=== PATIENT | female | born 1950 | race Caucasian/White ===

== ENCOUNTER → 2018-03-30 14:26 | Outpatient (CLI) | payer BC, SELFPAY ==
[2018-03-30 17:28] LABS: Absolute Lymphocyte Count 3.56 X10^3/ul (0.83-4.51); Absolute Neutrophil Count 8.7 X10^3/uL (2.0-7.7); Basophil# 0.09 X10^3/uL; Basophil% 0.6 % (0-1); Eosinophils% 3.5 % (0-5); Hematocrit 41.6 % (37-47); Hemoglobin 13.4 g/dl (12.0-15.0); Lymphocyte # 3.56 X10^3/ul (4.0); Lymphocyte % 25.2 % (19-41); Mean Corp Hgb Conc 32.2 g/gl (32-36); Mean Corpuscular Hgb 30.7 pg (27.0-32.0); Mean Corpuscular Volume 95.4 fL (81-99); Mean Platelet Vol. 13.6 fl (6.2-12.0); Monocyte% 8.5 % (0-10); Neutrophil # 8.74 X10^3/uL (2.7-7.7); Platelet Count 247 K/mm3 (150-450); RBC Distribution Width CV 14.3 % (11.6-14.6); RBC Distribution Width SD 47.6 fl (35.1-43.9); Red Blood Count 4.36 M/mm3 (4.2-5.4); White Blood Count 14.1 K/mm3 (4.4-11.0)
[2018-03-30 17:33] LABS: POSITIVE COUNT NO; POSITIVE DIFFERENTIAL NO; POSITIVE MORPHOLOGY NO
[2018-03-30 17:52] LABS: AST(SGOT) 18 U/L (15-37); Alanine Aminotransfer ALT/SGPT 27 U/L (13-56); Albumin, Serum 3.8 g/dL (3.2-5.0); Alkaline Phosphatase 60 U/L (45-117); Anion Gap 8 (5-15); BUN 21 mg/dL (7-18); BUN/Creat Ratio 19.3 RATIO (10-20); Calcium,Total 10.9 mg/dL (8.5-10.1); Chloride 106 mmol/L (98-107); Creatinine, Serum 1.09 mg/dL (0.55-1.02); EST Glomerular Filtration Rate 54 mL/min (>60); Est Glom Filt Rate - Afr Amer 65 mL/min (>60); Globulin 3.7 g/dL (2.2-4.2); Glucose 98 mg/dL (74-106); Potassium 4.6 mmol/L (3.5-5.1); Protein, Total 7.5 g/dL (6.4-8.2); Sodium Level 143 mmol/L (136-145); Thyroid Stim Hormone (TSH) 0.89 uIU/mL (0.358-3.74)
== END ==
PROVIDERS: Family Provider Family Medicine Geriatric Medicine; PCP Family Medicine Geriatric Medicine; Visit Provider Family Medicine Geriatric Medicine
DX: E11.9 Type 2 diabetes mellitus without complications (principal); E55.9 Vitamin D deficiency, unspecified; I10 Essential (primary) hypertension
CPT/HCPCS: 36415; 80053; 82306; 84443; 85025

== ENCOUNTER → 2018-09-28 09:54 | Outpatient (CLI) | payer BC, SELFPAY ==
[2018-09-28 12:46] LABS: Absolute Lymphocyte Count 2.54 X10^3/ul (0.83-4.51); Absolute Neutrophil Count 6.4 X10^3/uL (2.0-7.7); Basophil# 0.08 X10^3/uL; Basophil% 0.8 % (0-1); Eosinophil# 0.65 X10^3/uL; Eosinophils% 6.2 % (0-5); Hematocrit 40.2 % (37-47); Hemoglobin 12.8 g/dl (12.0-15.0); Lymphocyte # 2.54 X10^3/ul (4.0); Lymphocyte % 24.3 % (19-41); Mean Corp Hgb Conc 31.8 g/gl (32-36); Mean Corpuscular Hgb 30.7 pg (27.0-32.0); Mean Corpuscular Volume 96.4 fL (81-99); Mean Platelet Vol. 13.1 fl (6.2-12.0); Monocyte# 0.81 X10^3/uL; Monocyte% 7.7 % (0-10); Neutrophil # 6.36 X10^3/uL (2.7-7.7); Neutrophil % 60.7 % (47-70); Platelet Count 217 K/mm3 (150-450); RBC Distribution Width CV 14.4 % (11.6-14.6); RBC Distribution Width SD 48.6 fl (35.1-43.9); Red Blood Count 4.17 M/mm3 (4.2-5.4); White Blood Count 10.5 K/mm3 (4.4-11.0)
[2018-09-28 12:49] LABS: POSITIVE COUNT NO; POSITIVE DIFFERENTIAL NO; POSITIVE MORPHOLOGY NO
[2018-09-28 12:56] LABS: Vitamin D,25 Hydroxy 62.2 ng/mL (29.95-100.01)
[2018-09-28 13:00] LABS: ALB/GLOB Ratio 1.1 RATIO (0.9-2.4); AST(SGOT) 21 U/L (15-37); Alanine Aminotransfer ALT/SGPT 32 U/L (13-56); Albumin, Serum 3.8 g/dL (3.2-5.0); Alkaline Phosphatase 64 U/L (45-117); Anion Gap 8 (5-15); BUN 22 mg/dL (7-18); BUN/Creat Ratio 20.8 RATIO (10-20); Calcium,Total 10.5 mg/dL (8.5-10.1); Chloride 108 mmol/L (98-107); Creatinine, Serum 1.06 mg/dL (0.55-1.02); EST Glomerular Filtration Rate 55 mL/min (>60); Est Glom Filt Rate - Afr Amer 67 mL/min (>60); Globulin 3.4 g/dL (2.2-4.2); Glucose 116 mg/dL (74-106); Protein, Total 7.2 g/dL (6.4-8.2); Sodium Level 145 mmol/L (136-145); Thyroid Stim Hormone (TSH) 0.84 uIU/mL (0.358-3.74)
== END ==
PROVIDERS: Family Provider Family Medicine Geriatric Medicine; PCP Family Medicine Geriatric Medicine; Visit Provider Family Medicine Geriatric Medicine
DX: E11.9 Type 2 diabetes mellitus without complications (principal); E55.9 Vitamin D deficiency, unspecified; I10 Essential (primary) hypertension
CPT/HCPCS: 36415; 80053; 82306; 84443; 85025

== ENCOUNTER → 2018-10-09 17:33 | Outpatient (CLI) | payer BC, SELFPAY | PROVIDERS: Family Provider Family Medicine Geriatric Medicine; PCP Family Medicine Geriatric Medicine; Referring Provider Family Medicine Geriatric Medicine; Visit Provider Family Medicine Geriatric Medicine | DX: R68.83 Chills (without fever) (principal) | CPT/HCPCS: 87633 ==

== ENCOUNTER → 2018-11-23 14:11 | Outpatient (CLI) | payer BC, SELFPAY ==
--- NOTE | 2018-11-23 14:16 | BI_ITS ---
MAMMOGRAPHY - BILATERAL SCREENING 3-D NELI SYNTHESIS REASON FOR EXAM: Female, 67 years old. Bilateral Screening 3-D tomosynthesis PERTINENT HISTORY: No significant family history. TECHNIQUE: 2-D mammograms and 3-D Neli synthesis of the breast (s) were performed. CAD was performed. COMPARISON: October 13, 2016, December 13, 2014 FINDINGS: The breast composition is almost entirely fat. Scattered benign calcifications are stable. There are stable lymph nodes. No dense spiculated masses or suspicious microcalcifications are identified. No architectural distortion is identified. There is no skin thickening or retraction. There has been no significant change since the prior study. BI/SCREENING MAMM (CAD), BILAT IMPRESSION: No mammographic signs of malignancy. Routine yearly mammograms recommended. ASSESSMENT CATEGORY: BIRADS Category 2: Benign. A letter regarding these results will be sent to the patient by the facility within 30 days. FOLLOW UP RECOMMENDATION: Yearly follow up mammogram recommended. (A) Approximately 10% of breast cancers are not detected by mammography. A normal mammogram should not delay biopsy of a clinically suspicious abnormality. Electronically Signed: Tio Mcdaniel MD at 17:00 EDT , Service support ,
--- NOTE | 2018-11-23 14:19 | BD_ITS ---
STUDY: DUAL ENERGY X-RAY ABSORPTIOMETRY / DXA REASON FOR EXAM: Female, 67 years old. The patient is postmenopausal. Loss of height. TECHNIQUE: Bone Mineral Density (BMD) measurements of lumbar spine and bilateral hips were obtained. COMPARISON: None. FINDINGS: Lumbar Spine (L1-L4): g/cm2 (1.322) / T-score (1.3) / Z-score (2.9) Findings are suggestive of normal bone density with a low fracture risk. Left Femur Total: g/cm2 (0.993) / T-score (-0.1) / Z-score (1.1) Left Femoral Neck: g/cm2 (0.968) / T-score (-0.5) / Z-score (1.0) Right Femur Total: g/cm2 (0.992) / T-score (-0.1) / Z-score (1.1) Right Femoral Neck: g/cm2 (0.913) / T-score (-0.9) / Z-score (0.6) BD/Dexa Bone Density Study IMPRESSION: The patient is considered normal as outlined below according to World Mookie Organization (WHO) criteria with a low fracture risk. Reference Information: The T-score is the number of standard deviations above or below the standard which is normal for young adults at their peak bone mineral density. The World Health Organization (WHO) interprets the T-scores as follows: Above -1 Normal bone density Between -1 and -2.5 Osteopenia Equal to / or below -2.5 Osteoporosis As a practical clinical guideline, osteopenia may be graded as follows: Mild -1 through -1.5 Moderate -1.6 through -2.0 Severe -2.1 through -2.4 The Z-score is the number of standard deviations above or below age-matched controls. A Z-score of less than -1.5 would be considered abnormal. References: 1. NIH Osteoporosis and Related Bone Diseases http://www.osteo.org 2. International Society for Clinical Densitometry http://www.iscd.org 3. National Osteoporosis Foundation http://www.nof.org Electronically Signed: Fernando Caro, at 8:19 EDT , Service support ,
== END ==
PROVIDERS: Family Provider Family Medicine Geriatric Medicine; PCP Family Medicine Geriatric Medicine; Referring Provider Family Medicine Geriatric Medicine; Visit Provider Family Medicine Geriatric Medicine
DX: Z12.31 Encounter for screening mammogram for malignant neoplasm of breast (principal); Z78.0 Asymptomatic menopausal state
CPT/HCPCS: 77063; 77067; 77080

== ENCOUNTER → 2019-03-29 | Outpatient (CLI) | payer BC, SELFPAY ==
[2019-03-29 12:51] LABS: Absolute Lymphocyte Count 2.68 X10^3/uL (0.83-4.51); Absolute Neutrophil Count 5.6 X10^3/uL (2.0-7.7); Basophil% 1.1 % (0-1); Eosinophils% 5.3 % (0-5); Hematocrit 40.2 % (37-47); Lymphocyte # 2.68 X10^3/ul (4.0); Lymphocyte % 28.2 % (19-41); Mean Corp Hgb Conc 32.3 g/dL (32-36); Mean Corpuscular Hgb 30.2 pg (27.0-32.0); Mean Corpuscular Volume 93.5 fL (81-99); Mean Platelet Vol. 13.2 fl (6.2-12.0); Monocyte# 0.64 X10^3/uL; Monocyte% 6.7 % (0-10); NRBC Flagged by Analyzer 0 % (0-5); Neutrophil # 5.57 X10^3/uL (2.7-7.7); Neutrophil % 58.4 % (47-70); Platelet Count 209 K/mm3 (150-450); RBC Distribution Width SD 47.5 fl (35.1-43.9); White Blood Count 9.5 K/mm3 (4.4-11.0)
[2019-03-29 13:06] LABS: Vitamin D,25 Hydroxy 57.3 ng/mL (29.95-100.01)
[2019-03-29 13:36] LABS: ALB/GLOB Ratio 1.1 RATIO (0.9-2.4); AST(SGOT) 12 U/L (15-37); Alanine Aminotransfer ALT/SGPT 21 U/L (13-56); Albumin, Serum 3.7 g/dL (3.2-5.0); Alkaline Phosphatase 63 U/L (45-117); Anion Gap 5 (5-15); BUN 30 mg/dL (7-18); BUN/Creat Ratio 30.1 RATIO (10-20); Calcium,Total 10.1 mg/dL (8.5-10.1); Chloride 108 mmol/L (98-107); EST Glomerular Filtration Rate 59 mL/min (>60); Est Glom Filt Rate - Afr Amer 72 mL/min (>60); Globulin 3.3 g/dL (2.2-4.2); Glucose 121 mg/dL (74-106); Potassium 3.9 mmol/L (3.5-5.1); Sodium Level 141 mmol/L (136-145); Thyroid Stim Hormone (TSH) 0.95 uIU/mL (0.358-3.74)
== END | disposition home or self-care (01) ==
LOC: POLAB3 08:42
PROVIDERS: Family Provider Family Medicine Geriatric Medicine; PCP Family Medicine Geriatric Medicine; Visit Provider Family Medicine Geriatric Medicine
DX: E11.9 Type 2 diabetes mellitus without complications (principal); E55.9 Vitamin D deficiency, unspecified; I10 Essential (primary) hypertension
CPT/HCPCS: 36415; 80053; 82306; 84443; 85025

== ENCOUNTER → 2019-08-13 17:03 | Outpatient (CLI) | payer BC, SELFPAY ==
--- NOTE | 2019-08-13 17:06 | RAD_ITS ---
STUDY: X-RAY CHEST REASON FOR EXAM: Female, 68 years old. Chronic bronchitis with chills. No fever. TECHNIQUE: PA and lateral views of the chest. COMPARISON: 07/31/2017. FINDINGS: The lungs are clear and expanded. There is no demonstrated pleural abnormality. Normal size heart. Normal mediastinum and jame. Normal visualized pulmonary arteries. There is atherosclerotic calcification of the aortic arch with tortuosity. There are diffuse degenerative changes of the visualized thoracic spine. There is degenerative osteoarthritis of the bilateral shoulders. There is no demonstrated abnormality of the visualized soft tissue structures of the upper abdomen. RAD/Chest PA and Lateral IMPRESSION: No acute cardiopulmonary disease. Complete resolution of previously seen left lower lobe infiltrate. Electronically Signed: Donna Stinson MD at 22:44 EST , Service support ,
== END ==
PROVIDERS: Family Provider Family Medicine Geriatric Medicine; PCP Family Medicine Geriatric Medicine; Referring Provider Family Medicine Geriatric Medicine; Visit Provider Family Medicine Geriatric Medicine
DX: J41.0 Simple chronic bronchitis (principal); R68.83 Chills (without fever)
CPT/HCPCS: 71046; 87633

== ENCOUNTER → 2019-10-01 09:13 | Outpatient (CLI) | payer OTHER, SELFPAY ==
[2019-10-01 12:15] LABS: Absolute Lymphocyte Count 2.56 X10^3/uL (0.83-4.51); Absolute Neutrophil Count 8.3 X10^3/uL (2.0-7.7); Basophil# 0.11 X10^3/uL; Basophil% 0.9 % (0-1); Eosinophil# 0.35 X10^3/uL; Eosinophils% 2.8 % (0-5); Hematocrit 42.5 % (37-47); Hemoglobin 13.4 g/dL (12.0-15.0); Lymphocyte # 2.56 X10^3/ul (4.0); Lymphocyte % 20.8 % (19-41); Mean Corp Hgb Conc 31.5 g/dL (32-36); Mean Corpuscular Volume 95.1 fL (81-99); Mean Platelet Vol. 12.8 fl (6.2-12.0); Monocyte# 0.96 X10^3/uL; Monocyte% 7.8 % (0-10); NRBC Flagged by Analyzer 0 % (0-5); Neutrophil # 8.26 X10^3/uL (2.7-7.7); Neutrophil % 67.1 % (47-70); Platelet Count 267 K/mm3 (150-450); RBC Distribution Width SD 48.3 fl (35.1-43.9); Red Blood Count 4.47 M/mm3 (4.2-5.4); White Blood Count 12.3 K/mm3 (4.4-11.0)
[2019-10-01 12:52] LABS: Vitamin D,25 Hydroxy 51.2 ng/mL (29.95-100.01)
[2019-10-01 13:16] LABS: ALB/GLOB Ratio 1.2 RATIO (0.9-2.4); AST(SGOT) 17 U/L (15-37); Alanine Aminotransfer ALT/SGPT 30 U/L (13-56); Albumin, Serum 4.1 g/dL (3.2-5.0); Alkaline Phosphatase 64 U/L (45-117); Anion Gap 4 (5-15); BUN 33 mg/dL (7-18); BUN/Creat Ratio 24.4 RATIO (10-20); Calcium,Total 11.7 mg/dL (8.5-10.1); Chloride 108 mmol/L (98-107); Creatinine, Serum 1.35 mg/dL (0.55-1.02); EST Glomerular Filtration Rate 42 mL/min (>60); Est Glom Filt Rate - Afr Amer 50 mL/min (>60); Globulin 3.5 g/dL (2.2-4.2); Glucose 129 mg/dL (74-106); Potassium 4.6 mmol/L (3.5-5.1); Protein, Total 7.6 g/dL (6.4-8.2); Sodium Level 141 mmol/L (136-145)
== END ==
PROVIDERS: PCP Family Medicine Geriatric Medicine; Visit Provider Family Medicine Geriatric Medicine
DX: E11.9 Type 2 diabetes mellitus without complications (principal); E55.9 Vitamin D deficiency, unspecified; I10 Essential (primary) hypertension
CPT/HCPCS: 36415; 80053; 82306; 84443; 85025

== ENCOUNTER → 2019-10-18 06:59 | Outpatient (CLI) | payer OTHER, SELFPAY ==
--- NOTE | 2019-10-18 07:03 | CT_ITS ---
STUDY: LOW DOSE CT LUNG CANCER SCREENING REASON FOR EXAM: Female, 68 years old. TOBACCO ABUSE -- +SMOKER 1PPD X40 YEARS -- HX-DIAB,HTN RADIATION DOSAGE (If Supplied By Facility): CTDIvol = ( 2.01 ) mGy, DLP = ( 62.18 ) mGycm TECHNIQUE: No contrast was administered. Low dose technique was utilized (average mAS-38 and kVp 120). 1.25 mm axial source images with a slice interval of 1.25-mm were reconstructed in lung windows. 2.5 mm axial source images with a slice interval of 2.5-mm were reconstructed in lung windows. 5.0 mm axial source images with a slice interval of 5.0-mm were reconstructed in soft tissue windows. Nodule measured using lung windows on PACS and/or independent workstation with automated measurement of minimum and maximum diameter. Nodule measurement reported as average diameter rounded to the nearest whole number. Growth is defined as an increase ins size of greater than 1.5 mm. COMPARISON: Comparison is made with prior CT scan of the thorax dated October 02, 2015. NODULES: 2 mm noncalcified nodule in the lateral aspect of the right upper lobe as seen on axial image #43. There is a 3.2 mm noncalcified nodule in the posterior medial aspect of the left upper lobe abutting the left major fissure. There is a 3 mm well-defined noncalcified nodule in the lateral aspect of the right upper lobe on axial image #74. There is also evidence of a 3.4 mm noncalcified nodule in the lateral aspect of the right upper lobe as seen on axial image #85. There is a 3 mm noncalcified nodule in the right middle lobe as seen on axial image #114. There is a 6.7 mm noncalcified nodule in the lateral right middle lobe axial axial image #145. Total lung nodules (excluding granulomas): 5 Emphysema: Mild emphysematous changes. Aorta: Atherosclerotic calcification. Coronary arteries: Coronary artery calcification. CT/Low Dose CT Lung Screening IMPRESSION: Lung-RADS category 3 - Continue screening with LDCT in 6 months. IMPORTANT NOTES FOR USE: ACR Lung-RADS Version 1.0 Assessment Categories Release Date: December 31, 2013 Category: Coded 0-4 bases on nodule(s) with highest degree of suspicion. Negative screen is defined as categories 1 and 2; a positive screen is defined as categories 3 and 4. Category 3 and 4A nodules that are unchanged on interval CT should be coded as category 2, and individuals returned to screening in 12 months. Category 4X: Category 3 or 4 nodules with additional imaging findings that increase the suspicion of lung cancer, such as spiculation, GGN that doubles in size in 1 year, enlarged lymph notes, etc. Category Modifiers: S (significant finding unrelated to lung cancer) and C (prior history of treated lung cancer) may be added to the 0-4 Lung-RADS Electronically Signed: Fernando Caro, at 9:09 EST , Service support ,
== END ==
LOC: CT 07:00
PROVIDERS: PCP Family Medicine Geriatric Medicine; Referring Provider Family Medicine Geriatric Medicine; Visit Provider Family Medicine Geriatric Medicine
DX: Z72.0 Tobacco use (principal)
CPT/HCPCS: G0297

== ENCOUNTER → 2019-12-13 10:35 | Outpatient (CLI) | payer OTHER, SELFPAY ==
[2019-12-13 12:33] LABS: Albumin, Serum 3.7 g/dL (3.2-5.0); BUN 32 mg/dL (7-18); BUN/Creat Ratio 25.8 RATIO (10-20); Calcium,Total 10.3 mg/dL (8.5-10.1); Chloride 103 mmol/L (98-107); Creatinine, Serum 1.24 mg/dL (0.55-1.02); EST Glomerular Filtration Rate 46 mL/min (>60); Est Glom Filt Rate - Afr Amer 56 mL/min (>60); Glucose 119 mg/dL (74-106); Phosphorus 2.4 mg/dL (2.5-4.9); Potassium 3.9 mmol/L (3.5-5.1); Protein, Urine (Random) 52.7 mg/dL (<11.9); Protein:Creat Ratio 735 mg/g CRE (0-200); Sodium Level 140 mmol/L (136-145)
== END ==
PROVIDERS: PCP Family Medicine Geriatric Medicine; Visit Provider Internal Medicine Nephrology
DX: E11.22 Type 2 diabetes mellitus with diabetic chronic kidney disease (principal); N18.3 Chronic kidney disease, stage 3 (moderate)
CPT/HCPCS: 36415; 80069; 82570; 84156

== ENCOUNTER → 2020-01-03 15:15 | Outpatient (CLI) | payer OTHER, SELFPAY ==
--- NOTE | 2020-01-03 15:18 | RAD_ITS ---
STUDY: X-RAY - ABDOMEN/PELVIS REASON FOR EXAM: Female, 69 years old. LEFT SIDE FLANK PAIN TECHNIQUE: Single AP view of the abdomen / pelvis. COMPARISON: Comparison is made with prior study dated May 25, 2016. FINDINGS: Elevation of the right hemidiaphragm. The lungs are clear. There is an abundance of fecal material throughout the colon. Multiple calculi are seen in the left kidney. These have increased in size and number as compared to prior study. There is also evidence of a 8.9 mm x 4 mm calcification overlying the transverse process of the L3 vertebrae on the left side. This most likely represents a mid left ureteral calculus. There are calcified phleboliths in the pelvis. Normal visualized osseous structures. RAD/Abdomen Single View IMPRESSION: Multiple left intrarenal calculi which have increased in size and number as compared to prior study. Findings suggestive of an 8.9 mm calculus in the midportion of the left ureter overlying the L3 transverse process. Electronically Signed: Fernando Caro, at 16:02 EDT , Service support ,
== END ==
PROVIDERS: PCP Family Medicine Geriatric Medicine; Referring Provider Urology; Visit Provider Urology
DX: R10.84 Generalized abdominal pain (principal)
CPT/HCPCS: 74018

== ENCOUNTER 2020-01-11 07:05 | Day surgery (SDC) | payer OTHER, SELFPAY ==
[2020-01-11 07:31] VITALS: BP 129/82; PULSE 71; RESP 15; TEMP 35.8; O2SAT 95; BMI 28.1
[2020-01-11] MEDS: Lactated Ringers 1,000 ML 100 ML IV (07:43)
[2020-01-11 08:01] LABS: Bedside Glucose 140 mg/dL (70-110)
--- NOTE | 2020-01-11 08:21 | HP.PCM_ITS ---
Problem List (1) Left renal stone Status: Acute History of Present Illness Date of Admission: 01/11/20 Chief Complaint: Left kidney stone left ureter stone The patient is a 69 year old female with a history of stones presents to the office with left flank pain, KUB was done to demonstrate a stone in the proximal ureter causing obstruction and also multiple large stones within the left kidney. Today working and plan to treat the stone in the ureter and maybe 1 or 2 stones in the kidney she understands it is possible that she will need multiple procedures given the size and the burden of stone disease and today we will plan to laser as much as possible but she will need a second procedure. She understands this will bring her back probably first second as well procedure after the today's lasering in a week or 2. Past Medical History Allergies Penicillins [PCN] Allergy (Verified 01/11/20 07:29) Unknown Home Medications: Ambulatory Orders Medication Instructions Recorded Aspirin E.C. [Ecotrin] 81 mg PO DAILY@0800 11/03/14 Metoprolol Tartrate [Lopressor 25 mg PO BID 11/03/14 (Beta Lambert)] Multivitamins,Therapeutic 1 tablet PO DAILY 11/03/14 [Multivitamin] Niacin [Slo-Niacin] 250 mg PO DAILY 11/03/14 Omeprazole [Prilosec] 20 mg PO DAILY 11/03/14 Rosuvastatin Calcium [Crestor] 40 mg PO DAILY 11/03/14 metFORMIN HCl [Glucophage] 1,000 mg PO BIDCM 11/03/14 Acetaminophen/Caffeine [Excedrin 1 each PO BID PRN 02/10/16 Tension Headache Cplt] Cholecalciferol (Vitamin D3) 5,000 unit PO DAILY 02/10/16 [Vitamin D] Cyanocobalamin (Vitamin B-12) 1,000 mcg PO DAILY 02/10/16 [Vitamin B-12] Lisinopril [Zestril] 20 mg PO QHS 01/09/20 Surgical History: no surgical history Smoking Status: Current some day smoker Tobacco Use: Cigarettes Review of Systems Constitutional: Denies: Chills, Fever, Weight Change HEENT: Denies: Head Aches, Sinus Congestion, Sinus Drainage Cardiovascular: Denies: Chest Pain, Palpitations Respiratory: Denies: Cough, Shortness of breath at rest, Sputum production Gastrointestinal: Denies: Abdominal Pain, Nausea, Vomiting Genitourinary: Denies: Dysuria Musculoskeletal: Denies: Joint Pain, Joint Tenderness Skin: Denies: Rash, Wounds Neurological: Denies: Numbness, Tingling, Focal weakness Psychiatric: Denies: Anxiety, Depression, Homicidal Ideations, Suicidal Ideations Hematologic/ Lymphatic: Denies: Easy Bruising, Easy Bleeding VTE Information - Inpt Only VTE Present on Admission: No VTE Mechan Device Prophylaxis: SCD's Patient Problems: Active and Suspected Problems Left renal stone (Acute) - Physical Exam Vitals/I&O's: Vital Signs Temp Pulse Resp BP Pulse Ox 96.5 F L 71 15 129/82 H 95 01/11/20 07:31 01/11/20 07:31 01/11/20 07:31 01/11/20 07:31 01/11/20 07:31 Oxygen Delivery Method Room Air Weight: 69.8 kg Body Mass Index (BMI) 28.1 Finger Stick Blood Glucose 132 General: Alert, Oriented x3, Cooperative HEENT: Atraumatic, PERRLA, EOMI, Normocephalic Neck: Supple, No JVD, Negative Carotid Bruits Lungs: Clear to auscultation, Normal air movement Cardiovascular: Regular rate, No murmurs Abdomen: Bowel Sounds Present, Soft, Non Tender Extremities: No edema, Capillary Refill Less than 3 Seconds Skin: No rashes, No breakdown Musculoskeletal: No Tenderness to Palpation of Joints or Extremities Neurological: Cranial nerves II-XII grossly intact Psych/Mental Status: Normal Affect, Appropriate Laboratory Results 01/11/20 07:26: POC Glucose 140 H Current Medications Lactated Ringer's () 1,000 mls @ 100 mls/hr IV .Q10H [facility] Last Admin: 01/11/20 07:43 Dose: 100 mls/hr Documented by: Assessment/Plan All Active Problems Left renal stone (Acute) 69-year-old female with a proximal stone is causing obstruction of the left ureter also several stones in the left kidney plan to proceed with cystoscopy, left retrograde pyelogram, balloon dilation of the ureter, laser lithotripsy of stones and a stent placement and she will probably need a second procedure after this given the number of stone burden.
--- NOTE | 2020-01-11 08:24 | DCINST_ITS ---
Discharge Diet: Light diet - advance as tolerated Discharge Activity: Return to Normal Activity Call your doctor if you observe: Fever of 101 or Higher Allergies/Adverse Reactions: Allergies Penicillins [PCN] Allergy (Verified 01/11/20 07:29) Unknown Medications to take at Discharge Aspirin E.C. [Ecotrin] 81 mg PO DAILY@0800 11/03/14 Metoprolol Tartrate [Lopressor (Beta Lambert)] 25 mg PO BID 11/03/14 Multivitamins,Therapeutic [Multivitamin] 1 tablet PO DAILY 11/03/14 Niacin [Slo-Niacin] 250 mg PO DAILY 11/03/14 Omeprazole [Prilosec] 20 mg PO DAILY 11/03/14 Rosuvastatin Calcium [Crestor] 40 mg PO DAILY 11/03/14 metFORMIN HCl [Glucophage] 1,000 mg PO BIDCM 11/03/14 Acetaminophen/Caffeine [Excedrin Tension Headache Cplt] 1 each PO BID PRN 02/10/16 Cholecalciferol (Vitamin D3) [Vitamin D] 5,000 unit PO DAILY 02/10/16 Cyanocobalamin (Vitamin B-12) [Vitamin B-12] 1,000 mcg PO DAILY 02/10/16 Lisinopril [Zestril] 20 mg PO QHS 01/09/20 Primary Care Physician: Garrett Alvarez Chi, MD [Primary Care Provider] - Test Results: Test results from this visit will be discussed in further detail at your follow- up appointment, if applicable. Please Follow Up With: Dashawn Acevedo MD When: Call for an appt next week with an Xray
[2020-01-11] MEDS: Cefazolin 2 GM in 0.9% Normal Saline 100 ML IV (08:33)
--- NOTE | 2020-01-11 09:08 | OP.PCM_ITS ---
Problem List (1) Left renal stone Status: Acute Report of Operation Date of Procedure: 01/11/20 Pre-Operative Diagnosis: Multiple stones in the left kidney and also stone in the left ureter Post-Operative Diagnosis: Same Surgery/Procedure Performed:: Cystoscopy, balloon dilation of the left ureter, retrograde pyelogram, interpretation fluoroscopic images, left ureteroscopy laser lithotripsy of stone and left stent placement Description of Surgical Findings:: 69-year-old female presented to the office with left flank pain KUB was done she has a stone in the proximal ureter causing obstruction she also has multiple stones left kidney plan today is to proceed and laser the stone in the ureter we will try laser some of the stones in the kidney as well but she has too much of a stone burden to be taken care of in one setting by bring her back for shockwave lithotripsy also the stones in the kidney are difficult to reach with ureteroscopy given their location so she will have to treat those with shockwave lithotripsy at a different setting. Patient was taken back to the operating room after smooth induction of general anesthesia she was placed supine on the table, the urethrovaginal area prepped and draped in usual sterile fashion, went to the bladder with a 21 [place] rigid cystourethroscope, the urethra was normal the trigone was normal the bladder is normal no tumors or stones seen within the bladder I then cannulated the left ureteral orifice and then used a 15 [place] balloon dilator and dilated the distal left ureter. And after this I was able to get into the ureter quite easily left the wire in place went up the ureter with the ureteroscope and encountered the stone and then used laser lithotripsy, 270 micron laser fiber and laser the stone little tiny pieces once a stone was successfully lasered a little tiny pieces that I went to the kidney she had 3 other big stones in the kidney laser the upper pole stone the midpole stone but I could not get to the lower pole stone very well lasered this partially. Performed a retrograde pyelogram looked at the fluoroscopic images worked our way down the ureter and then after this we advanced a wire up into the kidney and over the wire place a stent stent was in good position of the kidney and bladder drained the bladder and at this point the plan is to see her next week with a KUB and want to treat the remaining stones in the kidney with shockwave lithotripsy. Patient anesthetic is being reversed plan to see her back next week with a KUB. Type of Anesthesia:: General Drains: stent left side - Admit VTE Documentation VTE Present on Admission: No VTE Mechan Device Prophylaxis: SCD's
[2020-01-11 09:17] VITALS: BP 129/82; BP 139/75; PULSE 84; RESP 16; TEMP 36.4; O2SAT 95
[2020-01-11 09:30] VITALS: BP 129/82; BP 138/64; PULSE 78; RESP 16; O2SAT 94
[2020-01-11] MEDS: Ketorolac 15 MG/ML Vial IV (09:34)
[2020-01-11 09:36] LABS: Bedside Glucose 129 mg/dL (70-110)
[2020-01-11 09:43] VITALS: BP 114/87; BP 129/82; PULSE 76; RESP 16; TEMP 36.4; O2SAT 94
[2020-01-11 10:40] VITALS: BP 129/82; BP 137/89; PULSE 72; RESP 16; TEMP 36.3; O2SAT 95
== END 2020-01-11 10:44 | disposition home or self-care (01) ==
LOC: SDC 07:06 → AC 07:08
PROVIDERS: PCP Family Medicine Geriatric Medicine; Referring Provider Urology; Visit Provider Urology
PROC: 0TJ98ZZ Inspection of Ureter, Via Natural or Artificial Opening Endoscopic (ICD-10-PCS; CPT 52352; principal; 2020-01-11 09:00)
DX: N13.2 Hydronephrosis with renal and ureteral calculous obstruction (principal); I10 Essential (primary) hypertension; E11.9 Type 2 diabetes mellitus without complications; F32.9 Major depressive disorder, single episode, unspecified; K21.9 Gastro-esophageal reflux disease without esophagitis; E78.00 Pure hypercholesterolemia, unspecified; Z78.0 Asymptomatic menopausal state; Z87.442 Personal history of urinary calculi; Z79.84 Long term (current) use of oral hypoglycemic drugs; Z79.82 Long term (current) use of aspirin; Z79.899 Other long term (current) drug therapy; F17.210 Nicotine dependence, cigarettes, uncomplicated
CPT/HCPCS: 52356; 76000; 82962; J7120; C1726; C1769; C2617; J2405

== ENCOUNTER → 2020-01-17 07:43 | Outpatient (CLI) | payer OTHER, SELFPAY ==
[2020-01-11 07:31] VITALS: BMI 28.1
--- NOTE | 2020-01-17 07:49 | RAD_ITS ---
STUDY: X-RAY - ABDOMEN/PELVIS REASON FOR EXAM: Female, 69 years old. LEFT SIDE KIDNEY STONES TECHNIQUE: Single AP view of the abdomen / pelvis. COMPARISON: Comparison is made with prior study dated January 03, 2020. FINDINGS: Normal visualized lung bases. There is a moderate amount of colonic fecal material. A left-sided double-J stent catheter has been placed. The proximal tip is in the left renal pelvis and the distal tip is in the left-sided bladder. The previously seen calculus in the midportion of the left ureter faintly seen. This has decreased in size and density. These calculi in the left kidney have decreased in size as well as density as compared to prior study. Scattered radiopaque pills are seen throughout the colon. Prior cystectomy. There are diffuse degenerative changes of the visualized lumbar spine. RAD/Abdomen Single View IMPRESSION: Left-sided double-J stent catheter. Interval decrease in size and densities of the left mid ureteral calculus as well as the left intrarenal calculus. Electronically Signed: Fernando Caro, at 8:48 EDT , Service support ,
== END ==
PROVIDERS: PCP Family Medicine Geriatric Medicine; Referring Provider Urology; Visit Provider Urology
DX: Z87.442 Personal history of urinary calculi (principal)
CPT/HCPCS: 74018

== ENCOUNTER 2020-01-25 08:00 | Day surgery (SDC) | payer OTHER, SELFPAY ==
[2020-01-25 08:24] VITALS: BP 130/60; PULSE 72; RESP 15; TEMP 36.2; O2SAT 97; BMI 28.0
[2020-01-25] MEDS: Lactated Ringers 1,000 ML 100 ML IV (08:44)
[2020-01-25 08:50] LABS: Bedside Glucose 129 mg/dL (70-110)
[2020-01-25] MEDS: Cefazolin 2 GM in 0.9% Normal Saline 100 ML IV (10:04)
--- NOTE | 2020-01-25 10:06 | PCM.HP.STD ---
History of Present Illness Date of Admission: 01/25/20 Chief Complaint: Left kidney stone status post stent and laser of ureteral stone The patient is a 69 year old female who presented with obstructing stone in the left proximal ureter she underwent ureteroscopy and laser the stone in the ureter multiple stones in the kidney that could not be reached with ureteroscopy, therefore stent was left in place she now presents for shockwave lithotripsy of the stones in the kidney. This is treatment of different stones that are in the kidney that could not be reach with ureteroscopy. Past Medical History Allergies acetaminophen [From Percocet] Allergy (Verified 01/25/20 08:23) Nausea oxycodone [From Percocet] Allergy (Verified 01/25/20 08:23) Nausea Penicillins [PCN] Allergy (Verified 01/25/20 08:23) Unknown Home Medications: Ambulatory Orders Medication Instructions Recorded Aspirin E.C. [Ecotrin] 81 mg PO DAILY@0800 11/03/14 Metoprolol Tartrate [Lopressor 25 mg PO BID 11/03/14 (Beta Lambert)] Multivitamins,Therapeutic 1 tablet PO DAILY 11/03/14 [Multivitamin] Niacin [Slo-Niacin] 250 mg PO DAILY 11/03/14 Omeprazole [Prilosec] 20 mg PO DAILY 11/03/14 Rosuvastatin Calcium [Crestor] 40 mg PO DAILY 11/03/14 metFORMIN HCl [Glucophage] 1,000 mg PO BIDCM 11/03/14 Acetaminophen/Caffeine [Excedrin 1 each PO BID PRN 02/10/16 Tension Headache Cplt] Cholecalciferol (Vitamin D3) 5,000 unit PO DAILY 02/10/16 [Vitamin D] Cyanocobalamin (Vitamin B-12) 1,000 mcg PO DAILY 02/10/16 [Vitamin B-12] Lisinopril [Zestril] 20 mg PO QHS 01/09/20 Vitamin B Complex 1 ea PO DAILY 01/22/20 Hydrocodone/Acetaminophen [[place] 1 ea PO Q4H PRN PRN 5 Days #20 tab 01/25/20 5-325 Tablet] Surgical History: no surgical history Smoking Status: Current some day smoker Review of Systems Constitutional: Denies: Chills, Fever, Weight Change HEENT: Denies: Head Aches, Sinus Congestion, Sinus Drainage Cardiovascular: Denies: Chest Pain, Palpitations Respiratory: Denies: Cough, Shortness of breath at rest, Sputum production Gastrointestinal: Denies: Abdominal Pain, Nausea, Vomiting Genitourinary: Denies: Dysuria Musculoskeletal: Denies: Joint Pain, Joint Tenderness Skin: Denies: Rash, Wounds Neurological: Denies: Numbness, Tingling, Focal weakness Psychiatric: Denies: Anxiety, Depression, Homicidal Ideations, Suicidal Ideations Hematologic/ Lymphatic: Denies: Easy Bruising, Easy Bleeding VTE Information - Inpt Only VTE Present on Admission: No VTE Mechan Device Prophylaxis: SCD's - Physical Exam Vitals/I&O's: Vital Signs Temp Pulse Resp BP Pulse Ox 97.2 F L 72 15 130/60 H 97 01/25/20 08:24 01/25/20 08:24 01/25/20 08:24 01/25/20 08:24 01/25/20 08:24 Oxygen Delivery Method Room Air Weight: 69.7 kg Body Mass Index (BMI) 28.0 Finger Stick Blood Glucose 132 General: Alert, Oriented x3, Cooperative HEENT: Atraumatic, PERRLA, EOMI, Normocephalic Neck: Supple, No JVD, Negative Carotid Bruits Lungs: Clear to auscultation, Normal air movement Cardiovascular: Regular rate, No murmurs Abdomen: Bowel Sounds Present, Soft, Non Tender Extremities: No edema, Capillary Refill Less than 3 Seconds Skin: No rashes, No breakdown Musculoskeletal: No Tenderness to Palpation of Joints or Extremities Neurological: Cranial nerves II-XII grossly intact Psych/Mental Status: Normal Affect, Appropriate Microbiology Past 72 Hours 01/24/20 16:40 Mucosa - Nasopharyngeal Coronavirus COVID-19 PCR - Final Laboratory Results 01/25/20 08:27: POC Glucose 129 H 01/25/20 16:40: COVID-19 ([facility]) Cancelled Current Medications Lactated Ringer's () 1,000 mls @ 100 mls/hr IV .Q10H [facility] Last Admin: 01/25/20 08:44 Dose: 100 mls/hr Documented by: Assessment/Plan All Active Problems Left renal stone (Acute) 69-year-old female status post ureteroscopy and laser of a ureteral stone she had multiple stones left kidney she has stent in place plan to proceed with shockwave lithotripsy of the stones in the kidney plan to see her back about week later with a KUB and removal of the stent in the office.
--- NOTE | 2020-01-25 10:07 | PCM.DC.URO ---
Discharge Diet: No Restrictions, Light diet - advance as tolerated Discharge Activity: Return to Normal Activity, May Not Drive - for 2 days. Additional Activity Instructions:: Please be aware that pain medications may cause nausea. You should typically eat light foods as you take your pain medication. Pain medication may cause constipation, if this is a problem for you, please discuss with your doctor. Instructions: Shock Wave Lithotripsy Allergies/Adverse Reactions: Allergies acetaminophen [From Percocet] Allergy (Verified 01/25/20 08:23) Nausea oxycodone [From Percocet] Allergy (Verified 01/25/20 08:23) Nausea Penicillins [PCN] Allergy (Verified 01/25/20 08:23) Unknown Medications to take at Discharge Aspirin E.C. [Ecotrin] 81 mg PO DAILY@0800 11/03/14 Metoprolol Tartrate [Lopressor (Beta Lambert)] 25 mg PO BID 11/03/14 Multivitamins,Therapeutic [Multivitamin] 1 tablet PO DAILY 11/03/14 Niacin [Slo-Niacin] 250 mg PO DAILY 11/03/14 Omeprazole [Prilosec] 20 mg PO DAILY 11/03/14 Rosuvastatin Calcium [Crestor] 40 mg PO DAILY 11/03/14 metFORMIN HCl [Glucophage] 1,000 mg PO BIDCM 11/03/14 Acetaminophen/Caffeine [Excedrin Tension Headache Cplt] 1 each PO BID PRN 02/10/16 Cholecalciferol (Vitamin D3) [Vitamin D] 5,000 unit PO DAILY 02/10/16 Cyanocobalamin (Vitamin B-12) [Vitamin B-12] 1,000 mcg PO DAILY 02/10/16 Lisinopril [Zestril] 20 mg PO QHS 01/09/20 Vitamin B Complex 1 ea PO DAILY 01/22/20 Hydrocodone/Acetaminophen [[place] 5-325 Tablet] 1 ea PO Q4H PRN PRN 5 Days #20 tab 01/25/20 The following prescriptions were given: Hydrocodone/Acetaminophen [[place] 5-325 Tablet] 1 ea PO Q4H PRN PRN 5 Days #20 tab PRN Reason: Pain Score 1-10/10 Transmission Status: Sent to [facility] Primary Care Physician: Garrett Alvarez Chi, MD [Primary Care Provider] - Test Results: Test results from this visit will be discussed in further detail at your follow-up appointment, if applicable. Please Follow Up With: Dashawn Acevedo MD When: in 2 weeks, please call to make an appointment.
--- NOTE | 2020-01-25 10:55 | PCM.OPRPT ---
Report of Operation Date of Procedure: 01/25/20 Pre-Operative Diagnosis: Left renal calculi status post stent Post-Operative Diagnosis: Same Surgery/Procedure Performed:: Left extracorporeal shockwave lithotripsy Description of Surgical Findings:: 69-year-old female who had a stone in the left proximal ureter underwent ureteroscopy and laser of the stone she also stones in the left kidney some of these fragments were not reachable by ureteroscopy therefore she presents now for shockwave lithotripsy of the stones in the kidney. She has a stent in place from the prior ureteroscopy procedure. 69-year-old feels taken back to the operating room to smooth duction of general anesthesia she was placed supine on the table. We located the stones in the left kidney and then proceeded with shockwave lithotripsy the stent was in place. There are multiple stones in the lower pole in the midpole of the left kidney. A total of 3000 shockwaves were delivered to the stones at a rate of 90/min power ranging from 5 to 7 kV. At the end of the treatment cycle the stones were treated successfully lots a little fragments still visible but appeared to be dust fragments at the end of the treatment. Plan to be to see her back in about 2 weeks for cystoscopy and stent removal. Type of Anesthesia:: General Drains: stent in place - Admit VTE Documentation VTE Present on Admission: No VTE Mechan Device Prophylaxis: SCD's
[2020-01-25 11:00] VITALS: BP 102/73; BP 130/60; PULSE 86; RESP 16; TEMP 36.1; O2SAT 94
[2020-01-25] MEDS: Ketorolac 15 MG/ML Vial IV (11:04)
[2020-01-25 11:15] VITALS: BP 115/82; BP 130/60; PULSE 80; RESP 14; O2SAT 92
[2020-01-25 11:28] VITALS: BP 111/77; BP 130/60; PULSE 74; RESP 14; TEMP 36.2; O2SAT 98
[2020-01-25] MEDS: HYDROcodone Bitartrate/Apap 5/325 Tablet PO (11:58)
[2020-01-25 12:05] VITALS: BP 130/60
== END 2020-01-25 12:26 | disposition home or self-care (01) ==
LOC: SDC 08:02 → AC 08:03
PROVIDERS: PCP Family Medicine Geriatric Medicine; Referring Provider Urology; Visit Provider Urology
PROC: (CPT 50590; principal; 2020-01-25 10:05)
DX: N20.2 Calculus of kidney with calculus of ureter (principal); I10 Essential (primary) hypertension; E11.9 Type 2 diabetes mellitus without complications; K21.9 Gastro-esophageal reflux disease without esophagitis; E78.00 Pure hypercholesterolemia, unspecified; F17.210 Nicotine dependence, cigarettes, uncomplicated; Z79.84 Long term (current) use of oral hypoglycemic drugs; Z87.442 Personal history of urinary calculi; Z79.899 Other long term (current) drug therapy; Z11.59 Encounter for screening for other viral diseases; Z79.82 Long term (current) use of aspirin
CPT/HCPCS: 50590; 82962; 87635; G2023; J7040; J7120; J2405; U0004

== ENCOUNTER → 2020-02-01 08:58 | Outpatient (CLI) | payer OTHER, SELFPAY ==
[2020-01-25 08:24] VITALS: BMI 28.0
== END ==
PROVIDERS: PCP Family Medicine Geriatric Medicine; Referring Provider Urology; Visit Provider Urology
DX: N20.0 Calculus of kidney (principal)

== ENCOUNTER → 2020-02-05 15:32 | Outpatient (CLI) | payer OTHER, SELFPAY ==
[2020-01-25 08:24] VITALS: BMI 28.0
--- NOTE | 2020-02-05 15:36 | RAD_ITS ---
STUDY: X-RAY - ABDOMEN/PELVIS REASON FOR EXAM: Female, 69 years old. LEFT SIDE KIDNEY STONE TECHNIQUE: Single AP view of the abdomen / pelvis. COMPARISON: January 17, 2020 FINDINGS: Normal visualized lung bases. There is an unremarkable bowel gas pattern. There is no demonstrated free abdominal air. There are multiple small calcifications the region of the lower pole of the left kidney measuring up to 0.3, improved compared to the prior exam. There is stent extending from the left renal pelvis to the urinary bladder. There is probable stone adjacent to the proximal aspect of the stent. There are calcified phleboliths in the pelvis. Degenerative change of the lower spine . There are soft tissue calcifications in the right lateral abdomen. RAD/Abdomen Single View IMPRESSION: Left renal stent. Stones in the region of the left kidney, improved compared to the prior exam. Stone at the proximal stent Electronically Signed: Jeremy Feliz MD at 16:10 EDT , Service support ,
== END ==
PROVIDERS: PCP Family Medicine Geriatric Medicine; Referring Provider Urology; Visit Provider Urology
DX: N20.0 Calculus of kidney (principal)
CPT/HCPCS: 74018

== ENCOUNTER 2020-02-10 15:30 | Observation (INO) | payer OTHER, SELFPAY ==
[2020-02-10] VITALS (9 sets, daily range): BP systolic 111–158; BP diastolic 58–83; PULSE 76–91; RESP 16–18; TEMP 36.6–36.9; O2SAT 94–98; BMI 28.4; BMI 27.1
--- NOTE | 2020-02-10 15:45 | EKG12_ITS ---
Test Reason : CP Blood Pressure : / mmHG Vent. Rate : 088 BPM Atrial Rate : 088 BPM P-R Int : 122 ms QRS Dur : 094 ms QT Int : 346 ms P-R-T Axes : 067 -45 042 degrees QTc Int : 418 ms Normal sinus rhythm Low voltage QRS Left anterior fascicular block Nonspecific ST and T wave abnormality Abnormal ECG Confirmed by KATHY JOHNSON, FLORA ([id number]), state editor SCOTT GELLER ([id number]) on 02/12/2020 10:15:18 AM Referred By: Confirmed By:FLORA CHAVEZ MD
--- NOTE | 2020-02-10 16:02 | RAD_ITS ---
STUDY: X-RAY CHEST REASON FOR EXAM: Female, 69 years old. CHEST PAIN AND LEFT ARM PAIN -- HX OF HTN TECHNIQUE: Single frontal view of the chest. COMPARISON: August 13, 2019. FINDINGS: There is no new focal consolidation. Normal size heart. Normal mediastinum and jame. Normal visualized pulmonary arteries. Normal visualized aortic arch and descending thoracic aorta. Normal visualized thoracic spine. Normal visualized ribs, clavicles, and shoulders. There is no demonstrated abnormality of the visualized soft tissue structures of the upper abdomen. RAD/Chest 1 View (Portable) IMPRESSION: No acute cardiopulmonary process. Electronically Signed: Tabatha Frey MD at 16:20 EDT Tel , Service support ,
[2020-02-10 16:04] LABS: Absolute Lymphocyte Count 1.93 X10^3/uL (0.83-4.51); Absolute Neutrophil Count 5.6 X10^3/uL (2.0-7.7); Basophil# 0.06 X10^3/uL; Basophil% 0.7 % (0-1); Eosinophil# 0.27 X10^3/uL; Eosinophils% 3.1 % (0-5); Hematocrit 39.5 % (37-47); Hemoglobin 12.3 g/dL (12.0-15.0); Lymphocyte # 1.93 X10^3/ul (4.0); Lymphocyte % 22.3 % (19-41); Mean Corp Hgb Conc 31.1 g/dL (32-36); Mean Corpuscular Hgb 29.9 pg (27.0-32.0); Mean Corpuscular Volume 95.9 fL (81-99); Mean Platelet Vol. 12.7 fl (6.2-12.0); Monocyte# 0.77 X10^3/uL; Monocyte% 8.9 % (0-10); NRBC Flagged by Analyzer 0 % (0-5); Neutrophil # 5.59 X10^3/uL (2.7-7.7); Neutrophil % 64.7 % (47-70); Platelet Count 227 K/mm3 (150-450); RBC Distribution Width CV 13.3 % (11.6-14.6); RBC Distribution Width SD 46.8 fl (35.1-43.9); Red Blood Count 4.12 M/mm3 (4.2-5.4); White Blood Count 8.7 K/mm3 (4.4-11.0)
[2020-02-10] MEDS: 0.9% Normal Saline 1,000 ML 150 ML IV (16:14)
[2020-02-10 16:17] LABS: Anion Gap 10 (5-15); BUN 21 mg/dL (7-18); BUN/Creat Ratio 19.1 RATIO (10-20); Calcium,Total 10.1 mg/dL (8.5-10.1); Chloride 110 mmol/L (98-107); EST Glomerular Filtration Rate 53 mL/min (>60); Est Glom Filt Rate - Afr Amer 64 mL/min (>60); Estimated Creatinine Clearance 39.25 ml/min; Glucose 128 mg/dL (74-106); Potassium 3.3 mmol/L (3.5-5.1); Sodium Level 147 mmol/L (136-145)
[2020-02-10 16:37] LABS: D-Dimer Quantitative (DVT/PE) 0.65 FEU/ug/m (0.27-0.49)
--- NOTE | 2020-02-10 16:47 | ED.VISSUMM ---
- ER Visit Summary Date of Service: 02/10/20 Chief Complaint: [Chest pain] History of Present Illness: The patient is a 69 F [resents to the emergency department complaint of chest pain started around 1:30 PM. Patient states she had taken some Tylenol for a headache and then soon after developed some pain across her chest that radiated into her left arm and went through to her back. Patient states that she has similar pain about 2 days ago but it resolved after about a half an hour. Patient did feel somewhat sweaty with this. She denies any real shortness of breath. She denied nausea or vomiting. Patient has no heart history. She denies recent travel or surgery. Patient is a diabetic and has history of hypertension. Patient also is a smoker.] Patient currently pain-free. MS gave patient aspirin. Physical Examination: [HEENT-PERRLA, EOMI. Cranial nerves II through XII grossly intact. TMs clear. Mucous membranes moist. No adenopathy. Cardiovascular-regular rate and rhythm without murmur or ectopy Lungs-clear to auscultation, chest wall stable without crepitus or subcu emphysema Abdomen-normoactive bowel sounds, soft, nontender, no rebound or rigidity, no peritoneal signs. Extremities-intact ?4, normal range of motion, normal pulses, atraumatic] Test Results: [EKG obtained arrival shows sinus rhythm with a ventricular rate of 88 bpm with some nonspecific ST changes. CBC with differential was unremarkable. Chemistries unremarkable. Troponin less than 0.015. D-dimer was 0.65 which is normal when corrected for patient's age.] Emergency Department Course and Treatment: [ Established on arrival. Patient placed on court recording monitor. Patient remained pain-free] Treatment Plan: [Admit] Disposition: [Admit] Impression: [Chest pain-rule out acute coronary syndrome] This note was generated with [employer] dictation software. It may contain incorrect words, spelling, and punctuation that were not noted in review of the chart prior to signing ED Disposition - Plan for ED Patient: Referrals: Garrett Alvarez Chi, MD [Primary Care Provider] -
--- NOTE | 2020-02-10 17:11 | PCM.HP.STD ---
History of Present Illness Date of Admission: 02/10/20 The patient is a 69 year old F who presented today to the ED with CP. She states that her initial episode was on Tuesday while she was at work. She states that she had a mild DANIELSON and took Excedrin and shortly after taking it she had substernal CP that radiated to her back but she had no other associated sx. That episode resolved after about 15 min and she went back to her work. 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 Her next bout of CP was earlier today. She was unpacking groceries at her house and had a mild DANIELSON. She took some APAP and continued working and shortly after again began having substernal CP that radiated to her back but she also had pain down her L arm to her wrist and felt clammy. She denies any SOB or N/V associated with her event. This time her sx lasted about 1.5 hrs and subsided on her way here in the squad. She was given 2 ASA in the ambulance but no nitro was given. She is now pain free. She has significant risk factors (CKD, HTN, HPL, DM and tobacco abuse). Her siblings have both had cardiac issues but she is unaware of exactly what they are. She does believe one of her sisters has a stent. She has had a stress test a long time ago but nothing recently. On admission her EKG is pertinent for poor R-wave progression but there are no s/o acute ischemia. Her initial troponin was neg. D-Dimer when corrected for age is neg. Her VS are stable except for some mild HTN. She states that she took all of her meds this am. Past Medical History Medical History: Medical History (Last Reviewed 02/10/20 @ 17:[address] Sharonda Maynard, ) DM type 2 (diabetes mellitus, type 2) E11.9 GERD (gastroesophageal reflux disease) K21.9 Hyperlipidemia E78.5 Nephrolithiasis N20.0 Tobacco abuse Z72.0 CKD (chronic kidney disease) stage 3, GFR 30-59 ml/min N18.3 HTN (hypertension) I10 Allergies oxycodone [From Percocet] Allergy (Verified 02/10/20 15:34) Nausea Penicillins [PCN] Allergy (Verified 02/10/20 15:34) Unknown Home Medications: Ambulatory Orders Medication Instructions Recorded Aspirin E.C. [Ecotrin] 81 mg PO DAILY@0800 11/03/14 Metoprolol Tartrate [Lopressor 25 mg PO BID 11/03/14 (Beta Lambert)] Multivitamins,Therapeutic 1 tablet PO DAILY 11/03/14 [Multivitamin] Niacin [Slo-Niacin] 250 mg PO DAILY 11/03/14 Omeprazole [Prilosec] 20 mg PO DAILY 11/03/14 Rosuvastatin Calcium [Crestor] 40 mg PO DAILY 11/03/14 metFORMIN HCl [Glucophage] 1,000 mg PO BIDCM 11/03/14 Acetaminophen/Caffeine [Excedrin 1 each PO BID PRN 02/10/16 Tension Headache Cplt] Cholecalciferol (Vitamin D3) 5,000 unit PO DAILY 02/10/16 [Vitamin D] Cyanocobalamin (Vitamin B-12) 1,000 mcg PO DAILY 02/10/16 [Vitamin B-12] Lisinopril [Zestril] 20 mg PO QHS 01/09/20 Vitamin B Complex 1 ea PO DAILY 01/22/20 Surgical History: - - lithotripsy Psychiatric History: No pertinent psych hx [employer] History: No pertinent [employer] history Lives: Spouse/ Significant Other Smoking Status: Current some day smoker Tobacco Use: Cigarettes Alcohol: None Drugs: None Review of Systems Constitutional: Denies: Anorexia, Chills, Fever, Night Sweats, Malaise, Weakness, Weight Change, Fatigue Eyes: Denies: Blurred vision, Cataracts, Conjunctivae Inflammation, Double vision, Drainage, Eyelid Inflammation, Pain, Redness, Vision Change HEENT: Denies: Difficulty Hearing, Difficulty Swallowing, Dysphasia, Ear Pain, Eye Pain, Hard of Hearing, Head Aches, Hearing Changes, Nasal bleeding, Nasal Congestion, Post Nasal Drip, Sinus Congestion, Sinus Drainage, Sore Throat, Visual Changes Cardiovascular: Reports: Chest Pain - now resolved, Chest Pressure - resolved, Chest Tightness - resolved. Denies: Claudication, Edema, Heaviness, Light Headedness, Orthopnea, Palpitations, Paroxysmal Noc. Dyspnea, Syncope Respiratory: Denies: Cough, Hemoptysis, Pleuritic Pain, Shortness of Breath, Shortness of breath at rest, Shortness of breath upon exertion, Sputum production, Wheezing Gastrointestinal: Denies: Abdominal Pain, Constipation, Diarrhea, Dyspepsia, Hematemesis, Hematochezia, Nausea, Melena, Vomiting Genitourinary: Reports: - - h/o nephrolithiasis. Denies: Dysuria, Frequency, Hematuria, Hesitancy, Incontinence, Nocturia, Retention, Urgency Gynecological: Denies: Vaginal bleeding Musculoskeletal: Reports: Arm Pain - with CP and now resolved L, Joint Tenderness - B ankles, Shoulder Pain. Denies: Back Pain, Foot Pain, Hand Pain, Joint Pain, Joint stiffness, Joint swelling, Leg Pain, Muscle pain, Neck Pain Skin: Denies: Dryness, Jaundice, Lesions, Pruritis, Rash, Skin Changes, Wounds Neurological: Denies: Balance problems, Blurred vision, Double vision, Change in Speech, Slurred speech, Confusion, Difficulty swallowing, Focal weakness, Headaches - resolved, Incoordination, Numbness, Tingling, Tremor, Seizures Psychiatric: Denies: Anxiety, Depression, Homicidal Ideations, Suicidal Ideations Endocrine: Denies: Change in Body Habitus, Heat/ Cold Intolerance, Polydipsia, Polyuria Hematologic/ Lymphatic: Denies: Adenopathy, Anemia, Easy Bruising, Easy Bleeding, Petechiae, Purpura, Hx of blood clot, Hx of blood transfusion VTE Information - Inpt Only VTE Present on Admission: No VTE Mechan Device Prophylaxis: None VTE Pharm Prophylaxis ordered?: Yes - Physical Exam Vitals/I&O's: Vital Signs Temp Pulse Resp BP Pulse Ox 98.0 F 87 18 154/69 H 95 02/10/20 17:05 02/10/20 17:05 02/10/20 17:05 02/10/20 17:05 02/10/20 17:05 Oxygen Delivery Method Room Air Weight: 70.5 kg Body Mass Index (BMI) 28.4 Finger Stick Blood Glucose 132 General: Alert, Oriented x3, Cooperative, No apparent distress, Well developed, Well nourished, - - WF sitting up in bed, appears older than stated age, sig other at bedside HEENT: Atraumatic, PERRLA, EOMI, Normocephalic, EAC Clear Oral: No Gingival or Mucosal Lesions/ Ulcerations, Dry Mucosa, - - Mallampati 2, poor dentition Neck: Supple, No JVD, Negative Carotid Bruits, Negative Hepatojugular Reflux, No Nodes, No Nuchal Rigidity, Trachea Midline, Thyroid Normal Size and Texture Lungs: Clear to auscultation, No rhonchi, No wheeze, No rales, Diminished - diffusely Cardiovascular: Regular rate, Regular Rhythm, Normal S1, Normal S2, No murmurs, No Ectopic Activity, No rub noted, No Gallop Abdomen: Bowel Sounds Present, Soft, Non Tender, Non-Distended, No Hepato-splenomegaly, No hernias noted Extremities: No clubbing, No cyanosis, No edema, Capillary Refill Less than 3 Seconds, Peripheral Pulses Normal, Tenderness - B Ankles Skin: No breakdown, Rash Present - back--> looks like pitaryasis, - - balding Musculoskeletal: No Tenderness to Palpation of Joints or Extremities, No Muscle Wasting, Arthritic Changes Lymphatic: No Cervical, Supraclavicular, or Inguinal Adenopathy Neurological: Cranial nerves II-XII grossly intact, Deep Tendon Reflexes 2+/4 and Symmetrical, Neuro grossly intact, Motor Exam 5/5 strength throughout, Sensory exam intact to light touch and pain Psych/Mental Status: Normal Affect, Appropriate, - - very pleasant, Alert and oriented to time, place, person, mood and affect Laboratory Results 02/10/20 15:35: WBC 8.7, RBC 4.12 L, Hgb 12.3, Hct 39.5, MCV 95.9, MCH 29.9, MCHC 31.1 L, RDW Std Deviation 46.8 H, RDW Coeff of Hawa 13.3, Plt Count 227, MPV 12.7 H, Immature Gran % (Auto) 0.300, Neut % (Auto) 64.7, Lymph % (Auto) 22.3, Pine % (Auto) 8.9, Eos % (Auto) 3.1, Baso % (Auto) 0.7, Absolute Neuts (auto) 5.6, Absolute Lymphs (auto) 1.93, Nucleated RBC % 0 02/10/20 15:35: D-Dimer Quant (PE/DVT) 0.65 H* 02/10/20 15:35: Sodium 147 H, Potassium 3.3 L, Chloride 110 H, Carbon Dioxide 27.0, Anion Gap 10, BUN 21 H, Creatinine 1.10 H, Estim Creat Clear Calc 39.25, Est GFR (MDRD) Af Amer 64, Est GFR (MDRD) Non-Af 53 L, BUN/Creatinine Ratio 19.1, Glucose 128 H, Calcium 10.1, Troponin I < 0.015 Current Medications Sodium Chloride () 1,000 mls @ 150 mls/hr IV .[id number] [facility] Last Admin: 02/10/20 16:14 Dose: 150 mls/hr Documented by: Assessment/Plan All Active Problems Left renal stone (Acute) Chest Pain -Admit PCU -no acute changes on EKG suggestive of ischemia (poor R-wave progression) -Initial troponin is negative -cycle trops -Stress test in am-->nuclear, if trops remain negative -NPO after MN -if + consult cards -continue baby asa -check am lipids -D-Dimer is not elevated when corrected for age CKD stage 3 -sCr has been in the 1.1-1.3 range since Sep -follows with Dr. Maynard -monitor -will give gentle hydration in the case that the pt needs a cardiac cath as pt looks a bit dry Hypokalemia -Kdur 40 mEq x 1 dose -repeat in am Hypernatremia/Hyperchloremia -gentle hydration with LR and recheck in am DM-2 -takes metformin alone at home -states that her A1c is alwas <7 -last noted one here is 6.4 but that is from 2016 -AC BGT -SSI Log HTN/HPL -continue Crestor -continue lisinopril -continue BB -continue niacin GERD -continue PPI Tobacco Abuse -1PPD x 40 yrs at least -quit in Oct but restarted in last few weeks (2-4 cigs/day) -recommend cessation H/O nephrolithiasis -no current issues DVT prophylaxis -Lovenox 40 daily Code status -Full Inpatient E&M: 62585 Init Hosp L3
--- NOTE | 2020-02-10 17:32 | EKG12_ITS ---
Test Reason : Blood Pressure : / mmHG Vent. Rate : 079 BPM Atrial Rate : 079 BPM P-R Int : 124 ms QRS Dur : 092 ms QT Int : 376 ms P-R-T Axes : 062 -39 026 degrees QTc Int : 431 ms Normal sinus rhythm Left axis deviation Low voltage QRS Nonspecific ST and T wave abnormality Abnormal ECG Confirmed by KATHY JOHNSON, FLORA ([id number]), story editor SCOTT GELLER ([id number]) on 02/12/2020 10:31:00 AM Referred By: KAREN Confirmed By:FLORA CHAVEZ MD
[2020-02-10 18:36] LABS: Bedside Glucose 112 mg/dL (70-110)
[2020-02-10] MEDS: Lactated Ringers 1,000 ML 50 ML IV (18:36)
[2020-02-10] MEDS: Metoprolol Tartrate 25 MG Tablet PO (21:51)
[2020-02-10] MEDS: Atorvastatin Calcium 80 MG Tablet PO (21:51)
[2020-02-10] MEDS: Lisinopril 20 MG Tablet PO (21:51)
[2020-02-10 22:05] LABS: Bedside Glucose 168 mg/dL (70-110)
[2020-02-11] VITALS (16 sets, daily range): BP systolic 139–168; BP diastolic 63–97; PULSE 64–76; RESP 16–18; TEMP 36.2–36.8; O2SAT 94–98
--- NOTE | 2020-02-11 02:10 | ECHOD_ITS ---
Reason For Study: ARRHYTHMIA Procedure This was a 2D Doppler, Color Flow transthoracic echocardiogram. The study was technically difficult. Patient was scanned in supine position during reflux assessment. Due to S/P heart catherization. Exam performed portable in patient room. Left Ventricle Normal LV size. Left ventricular systolic function is normal. The estimated ejection fraction is 60 %. Normal diastology for age. No regional wall motion abnormalities noted. Right Ventricle Normal RV size. Normal systolic function. Atria Normal left atrium. Normal right atrium. Mitral Valve Normal mitral valve. There is moderate mitral annular calcification. Tricuspid Valve Normal tricuspid valve. Aortic Valve Trisinus/trileaflet aortic valve. Mild focal aortic valve calcification. Great Vessels Normal aortic root. The pulmonary artery is normal size. Normal inferior vena cava. Pericardium/Pleural No pericardial effusion. MMode/2D Measurements & Calculations LVIDd: 4.8 cm IVSd: 1.1 cm Ao root diam: 3.0 cm LVIDs: 3.7 cm LVPWd: 1.1 cm RVDd: 2.6 cm FS: 24.0 % LAV(MOD-bp): 50.1 ml LA A4 area: 16.1 cm2 LA dimension(2D): 3.4 cm LAV(MOD-bp) Indexed: 29.6 ml/m2 LAV(MOD-sp2): 58.9 ml LAV(MOD-sp4): 42.7 ml RA A4 area: 10.6 cm2 Time Measurements MV dec time: 0.18 sec Doppler Measurements & Calculations MV E max john: 83.8 cm/sec Lat Peak E' John: 8.7 cm/sec Med Peak E' John: 6.2 cm/sec MV A max john: 68.7 cm/sec E/E' lat: 9.6 E/E' med: 13.5 MV E/A: 1.2 Ao V2 max: 143.2 cm/sec LV V1 max: 112.3 cm/sec PA V2 max: 87.5 cm/sec Ao max P.2 mmHg LV V1 max P.0 mmHg Interpretation Summary Normal LV size. Left ventricular systolic function is normal. The estimated ejection fraction is 60 %. Mild focal aortic valve calcification. There is moderate mitral annular calcification. Ordering Physician: Geetha Benitez Referring Physician: Garrett Alvarez Chi Performed By: Zeenat Roberson, FAHAD, RVT
--- NOTE | 2020-02-11 02:11 | PCM.HOSP.N ---
Hospitalist Note Cardiac enzymes trending upwards. EKG following ED transition remained without acute findings. Will transition to therapeutic lovenox with dose now, continue asa, request mag and coags, maintain npo status, request ECHO, request cardiology involvement.
[2020-02-11] MEDS: Enoxaparin 80 MG/0.8 ML Syringe 70 MG SC (02:29)
[2020-02-11 02:39] LABS: Absolute Lymphocyte Count 2.34 X10^3/uL (0.83-4.51); Absolute Neutrophil Count 4.7 X10^3/uL (2.0-7.7); Basophil# 0.07 X10^3/uL; Basophil% 0.9 % (0-1); Eosinophils% 3.7 % (0-5); Lymphocyte # 2.34 X10^3/ul (4.0); Lymphocyte % 28.8 % (19-41); Mean Corp Hgb Conc 31.4 g/dL (32-36); Mean Corpuscular Volume 95.4 fL (81-99); Mean Platelet Vol. 12.6 fl (6.2-12.0); Monocyte% 8.6 % (0-10); NRBC Flagged by Analyzer 0 % (0-5); Neutrophil # 4.68 X10^3/uL (2.7-7.7); Neutrophil % 57.6 % (47-70); Platelet Count 200 K/mm3 (150-450); RBC Distribution Width CV 13.3 % (11.6-14.6); RBC Distribution Width SD 46.5 fl (35.1-43.9); Red Blood Count 3.67 M/mm3 (4.2-5.4); White Blood Count 8.1 K/mm3 (4.4-11.0)
[2020-02-11 02:48] LABS: International Normalized Ratio 1.2; Partial Thromboplast Time 26.2 Seconds (24.1-36.2); Prothrombin Time (Protime)PT. 14.3 SECONDS (11.7-14.9)
[2020-02-11 02:58] LABS: ALB/GLOB Ratio 1.2 RATIO (0.9-2.4); AST(SGOT) 16 U/L (15-37); Alanine Aminotransfer ALT/SGPT 32 U/L (13-56); Albumin, Serum 3.2 g/dL (3.2-5.0); Alkaline Phosphatase 67 U/L (45-117); Anion Gap 5 (5-15); BUN 23 mg/dL (7-18); BUN/Creat Ratio 24.9 RATIO (10-20); Calcium,Total 9.6 mg/dL (8.5-10.1); Chloride 114 mmol/L (98-107); Cholesterol 129 mg/dL (200); Creatinine, Serum 0.92 mg/dL (0.55-1.02); EST Glomerular Filtration Rate 65 mL/min (>60); Est Glom Filt Rate - Afr Amer 78 mL/min (>60); Estimated Creatinine Clearance 46.93 ml/min; Globulin 2.7 g/dL (2.2-4.2); Glucose 128 mg/dL (74-106); High Density Lipoprotein 52 mg/dL; Magnesium 0.7 mg/dL (1.6-2.6); Potassium 4.1 mmol/L (3.5-5.1); Protein, Total 5.9 g/dL (6.4-8.2); Sodium Level 145 mmol/L (136-145); Triglycerides 176 mg/dL; Very Low Density Lipoprotein 35 mg/dL (5-40)
[2020-02-11] MEDS: Magnesium Sulfate 4gm/100mL 4 GM/100 ML IV.SOLN. IV (03:25)
[2020-02-11 05:42] LABS: Magnesium 1.5 mg/dL (1.6-2.6)
--- NOTE | 2020-02-11 05:55 | EKG12_ITS ---
Test Reason : AM EKG Blood Pressure : / mmHG Vent. Rate : 078 BPM Atrial Rate : 078 BPM P-R Int : 130 ms QRS Dur : 092 ms QT Int : 374 ms P-R-T Axes : 068 -54 010 degrees QTc Int : 426 ms Normal sinus rhythm Left anterior fascicular block Nonspecific T wave abnormality Abnormal ECG When compared with ECG of 10-FEB-2020 17:41, MANUAL COMPARISON REQUIRED, DATA IS UNCONFIRMED Confirmed by KATHY JOHNSON, FLORA ([id number]), desk editor SCOTT GELLER ([id number]) on 02/12/2020 10:18:36 AM Referred By: DR BURCH Confirmed By:FLORA CHAVEZ MD
[2020-02-11 06:40] LABS: Bedside Glucose 120 mg/dL (70-110)
--- NOTE | 2020-02-11 07:30 | PCM.CONS.C ---
Reason for Consult Date of Consultation: 02/11/20 Reason for Consultation: Chest pain and abnormal cardiac enzymes History of Present Illness: The patient is a 69 year old F who presented to the emergency room with chest pain. She said that she experienced this pain starting on Tuesday while she was at work. It was substernal that radiated to her back and also her left shoulder. It initially resolved after about 15 minutes or so. The next day she had a similar episode of chest discomfort while she was engaging in some activity. She did feel mildly clammy when this happened. She denies any shortness of breath or nausea or vomiting. She has had no previous cardiac symptoms. She does have a history of hypertension, hyperlipidemia, diabetes mellitus, and previous tobacco abuse. 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 She did have an EKG performed in the ER which demonstrated normal sinus rhythm with no acute changes. She was initially scheduled to have a stress test but with her abnormal cardiac enzymes was felt the petroleum refinery operator to see here for further re-stratification. [] Past Medical History Allergies/Adverse Reactions: Allergies oxycodone [From Percocet] Allergy (Verified 02/10/20 15:34) Nausea Penicillins [PCN] Allergy (Verified 02/10/20 15:34) Unknown Home Medications: Ambulatory Orders Medication Instructions Recorded Aspirin E.C. [Ecotrin] 81 mg PO DAILY@0800 11/03/14 Metoprolol Tartrate [Lopressor 25 mg PO BID 11/03/14 (Beta Lambert)] Multivitamins,Therapeutic 1 tablet PO DAILY 11/03/14 [Multivitamin] Niacin [Slo-Niacin] 250 mg PO DAILY 11/03/14 Omeprazole [Prilosec] 20 mg PO DAILY 11/03/14 Rosuvastatin Calcium [Crestor] 40 mg PO QHS 11/03/14 metFORMIN HCl [Glucophage] 1,000 mg PO BIDCM 11/03/14 Acetaminophen/Caffeine [Excedrin 1 each PO BID PRN 02/10/16 Tension Headache Cplt] Cholecalciferol (Vitamin D3) 5,000 unit PO DAILY 02/10/16 [Vitamin D] Cyanocobalamin (Vitamin B-12) 1,000 mcg PO DAILY 02/10/16 [Vitamin B-12] Lisinopril [Zestril] 20 mg PO QHS 01/09/20 Vitamin B Complex 1 ea PO QHS 01/22/20 Surgical History: - - lithotripsy Psychiatric History: No pertinent psych hx 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 Denies: Shortness of Breath, Orthopnea, PND, Peripheral Edema, Palpitations, Lightheadedness, Dizziness, Near Syncope, Syncope Respiratory: Denies: Cough, Sputum Production, Hemoptysis Gastrointestinal: Denies: Hematemesis, Hematochezia, Melena Genitourinary: Denies: Dysuria, Hematuria Muscoloskeletal: Denies: Myalgias Skin: Denies: Rash Neurological: Denies: Dizziness Psychiatric: Denies: Anxiety Endocrine: Denies: Heat Intolerance Hematologic/ Lymphatic: Denies: Lymph Node Enlargement Subjectve: Patient seen and evaluated. Appears to be stable. Objective: Vital Signs Temp Pulse Resp BP Pulse Ox 98.0 F 70 16 139/82 H 94 02/11/20 02:32 02/11/20 03:00 02/11/20 02:32 02/11/20 02:32 02/11/20 02:35 Oxygen Delivery Method Room Air Weight: 148 lb 12.992 oz Body Mass Index (BMI) 27.1 Finger Stick Blood Glucose 132 Intake and Output for Last 24 Hours 02/09/20 02/10/20 02/11/20 23:59 23:59 23:59 Intake Total 765 / 765 Balance 765 / 765 General: Awake, Alert, Oriented x 3 HEENT: PERRL, EOMI, Sclera Non Icteric Neck: Supple, Good ROM, No Lymph Node Enlargement Lungs: Clear to auscultation Cardiovascular: Regular Rhythm, Normal S1, Normal S2, No Murmurs, No Rubs, No Gallops Vascular: No Carotid Bruits, Normal Femoral Pulses, Normal Radial Pulses, Normal Dorsalis Pedal Pulse, Normal Posterior Tibial Pulses Abdomen: Bowel Sounds Present, Soft, Non Tender, No HSM, No Organomegaly Extremities: No Cyanosis, No Clubbing, No edema Skin: No Rashes Lymphatic: No Lymph Node Enlargement Neurological: No Focal Motor or Sensory Deficit Psych/Mental Status: Appropriate 02/10/20 15:35: WBC 8.7, RBC 4.12 L, Hgb 12.3, Hct 39.5, MCV 95.9, MCH 29.9, MCHC 31.1 L, Plt Count 227, MPV 12.7 H, Immature Gran % (Auto) 0.300, Neut % (Auto) 64.7, Lymph % (Auto) 22.3, [place] % (Auto) 8.9, Eos % (Auto) 3.1, Baso % (Auto) 0.7, Absolute Neuts (auto) 5.6, Nucleated RBC % 0 02/10/20 15:35: D-Dimer Quant (PE/DVT) 0.65 H* 02/10/20 15:35: Sodium 147 H, Potassium 3.3 L, Chloride 110 H, Carbon Dioxide 27.0, Anion Gap 10, BUN 21 H, Creatinine 1.10 H, Est GFR (MDRD) Af Amer 64, Est GFR (MDRD) Non-Af 53 L, BUN/Creatinine Ratio 19.1, Glucose 128 H, Calcium 10.1, Troponin I < 0.015 02/10/20 18:28: Troponin I 0.240 H 02/10/20 21:05: Troponin I 0.488 H 02/11/20 02:27: WBC 8.1, RBC 3.67 L, Hgb 11.0 L, Hct 35.0 L, MCV 95.4, MCH 30.0, MCHC 31.4 L, Plt Count 200, MPV 12.6 H, Immature Gran % (Auto) 0.400, Neut % (Auto) 57.6, Lymph % (Auto) 28.8, [place] % (Auto) 8.6, Eos % (Auto) 3.7, Baso % (Auto) 0.9, Absolute Neuts (auto) 4.7, Nucleated RBC % 0 02/11/20 02:27: Sodium 145, Potassium 4.1, Chloride 114 H, Carbon Dioxide 26.0, Anion Gap 5, BUN 23 H, Creatinine 0.92, Est GFR (MDRD) Af Amer 78, Est GFR (MDRD) Non-Af 65, BUN/Creatinine Ratio 24.9 H, Glucose 128 H, Calcium 9.6, Magnesium 0.7 L*, Total Bilirubin 0.40, Triglycerides 176, Cholesterol 129, LDL Cholesterol 42, VLDL Cholesterol 35, HDL Cholesterol 52 02/11/20 02:27: PT 14.3, INR 1.2, APTT 26.2 02/11/20 02:27: Magnesium 0.7 L* 02/11/20 02:27: Phosphorus 3.0 02/11/20 05:10: Magnesium 1.5 L, Troponin I 0.202 H Rhythm: EKG: Normal sinus rhythm with no acute changes ECHO: Stress Test: Cardiac Cath: PCI: CT Surgery: Holter monitor: EPS: PPM: CXR: Chest CT Scan: Assessment/Plan 1. Chest pain The patient presents with chest pain which is concerning for angina. With her risk factors and her abnormal cardiac enzymes my recommendation is for us to proceed directly to a cardiac catheterization. The risk benefits and alternatives of been explained to her she understands and agrees to proceed. Depending on the findings further recommendations will be made. 2. Hypertension Her blood pressure appears to be under fair control at this particular time and we will continue to manage her with the above. 3. Hyperlipidemia Will continue with risk factor modification. Thank you for allowing me to participate in the care of your patient. Please don't hesitate to call if any issues arise. Addendum: Cardiac catheterization performed which demonstrated no obstructive coronary disease. Coronary calcification noted. Total contrast used was 45 cc. Patient on 75 cc normal saline. In light of the elevated d-dimer would recommend that we obtain a CT scan of the chest to exclude pulmonary embolism. Depending on those results further recommendations will be made. An echocardiogram be performed to assess her low ventricular function.
[2020-02-11] MEDS: Metoprolol Tartrate 25 MG Tablet PO (08:25)
[2020-02-11] MEDS: Clopidogrel Bisulfate 300 MG Tablet PO (08:26)
[2020-02-11] MEDS: Aspirin E.C. 81 MG Tablet PO (08:26)
[2020-02-11] MEDS: 0.9% Normal Saline 1,000 ML 15 ML IV (08:33)
--- NOTE | 2020-02-11 09:20 | CASEMGMT ---
According to the [employer] website, the following are in-network tertiary facilities: [facility], [place], [facility], [facility], [facility], [facility], and . Nati MANLEY CM
--- NOTE | 2020-02-11 09:37 | CT_ITS ---
STUDY: CTA CHEST REASON FOR EXAM: Female, 69 years old. ELEVATED D-DIMER AND TROPONIN, CHECKING FOR PE RADIATION DOSAGE (If Supplied By Facility): CTDIvol = ( 9.83 ) mGy, DLP = ( 373.65 ) mGycm TECHNIQUE: The examination was performed with the intravenous administration of IV 75mL Isovue-370. Post-processing of the angiographic images was performed, with multiplanar reformation and 3D reconstruction. Individualized dose optimization techniques were used for this CT. COMPARISON: Comparison is made with prior examination October 18, 2019. FINDINGS: Normal enhancement of the main pulmonary artery and right and left pulmonary arteries. Normal enhancement of the bilateral peripheral pulmonary arteries. There is no demonstrated pulmonary embolism. There is atherosclerotic calcification of the aortic arch and descending thoracic aorta with tortuosity. There is no demonstrated aortic dissection. There are calcifications of the coronary arteries. There are visualized mediastinal lymph nodes, which are within normal size limits, and with normal morphology. Normal hilar regions. Normal visualized trachea and bronchi. The lungs are well expanded. Mild degree of emphysematous changes. This is apical predominant. Mild increased markings at the lung bases suggestive of atelectasis and/or scarring. This is unchanged. Stable scattered small noncalcified pulmonary nodules. The largest nodule is in the right middle lobe and measures 6.2 mm. Normal pleura. Normal chest wall structures. Complete collapse of a mid dorsal vertebrae with acute kyphotic deformity at that site. Multilevel disc space narrowing and spondylosis of the thoracic spine. Mild degree of nonspecific bilateral perinephric stranding. CT/CTA Chest W/WO Contrast IMPRESSION: No evidence of pulmonary embolism. Stable scattered pulmonary nodules. Mild degree of emphysematous changes. Stable scarring at the lung bases. Electronically Signed: Fernando Caro, at 10:29 EDT , Service support ,
--- NOTE | 2020-02-11 09:48 | CL.D_ITS ---
Patient Name: SARA CHAMORRO I Study Date: 02/11/2020 Performing: Soham Holguin MD Ht: 61.81 inches 157 cm : 1950 Wt: 149.91 lbs 68 kg Age: 69 Gender: female BSA: 1.69 PROCEDURE(S) PERFORMED [id number]-[id number] CLINICAL PROFILE AND INDICATIONS Indications: Suspected CAD Heart Failure: None Stress/Imaging Stress/Image Study Performed: No CAD Presentations: Unstable angina. CONCLUSIONS Non obstructive coronary arteries Mild to moderate calcium noted in LAD/LM RECOMMENDATIONS Medical therapy DESCRIPTION OF PROCEDURE The patient arrived to the procedure lab. The risks and benefits of the procedure as well as a full d escription of our services here and current unavailability of surgical backup were fully explained to the patient and/or their significant other prior to the catheterization. The Timeout was completed, verifying the correct patient and procedure. The patient's procedural site was prepped and draped in the usual fashion. Local anesthetic was given subcutaneously to right groin region with Lidocaine 2%. Using a modified Seldinger technique, arterial access was obtained via the right femoral artery, a 5 Fr sheath was inserted. Left Coronary Artery selective angiography was performed in multiple views u sing a 5 Fr. JL4 catheter. Right Coronary Artery selective angiography was then performed in multiple views using a 5 Fr. 3DRC (Feliciano) catheter.Contrast was injected through the sheath and the Right Iliac and Femoral artery were assessed for possible closure device.The arterial sheath was pulled and a Mynx closure device was deployed for hemostasis CORONARY ANGIOGRAPHY DOMINANCE: Right Dominant LEFT HEART ASSESSMENT Left Ventricular Ejection Fraction: by Echo pending % LEFT MAIN: Mild calcification, No significant disease noted LEFT ANTERIOR DESCENDING ARTERY: Moderate calcification, Mild luminal irregularities less than 30% CIRCUMFLEX ARTERY: Mild luminal irregularities less than 30% RIGHT CORONARY ARTERY: No significant disease noted COMPLICATIONS No Complications PROCEDURE MEDICATIONS Versed 1 mg IV Oxygen: 2 L/min via nasal cannula SUMMARY OF HEMODYNAMIC DATA Time AIR REST ECG 09:13:20 AO 149/82 (110) SA 09:21:37 Signed By Soham Holguin MD On 02/11/2020 09:47:19 Soham Holguin MD
--- NOTE | 2020-02-11 11:40 | DCINST_ITS ---
You will use the following diet at home:: No restrictions Your food should be the consistency of: Regular Your liquids should be the consistency of: Regular/Thin Discharge Activity: Return to Normal Activity Return to work on:: 02/13/20 Weight Bearing Status: Weight bearing as tolerated Allergies/Adverse Reactions: Allergies oxycodone [From Percocet] Allergy (Verified 02/10/20 15:34) Nausea Penicillins [PCN] Allergy (Verified 02/10/20 15:34) Unknown Medications to take at Discharge Aspirin E.C. [Ecotrin] 81 mg PO DAILY@0800 11/03/14 Metoprolol Tartrate [Lopressor (beta ericka)] 25 mg PO BID 11/03/14 Multivitamins,Therapeutic [Multivitamin] 1 tablet PO DAILY 11/03/14 Niacin [Slo-Niacin] 250 mg PO DAILY 11/03/14 Omeprazole [Prilosec] 20 mg PO DAILY 11/03/14 Rosuvastatin Calcium [Crestor] 40 mg PO QHS 11/03/14 metFORMIN HCl [Glucophage] 1,000 mg PO BIDCM 11/03/14 Acetaminophen/Caffeine [Excedrin Tension Headache Cplt] 1 each PO BID PRN 02/10/16 Cholecalciferol (Vitamin D3) [Vitamin D3] 5,000 unit PO DAILY 02/10/16 Cyanocobalamin (Vitamin B-12) [Vitamin B-12] 1,000 mcg PO DAILY 02/10/16 Lisinopril [Zestril] 20 mg PO QHS 01/09/20 Vitamin B Complex 1 ea PO QHS 01/22/20 Acetaminophen [Tylenol Tablet] 650 mg PO Q6H PRN PRN tablet 02/11/20 Primary Care Physician: Garrett Alvarez Chi, MD [Primary Care Provider] - Please follow up with your Primary Care Physician in: in 2 weeks Test Results: Test results from this visit will be discussed in further detail at your follow- up appointment, if applicable.
--- NOTE | 2020-02-11 12:33 | PHA.DC.MR ---
Pharmacy Service has performed discharge medication reconciliation for this patient. No new medications at time of discharge. Medications reviewed are from previously reported home medications. The patient's discharge medication list was reviewed for discrepancies and discrepancies were resolved. Home Medications Aspirin E.C. [Ecotrin] 81 mg PO DAILY@0800 11/03/14 Metoprolol Tartrate [Lopressor (beta ericka)] 25 mg PO BID 11/03/14 Multivitamins,Therapeutic [Multivitamin] 1 tablet PO DAILY 11/03/14 Niacin [Slo-Niacin] 250 mg PO DAILY 11/03/14 Omeprazole [Prilosec] 20 mg PO DAILY 11/03/14 Rosuvastatin Calcium [Crestor] 40 mg PO QHS 11/03/14 metFORMIN HCl [Glucophage] 1,000 mg PO BIDCM 11/03/14 Acetaminophen/Caffeine [Excedrin Tension Headache Cplt] 1 each PO BID PRN 02/10/16 Cholecalciferol (Vitamin D3) [Vitamin D3] 5,000 unit PO DAILY 02/10/16 Cyanocobalamin (Vitamin B-12) [Vitamin B-12] 1,000 mcg PO DAILY 02/10/16 Lisinopril [Zestril] 20 mg PO QHS 01/09/20 Vitamin B Complex 1 ea PO QHS 01/22/20 Acetaminophen [Tylenol Tablet] 650 mg PO Q6H PRN PRN tab 02/11/20
[2020-02-11 12:56] LABS: Bedside Glucose 122 mg/dL (70-110)
--- NOTE | 2020-02-12 18:44 | PCM.DC.SUM ---
Discharge Date and Diagnosis - Problem List Patient Problems: Active and Suspected Problems (Last Updated 02/11/20 @ 18:55 by Swapna Gonzales) Non-STEMI (non-ST elevated myocardial infarction) (Acute 02/10/20) Date of Admission: 02/10/20 - Primary Discharge Diagnosis Acute Problems: Active Problems (Last Updated 02/11/20 @ 18:55 by Swapna Gonzales) #1 non-STEMI (non-ST elevated myocardial infarction) (Acute 02/10/20) #2 nonobstructive coronary artery disease #3 hypomagnesemia #4 essential hypertension #5 hyperlipidemia - Secondary Discharge Diagnosis Chronic Problems: Chronic Problems (Last Updated 02/11/20 @ 18:55 by Swapna Gonzales) Essential (primary) hypertension (Chronic) Hyperlipidemia (Chronic) Nicotine dependence (Chronic) Hospital Course and Treatment Operations: None Procedures: 2-D Echocardiogram, Cardiac catheterization Summary of Care Provided: The patient is a 69 year old F was seen in the emergency room at [facility] with a chief complaint of chest pain, work-up in the emergency room included an EKG which showed a sinus rhythm with nonspecific ST-T wave changes, EKG was unremarkable, chemistries were unremarkable. Troponin was less than 0.05, d-dimer was 0.65 which was normal when corrected for patient's age. Chest x-ray showed no acute cardiopulmonary process. Patient was placed in observation status on PCU, troponins were repeated and these resulted positive indicating a non-STEMI, she was seen in consultation by cardiology, underwent a catheterization of her heart that showed diffuse coronary disease-no evidence of occlusive coronary disease. Patient also had a CT of the chest ordered by cardiology this did not show any evidence of PE or infiltrates. There was scarring noted at the lung bases. Patient's echocardiogram was unremarkable. She was seen and examined on 02/11/2020: On examination she appeared in good health and spirits, she does not appear to be in any distress. Vital signs as documented. Skin warm and dry and without overt rashes. Neck without JVD, thyroid appears normal, trachea is midline, neck is supple. Lungs clear, normal air movement was noted. Heart exam notable for regular rhythm, normal sounds and absence of murmurs, rubs or gallops. Abdomen unremarkable and without evidence of organomegaly, masses, or abdominal aortic enlargement, bowel sounds are present in all 4 quadrants, no abdominal tenderness was noted. Extremities nonedematous, no cyanosis was noted, no clubbing was noted. Neuro: Cranial nerves II through XII are grossly intact, no focal motor deficits were noted, sensation to light touch and pinprick is intact, motor exam 5/5 throughout. Psych: Patient is alert and oriented x3, she does not appear anxious or depressed, she does not appear agitated. Patient was discharged home in stable condition. Patient Problems: Active and Suspected Problems (Last Updated 02/11/20 @ 18:55 by Swapna Gonzales) Non-STEMI (non-ST elevated myocardial infarction) (Acute 02/10/20) - Physical Exam Vitals/I&O's: Vital Signs Temp Pulse Resp BP Pulse Ox 97.9 F 73 16 158/76 H 98 02/11/20 14:00 02/11/20 14:00 02/11/20 14:00 02/11/20 14:00 02/11/20 14:00 Oxygen Flow Rate (L/min) 2 Oxygen Delivery Method Room Air Weight: 67.5 kg Body Mass Index (BMI) 27.1 Finger Stick Blood Glucose 132 Intake and Output for Last 24 Hours 02/10/20 02/11/20 02/12/20 23:59 23:59 23:59 Intake Total 765 / 765 1023.42 / 1023.42 Balance 765 / 765 1023.42 / 1023.42 Discharge Activity: Return to Normal Activity Return to work on:: 02/13/20 Weight Bearing Status: Weight bearing as tolerated Home Medications: Medications to take at Discharge Aspirin E.C. [Ecotrin] 81 mg PO DAILY@0800 11/03/14 Metoprolol Tartrate [Lopressor (beta lambert)] 25 mg PO BID 11/03/14 Multivitamins,Therapeutic [Multivitamin] 1 tablet PO DAILY 11/03/14 Niacin [Slo-Niacin] 250 mg PO DAILY 11/03/14 Omeprazole [Prilosec] 20 mg PO DAILY 11/03/14 Rosuvastatin Calcium [Crestor] 40 mg PO QHS 11/03/14 metFORMIN HCl [Glucophage] 1,000 mg PO BIDCM 11/03/14 Acetaminophen/Caffeine [Excedrin Tension Headache Cplt] 1 each PO BID PRN 02/10/16 Cholecalciferol (Vitamin D3) [Vitamin D3] 5,000 unit PO DAILY 02/10/16 Cyanocobalamin (Vitamin B-12) [Vitamin B-12] 1,000 mcg PO DAILY 02/10/16 Lisinopril [Zestril] 20 mg PO QHS 01/09/20 Vitamin B Complex 1 ea PO QHS 01/22/20 Acetaminophen [Tylenol Tablet] 650 mg PO Q6H PRN PRN tab 02/11/20 Primary Care Physician: Garrett Alvarez Chi, MD [Primary Care Provider] - Please follow up with your Primary Care Physician in: in 2 weeks Disposition: Home Minutes spent on discharge:: 30 Patient Condition:: Stable Medical Necessity - Tobacco Use Smoking Status: Current some day smoker Tobacco Use: Cigarettes Meaningful Use Info Meaningful Use Diagnoses (Choose all that apply): AMI - AMI/Post PCI/Angioplasty Aspirin given w/in 24hrs of arrival?: Yes ASA at discharge?: Yes Antiplatelet Therapy at Discharge:: No Reason Antiplatelet Therapy not ordered:: Not indicated Statins at discharge?: Yes José/ARB at discharge?: Yes Beta Lambert at discharge?: Yes Done w/ Acute ND measure.: Yes Documented LVEF (%): 60 OBSV E&M: [id number] Observation care discharge
== END 2020-02-11 11:42 | disposition home or self-care (01) ==
LOC: ED 16:24 → PCU 17:32
PROVIDERS: Family Medicine; Admitting Provider Internal Medicine; Emergency Provider Emergency Medicine; PCP Family Medicine Geriatric Medicine; Visit Provider Internal Medicine
DX: I21.4 Non-ST elevation (NSTEMI) myocardial infarction (principal); E11.22 Type 2 diabetes mellitus with diabetic chronic kidney disease; I12.9 Hypertensive chronic kidney disease with stage 1 through stage 4 chronic kidney disease, or unspecified chronic kidney disease; E83.42 Hypomagnesemia; N18.3 Chronic kidney disease, stage 3 (moderate); E78.5 Hyperlipidemia, unspecified; K21.9 Gastro-esophageal reflux disease without esophagitis; F17.210 Nicotine dependence, cigarettes, uncomplicated; Z79.899 Other long term (current) drug therapy; Z79.84 Long term (current) use of oral hypoglycemic drugs; Z79.82 Long term (current) use of aspirin
CPT/HCPCS: 36415; 71045; 71275; 80048; 80053; 80061; 82962; 83735; 84100; 84484; 85025; 85379; 85610; 85730; 93005; 93306; 93454; 96360; 96361; 96372; 99152; 99218; 99285; 99406; C1760; J7030; J7120; Q9967; A4216; C1769; G0378

== ENCOUNTER → 2020-02-28 16:47 | Outpatient (CLI) | payer OTHER, SELFPAY ==
[2020-02-10 17:31] VITALS: BMI 27.1
--- NOTE | 2020-02-28 16:55 | RAD_ITS ---
STUDY: X-RAY CHEST REASON FOR EXAM: Female, 69 years old. 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 There is no demonstrated pleural abnormality. Normal size heart. Normal mediastinum and jame. Normal visualized pulmonary arteries. Normal visualized aortic arch and descending thoracic aorta. Normal visualized thoracic spine. Normal visualized ribs, clavicles, and shoulders. There is no demonstrated abnormality of the visualized soft tissue structures of the upper abdomen. There is cholecystectomy. RAD/Chest PA and Lateral IMPRESSION: No acute findings. Mild emphysema. Electronically Signed: Luther Wharton, at 20:23 EDT Tel , Service support ,
== END ==
PROVIDERS: PCP Family Medicine Geriatric Medicine; Referring Provider Family Medicine Geriatric Medicine; Visit Provider Family Medicine Geriatric Medicine
DX: R06.02 Shortness of breath (principal)
CPT/HCPCS: 71046

== ENCOUNTER → 2020-03-02 10:16 | Outpatient (CLI) | payer OTHER, SELFPAY ==
[2020-02-10 17:31] VITALS: BMI 27.1
== END ==
PROVIDERS: PCP Family Medicine Geriatric Medicine; Visit Provider Family Medicine Geriatric Medicine
DX: R06.89 Other abnormalities of breathing (principal)
CPT/HCPCS: 87633; 87635; G2023; U0003

== ENCOUNTER → 2020-03-13 09:34 | Outpatient (CLI) | payer OTHER, SELFPAY ==
[2020-02-10 17:31] VITALS: BMI 27.1
[2020-03-13 10:19] LABS: PTHIN 22.7 pg/mL (18.4-80.1)
[2020-03-13 10:34] LABS: Albumin, Serum 3.2 g/dL (3.2-5.0); BUN 21 mg/dL (7-18); Calcium,Total 9.6 mg/dL (8.5-10.1); Chloride 111 mmol/L (98-107); Creatinine, Serum 0.95 mg/dL (0.55-1.02); EST Glomerular Filtration Rate 62 mL/min (>60); Est Glom Filt Rate - Afr Amer 75 mL/min (>60); Glucose 132 mg/dL (74-106); Phosphorus 1.9 mg/dL (2.5-4.9); Potassium 3.8 mmol/L (3.5-5.1); Sodium Level 142 mmol/L (136-145)
== END ==
PROVIDERS: PCP Family Medicine Geriatric Medicine; Referring Provider Internal Medicine Nephrology; Visit Provider Internal Medicine Nephrology
DX: N18.3 Chronic kidney disease, stage 3 (moderate) (principal)
CPT/HCPCS: 36415; 80069; 83970

== ENCOUNTER → 2020-04-02 12:50 | Outpatient (CLI) | payer OTHER, SELFPAY ==
[2020-02-10 17:31] VITALS: BMI 27.1
[2020-04-02 13:37] LABS: Vitamin D,25 Hydroxy 79.5 ng/mL
[2020-04-02 13:42] LABS: Absolute Lymphocyte Count 1.98 X10^3/uL (0.83-4.51); Basophil# 0.08 X10^3/uL; Basophil% 0.9 % (0-1); Eosinophil# 0.73 X10^3/uL; Eosinophils% 8.4 % (0-5); Hematocrit 40.5 % (37-47); Hemoglobin 12.4 g/dL (12.0-15.0); Lymphocyte # 1.98 X10^3/ul (4.0); Lymphocyte % 22.9 % (19-41); Mean Corp Hgb Conc 30.6 g/dL (32-36); Mean Corpuscular Hgb 29.5 pg (27.0-32.0); Mean Corpuscular Volume 96.2 fL (81-99); Mean Platelet Vol. 12.9 fl (6.2-12.0); Monocyte% 9.2 % (0-10); NRBC Flagged by Analyzer 0 % (0-5); Neutrophil # 5.03 X10^3/uL (2.7-7.7); Neutrophil % 58.3 % (47-70); Platelet Count 191 K/mm3 (150-450); RBC Distribution Width CV 14.1 % (11.6-14.6); RBC Distribution Width SD 49.1 fl (35.1-43.9); Red Blood Count 4.21 M/mm3 (4.2-5.4); White Blood Count 8.7 K/mm3 (4.4-11.0)
[2020-04-02 13:51] LABS: ALB/GLOB Ratio 1.1 RATIO (0.9-2.4); AST(SGOT) 24 U/L (15-37); Alanine Aminotransfer ALT/SGPT 38 U/L (13-56); Albumin, Serum 3.7 g/dL (3.2-5.0); Alkaline Phosphatase 69 U/L (45-117); Anion Gap 1 (5-15); BUN 22 mg/dL (7-18); BUN/Creat Ratio 25.1 RATIO (10-20); Calcium,Total 10.1 mg/dL (8.5-10.1); Chloride 110 mmol/L (98-107); Creatinine, Serum 0.88 mg/dL (0.55-1.02); EST Glomerular Filtration Rate 68 mL/min (>60); Est Glom Filt Rate - Afr Amer 83 mL/min (>60); Globulin 3.3 g/dL (2.2-4.2); Glucose 101 mg/dL (74-106); Potassium 4.5 mmol/L (3.5-5.1); Sodium Level 143 mmol/L (136-145); Thyroid Stim Hormone (TSH) 0.93 uIU/mL (0.358-3.74)
== END ==
PROVIDERS: PCP Family Medicine Geriatric Medicine; Visit Provider Family Medicine Geriatric Medicine
DX: E11.9 Type 2 diabetes mellitus without complications (principal); E55.9 Vitamin D deficiency, unspecified; I10 Essential (primary) hypertension
CPT/HCPCS: 36415; 80053; 82306; 84443; 85025

== ENCOUNTER → 2020-04-23 13:46 | Outpatient (CLI) | payer OTHER, SELFPAY ==
[2020-02-10 17:31] VITALS: BMI 27.1
--- NOTE | 2020-04-23 13:50 | CT_ITS ---
STUDY: LOW DOSE CT LUNG CANCER SCREENING REASON FOR EXAM: Female, 69 years old. 1 PPD X 35 YEARS RADIATION DOSAGE (If Supplied By Facility): CTDIvol = ( 3.02 ) mGy, DLP = ( 89.88 ) mGycm TECHNIQUE: No contrast was administered. Low dose technique was utilized (average mAS-38 and kVp 120). 1.25 mm axial source images with a slice interval of 1.25-mm were reconstructed in lung windows. 2.5 mm axial source images with a slice interval of 2.5-mm were reconstructed in lung windows. 5.0 mm axial source images with a slice interval of 5.0-mm were reconstructed in soft tissue windows. Nodule measured using lung windows on PACS and/or independent workstation with automated measurement of minimum and maximum diameter. Nodule measurement reported as average diameter rounded to the nearest whole number. Growth is defined as an increase ins size of greater than 1.5 mm. COMPARISON: 10/18/2019 FINDINGS: Lungs are normally expanded. Chronic interstitial changes noted in both lung palumbo. There is a stable 2 mm noncalcified nodule in the right upper lobe on axial image 35. There is a stable 4 mm nodule in the right upper lobe on axial image 67. There is a stable 5 mm noncalcified nodule in the right upper lobe on axial image 83. There is a stable 8 mm nodule in the right middle lobe on axial image 145. There is a stable 5 mm noncalcified nodule in the left lower lobe on axial image 178. Six-month follow-up is recommended to show stability of these nodules. There are calcified coronary vessels. There are degenerative bony changes CT/Low Dose CT Lung Screening IMPRESSION: Lung-RADS category 3 - Continue screening with LDCT in 6 months. IMPORTANT NOTES FOR USE: ACR Lung-RADS Version 1.0 Assessment Categories Release Date: December 31, 2013 Category: Coded 0-4 bases on nodule(s) with highest degree of suspicion. Negative screen is defined as categories 1 and 2; a positive screen is defined as categories 3 and 4. Category 3 and 4A nodules that are unchanged on interval CT should be coded as category 2, and individuals returned to screening in 12 months. Category 4X: Category 3 or 4 nodules with additional imaging findings that increase the suspicion of lung cancer, such as spiculation, GGN that doubles in size in 1 year, enlarged lymph notes, etc. Category Modifiers: S (significant finding unrelated to lung cancer) and C (prior history of treated lung cancer) may be added to the 0-4 Lung-RADS Electronically Signed: Nixon Bond MD at 14:35 EDT , Service support ,
== END ==
PROVIDERS: PCP Family Medicine Geriatric Medicine; Referring Provider Family Medicine Geriatric Medicine; Visit Provider Family Medicine Geriatric Medicine
DX: T65.222S Toxic effect of tobacco cigarettes, intentional self-harm, sequela (principal)
CPT/HCPCS: G0297

== ENCOUNTER → 2020-05-22 11:54 | Outpatient (CLI) | payer OTHER, SELFPAY ==
[2020-02-10 17:31] VITALS: BMI 27.1
--- NOTE | 2020-05-22 12:04 | RAD_ITS ---
STUDY: X-RAY - ABDOMEN/PELVIS REASON FOR EXAM: Female, 69 years old. DIARRHEA TECHNIQUE: 3 views COMPARISON: None. FINDINGS: Normal visualized lung bases. There is an unremarkable bowel gas pattern. There is no demonstrated free abdominal air. Surgical clips in the right upper quadrant. Normal soft tissue structures. Mild scoliosis. RAD/Abd Inc Decub and/or Erect IMPRESSION: No acute abdominal pathology is appreciated. Electronically Signed: Leoncio Danielson DO at 23:16 EDT Tel [phone], Service support ,
--- NOTE | 2020-05-22 12:06 | CT_ITS ---
STUDY: CT BRAIN WITHOUT CONTRAST REASON FOR EXAM: Female, 69 years old. HEADACHE. RADIATION DOSAGE (If Supplied By Facility): CTDIvol = ( 44.99 ) mGy, DLP = ( 779.24 ) mGycm TECHNIQUE: Transaxial CT imaging of the brain was performed without administration of intravenous contrast material. Individualized dose optimization techniques were used for this CT. COMPARISON: No relevant priors. FINDINGS: Normal soft tissue structures. Normal calvarium. Normal size ventricles and extra-axial spaces for the patient''s age. Normal white matter tracts of the cerebral hemispheres. Normal basal ganglia and thalami. Normal brainstem. Normal cerebellum. There is no intracranial hemorrhage. There are no findings of an acute ischemic infarction. Atherosclerotic calcification of the cavernous portions of the internal carotid arteries bilaterally. Normal visualized paranasal sinuses. CT/Brain/Head without Contrast IMPRESSION: Chronic involutional changes of the brain. Electronically Signed: Fernando Caro, at 12:22 EDT , Service support ,
== END ==
PROVIDERS: PCP Family Medicine Geriatric Medicine; Visit Provider Family Medicine Geriatric Medicine
DX: R51 Headache (principal); R19.7 Diarrhea, unspecified; N39.0 Urinary tract infection, site not specified
CPT/HCPCS: 70450; 74019; 87086; 87088

== ENCOUNTER 2020-09-09 05:22 | Inpatient (IN) | payer OTHER, MEDICARE, SELFPAY ==
[2020-02-10 17:31] VITALS: BMI 27.1
[2020-09-09] VITALS (13 sets, daily range): BP systolic 90–191; BP diastolic 57–89; PULSE 72–99; RESP 16–18; TEMP 36.2–37; O2SAT 94–98; BMI 24.7; BMI 24.5; BMI 24.6
--- NOTE | 2020-09-09 05:30 | CT_ITS ---
STUDY: CT ABDOMEN AND PELVIS WITHOUT CONTRAST REASON FOR EXAM: Female, 69 years old. Right flank pain radiating to groin. History of kidney stones. RADIATION DOSAGE (If Supplied By Facility): CTDIvol = ( 7.03 ) mGy, DLP = ( 330.06 ) mGycm TECHNIQUE: Transaxial images were obtained from the dome of the diaphragm to the symphysis pubis without oral contrast, and without intravenous contrast. Sagittal and coronal images were reconstructed. Individualized dose optimization techniques were used for this CT. COMPARISON: February 10, 2016. Low-dose CT screening October 18, 2019. FINDINGS: 7 mm x 6 mm slightly asymmetric noncalcified right middle lobe lung nodule axial image 1 series 2 not included on the images from the study of February 10, 2016. No significant change in appearance from study of October 18, 2019. The visualized portions of the heart are within normal limits. Normal liver. There are surgical clips in the gallbladder fossa consistent with a prior cholecystectomy. Normal spleen. Normal pancreas. Normal bilateral adrenal glands. Mild right hydronephrosis secondary to a 11 x 8 x 6 mm ureteral calculus at approximately the level of the superior endplate of L4. Left perinephric stranding. Additional nonobstructive right renal calculi largest measuring 5 mm. No left hydronephrosis. 2 mm x 2 mm mid ureteral stone at approximately the level of the superior endplate of L4. Multiple nonobstructing left renal calculi the largest measuring 5 mm x 4 mm. 1.3 cm superior pole left renal cyst. 1.1 cm hyperdense cyst inferior pole left kidney. Normal visualized stomach. Normal small intestine. Normal colon. There is non-visualization of the appendix. There is atherosclerotic calcification of the abdominal aorta, without a demonstrated aneurysm. Normal inferior vena cava. Normal retroperitoneum. No intra-abdominal free air. Normal urinary bladder. Uterus nonvisualized suggestive of hysterectomy. No adnexal mass is seen. Normal abdominal wall. Mild degenerative changes of the lower lumbar spine. CT/Abdomen/Pelvis without Cont IMPRESSION: Mild right hydronephrosis secondary to a 11 mm x 8 mm mid ureteral stone. 2 mm x 2 mm mid left ureteral stone not producing appreciable hydronephrosis. Bilateral nonobstructing renal calculi. No significant change in the 7 mm x 6 mm noncalcified right middle lobe lung nodule since April 2020 . Recommend low-dose CT chest follow-up 6 months from the study of April 23, [address] in the CT report. Electronically Signed: Maco Castellanos MD at 6:46 EST , Service support ,
--- NOTE | 2020-09-09 05:31 | ED.DCSUM_ITS ---
History of Present Illness Chief Complaint: Complaint Informant: Patient Narrative: Patient presents with right lower quadrant and right flank pain that started about 10 hours ago. She has a history of kidney stones and this feels similar but not exactly the same. She has some nausea no vomiting she has no left-sided abdominal pain. She has no upper abdominal pain. She has some dysuria. Past Medical History - Allergies and Home Meds Allergies/Adverse Reactions: Allergies oxycodone [From Percocet] Allergy (Verified 02/10/20 15:34) Nausea Penicillins [PCN] Allergy (Verified 02/10/20 15:34) Unknown Primary Care Physician: Garrett Alvarez Chi, MD [Primary Care Provider] - Past Medical History: - - Hypertension, hypercholesterolemia, diabetes, smoker, history of TIA Surgical History: - - lithotripsy Smoking Status: Current every day smoker Review of Systems All systems negative except as indicated General: Denies: Fever ENT: Denies: Sore throat Cardiovascular: Denies: Chest pain Respiratory: Denies: Dyspnea, Cough Gastrointestinal: Reports: Abdominal pain, Nausea. Denies: Vomiting Genitourinary: Reports: Dysuria Musculoskeletal: Reports: Back pain. Denies: Myalgias, Arthralgias Skin: Denies: Rash Neurological: Denies: Headache Psych: Denies: Depression Hematologic: Denies: Easy bruising Allergy: Denies: Uticaria Physical Exam Vital Signs/Narrative: Vital Signs Temp Pulse Resp BP Pulse Ox 09/09/20 05:24 97.5 F L 99 18 191/81 H 98 09/09/20 05:22 97.5 F L 99 18 191/81 H 98 General: Well nourished, Well developed Head: Normocephalic ENT: Moist mucous membranes Neck: Supple Cardiovascular: Regular rate, Regular rhythm Respiratory: No distress, CTA bilaterally Abdomen: Soft, - - Right-sided abdominal tenderness without any guarding or rebound, the pain does go into the right CVA region and she does have some right flank pain. The pain is mostly in the right lower quadrant there is no right upper quadrant pain. Patient has a negative Alvarenga's. No left-sided abdominal pain Back: CVA tenderness Extremities: Nontender, No edema Skin: Normal color Neurological: Alert, Oriented x3 Diagnostic/Tx/Re-eval - Medical Decision Making Patient is found to have a urinary tract infection with slight leukocytosis, she also has a 7 to 8 mm impacted stone at the proximal ureter. I will call urology. Patient will need admission. ED Disposition - Plan for ED Patient: Disposition: Acute Care [facility] Diagnosis: Kidney stone Referrals: Garrett Alvarez Chi, MD [Primary Care Provider] -
[2020-09-09] MEDS: 0.9% Normal Saline 1,000 ML 1000 ML IV (05:42)
[2020-09-09] MEDS: Morphine 4 MG/ML Syringe IV (05:42)
[2020-09-09] MEDS: Ondansetron 4 MG/2 ML Vial IV (05:42)
[2020-09-09 05:46] LABS: Bacteria 0 SEEN /hpf (None Seen); Mucous, Urine 0 SEEN /hpf (<or=2+)
[2020-09-09 05:47] LABS: Absolute Lymphocyte Count 1.95 X10^3/uL (0.83-4.51); Absolute Neutrophil Count 10.7 X10^3/uL (2.0-7.7); Basophil# 0.15 X10^3/uL; Eosinophil# 0.52 X10^3/uL; Eosinophils% 3.5 % (0-5); Hematocrit 44.6 % (37-47); Hemoglobin 13.8 g/dL (12.0-15.0); Lymphocyte # 1.95 X10^3/ul (4.0); Lymphocyte % 13.2 % (19-41); Mean Corp Hgb Conc 30.9 g/dL (32-36); Mean Corpuscular Hgb 28.6 pg (27.0-32.0); Mean Corpuscular Volume 92.3 fL (81-99); Mean Platelet Vol. 12.7 fl (6.2-12.0); Monocyte# 1.44 X10^3/uL; Monocyte% 9.7 % (0-10); NRBC Flagged by Analyzer 0 % (0-5); Neutrophil # 10.67 X10^3/uL (2.7-7.7); Neutrophil % 72.3 % (47-70); Platelet Count 226 K/mm3 (150-450); RBC Distribution Width CV 14.3 % (11.6-14.6); RBC Distribution Width SD 48.9 fl (35.1-43.9); Red Blood Count 4.83 M/mm3 (4.2-5.4); White Blood Count 14.8 K/mm3 (4.4-11.0)
[2020-09-09 05:49] LABS: Color, Urine Yellow (Yellow); Glucose, Dipstick Normal (Normal); Ketone-Dipstick 15 mg/dl (Negative); Nitrite-Dipstick Negative (Negative); Protein-Dipstick 100 mg/dl (Negative); Specific Gravity, Urine 1.025 (1.002-1.030); Urine Bilirubin Dipstick Negative (Negative); Urine Clarity Cloudy (Clear); Urine Urobilinogen Normal (Normal)
[2020-09-09 05:50] LABS: Leukocyte Esterase-Dipstick 500 /ul (Negative); Occult Blood-Urine 250 /ul (Negative)
[2020-09-09 05:56] LABS: Red Blood Cells-Urine 25-50 SEEN /hpf (0-5); Squamous Epithelial Cells - UA 0-5 SEEN /hpf (5-10); White Blood Cells 25-50 SEEN /hpf (0-5)
[2020-09-09 06:02] LABS: ALB/GLOB Ratio 1.2 RATIO (0.9-2.4); AST(SGOT) 22 U/L (15-37); Alanine Aminotransfer ALT/SGPT 35 U/L (13-56); Albumin, Serum 3.9 g/dL (3.2-5.0); Alkaline Phosphatase 89 U/L (45-117); Anion Gap 6 (5-15); BUN 21 mg/dL (7-18); BUN/Creat Ratio 15.8 RATIO (10-20); Calcium,Total 10.5 mg/dL (8.5-10.1); Chloride 107 mmol/L (98-107); Creatinine, Serum 1.33 mg/dL (0.55-1.02); EST Glomerular Filtration Rate 42 mL/min (>60); Est Glom Filt Rate - Afr Amer 51 mL/min (>60); Estimated Creatinine Clearance 32.46 ml/min; Globulin 3.3 g/dL (2.2-4.2); Glucose 137 mg/dL (74-106); Lipase 84 U/L (73-393); Potassium 3.9 mmol/L (3.5-5.1); Protein, Total 7.2 g/dL (6.4-8.2); Sodium Level 143 mmol/L (136-145)
[2020-09-09] MEDS: Ceftriaxone 1 GM/50 ML BAG IV (06:44)
--- NOTE | 2020-09-09 06:44 | NURSING ---
med surg ramírez kidney stone
--- NOTE | 2020-09-09 07:34 | PCM.HP.STD ---
History of Present Illness Date of Admission: 09/09/20 Chief Complaint: right kidney stone obstruction The patient is a 69 year old Female with obstructing right kidney stone with severe flank pain also UTI. Past Medical History Past Medical History (Chronic Problems): Chronic Problems (Last Updated 02/11/20 @ 18:55 by Swapna Gonzales) Essential (primary) hypertension (Chronic) Hyperlipidemia (Chronic) Nicotine dependence (Chronic) Medical History: Medical History (Last Reviewed 09/09/20 @ 07:[address] Dashawn Acevedo MD) Non-STEMI (non-ST elevated myocardial infarction) (Acute) Onset Date: 02/10/20 I21.4 Essential (primary) hypertension (Chronic) I10 Hyperlipidemia (Chronic) E78.5 Nicotine dependence (Chronic) F17.200 CKD (chronic kidney disease) stage 3, GFR 30-59 ml/min N18.3 DM type 2 (diabetes mellitus, type 2) E11.9 GERD (gastroesophageal reflux disease) K21.9 Left renal stone N20.0 Nephrolithiasis N20.0 Tobacco abuse Z72.0 Allergies oxycodone [From Percocet] Allergy (Verified 02/10/20 15:34) Nausea Penicillins [PCN] Allergy (Verified 02/10/20 15:34) Unknown Home Medications: Ambulatory Orders Medication Instructions Recorded Aspirin E.C. [Ecotrin] 81 mg PO DAILY@0800 11/03/14 Metoprolol Tartrate [Lopressor 25 mg PO BID 11/03/14 (beta ericka)] Multivitamins,Therapeutic 1 tablet PO DAILY 11/03/14 [Multivitamin] Omeprazole [Prilosec] 20 mg PO DAILY 11/03/14 Rosuvastatin Calcium [Crestor] 40 mg PO QHS 11/03/14 metFORMIN HCl [Glucophage] 1,000 mg PO BIDCM 11/03/14 Acetaminophen/Caffeine [Excedrin 1 each PO BID PRN 02/10/16 Tension Headache Cplt] Cholecalciferol (Vitamin D3) 5,000 unit PO DAILY 02/10/16 [Vitamin D3] Cyanocobalamin (Vitamin B-12) 1,000 mcg PO DAILY 02/10/16 [Vitamin B-12] Lisinopril [Zestril] 20 mg PO QHS 01/09/20 Vitamin B Complex 1 ea PO QHS 01/22/20 Acetaminophen [Tylenol Tablet] 650 mg PO Q6H PRN PRN tab 02/11/20 Surgical History: Surgical History (Last Updated 02/11/20 @ 18:52 by Swapna Gonzales) History of left heart catheterization Onset Date: 02/11/20 Z98.890 Surgical History: - - lithotripsy Psychiatric History: No pertinent psych hx 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 Smoking Status: Current every day smoker Review of Systems Constitutional: Denies: Chills, Fever, Weight Change HEENT: Denies: Head Aches, Sinus Congestion, Sinus Drainage Cardiovascular: Denies: Chest Pain, Palpitations Respiratory: Denies: Cough, Shortness of breath at rest, Sputum production Gastrointestinal: Denies: Abdominal Pain, Nausea, Vomiting Genitourinary: Denies: Dysuria Musculoskeletal: Denies: Joint Pain, Joint Tenderness Skin: Denies: Rash, Wounds Neurological: Denies: Numbness, Tingling, Focal weakness Psychiatric: Denies: Anxiety, Depression, Homicidal Ideations, Suicidal Ideations Hematologic/ Lymphatic: Denies: Easy Bruising, Easy Bleeding VTE Information - Inpt Only VTE Present on Admission: No Patient Problems: Active and Suspected Problems (Last Updated 02/11/20 @ 18:55 by Swapna Gonzales) Kidney stone (Acute) - Physical Exam Vitals/I&O's: Vital Signs Temp Pulse Resp BP Pulse Ox 98.0 F 81 16 161/63 H 97 09/09/20 06:55 09/09/20 06:55 09/09/20 06:55 09/09/20 06:55 09/09/20 06:55 Oxygen Delivery Method Room Air Weight: 60.9 kg Body Mass Index (BMI) 24.5 Finger Stick Blood Glucose 132 General: Alert, Oriented x3, Cooperative HEENT: Atraumatic, PERRLA, EOMI, Normocephalic Neck: Supple, No JVD, Negative Carotid Bruits Lungs: Clear to auscultation, Normal air movement Cardiovascular: Regular rate, No murmurs Abdomen: Bowel Sounds Present, Soft, Non Tender Extremities: No edema, Capillary Refill Less than 3 Seconds Skin: No rashes, No breakdown Musculoskeletal: No Tenderness to Palpation of Joints or Extremities Neurological: Cranial nerves II-XII grossly intact Psych/Mental Status: Normal Affect, Appropriate Laboratory Results 09/09/20 05:35: Urine Color Yellow, Urine Clarity Cloudy, Urine pH 5.0, Ur Specific [place] 1.025, Urine Protein 100 H, Urine Glucose (UA) Normal, Urine Ketones 15 H, Urine Occult Blood 250 H, Urine Nitrite Negative, Urine Bilirubin Negative, Urine Urobilinogen Normal, Ur Leukocyte Esterase 500 H, Urine RBC 25-50 SEEN, Urine WBC 25-50 SEEN, Ur Squamous Epith Cells 0-5 SEEN, Urine Bacteria 0 SEEN, Urine Mucus 0 SEEN 09/09/20 05:40: WBC 14.8 H, RBC 4.83, Hgb 13.8, Hct 44.6, MCV 92.3, MCH 28.6, MCHC 30.9 L, RDW Std Deviation 48.9 H, RDW Coeff of [place] 14.3, Plt Count 226, MPV 12.7 H, Immature Gran % (Auto) 0.300, Neut % (Auto) 72.3 H, Lymph % (Auto) 13.2 L, [place] % (Auto) 9.7, Eos % (Auto) 3.5, Baso % (Auto) 1.0, Absolute Neuts (auto) 10.7 H, Absolute Lymphs (auto) 1.95, Nucleated RBC % 0 09/09/20 05:40: Sodium 143, Potassium 3.9, Chloride 107, Carbon Dioxide 30.0, Anion Gap 6, BUN 21 H, Creatinine 1.33 H, Estim Creat Clear Calc 32.46, Est GFR (MDRD) Af Amer 51 L, Est GFR (MDRD) Non-Af 42 L, BUN/Creatinine Ratio 15.8, Glucose 137 H, Calcium 10.5 H, Total Bilirubin 0.50, AST 22, ALT 35, Alkaline Phosphatase 89, Total Protein 7.2, Albumin 3.9, Globulin 3.3, Albumin/Globulin Ratio 1.2, Lipase 84 Current Medications Dextrose (Dextrose 50%-Water 25 Gm/50 Ml Disp.Syrin) 0 gm IV X1 PRN; Protocol PRN Reason: Hypoglycemia Enoxaparin Sodium (Enoxaparin 30 Mg/0.3 Ml Syringe) 30 mg SC DAILY SVEN Glucagon (Glucagon 1 Mg/Ml Syringe) 1 mg IM .X1 PRN PRN Reason: Hypoglycemia Sodium Chloride () 1,000 mls @ 75 mls/hr IV .[id number] SVEN Ciprofloxacin (Cipro) 400 mg in 200 mls @ 200 mls/hr IV Q12 SVEN Lisinopril (Lisinopril 20 Mg Tablet) 20 mg PO QHS SVEN Metoprolol Tartrate (Metoprolol Tartrate 25 Mg Tablet) 25 mg PO BID SVEN Morphine Sulfate (Morphine 2 Mg/Ml Syringe) 2 mg IV Q3H PRN PRN PRN Reason: pain Ondansetron HCl (Ondansetron 4 Mg/2 Ml Vial) 4 mg IV Q6H PRN PRN PRN Reason: NAUSEA Pantoprazole Sodium (Pantoprazole Sodium 20 Mg Tablet) 20 mg PO DAILY SVEN Assessment/Plan All Active Problems (Last Updated 02/11/20 @ 18:55 by Swapna Gonzales) Kidney stone (Acute) Non-STEMI (non-ST elevated myocardial infarction) (Acute 02/10/20) plan for cysto and right stent today for stone. on Cipro for UTI NPO for stent today
[2020-09-09] MEDS: Morphine 2 MG/ML Syringe IV (07:43)
[2020-09-09] MEDS: 0.9% Normal Saline 1,000 ML 75 ML IV (07:53)
[2020-09-09] MEDS: Ciprofloxacin 400 MG/200 ML BAG 200 MG IV (10:44)
[2020-09-09] MEDS: HYDROmorphone 0.5 MG/0.5 ML SYRINGE IV (10:44)
[2020-09-09] MEDS: Metoprolol Tartrate 25 MG Tablet PO (10:50)
--- NOTE | 2020-09-09 10:50 | CASEMGMT ---
RN CM Face to Face with patient for initial transition planning/care coordination assessment. RN CM introduced self and role at [facility]. Patient lying in bed, alert and oriented. Patient willing to participate in assessment and is able to answer all questions appropriately. Care providers, pharmacy, and demographics verified. Patient wishes to discharge home, denies need for home health at this time. Patient states she has no further needs or concerns at this time. CM to follow for discharge planning needs that may arise. PCP: Antonio Specialists: Curtis, urologist; Caesar after school counselor [facility]erred Pharmacy: [facility] Insurance: [employer] Prescription Benefit: yes Living Will/HPOA: none LNOK: Living Arrangements: Patient lives with in a 2 story home. Patient states she is independent and able to ambulate stairs. Transportation: self/DIL DME/HHC: patient states she has cane, walker, raised toilet, and shower chair. Patient denies previous HHC. Disposition Plan: Patient to discharge home with family support and follow-up plans in place. Gloria MCCAIN, RN, CM
[2020-09-09 11:36] LABS: Bedside Glucose 145 mg/dL (70-110)
--- NOTE | 2020-09-09 12:58 | DCINST_ITS ---
Discharge Diet: Light diet - advance as tolerated Discharge Activity: Return to Normal Activity Allergies/Adverse Reactions: Allergies oxycodone [From Percocet] Allergy (Verified 02/10/20 15:34) Nausea Penicillins [PCN] Allergy (Verified 02/10/20 15:34) Unknown Medications to take at Discharge Aspirin E.C. [Ecotrin] 81 mg PO DAILY@0800 11/03/14 Metoprolol Tartrate [Lopressor (beta ericka)] 25 mg PO BID 11/03/14 Multivitamins,Therapeutic [Multivitamin] 1 tablet PO DAILY 11/03/14 Omeprazole [Prilosec] 20 mg PO DAILY 11/03/14 Rosuvastatin Calcium [Crestor] 40 mg PO QHS 11/03/14 metFORMIN HCl [Glucophage] 1,000 mg PO BIDCM 11/03/14 Acetaminophen/Caffeine [Excedrin Tension Headache Cplt] 1 each PO BID PRN 02/10/16 Cholecalciferol (Vitamin D3) [Vitamin D3] 5,000 unit PO DAILY 02/10/16 Cyanocobalamin (Vitamin B-12) [Vitamin B-12] 1,000 mcg PO DAILY 02/10/16 Lisinopril [Zestril] 20 mg PO QHS 01/09/20 Vitamin B Complex 1 ea PO QHS 01/22/20 Acetaminophen [Tylenol Tablet] 650 mg PO Q6H PRN PRN tab 02/11/20 Ciprofloxacin [Cipro] 500 mg PO BID #14 tab 09/09/20 Hydrocodone/Acetaminophen [[place] 5-325 Tablet] 1 each PO Q4H PRN PRN 7 Days #14 tablet 09/09/20 The following prescriptions were given: Ciprofloxacin [Cipro] 500 mg PO BID #14 tab Transmission Status: Pending to [facility] Hydrocodone/Acetaminophen [[place] 5-325 Tablet] 1 each PO Q4H PRN PRN 7 Days #14 tablet PRN Reason: Pain 1-10 Or Fever Transmission Status: Sent to [facility] Primary Care Physician: Garrett Alvarez Chi, MD [Primary Care Provider] - Test Results: Test results from this visit will be discussed in further detail at your follow- up appointment, if applicable. Please Follow Up With: Dashawn Acevedo MD When: please call to make an appointment.
--- NOTE | 2020-09-09 13:13 | PCM.OPRPT ---
Report of Operation Date of Procedure: 09/09/20 Pre-Operative Diagnosis: Obstructing right ureteral calculi Post-Operative Diagnosis: Same Surgery/Procedure Performed:: Cystoscopy right stent placement Description of Surgical Findings:: Patient was taken back to the operating room after induction of general anesthesia, the patient was placed in dorsolithotomy position. The urethra and genitals were prepped and draped in usual sterile fashion. Using a 21 [place] rigid cystourethroscope the entire length of the urethra was normal then went into the bladder. Identified the trigone the left and right ureteral orifice. I then cannulated the Right orifice and advanced a wire up into the kidney. I then backloaded a 5 [place] open ended catheter over the wire and injected contrast to delineate the anatomy. After the retrograde was performed I then used fluoroscopic images and guidance to advanced a wire up into the kidney and over the 0.038 glidewire I advanced a 6 [place] by 26 cm double pigtail stent. The stent had a string on it but cut it very short to prevent extraction. I then pulled the 0.038 Glidewire off and the stent coiled in the kidney bladder good position. The bladder was then drained. We confirmed the position of the stent by fluoroscopy. Patient anesthetic was reversed and was taken back to the PACU in good condition. Type of Anesthesia:: General
--- NOTE | 2020-09-09 14:46 | NURSING ---
Pt up and voided 100 cc of pink tinge urine.
[2020-09-09 16:56] LABS: Bedside Glucose 145 mg/dL (70-110)
== END 2020-09-09 18:05 | disposition home or self-care (01) | DRG 661 ==
LOC: ED 06:21 → MS3 06:39
PROVIDERS: Admitting Provider Urology; Emergency Provider Emergency Medicine; PCP Family Medicine Geriatric Medicine; Visit Provider Urology
PROC: 0T768DZ Dilation of Right Ureter with Intraluminal Device, Via Natural or Artificial Opening Endoscopic (ICD-10-PCS; principal; 2020-09-09 12:50)
DX: N13.2 Hydronephrosis with renal and ureteral calculous obstruction (principal); N39.0 Urinary tract infection, site not specified; I12.9 Hypertensive chronic kidney disease with stage 1 through stage 4 chronic kidney disease, or unspecified chronic kidney disease; N18.30 Chronic kidney disease, stage 3 unspecified; E11.22 Type 2 diabetes mellitus with diabetic chronic kidney disease; E78.00 Pure hypercholesterolemia, unspecified; E78.5 Hyperlipidemia, unspecified; I25.2 Old myocardial infarction; Z78.0 Asymptomatic menopausal state; Z86.73 Personal history of transient ischemic attack (TIA), and cerebral infarction without residual deficits; Z87.442 Personal history of urinary calculi; Z79.82 Long term (current) use of aspirin; Z79.84 Long term (current) use of oral hypoglycemic drugs; Z79.899 Other long term (current) drug therapy; F17.200 Nicotine dependence, unspecified, uncomplicated
CPT/HCPCS: 74176; 76000; 80053; 81001; 82962; 83690; 85025; 87426; 99284; J7030; C1769; C2617; J0744; J2405

== ENCOUNTER → 2020-09-25 | Outpatient (CLI) | payer OTHER, SELFPAY ==
[2020-09-09 12:32] VITALS: BMI 24.5
== END | disposition home or self-care (01) ==
LOC: LABSPEC 10:17
PROVIDERS: PCP Family Medicine Geriatric Medicine; Referring Provider Urology; Visit Provider Urology
DX: Z03.818 Encounter for observation for suspected exposure to other biological agents ruled out (principal)
CPT/HCPCS: 87635; C9803; U0005; U0003

== ENCOUNTER → 2020-10-02 10:22 | Outpatient (CLI) | payer OTHER, SELFPAY ==
[2020-09-09 12:32] VITALS: BMI 24.5
--- NOTE | 2020-10-02 10:25 | RAD_ITS ---
STUDY: X-RAY CHEST REASON FOR EXAM: Female, 69 years old. Cough -- hx lung modules 6 months TECHNIQUE: PA and lateral views of the chest. COMPARISON: Comparison is made with prior examination dated 02/28/2020. FINDINGS: The lungs are clear and expanded. There is no demonstrated pleural abnormality. Normal size heart. Normal mediastinum and jame. Normal visualized pulmonary arteries. There is atherosclerotic calcification of the aortic arch with tortuosity. There are diffuse degenerative changes of the visualized thoracic spine. Normal visualized ribs, clavicles, and shoulders. Surgical clips are seen in the right upper quadrant most likely secondary to prior cholecystectomy. RAD/Chest PA and Lateral IMPRESSION: No acute abnormality is seen. Electronically Signed: Fernando Caro MD at 15:40 EST , Service support ,
[2020-10-02 12:30] LABS: Absolute Lymphocyte Count 1.96 X10^3/uL (0.83-4.51); Absolute Neutrophil Count 5.9 X10^3/uL (2.0-7.7); Basophil# 0.07 X10^3/uL; Basophil% 0.8 % (0-1); Eosinophil# 0.34 X10^3/uL; Eosinophils% 3.7 % (0-5); Hematocrit 37.6 % (37-47); Hemoglobin 11.7 g/dL (12.0-15.0); Lymphocyte # 1.96 X10^3/ul (4.0); Lymphocyte % 21.6 % (19-41); Mean Corp Hgb Conc 31.1 g/dL (32-36); Mean Corpuscular Hgb 28.4 pg (27.0-32.0); Mean Corpuscular Volume 91.3 fL (81-99); Mean Platelet Vol. 12.9 fl (6.2-12.0); Monocyte# 0.64 X10^3/uL; NRBC Flagged by Analyzer 0 % (0-5); Neutrophil # 5.91 X10^3/uL (2.7-7.7); Platelet Count 309 K/mm3 (150-450); RBC Distribution Width CV 14.1 % (11.6-14.6); RBC Distribution Width SD 47.6 fl (35.1-43.9); Red Blood Count 4.12 M/mm3 (4.2-5.4); White Blood Count 9.1 K/mm3 (4.4-11.0)
[2020-10-02 13:25] LABS: ALB/GLOB Ratio 0.7 RATIO (0.9-2.4); AST(SGOT) 42 U/L (15-37); Alanine Aminotransfer ALT/SGPT 64 U/L (13-56); Albumin, Serum 2.9 g/dL (3.2-5.0); Alkaline Phosphatase 137 U/L (45-117); Anion Gap 7 (5-15); BUN 24 mg/dL (7-18); BUN/Creat Ratio 19.2 RATIO (10-20); Chloride 110 mmol/L (98-107); Creatinine, Serum 1.25 mg/dL (0.55-1.02); EST Glomerular Filtration Rate 45 mL/min (>60); Est Glom Filt Rate - Afr Amer 55 mL/min (>60); Glucose 146 mg/dL (74-106); Potassium 3.6 mmol/L (3.5-5.1); Protein, Total 6.9 g/dL (6.4-8.2); Sodium Level 144 mmol/L (136-145); Thyroid Stim Hormone (TSH) 1.19 uIU/mL (0.358-3.74)
== END ==
PROVIDERS: PCP Family Medicine Geriatric Medicine; Visit Provider Family Medicine Geriatric Medicine
DX: R05 Cough (principal); E11.9 Type 2 diabetes mellitus without complications; E55.9 Vitamin D deficiency, unspecified; I10 Essential (primary) hypertension; N39.0 Urinary tract infection, site not specified
CPT/HCPCS: 36415; 71046; 80053; 82306; 84443; 85025; 87086; 87088

== ENCOUNTER → 2020-10-08 08:22 | Outpatient (CLI) | payer OTHER, SELFPAY ==
[2020-09-09 12:32] VITALS: BMI 24.5
--- NOTE | 2020-10-08 08:34 | US_ITS ---
STUDY: ABDOMINAL ULTRASOUND - RIGHT UPPER QUADRANT REASON FOR VISIT: Female, 69 years old ABNORMAL LFTS TECHNIQUE: Ultrasound evaluation of the right upper quadrant was performed with real-time and static villa-scale imaging. TECHNICAL QUALITY: Adequate. COMPARISON: None. FINDINGS: Liver: The liver is enlarged and measures 19.3 cm. There is increased echogenicity consistent with fatty infiltration. The bile ducts are within normal limits. There is hepatic color flow. The direction of portal flow is hepatopetal. There is no demonstrated mass lesion. Gallbladder: Normal distended gallbladder. The gallbladder wall measures 3 mm. There is a negative sonographic Alvarenga''s sign. There is no pericholecystic fluid. There are no gallstones. Common Bile Duct (C.B.D.): The common bile duct measures 6 mm. Pancreas: Normal size of the head, body and tail of the pancreas. There is normal echogenicity of the pancreas. There is no demonstrated pancreatic mass or cyst. Right Kidney: Normal size of the right kidney. The right kidney measures 11.7 cm x 4.7 cm x 5.8 cm. Normal renal cortex. The right cortex measures 1.3 cm. There is no demonstrated renal mass or cyst. There is mild hydronephrosis of the right kidney. There is a 1.1 cm x 0.9 cm calculus in the inferior pole of the right kidney. US/Abdomen Limited IMPRESSION: Hepatomegaly. Fatty infiltration of the liver. Mild degree of the right hydronephrosis. Electronically Signed: Fernando Caro MD at 10:54 EST , Service support ,
[2020-10-09 05:06] LABS: HEPATITIS B SURFACE AG Negative (Negative); Hepatitis A AB, Total Negative (Negative); Hepatitis A IgM Antibody Negative (Negative); Hepatitis B Core AB IgM Negative (Negative); Hepatitis B Core Ab Total Negative (Negative); Hepatitis C Ab <0.1 s/co ratio (0.0-0.9)
[2020-10-09 13:43] LABS: Hep B Surface Antibodies Non Reactive (.)
== END ==
PROVIDERS: PCP Family Medicine Geriatric Medicine; Referring Provider Family Medicine Geriatric Medicine; Visit Provider Family Medicine Geriatric Medicine
DX: R94.5 Abnormal results of liver function studies (principal)
CPT/HCPCS: 36415; 76705; 86704; 86705; 86706; 86708; 86709; 86803; 87340

== ENCOUNTER → 2020-10-09 11:52 | Outpatient (CLI) | payer OTHER, SELFPAY ==
[2020-09-09 12:32] VITALS: BMI 24.5
[2020-10-09 12:10] LABS: Absolute Lymphocyte Count 2.09 X10^3/uL (0.83-4.51); Absolute Neutrophil Count 10.2 X10^3/uL (2.0-7.7); Basophil# 0.12 X10^3/uL; Basophil% 0.9 % (0-1); Eosinophils% 2.9 % (0-5); Hematocrit 38.8 % (37-47); Hemoglobin 11.7 g/dL (12.0-15.0); Lymphocyte # 2.09 X10^3/ul (4.0); Lymphocyte % 15.1 % (19-41); Mean Corp Hgb Conc 30.2 g/dL (32-36); Mean Corpuscular Hgb 28.4 pg (27.0-32.0); Mean Corpuscular Volume 94.2 fL (81-99); Mean Platelet Vol. 11.5 fl (6.2-12.0); Monocyte# 0.85 X10^3/uL; Monocyte% 6.2 % (0-10); NRBC Flagged by Analyzer 0 % (0-5); Neutrophil # 10.18 X10^3/uL (2.7-7.7); Neutrophil % 73.7 % (47-70); Platelet Count 350 K/mm3 (150-450); RBC Distribution Width SD 50.8 fl (35.1-43.9); Red Blood Count 4.12 M/mm3 (4.2-5.4); White Blood Count 13.8 K/mm3 (4.4-11.0)
[2020-10-09 12:31] LABS: ALB/GLOB Ratio 0.9 RATIO (0.9-2.4); AST(SGOT) 35 U/L (15-37); Alanine Aminotransfer ALT/SGPT 52 U/L (13-56); Alkaline Phosphatase 104 U/L (45-117); Anion Gap 2 (5-15); BUN 21 mg/dL (7-18); BUN/Creat Ratio 21.1 RATIO (10-20); Calcium,Total 10.2 mg/dL (8.5-10.1); Chloride 114 mmol/L (98-107); EST Glomerular Filtration Rate 59 mL/min (>60); Est Glom Filt Rate - Afr Amer 71 mL/min (>60); Globulin 3.4 g/dL (2.2-4.2); Glucose 95 mg/dL (74-106); Potassium 4.3 mmol/L (3.5-5.1); Protein, Total 6.4 g/dL (6.4-8.2); Sodium Level 146 mmol/L (136-145)
== END ==
PROVIDERS: PCP Family Medicine Geriatric Medicine; Visit Provider Family Medicine Geriatric Medicine
DX: D64.9 Anemia, unspecified (principal)
CPT/HCPCS: 36415; 80053; 85025

== ENCOUNTER → 2020-10-15 07:49 | Outpatient (CLI) | payer OTHER, SELFPAY ==
[2020-09-09 12:32] VITALS: BMI 24.5
--- NOTE | 2020-10-15 07:51 | US_ITS ---
STUDY: ABDOMINAL ULTRASOUND - ELASTOGRAPHY REASON FOR VISIT: Female, 69 years old. Fatty infiltration of the liver. TECHNIQUE: Liver stiffness measurements were obtained on a UpDown RS 85 ultrasound machine using a CA 1-7 probe following the SRU guidelines. 3 measurements were obtained using a 2-D-SWE method. The IQR/M was 25% suggesting a quality data set. TECHNICAL QUALITY: Adequate. COMPARISON: Comparison is made with prior ultrasound of the abdomen dated 10/08/2020. FINDINGS: Liver: Mild hepatomegaly and fatty infiltration of the liver. Median liver stiffness measured 6.5 kPa. US/Elastography Parenchyma/Organ IMPRESSION: Liver stiffness measures 6.5 kPa compatible with F2 -- F3 Metavir score. Compatible with Metavir score. Electronically Signed: Fernando Caro MD at 9:50 EST , Service support ,
== END ==
PROVIDERS: PCP Family Medicine Geriatric Medicine; Referring Provider Family Medicine Geriatric Medicine; Visit Provider Family Medicine Geriatric Medicine
DX: K76.0 Fatty (change of) liver, not elsewhere classified (principal)
CPT/HCPCS: 76981

== ENCOUNTER → 2020-10-16 09:20 | Outpatient (CLI) | payer OTHER, SELFPAY ==
[2020-09-09 12:32] VITALS: BMI 24.5
--- NOTE | 2020-10-16 09:30 | RAD_ITS ---
STUDY: X-RAY - ABDOMEN/PELVIS REASON FOR EXAM: Female, 69 years old. PAIN, BILAT STENTS PLACED X1 WEEK AGO TECHNIQUE: 1 view COMPARISON: Prior abdomen and pelvic CT exam of 09/09/2019 FINDINGS: Right ureteral pigtail appears to be in good position with no visualized renal or ureteral calcification. Left ureteral pigtail catheter appears in good position. 3 mm calcifications lower pole of the left kidney. There is a 6 mm round smooth calcification overlaps the distal and of the left pigtail catheter however this is most likely a venous phlebolith formerly visualized on the CT exam. She had no prior stone of this size and in this shape. Otherwise negative for ureteral stones. The visualized liver, spleen and kidneys are grossly normal in size and morphology. Normal soft tissue structures. Normal visualized osseous structures. RAD/Abdomen Single View IMPRESSION: Pigtail catheters in good position. No visualized right renal or ureteral stones. 3 mm nonobstructing calcifications in the lower pole of left kidney. 6 mm round smooth calcification overlapping the distal end of left pigtail catheter most likely phlebolith. No additional left ureteral stones. Electronically Signed: Joanna Aguirre MD at 19:28 EST , Service support ,
== END ==
PROVIDERS: PCP Family Medicine Geriatric Medicine; Referring Provider Urology; Visit Provider Urology
DX: N39.0 Urinary tract infection, site not specified (principal); N20.1 Calculus of ureter
CPT/HCPCS: 74018; 87086; 87088

== ENCOUNTER → 2020-10-23 11:35 | Outpatient (CLI) | payer OTHER, SELFPAY ==
[2020-09-09 12:32] VITALS: BMI 24.5
--- NOTE | 2020-10-23 11:37 | BI_ITS ---
MAMMOGRAPHY - BILATERAL SCREENING REASON FOR EXAM: Female, 69 years old. Routine annual screening examination. PERTINENT HISTORY: Non-contributory. TECHNIQUE: Digital bilateral breast neli (3D mammographic acquisition) in the CC and MLO projections. 2-D mediolateral oblique (MLO) and craniocaudad (CC) views of both breasts were obtained. CAD: Full Field Digital Mammography with Computer Added Detection was performed. COMPARISON: Comparison is made with prior study dated 11/23/2018 and 10/13/2016. FINDINGS: Breast Composition: The breasts are almost entirely fatty. There are no dominant masses or suspicious calcifications. Stable benign-appearing bilateral axillary lymph nodes. No other significant abnormalities are identified. There has been no significant change since the prior study. BI/SCRN MAMM (CAD)W/NELI BILAT IMPRESSION: Stable bilateral screening mammogram. Yearly follow-up mammogram recommended. (A) ASSESSMENT CATEGORY: BIRADS Category 2: Benign. A letter regarding these results will be sent to the patient by the facility within 30 days. Approximately 10% of breast cancers are not detected by mammography. A normal mammogram should not delay biopsy of a clinically suspicious abnormality. [id number] Electronically Signed: Fernando Caro MD at 13:04 EST , Service support ,
== END ==
PROVIDERS: PCP Family Medicine Geriatric Medicine; Referring Provider Family Medicine Geriatric Medicine; Visit Provider Family Medicine Geriatric Medicine
DX: Z12.31 Encounter for screening mammogram for malignant neoplasm of breast (principal)
CPT/HCPCS: 77063; 77067

== ENCOUNTER → 2020-11-17 16:48 | Outpatient (CLI) | payer OTHER, SELFPAY ==
[2020-09-09 12:32] VITALS: BMI 24.5
[2020-11-17 20:30] LABS: Probe Check PASS; Staph aureus DNA By PCR POSITIVE (Negative)
[2020-11-17 20:31] LABS: M R Staph aureus DNA By PCR POSITIVE (Negative)
== END ==
PROVIDERS: PCP Family Medicine Geriatric Medicine; Visit Provider Family Medicine Geriatric Medicine
DX: T14.8XXA Other injury of unspecified body region, initial encounter (principal); B95.62 Methicillin resistant Staphylococcus aureus infection as the cause of diseases classified elsewhere
CPT/HCPCS: 87070; 87077; 87186; 87205; 87640

== ENCOUNTER 2020-11-27 09:10 | Inpatient (IN) | payer OTHER, MEDICARE, SELFPAY ==
[2020-09-09 12:32] VITALS: BMI 24.5
[2020-11-27] VITALS (47 sets, daily range): BP systolic 62–174; BP diastolic 34–97; PULSE 82–132; RESP 16–31; TEMP 30–36.4; O2SAT 91–99; BMI 24.0; BMI 25.1
--- NOTE | 2020-11-27 09:23 | EKG12_ITS ---
Test Reason : UNRESPONSIVE Blood Pressure : / mmHG Vent. Rate : 089 BPM Atrial Rate : 089 BPM P-R Int : 138 ms QRS Dur : 112 ms QT Int : 436 ms P-R-T Axes : 068 -50 067 degrees QTc Int : 530 ms Sinus rhythm with Premature supraventricular complexes Low voltage QRS Left anterior fascicular block Nonspecific ST abnormality Prolonged QT Abnormal ECG Confirmed by ARDEN JOHNSON, LYNDSAY ([id number]), news copy editor STERLING BRO ([id number]) on 12/01/2020 1:27:37 PM Referred By: SHAUNA Confirmed By:JADEN HER MD
[2020-11-27] MEDS: 0.9% Normal Saline 1,000 ML 999 ML IV ×2 (09:25→10:26)
--- NOTE | 2020-11-27 09:25 | ED.VIS.GEN ---
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 She was found to be hypotensive and hypoglycemic. They administered D10 in the field. Her blood sugar improved and she woke up however she remained hypotensive. Patient tells me that she was recently treated for MRSA infection in her axilla and forehead. Tells me that last night prior to bed she went upstairs and fell. Her helped her up. She denies any injuries from that. I spoke with the on the phone. He tells me since taking the antibiotic she has had nausea vomiting diarrhea. He states that she did fall last night but stated that she landed on her buttocks but he found her laying flat on the ground. He is able to get her up and into the bed. She denied any injuries at that time to him. He notes that he has been very weak and not taking her medicines regularly. She has not been eating very well. I spoke with her primary care physician after my initial H&P. He tells me that she was on doxycycline and Bactrim. He referred her to Dr. Durant for surgery and she declined an I&D. Tells me that for diabetes she takes Metformin 1000 mg twice daily. - Past Medical History (1) Kidney stone Status: Chronic (2) Non-STEMI (non-ST elevated myocardial infarction) Status: Chronic (3) Essential (primary) hypertension Status: Chronic (4) Hyperlipidemia Status: Chronic Past Medical History - Allergies and Home Meds Allergies/Adverse Reactions: Allergies oxycodone [From Percocet] Allergy (Verified 02/10/20 15:34) Nausea Penicillins [PCN] Allergy (Verified 02/10/20 15:34) Unknown Past Medical History: - - Diabetes Surgical History: - - lithotripsy Smoking Status: Current every day smoker Review of Systems General: Denies: Chills, Fever, Sweats Eyes: Denies: Visual changes - bilaterally, Diplopia ENT: Denies: Rhinorrhea, Sore throat Cardiovascular: Denies: Chest pain, Palpitations Respiratory: Denies: Dyspnea, Cough, Dyspnea on exertion Gastrointestinal: Reports: Abdominal pain, Nausea, Vomiting, Diarrhea. Denies: Melena, Hematochezia Genitourinary: Denies: Dysuria, Hematuria, Frequency Musculoskeletal: Denies: Back pain, Extremity Pain Skin: Reports: Wounds. Denies: Rash Neurological: Denies: Headache, Weakness, Numbness Physical Exam Vital Signs/Narrative: Vital Signs Temp Pulse Resp BP Pulse Ox 11/27/20 09:15 93 25 H 71/35 L 97 11/27/20 09:14 86 F L 94 23 H 71/35 L 98 11/27/20 09:10 86 F L 94 27 H 65/37 L 96 Inital Vital Signs reviewed: Yes General: Well nourished, Well developed, No Acute Distress Head: Normocephalic, Atraumatic Eyes: Perrl, EOMI ENT: No rhinorrhea, Dry mucous membranes Neck: Supple, Nontender Cardiovascular: Regular rate, No murmurs, Tachycardia Respiratory: No distress, CTA bilaterally, Chest nontender Abdomen: Soft, Nondistended, Normal bowel sounds, Tender - mild diffuse Back: Nontender, Normal Inspection Extremities: Nontender, No edema Skin: Normal color, No rash Neurological: Oriented x3, Cranial nerves II-XII grossly intact, Normal Strength, Normal Sensation, Lethargic Diagnostic/Tx/Re-eval Clinical Impression(s) from Imaging Studies Chest X-Ray 11/27/20 09:51 IMPRESSION: No acute abnormality is seen. Electronically Signed: Fernando Caro MD at 10:10 EDT , Service support , Abdomen/Pelvis CT 11/27/20 10:20 IMPRESSION: Fluid-filled stomach and duodenum as well as small bowel loops. Early small bowel obstruction should be ruled out. A repeat examination following oral or rectal contrast is recommended. Left perinephric stranding. Nonobstructive left intrarenal calculi. Questionable extraluminal air within the pelvis. Electronically Signed: Fernando Caro MD at 11:31 EDT , Service support , Brain CT 11/27/20 10:20 IMPRESSION: Chronic involutional changes of the brain. Electronically Signed: Fernando Caro MD at 11:26 EDT , Service support , Laboratory Last Values WBC 17.3 K/mm3 (4.4-11.0) H 11/27/20 09:25 RBC 3.58 M/mm3 (4.2-5.4) L 11/27/20 09:25 Hgb 10.2 g/dL (12.0-15.0) L 11/27/20 09:25 Hct 33.9 % (37-47) L 11/27/20 09:25 MCV 94.7 fL (81-99) 11/27/20 09:25 MCH 28.5 pg (27.0-32.0) 11/27/20 09:25 MCHC 30.1 g/dL (32-36) L 11/27/20 09:25 RDW Std Deviation 58.6 fl (35.1-43.9) H 11/27/20 09:25 RDW Coeff of [place]a 17.1 % (11.6-14.6) H 11/27/20 09:25 Plt Count 364 K/mm3 (150-450) 11/27/20 09:25 MPV 12.6 fl (6.2-12.0) H 11/27/20 09:25 Immature Gran % (Auto) 1.400 % (0.0-0.9) H 11/27/20 09:25 Neut % (Auto) 75.8 % (47-70) H 11/27/20 09:25 Lymph % (Auto) 18.5 % (19-41) L 11/27/20 09:25 [place] % (Auto) 3.2 % (0-10) 11/27/20 09:25 Eos % (Auto) 0.5 % (0-5) 11/27/20 09:25 Baso % (Auto) 0.6 % (0-1) 11/27/20 09:25 Absolute Neuts (auto) 13.1 X10^3/uL (2.0-7.7) H 11/27/20 09:25 Absolute Lymphs (auto) 3.20 X10^3/uL (0.83-4.51) 11/27/20 09:25 Nucleated RBC % 0 % (0-5) 11/27/20 09:25 PT 17.8 SECONDS (11.7-14.9) H 11/27/20 09:25 INR 1.6 11/27/20 09:25 APTT 27.8 Seconds (24.1-36.2) 11/27/20 09:25 Specimen Type ART 11/27/20 09:54 Sample Site L Radial 11/27/20 09:54 pH 6.93 (7.35-7.45) L* 11/27/20 09:54 Bicarbonate Actual 4.2 mmol/L (22-26) L 11/27/20 09:54 Total CO2 < 5 mmol/L 11/27/20 09:54 Base Excess -28 mmol/L (-2 to +2) L 11/27/20 09:54 O2 Saturation 94 % (95-99) L 11/27/20 09:54 ABG pCO2 20.4 mmHg (35-45) L 11/27/20 09:54 ABG pO2 110 mmHG (75-100) H 11/27/20 09:54 Justus Test Positive 11/27/20 09:54 O2 Delivery Device Room Air 11/27/20 09:54 Crit Call To/Read Back Yes 11/27/20 09:54 Blood Gas Notified Whom guerline 11/27/20 09:54 Sodium 143 mmol/L (136-145) 11/27/20 09:25 Potassium 4.9 mmol/L (3.5-5.1) 11/27/20 09:25 Chloride 99 mmol/L (98-107) 11/27/20 09:25 Carbon Dioxide 8.0 mmol/L (21.0-32.0) L* 11/27/20 09:25 Anion Gap 36 (5-15) H 11/27/20 09:25 BUN 102 mg/dL (7-18) H* 11/27/20 09:25 Creatinine 5.63 mg/dL (0.55-1.02) H 11/27/20 09:25 Estim Creat Clear Calc 7.67 ml/min 11/27/20 09:25 Est GFR (MDRD) Af Amer 10 mL/min (>60) L 11/27/20 09:25 Est GFR (MDRD) Non-Af 8 mL/min (>60) L 11/27/20 09:25 BUN/Creatinine Ratio 18.1 RATIO (10-20) 11/27/20 09:25 Glucose 178 mg/dL (74-106) H 11/27/20 09:25 Lactic Acid 18.6 mmol/L (0.4-1.9) H* 11/27/20 09:25 Calcium 9.9 mg/dL (8.5-10.1) 11/27/20 09:25 Phosphorus 10.4 mg/dL (2.5-4.9) H* 11/27/20 09:25 Magnesium 1.0 mg/dL (1.6-2.6) L 11/27/20 09:25 Total Bilirubin 0.20 mg/dL (0.20-1.00) 11/27/20 09:25 AST 34 U/L (15-37) 11/27/20 09:25 ALT 44 U/L (13-56) 11/27/20 09:25 Alkaline Phosphatase 89 U/L (45-117) 11/27/20 09:25 Troponin I < 0.015 ng/mL (<0.045) 11/27/20 09:25 Total Protein 5.3 g/dL (6.4-8.2) L 11/27/20 09:25 Albumin 2.7 g/dL (3.2-5.0) L 11/27/20 09:25 Globulin 2.6 g/dL (2.2-4.2) 11/27/20 09:25 Albumin/Globulin Ratio 1.0 RATIO (0.9-2.4) 11/27/20 09:25 Urine Color Yellow (Yellow) 11/27/20 10:00 Urine Clarity Cloudy (Clear) 11/27/20 10:00 Urine pH 5.0 (5.0 - 8.0) 11/27/20 10:00 Ur Specific [place] 1.020 (1.002-1.030) 11/27/20 10:00 Urine Protein 100 mg/dl (Negative) H 11/27/20 10:00 Urine Glucose (UA) Normal mg/dl (Normal) 11/27/20 10:00 Urine Ketones Negative mg/dl (Negative) 11/27/20 10:00 Urine Occult Blood 25 /ul (Negative) H 11/27/20 10:00 Urine Nitrite Negative (Negative) 11/27/20 10:00 Urine Bilirubin 1 mg/dL (Negative) H 11/27/20 10:00 Urine Urobilinogen Normal mg/dl (Normal) 11/27/20 10:00 Ur Leukocyte Esterase 500 /ul (Negative) H 11/27/20 10:00 Urine RBC 10-25 SEEN /hpf (0-5) 11/27/20 10:00 Urine WBC >100 SEEN /hpf (0-5) 11/27/20 10:00 Ur Squamous Epith Cells 0 SEEN /hpf (5-10) 11/27/20 10:00 Urine Bacteria 2+ /hpf (None Seen) 11/27/20 10:00 Urine Mucus 0 SEEN /hpf (<or=2+) 11/27/20 10:00 POC Glucose 112 mg/dL (70-110) H 11/27/20 10:22 - EKG Initial EKG Interpretation: Sinus Rhythm - EKG demonstrates a sinus rhythm at a rate of 89 with left anterior fascicular block. Noted PAC. - Medical Decision Making My initial interpretation of the chest x-ray is no acute process. Patient has a leukocytosis of 17. She has evidence of UTI. Her pH is 6.9 with a bicarb of 4. This appears to be of metabolic acidosis. BUN of 102 with a creatinine of 5.7. Lactic acid at 18. Phosphorus calcium significantly elevated. Potassium is within the normal range. Temperature sensitive Loco was placed and the patient is about 90 degrees. Bear hugger was placed with warmed fluids (2000 cc NS). Patient was taken to CT. when the patient came back she was diaphoretic altered mental status and she had vomit on her gown. There is vomit in her mouth. She was complaining that she could not breathe. Her sats had decreased to about 91% and the patient was tachypneic. Decision was made to intubate her after I looked at her CT and saw that her stomach was significantly distended with fluid. Out of concern for aspiration meropenem was ordered. Patient underwent endotracheal intubation on the first attempt without any difficulty using etomidate and succinylcholine. My interpretation of the repeat chest x-ray is adequate placement of endotracheal tube. Precedex was ordered for sedation. CT the brain negative. CT of the abdomen pelvis demonstrates fluid-filled stomach and duodenum as well as loops of small bowel possible early small bowel obstruction versus ileus. Left perinephric stranding raises the concern for pyelonephritis. Questionable extra luminary air within the pelvis. Placement of the endotracheal tube was confirmed. I spoke with Dr. Abdul from ICU, with Dr. Anders from surgery, [facility] nephrology, and her hospitalist for admission. - Critical Care Time Critical care time (excluding procedures): 30-74 minutes - 36 minutes, Discussing w/Patient &/or Family/Physical Therapist Assistant, Discussing w/Consultants, Arranging Admission or Transfer, Performing Direct Patient Care at Bedside ED Disposition - Plan for ED Patient: Disposition: Acute Care Hospital [facility] Diagnosis: Acute respiratory failure, Metabolic acidosis, Pyelonephritis, Acute renal failure, Aspiration into airway, Uremia, Hyperphosphatemia, Hypovolemic shock, Septic shock
[2020-11-27 09:44] LABS: Absolute Neutrophil Count 13.1 X10^3/uL (2.0-7.7); Basophil# 0.11 X10^3/uL; Basophil% 0.6 % (0-1); Eosinophil# 0.08 X10^3/uL; Eosinophils% 0.5 % (0-5); Hematocrit 33.9 % (37-47); Hemoglobin 10.2 g/dL (12.0-15.0); Lymphocyte % 18.5 % (19-41); Mean Corp Hgb Conc 30.1 g/dL (32-36); Mean Corpuscular Hgb 28.5 pg (27.0-32.0); Mean Corpuscular Volume 94.7 fL (81-99); Mean Platelet Vol. 12.6 fl (6.2-12.0); Monocyte# 0.55 X10^3/uL; Monocyte% 3.2 % (0-10); NRBC Flagged by Analyzer 0 % (0-5); Neutrophil # 13.13 X10^3/uL (2.7-7.7); Neutrophil % 75.8 % (47-70); Platelet Count 364 K/mm3 (150-450); RBC Distribution Width CV 17.1 % (11.6-14.6); RBC Distribution Width SD 58.6 fl (35.1-43.9); Red Blood Count 3.58 M/mm3 (4.2-5.4); White Blood Count 17.3 K/mm3 (4.4-11.0)
[2020-11-27] MEDS: Ondansetron 4 MG/2 ML Vial IV (09:47)
--- NOTE | 2020-11-27 09:51 | RAD_ITS ---
STUDY: X-RAY CHEST REASON FOR EXAM: Female, 69 years old. Hypotension TECHNIQUE: Single AP portable view of the chest. COMPARISON: Comparison is made with prior study dated 10/02/2020. FINDINGS: EKG electrodes are seen. The lungs are clear and expanded. There is no demonstrated pleural abnormality. Normal size heart. Normal mediastinum and jame. Normal visualized pulmonary arteries. Normal visualized aortic arch and descending thoracic aorta. Normal visualized thoracic spine. Normal visualized ribs, clavicles, and shoulders. Prior cholecystectomy. RAD/Chest 1 View (Portable) IMPRESSION: No acute abnormality is seen. Electronically Signed: Fernando Caro MD at 10:10 EDT , Service support ,
[2020-11-27 09:52] LABS: International Normalized Ratio 1.6; Prothrombin Time (Protime)PT. 17.8 SECONDS (11.7-14.9)
[2020-11-27 09:53] LABS: Partial Thromboplast Time 27.8 Seconds (24.1-36.2)
[2020-11-27 10:06] LABS: AST(SGOT) 34 U/L (15-37); Alanine Aminotransfer ALT/SGPT 44 U/L (13-56); Albumin, Serum 2.7 g/dL (3.2-5.0); Alkaline Phosphatase 89 U/L (45-117); Anion Gap 36 (5-15); BUN 102 mg/dL (7-18); BUN/Creat Ratio 18.1 RATIO (10-20); Calcium,Total 9.9 mg/dL (8.5-10.1); Chloride 99 mmol/L (98-107); Creatinine, Serum 5.63 mg/dL (0.55-1.02); EST Glomerular Filtration Rate 8 mL/min (>60); Est Glom Filt Rate - Afr Amer 10 mL/min (>60); Estimated Creatinine Clearance 7.67 ml/min; Globulin 2.6 g/dL (2.2-4.2); Glucose 178 mg/dL (74-106); Potassium 4.9 mmol/L (3.5-5.1); Protein, Total 5.3 g/dL (6.4-8.2); Sodium Level 143 mmol/L (136-145)
[2020-11-27 10:10] LABS: Allen Test Positive; Base Excess -28 mmol/L (-2 to +2); Bicarbonate 4.2 mmol/L (22-26); Blood Gas Specimen Type ART; O2 Delivery Device Room Air; PO2 110 mmHG (75-100); SITE L Radial; SO2 94 % (95-99); Total Carbon Dioxide < 5 mmol/L; pCO2 20.4 mmHg (35-45); pH 6.93 (7.35-7.45)
[2020-11-27 10:13] LABS: Mucous, Urine 0 SEEN /hpf (<or=2+); Squamous Epithelial Cells - UA 0 SEEN /hpf (5-10)
[2020-11-27 10:16] LABS: Color, Urine Yellow (Yellow); Glucose, Dipstick Normal (Normal); Ketone-Dipstick Negative (Negative); Leukocyte Esterase-Dipstick 500 /ul (Negative); Nitrite-Dipstick Negative (Negative); Occult Blood-Urine 25 /ul (Negative); Protein-Dipstick 100 mg/dl (Negative); Urine Clarity Cloudy (Clear); Urine Urobilinogen Normal (Normal)
[2020-11-27 10:18] LABS: Lactic Acid 18.6 mmol/L (0.4-1.9)
[2020-11-27 10:18] LABS: Urine Bilirubin Dipstick 1 mg/dL (Negative)
--- NOTE | 2020-11-27 10:20 | CT_ITS ---
STUDY: CT ABDOMEN AND PELVIS WITHOUT CONTRAST REASON FOR EXAM: Female, 69 years old. Abdominal pain and diarrhea. Unresponsiveness. RADIATION DOSAGE (If Supplied By Facility): CTDIvol = ( 20.68 ) mGy, DLP = ( 998.22 ) mGycm TECHNIQUE: Transaxial images were obtained from the dome of the diaphragm to the symphysis pubis without oral contrast, and without intravenous contrast. Sagittal and coronal images were reconstructed. Individualized dose optimization techniques were used for this CT. COMPARISON: None. FINDINGS: Stable 8 mm x 7 mm noncalcified nodule in the anterior lateral aspect of the right lower lobe. Coronary artery calcification. Normal liver. There are surgical clips in the gallbladder fossa consistent with a prior cholecystectomy. Normal spleen. Normal pancreas. Normal bilateral adrenal glands. Normal right kidney. Left perinephric stranding. Nonobstructive calculi are seen within the left kidney. The largest is in the lower pole and measures 1 cm. The stomach is distended with fluid. There is diffuse thickening of the mucosal folds of the stomach. Fluid-filled small bowel loops. Early distal small bowel obstruction should be ruled out. Increased density is seen within the region of the cecum. This may be secondary to recently ingested medication. The appendix is visualized and appears normal. There is diffuse atherosclerotic calcification of the abdominal aorta and its major visceral branches, without a demonstrated aneurysm. Normal inferior vena cava. Normal retroperitoneum. A CARTAGENA catheter is seen within the urinary bladder. The urinary bladder is empty. Possible extraluminal air is seen within the pelvis. A repeat examination following oral contrast or rectal contrast is recommended. Normal abdominal wall. There are diffuse degenerative changes of the visualized lumbar spine. CT/Abdomen/Pelvis without Cont IMPRESSION: Fluid-filled stomach and duodenum as well as small bowel loops. Early small bowel obstruction should be ruled out. A repeat examination following oral or rectal contrast is recommended. Left perinephric stranding. Nonobstructive left intrarenal calculi. Questionable extraluminal air within the pelvis. Electronically Signed: Fernando Caro MD at 11:31 EDT , Service support ,
--- NOTE | 2020-11-27 10:20 | CT_ITS ---
STUDY: CT BRAIN WITHOUT CONTRAST REASON FOR EXAM: Female, 69 years old. Altered mental status RADIATION DOSAGE (If Supplied By Facility): CTDIvol = ( 44.99 ) mGy, DLP = ( 846.73 ) mGycm TECHNIQUE: Transaxial CT imaging of the brain was performed without administration of intravenous contrast material. Individualized dose optimization techniques were used for this CT. COMPARISON: Comparison is made with prior examination dated 05/22/2020. FINDINGS: Normal soft tissue structures. Normal calvarium. There is mild cerebral atrophy with widening of the extra-axial spaces and ventricular dilatation. Normal white matter tracts of the cerebral hemispheres. Normal basal ganglia and thalami. Normal brainstem. Normal cerebellum. There is no intracranial hemorrhage. There are no findings of an acute ischemic infarction. Atherosclerotic calcification of the cavernous portions of the internal carotid arteries bilaterally. Normal visualized paranasal sinuses. CT/Brain/Head without Contrast IMPRESSION: Chronic involutional changes of the brain. Electronically Signed: Fernando Caro MD at 11:26 EDT , Service support ,
[2020-11-27 10:25] LABS: Bedside Glucose 112 mg/dL (70-110)
[2020-11-27 10:34] LABS: Bacteria 2+ /hpf (None Seen); Red Blood Cells-Urine 10-25 SEEN /hpf (0-5); White Blood Cells >100 SEEN /hpf (0-5)
[2020-11-27 11:10] LABS: Phosphorus 10.4 mg/dL (2.5-4.9)
--- NOTE | 2020-11-27 11:32 | RAD_ITS ---
STUDY: X-RAY CHEST REASON FOR EXAM: Female, 69 years old. Intubation, TECHNIQUE: Single AP portable view of the chest. COMPARISON: Comparison is made with prior examination done earlier in the day. FINDINGS: An endotracheal tube is in situ with the tip at 2.4 cm proximal to the gabriella. A nasogastric tube is seen with the tip in the body of the stomach. EKG electrodes are seen. The lungs are clear and expanded. There is no demonstrated pleural abnormality. Normal size heart. Normal mediastinum and jame. Normal visualized pulmonary arteries. There is atherosclerotic calcification of the aortic arch with tortuosity. There are diffuse degenerative changes of the visualized thoracic spine. Normal visualized ribs, clavicles, and shoulders. Prior cholecystectomy. RAD/Chest 1 View (Portable) IMPRESSION: The tip of the endotracheal tube is at 2.4 sinus proximal to the gabriella. Electronically Signed: Fernando Caro MD at 12:08 EDT , Service support ,
[2020-11-27] MEDS: fentaNYL 100 MCG/2 ML Ampul 25 MCG IV (11:40)
[2020-11-27] MEDS: 0.9% Normal Saline 1,000 ML 200 ML IV ×2 (11:47→15:15)
[2020-11-27] MEDS: Midazolam 5 MG/ML Syringe IV ×2 (12:01→12:56)
[2020-11-27 12:25] LABS: Bedside Glucose 80 mg/dL (70-110)
[2020-11-27] MEDS: Dextrose 50%-Water 25 GM/50 ML DISP.SYRIN IV (12:33)
[2020-11-27] MEDS: Dextrose 5%/0.9% NaCl 1,000 ML 200 ML IV (12:45)
[2020-11-27 13:00] LABS: Allen Test Positive; Base Excess -29 mmol/L (-2 to +2); Bicarbonate 4.8 mmol/L (22-26); Blood Gas Specimen Type ART; FI02 50; Mode AC; O2 Delivery Device Adult Vent; PEEP 5; PO2 191 mmHG (75-100); RR 16; SITE L Radial; SO2 98 % (95-99); Total Carbon Dioxide 6 mmol/L; Vt 450; pCO2 26.4 mmHg (35-45); pH 6.87 (7.35-7.45)
--- NOTE | 2020-11-27 13:07 | CPS ---
Not enough blood to rerun critical ABG sample at 1255. Nimesh YARN SKEINS EXAMINER
[2020-11-27 13:15] LABS: Bedside Glucose 180 mg/dL (70-110)
--- NOTE | 2020-11-27 13:15 | PCM.CON.CC ---
Reason for Consult Date of Consultation: 11/27/20 Reason for Consultation: Encephalopathy, acute respiratory failure History of Present Illness: The patient is a 69-year-old female, with a history as outlined below, who presented to the emergency department on November 27 with encephalopathy, hypotension and hypoglycemia. History pertinent to the patient's hospitalization was obtained primarily via chart review, as the patient is currently intubated and sedated. The patient was apparently recently on antibiotics for an MRSA infection involving her axilla and forehead. She has been experiencing a great deal of nausea, vomiting and diarrhea recently. In addition, the patient is on Metformin at her baseline. On presentation to the emergency department, the patient was noted to be hypothermic, hypotensive and tachypneic. Laboratory evaluation revealed an elevated white blood cell count to 17,000. Coagulation profile revealed an INR of 1.6. Chemistry profile was notable for a bicarbonate of 8.0, anion gap of 36, BUN of 102, creatinine of 5.63, lactate of 18.6, phosphorus of 10.4 and magnesium of 1.0. Initial arterial blood gas obtained on room air revealed a pH of 6.9 with a corresponding PCO2 of 21 and PO2 of 110. Urine analysis was positive for leukocyte esterase and 2+ urine bacteria. The patient was sent for a CT abdomen/pelvis, which revealed an incidental pulmonary nodule along with fluid-filled small bowel loops with possible early distal small bowel obstruction. CT head was unremarkable. Upon return from CT scanning, the patient was noted to be diaphoretic and was noted to have emesis on her hospital gown. The patient had gone on to develop respiratory distress and was subsequently intubated in the emergency department. The patient received supplemental IV fluid hydration and was placed on broad-spectrum antimicrobials. Follow-up arterial blood gas after intubation revealed slightly worsened pH. Therefore, I did call and personally speak with nephrology who indicated that they would proceed with dialysis. Past Medical History Past Medical History (Chronic Problems): Chronic Problems (Last Reviewed 09/09/20 @ 07:[address] Dashawn Acevedo MD) Kidney stone (Chronic) Non-STEMI (non-ST elevated myocardial infarction) (Chronic 02/10/20) Essential (primary) hypertension (Chronic) Hyperlipidemia (Chronic) Nicotine dependence (Chronic) Medical History: Medical History (Last Reviewed 09/09/20 @ 07:[address] Dashawn Acevedo MD) Non-STEMI (non-ST elevated myocardial infarction) (Chronic) Onset Date: 02/10/20 I21.4 Essential (primary) hypertension (Chronic) I10 Hyperlipidemia (Chronic) E78.5 Nicotine dependence (Chronic) F17.200 CKD (chronic kidney disease) stage 3, GFR 30-59 ml/min N18.3 DM type 2 (diabetes mellitus, type 2) E11.9 GERD (gastroesophageal reflux disease) K21.9 Left renal stone N20.0 Nephrolithiasis N20.0 Tobacco abuse Z72.0 Allergies oxycodone [From Percocet] Allergy (Verified 02/10/20 15:34) Nausea Penicillins [PCN] Allergy (Verified 02/10/20 15:34) Unknown Home Medications: Ambulatory Orders Medication Instructions Recorded Aspirin E.C. [Ecotrin] 81 mg PO DAILY@0800 11/03/14 Metoprolol Tartrate [Lopressor 25 mg PO BID 11/03/14 (beta ericka)] Multivitamins,Therapeutic 1 tablet PO DAILY 11/03/14 [Multivitamin] Omeprazole [Prilosec] 20 mg PO DAILY 11/03/14 Rosuvastatin Calcium [Crestor] 40 mg PO QHS 11/03/14 metFORMIN HCl [Glucophage] 1,000 mg PO BIDCM 11/03/14 Cyanocobalamin (Vitamin B-12) 1,000 mcg PO DAILY 02/10/16 [Vitamin B-12] Lisinopril [Zestril] 20 mg PO QHS 01/09/20 Vitamin B Complex 1 ea PO QHS 01/22/20 Acetaminophen/Caffeine [Excedrin 1 tablet PO DAILY PRN PRN 11/27/20 Tension Headache Cplt] Doxycycline Hyclate 100 mg PO BID 11/27/20 Surgical History: Surgical History (Last Updated 02/11/20 @ 18:52 by Swapna Gonzales) History of left heart catheterization Onset Date: 02/11/20 Z98.890 Surgical History: - - lithotripsy Psychiatric History: No pertinent psych hx 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 Dashawn Acevedo MD) Acute respiratory failure (Acute) Metabolic acidosis (Acute) Pyelonephritis (Acute) Acute renal failure (Acute) Aspiration into airway (Acute) Uremia (Acute) Hyperphosphatemia (Acute) Hypovolemic shock (Acute) Septic shock (Acute) Objective: The patient's most recent lab work, culture data and imaging studies have all been personally reviewed. - Physical Exam Vitals/I&O's: Vital Signs Temp Pulse Resp BP Pulse Ox 91.2 F L 98 26 H 106/53 L 97 11/27/20 13:00 11/27/20 13:00 11/27/20 13:00 11/27/20 13:00 11/27/20 13:00 Oxygen Flow Rate (L/min) 75 Oxygen Delivery Method Mechanical Ventilator Weight: 131 lb 6.328 oz Body Mass Index (BMI) 24.0 Finger Stick Blood Glucose 80 Intake and Output for Last 24 Hours 11/25/20 11/26/20 11/27/20 23:59 23:59 23:59 Intake Total Balance General: - - Intubated, sedated and mechanically ventilated. HEENT: Atraumatic, Normocephalic Oral: Dry Mucosa, - - Endotracheal tube in place Neck: Supple, No Nodes, Trachea Midline Lungs: Diminished, Tachypneic, - - Scant rhonchi Cardiovascular: Normal S1, Normal S2, Tachycardic Abdomen: Bowel Sounds Present, Soft, Non Tender Extremities: No clubbing, No cyanosis, No edema Skin: No breakdown Musculoskeletal: No Muscle Wasting Lymphatic: No Cervical, Supraclavicular, or Inguinal Adenopathy Neurological: - - No focal neurological deficits. Currently sedated on the ventilator. Labs (Last 48 Hours) 11/27/20 11/27/20 11/27/20 09:25 09:25 09:25 WBC 17.3 H RBC 3.58 L Hgb 10.2 L Hct 33.9 L MCV 94.7 MCH 28.5 MCHC 30.1 L RDW Std Deviation 58.6 H RDW Coeff of Hawa 17.1 H Plt Count 364 MPV 12.6 H Immature Gran % (Auto) 1.400 H Neut % (Auto) 75.8 H Lymph % (Auto) 18.5 L Murray % (Auto) 3.2 Eos % (Auto) 0.5 Baso % (Auto) 0.6 Absolute Neuts (auto) 13.1 H Absolute Lymphs (auto) 3.20 Nucleated RBC % 0 PT 17.8 H INR 1.6 APTT 27.8 Specimen Type Sample Site pH Bicarbonate Actual Total CO2 Base Excess O2 Saturation O2 % ABG pCO2 ABG pO2 Justus Test Respiration Rate O2 Delivery Device Vent Mode Tidal Volume POC PEEP Crit Call To/Read Back Blood Gas Notified Whom Sodium 143 Potassium 4.9 Chloride 99 Carbon Dioxide 8.0 L* Anion Gap 36 H BUN 102 H* Creatinine 5.63 H Estim Creat Clear Calc 7.67 Est GFR (MDRD) Af Amer 10 L Est GFR (MDRD) Non-Af 8 L BUN/Creatinine Ratio 18.1 Glucose 178 H Lactic Acid Calcium 9.9 Phosphorus Magnesium Total Bilirubin 0.20 AST 34 ALT 44 Alkaline Phosphatase 89 Troponin I < 0.015 Total Protein 5.3 L Albumin 2.7 L Globulin 2.6 Albumin/Globulin Ratio 1.0 Urine Color Urine Clarity Urine pH Ur Specific [place] Urine Protein Urine Glucose (UA) Urine Ketones Urine Occult Blood Urine Nitrite Urine Bilirubin Urine Urobilinogen Ur Leukocyte Esterase Urine RBC Urine WBC Ur Squamous Epith Cells Urine Bacteria Urine Mucus POC Glucose 11/27/20 11/27/20 11/27/20 09:25 09:25 09:54 WBC RBC Hgb Hct MCV MCH MCHC RDW Std Deviation RDW Coeff of [place] Plt Count MPV Immature Gran % (Auto) Neut % (Auto) Lymph % (Auto) Murray % (Auto) Eos % (Auto) Baso % (Auto) Absolute Neuts (auto) Absolute Lymphs (auto) Nucleated RBC % PT INR APTT Specimen Type ART Sample Site L Radial pH 6.93 L* Bicarbonate Actual 4.2 L Total CO2 < 5 Base Excess -28 L O2 Saturation 94 L O2 % ABG pCO2 20.4 L ABG pO2 110 H Justus Test Positive Respiration Rate O2 Delivery Device Room Air Vent Mode Tidal Volume POC PEEP Crit Call To/Read Back Yes Blood Gas Notified Whom hoehne Sodium Potassium Chloride Carbon Dioxide Anion Gap BUN Creatinine Estim Creat Clear Calc Est GFR (MDRD) Af Amer Est GFR (MDRD) Non-Af BUN/Creatinine Ratio Glucose Lactic Acid 18.6 H* Calcium Phosphorus 10.4 H* Magnesium 1.0 L Total Bilirubin AST ALT Alkaline Phosphatase Troponin I Total Protein Albumin Globulin Albumin/Globulin Ratio Urine Color Urine Clarity Urine pH Ur Specific [place] Urine Protein Urine Glucose (UA) Urine Ketones Urine Occult Blood Urine Nitrite Urine Bilirubin Urine Urobilinogen Ur Leukocyte Esterase Urine RBC Urine WBC Ur Squamous Epith Cells Urine Bacteria Urine Mucus POC Glucose 11/27/20 11/27/20 11/27/20 10:00 10:22 12:19 WBC RBC Hgb Hct MCV MCH MCHC RDW Std Deviation RDW Coeff of [place] Plt Count MPV Immature Gran % (Auto) Neut % (Auto) Lymph % (Auto) [place] % (Auto) Eos % (Auto) Baso % (Auto) Absolute Neuts (auto) Absolute Lymphs (auto) Nucleated RBC % PT INR APTT Specimen Type Sample Site pH Bicarbonate Actual Total CO2 Base Excess O2 Saturation O2 % ABG pCO2 ABG pO2 Justus Test Respiration Rate O2 Delivery Device Vent Mode Tidal Volume POC PEEP Crit Call To/Read Back Blood Gas Notified Whom Sodium Potassium Chloride Carbon Dioxide Anion Gap BUN Creatinine Estim Creat Clear Calc Est GFR (MDRD) Af Amer Est GFR (MDRD) Non-Af BUN/Creatinine Ratio Glucose Lactic Acid Calcium Phosphorus Magnesium Total Bilirubin AST ALT Alkaline Phosphatase Troponin I Total Protein Albumin Globulin Albumin/Globulin Ratio Urine Color Yellow Urine Clarity Cloudy Urine pH 5.0 Ur Specific [place] 1.020 Urine Protein 100 H Urine Glucose (UA) Normal Urine Ketones Negative Urine Occult Blood 25 H Urine Nitrite Negative Urine Bilirubin 1 H Urine Urobilinogen Normal Ur Leukocyte Esterase 500 H Urine RBC 10-25 SEEN Urine WBC >100 SEEN Ur Squamous Epith Cells 0 SEEN Urine Bacteria 2+ Urine Mucus 0 SEEN POC Glucose 112 H 80 11/27/20 11/27/20 12:55 13:10 WBC RBC Hgb Hct MCV MCH MCHC RDW Std Deviation RDW Coeff of [place] Plt Count MPV Immature Gran % (Auto) Neut % (Auto) Lymph % (Auto) [place] % (Auto) Eos % (Auto) Baso % (Auto) Absolute Neuts (auto) Absolute Lymphs (auto) Nucleated RBC % PT INR APTT Specimen Type ART Sample Site L Radial pH 6.87 L* Bicarbonate Actual 4.8 L Total CO2 6 Base Excess -29 L O2 Saturation 98 O2 % 50 ABG pCO2 26.4 L ABG pO2 191 H Justus Test Positive Respiration Rate 16 O2 Delivery Device Adult Vent Vent Mode AC Tidal Volume 450 POC PEEP 5 Crit Call To/Read Back Yes Blood Gas Notified Whom hoehne Sodium Potassium Chloride Carbon Dioxide Anion Gap BUN Creatinine Estim Creat Clear Calc Est GFR (MDRD) Af Amer Est GFR (MDRD) Non-Af BUN/Creatinine Ratio Glucose Lactic Acid Calcium Phosphorus Magnesium Total Bilirubin AST ALT Alkaline Phosphatase Troponin I Total Protein Albumin Globulin Albumin/Globulin Ratio Urine Color Urine Clarity Urine pH Ur Specific [place] Urine Protein Urine Glucose (UA) Urine Ketones Urine Occult Blood Urine Nitrite Urine Bilirubin Urine Urobilinogen Ur Leukocyte Esterase Urine RBC Urine WBC Ur Squamous Epith Cells Urine Bacteria Urine Mucus POC Glucose 180 H Clinical Impression(s) from Imaging Studies Chest X-Ray 11/27/20 09:51 IMPRESSION: No acute abnormality is seen. Electronically Signed: Fernando Caro MD at 10:10 EDT , Service support , Abdomen/Pelvis CT 11/27/20 10:20 IMPRESSION: Fluid-filled stomach and duodenum as well as small bowel loops. Early small bowel obstruction should be ruled out. A repeat examination following oral or rectal contrast is recommended. Left perinephric stranding. Nonobstructive left intrarenal calculi. Questionable extraluminal air within the pelvis. Electronically Signed: Fernando Caro MD at 11:31 EDT , Service support , Brain CT 11/27/20 10:20 IMPRESSION: Chronic involutional changes of the brain. Electronically Signed: Fernando Caro MD at 11:26 EDT , Service support , Chest X-Ray 11/27/20 11:32 IMPRESSION: The tip of the endotracheal tube is at 2.4 sinus proximal to the gabriella. Electronically Signed: Fernando Caro MD at 12:08 EDT , Service support , Current Medications Sodium Chloride () 1,000 mls @ 200 mls/hr IV .Q5H [facility] Last Admin: 11/27/20 11:47 Dose: 200 mls/hr Documented by: Dexmedetomidine HCl 400 mcg/ (Sodium Chloride) 100 mls @ 7.45 mls/hr CONT INF .[id number] [facility]; Protocol Last Titration: 11/27/20 12:49 Dose: 0.8 mcg/kg/hr, 11.9 mls/hr Documented by: Meropenem 1 gm/ Sodium (Chloride) 120 mls @ 33 mls/hr IV X1 ONE Stop: 11/27/20 15:37 Last Admin: 11/27/20 12:33 Dose: 33 mls/hr Documented by: Assessment/Plan Active and Suspected Problems (Last Reviewed 09/09/20 @ 07:[address] Dashawn Acevedo MD) Acute respiratory failure (Acute) Metabolic acidosis (Acute) Pyelonephritis (Acute) Acute renal failure (Acute) Aspiration into airway (Acute) Uremia (Acute) Hyperphosphatemia (Acute) Hypovolemic shock (Acute) Septic shock (Acute) RECOMMENDATIONS: 1. Additional IV fluid hydration. 2. Obtain emergent nephrology consultation. Placed temporary hemodialysis catheter. 3. Discontinue Precedex and start propofol and fentanyl for sedation. 4. Continue supplemental IV fluid hydration. 5. Start vasopressors, if indicated, to maintain a mean arterial pressure at or above 65 mmHg. 6. Start appropriate GI and DVT prophylaxis. 7. Continue antimicrobials as ordered. IMPRESSIONS: 1. Septic shock Clinical concern for either urinary tract source of infection or aspiration pneumonia. In addition, the patient is clearly intravascular volume depleted. Plan to continue aggressive fluid resuscitation along with broad-spectrum antimicrobials and vasopressor support, if indicated, to maintain a mean arterial pressure at or above 65 mmHg. Cultures are currently pending. Central venous catheter will be placed. 2. Acute hypoxemic respiratory failure Concern for aspiration event as precipitating etiology. The patient was intubated in the emergency department. She will be continued on assist control mode of mechanical ventilation, with plans to wean FiO2 to maintain saturations at or above 90%. Will obtain arterial blood gas as well. Continue antimicrobials as noted above. 3. Encephalopathy Likely metabolic in etiology. Plan to continue current supportive measures as noted above. Continue propofol and fentanyl for sedation. Goal to maintain a RASS of -1 to 1. 4. Profound anion gap metabolic acidosis/acute kidney injury/lactic acidemia Likely due to a combination of profound intravascular volume depletion in the setting of GI losses coupled with concurrent use of Metformin. Given that the patient is severely acidotic with profound metabolic derangements, nephrology was consulted for emergent dialysis. Temporary HD line will be placed with plans for hemodialysis later today, per nephrology recommendations. 5. History of diabetes mellitus/hypertension/hyperlipidemia/GERD Complicates care, management, recovery and prognosis. Continue to hold antihypertensives. TIME: 42 minutes of critical care time, independent of procedures, was spent addressing the patient's septic shock, encephalopathy, anion gap metabolic acidosis, acute kidney injury, review of all data and collaboration with the care team. ([id number], [id number]) [id number] Critical care first hour
[2020-11-27 13:37] LABS: Reflex Lactate? Y
--- NOTE | 2020-11-27 14:20 | RAD_ITS ---
STUDY: X-RAY - ABDOMEN/PELVIS REASON FOR EXAM: Female, 69 years old. New OG TECHNIQUE: AP supine and decubitus views of the abdomen and pelvis. COMPARISON: Comparison is made with prior examination dated 11/27/2020. FINDINGS: The tip of the endotracheal tube is at the level of the gabriella. It should be pulled back 2 cm. An oral gastric tube is seen with the tip in the body of the stomach. There is an unremarkable bowel gas pattern. Status post cholecystectomy. RAD/Abdomen Single View (Portable) IMPRESSION: The tip of the orogastric tube is in the body of the stomach. The tip of the endotracheal tube is at the level of the gabriella. It should be pulled back approximately 2 cm. Electronically Signed: Fernando Caro MD at 14:53 EDT , Service support ,
[2020-11-27] MEDS: Midazolam 5 MG/ML Syringe 4 MG IV (14:22)
--- NOTE | 2020-11-27 14:48 | CON.PCM_ITS ---
Problem List (1) Metabolic acidosis Status: Acute (2) Acute renal failure Status: Acute Consultation - Renal 11/27/20 PCP/ Referring MD: Requesting physician: [] Primary care physician: Dr. Garrett Alvarez MD Reason for Consultation:: SANTI - History of Present Illness History of Present Illness: The patient is a 69 year old F Who was brought into the hospital with lethargy, hypoglycemia. Nephrology consultation acute renal failure, acidosis. She was recently treated for MRSA infection of her axillary area. Presented with above complaints. Currently intubated hence most of the history is from the charts. She was found to have acute renal failure, severe metabolic acidosis, lactic acidosis, severe azotemia. ROS unable to be obtained - Allergies Allergies: Allergies oxycodone [From Percocet] Allergy (Verified 02/10/20 15:34) Nausea Penicillins [PCN] Allergy (Verified 02/10/20 15:34) Unknown - Current Medications Current Medications: Current Medications Sodium Chloride () 1,000 mls @ 200 mls/hr IV .Q5H [facility] Last Admin: 11/27/20 11:47 Dose: 200 mls/hr Documented by: Dexmedetomidine HCl 400 mcg/ (Sodium Chloride) 100 mls @ 7.45 mls/hr CONT INF .[id number] [facility]; Protocol Last Titration: 11/27/20 12:49 Dose: 0.8 mcg/kg/hr, 11.9 mls/hr Documented by: Meropenem 1 gm/ Sodium (Chloride) 120 mls @ 33 mls/hr IV X1 ONE Stop: 11/27/20 15:37 Last Admin: 11/27/20 12:33 Dose: 33 mls/hr Documented by: Norepinephrine Bitartrate 8 mg (/ Sodium Chloride) 250 mls @ 9.375 mls/hr CONT INF .[id number] [facility]; Protocol Propofol (Diprivan) 1,000 mg in 100 mls @ 3.576 mls/hr CONT INF .Q12H [facility]; Protocol Fentanyl Citrate 1,000 mcg/ (Sodium Chloride) 100 mls @ 2.5 mls/hr CONT INF .Q40H [facility]; Protocol - Past Medical History Past Medical History (Chronic Problems): Chronic Problems (Last Reviewed 09/09/20 @ 07:[address] Dashawn Acevedo MD) Kidney stone (Chronic) Non-STEMI (non-ST elevated myocardial infarction) (Chronic 02/10/20) Essential (primary) hypertension (Chronic) Hyperlipidemia (Chronic) Nicotine dependence (Chronic) - Past Surgical History Surgical History: - - lithotripsy - Social History Smoking Status: Current every day smoker Patient Problems: Active and Suspected Problems (Last Reviewed 09/09/20 @ 07:[address] Dashawn Acevedo MD) Acute respiratory failure (Acute) Metabolic acidosis (Acute) Pyelonephritis (Acute) Acute renal failure (Acute) Aspiration into airway (Acute) Uremia (Acute) Hyperphosphatemia (Acute) Objective: orally intubated, sedated No pallor No JVD S1 and S2 Lungs are clear to auscultation Abdomen is distended but soft No peripheral edema No cyanosis Loco catheter in place with no urine output - Physical Exam Vitals/I&O's: Vital Signs Temp Pulse Resp BP Pulse Ox 93.1 F L 107 H 29 H 100/69 95 11/27/20 14:00 11/27/20 14:00 11/27/20 14:00 11/27/20 14:00 11/27/20 14:00 Oxygen Flow Rate (L/min) 35 Oxygen Delivery Method Mechanical Ventilator Weight: 59.6 kg Body Mass Index (BMI) 24.0 Finger Stick Blood Glucose 80 Intake and Output for Last 24 Hours 11/25/20 11/26/20 11/27/20 23:59 23:59 23:59 Intake Total Balance Microbiology Past 72 Hours 11/27/20 13:04 Mucosa - Nose SARS-CoV-2 Antigen (Rapid) - Final Laboratory Results 11/27/20 09:25: WBC 17.3 H, RBC 3.58 L, Hgb 10.2 L, Hct 33.9 L, MCV 94.7, MCH 28.5, MCHC 30.1 L, RDW Std Deviation 58.6 H, RDW Coeff of Hawa 17.1 H, Plt Count 364, MPV 12.6 H, Immature Gran % (Auto) 1.400 H, Neut % (Auto) 75.8 H, Lymph % (Auto) 18.5 L, [place] % (Auto) 3.2, Eos % (Auto) 0.5, Baso % (Auto) 0.6, Absolute Neuts (auto) 13.1 H, Absolute Lymphs (auto) 3.20, Nucleated RBC % 0 11/27/20 09:25: PT 17.8 H, INR 1.6, APTT 27.8 11/27/20 09:25: Sodium 143, Potassium 4.9, Chloride 99, Carbon Dioxide 8.0 L*, Anion Gap 36 H, BUN 102 H*, Creatinine 5.63 H, Estim Creat Clear Calc 7.67, Est GFR (MDRD) Af Amer 10 L, Est GFR (MDRD) Non-Af 8 L, BUN/Creatinine Ratio 18.1, Glucose 178 H, Calcium 9.9, Total Bilirubin 0.20, AST 34, ALT 44, Alkaline Phosphatase 89, Troponin I < 0.015, Total Protein 5.3 L, Albumin 2.7 L, Globulin 2.6, Albumin/Globulin Ratio 1.0 11/27/20 09:25: Lactic Acid 18.6 H* 11/27/20 09:25: Phosphorus 10.4 H*, Magnesium 1.0 L 11/27/20 09:54: Specimen Type ART, Sample Site L Radial, pH 6.93 L*, Bicarbonate Actual 4.2 L, Total CO2 < 5, Base Excess -28 L, O2 Saturation 94 L, ABG pCO2 20.4 L, ABG pO2 110 H, Justus Test Positive, O2 Delivery Device Room Air, Crit Call To/Read Back Yes, Blood Gas Notified Whom guerline 11/27/20 10:00: Urine Color Yellow, Urine Clarity Cloudy, Urine pH 5.0, Ur Specific [place] 1.020, Urine Protein 100 H, Urine Glucose (UA) Normal, Urine Ketones Negative, Urine Occult Blood 25 H, Urine Nitrite Negative, Urine Bilirubin 1 H, Urine Urobilinogen Normal, Ur Leukocyte Esterase 500 H, Urine RBC 10-25 SEEN, Urine WBC >100 SEEN, Ur Squamous Epith Cells 0 SEEN, Urine Bacteria 2+, Urine Mucus 0 SEEN 11/27/20 10:22: POC Glucose 112 H 11/27/20 12:19: POC Glucose 80 11/27/20 12:55: Specimen Type ART, Sample Site L Radial, pH 6.87 L*, Bicarbonate Actual 4.8 L, Total CO2 6, Base Excess -29 L, O2 Saturation 98, O2 % 50, ABG pCO2 26.4 L, ABG pO2 191 H, Justus Test Positive, Respiration Rate 16, O2 Delivery Device Adult Vent, Vent Mode AC, Tidal Volume 450, POC PEEP 5, Crit Call To/Read Back Yes, Blood Gas Notified Whom guerline 11/27/20 13:10: POC Glucose 180 H Current Medications Sodium Chloride () 1,000 mls @ 200 mls/hr IV .Q5H [facility] Last Admin: 11/27/20 11:47 Dose: 200 mls/hr Documented by: Dexmedetomidine HCl 400 mcg/ (Sodium Chloride) 100 mls @ 7.45 mls/hr CONT INF .[id number] [facility]; Protocol Last Titration: 11/27/20 12:49 Dose: 0.8 mcg/kg/hr, 11.9 mls/hr Documented by: Meropenem 1 gm/ Sodium (Chloride) 120 mls @ 33 mls/hr IV X1 ONE Stop: 11/27/20 15:37 Last Admin: 11/27/20 12:33 Dose: 33 mls/hr Documented by: Norepinephrine Bitartrate 8 mg (/ Sodium Chloride) 250 mls @ 9.375 mls/hr CONT INF .[id number] [facility]; Protocol Propofol (Diprivan) 1,000 mg in 100 mls @ 3.576 mls/hr CONT INF .Q12H [facility]; Protocol Fentanyl Citrate 1,000 mcg/ (Sodium Chloride) 100 mls @ 2.5 mls/hr CONT INF .Q40H [facility]; Protocol Assessment/Plan All Active Problems (Last Reviewed 09/09/20 @ 07:[address] Dashawn Acevedo MD) Acute respiratory failure (Acute) Metabolic acidosis (Acute) Pyelonephritis (Acute) Acute renal failure (Acute) Aspiration into airway (Acute) Uremia (Acute) Hyperphosphatemia (Acute) Acute renal failure. Baseline creatinine as of October was normal at 1.0. Now has severe renal failure. And uric with a Loco catheter in place. Urine analysis shows some leukocytes. CT abdomen with left-sided kidney stones, perinephric stranding, 30 looking urine. She might have pyelonephritis. She is being covered broadly with antibiotics. In view of severe acidosis, we will go ahead and plan for dialysis today. Discussed with fertilizer applicator Dr. Abdul. In dialysis catheter will be placed today and she will be dialyzed after. Anion gap acidosis secondary to lactic acidosis. Lactic acidosis possibly related to sepsis versus metformin toxicity Hyperphosphatemia secondary to acute renal failure Should all improve with dialysis today
[2020-11-27] MEDS: Propofol 10MG/Ml 1,000 MG/100 ML Bottle 3.6 MG CONT INF (15:00)
[2020-11-27 15:11] LABS: Bedside Glucose 183 mg/dL (70-110)
--- NOTE | 2020-11-27 15:19 | NURSING ---
1520 Cuong Branham CNP present pt room, consent for temp dialysis cath and central line placement obtained. prep for line placement HR 94, BP 90/39, R 26, SpO2 96 1525 HR 94, BP 77/54, R 26, SpO2 96 begin line placement 1530 HR 102, BP 95/43, R 29, SpO2 95 1535 HR 99, BP 89/42, R 29, SpO2 96 J Marhakur placed RIJ 1540 HR 97, BP 85/39, R 27, SpO2 95 cxr for line placement taken, read for Cuong Branham CNP 1545 HR 97, BP 82/41, R 26, SpO2 95 prep for RIJ line placement 1550 HR 101, BP 92/41, R 26, SpO2 96 1555 HR 101, BP 93/41 , R 27, SpO2 97 begin placement LIJ TL 1600 HR 101, BP 92/40, R 22, SpO2 97 line placed. CXR ordered. 1605 HR 108, BP 93/47, R 26, SpO2 97 1610 cxr completed. OK to use per Cuong RAMIREZ
--- NOTE | 2020-11-27 15:40 | RAD_ITS ---
STUDY: X-RAY CHEST REASON FOR EXAM: Female, 69 years old. line placement TECHNIQUE: Single AP portable view of the chest. COMPARISON: 2:32 PM. FINDINGS: ET tube and nasogastric tube are unchanged. Right internal jugular venous catheter terminates in the superior vena cava. The lungs are clear and expanded. There is no demonstrated pleural abnormality. No demonstrated pneumothorax. Normal size heart. Normal mediastinum and jame. Normal visualized pulmonary arteries. Normal visualized aortic arch and descending thoracic aorta. Normal visualized thoracic spine. Normal visualized ribs, clavicles, and shoulders. There is no demonstrated abnormality of the visualized soft tissue structures of the upper abdomen. RAD/CXR for Line Placement IMPRESSION: Right IJ line terminates in the SVC. No demonstrated pneumothorax. Electronically Signed: Chastity Del Valle MD at 17:01 EDT Tel , Service support ,
--- NOTE | 2020-11-27 16:06 | OP.PCM_ITS ---
Report of Operation Date of Procedure: 11/27/20 Surgery/Procedure Performed:: Temporary dialysis catheter Description of Surgical Findings:: Hemodialysis catheter line placement procedure note Indication: Dialysis Procedure: A time-out was completed to verify correct patient, indication, medi cation allergies, procedure, coagulation studies, informed consent signed, and equipment needed. The patient was placed in the supine position for a central line placement to the rt IJ vein. The patients rt neck was prepped using chlorhexidine and a full body sterile drape was applied. 1% lidocaine was used to anesthetize the surrounding skin. A 12fr 16 cm temporary hemodialysis catheter introduced into the internal jugular vein using the modified Seldinger technique with the assistance of ultrasound. The site was dilated up twice in a stepwise fashion. The catheter was threaded smoothly over the guidewire, the guidewire was removed easily, nonpulsatile blood returned. All ports were aspirated of air and flushed with sterile saline, then locked with U 1000 heparin 1.3 cc to each port. The catheter was sutured in place and covered with an occlusive dressing impregnated with chlorhexidine. Post-procedure: The patient tolerated the procedure well. Vital signs remained stable. EBL 5cc. No complications. Chest X Ray ordered to confirm tip placement and the absence of pneumothorax. Procedures: [id number] Insert Non-tunnel CV Cath
--- NOTE | 2020-11-27 16:09 | PCM.OPRPT ---
Report of Operation Date of Procedure: 11/27/20 Surgery/Procedure Performed:: Triple-lumen catheter insertion Description of Surgical Findings:: Central line placement procedure note Indication: IV access/hemodynamic instability/vasoactive medications Procedure: A time-out was completed to verify correct patient, indication, medication allergies, procedure, coagulation studies, informed consent signed, and equipment needed. The patient was placed in the supine position for a central line placement to the left IJ left vein. The patients left neck was prepped using chlorhexidine and a full body sterile drape was applied. 1% lidocaine was used to anesthetize the surrounding skin. A 7fr 20 cm blue guard triple lumen catheter introduced into the internal jugular vein using the modified Seldinger technique with the assistance of ultrasound. The catheter was threaded smoothly over the guidewire, the guidewire was removed easily, nonpulsatile blood returned. All ports were aspirated of air and flushed with sterile saline. The catheter was sutured in place and covered with an occlusive dressing impregnated with chlorhexidine. Post-procedure: The patient tolerated the procedure well. Vital signs remained stable. EBL 3cc. No complications. Chest X Ray ordered to confirm tip placement and the absence of pneumothorax. Multi Select Codes - Hospitalists' Procedures Procedures: [id number] Insert Non-tunnel CV Cath
--- NOTE | 2020-11-27 16:10 | RAD_ITS ---
STUDY: X-RAY CHEST REASON FOR EXAM: Female, 69 years old. rij tl line placement TECHNIQUE: Single AP portable view of the chest. COMPARISON: 11/27/2020. FINDINGS: Left IJ central line with the tip in the distal right atrium junction with the SVC. The endotracheal tube has the tip 1.2 cm. Nasogastric tube has the tip below the diaphragm but not included in the [id number]. The lungs are normally expanded with mild bilateral perihilar atelectasis, otherwise clear. There is no demonstrated pleural abnormality. Normal size heart. Normal mediastinum and jame. Normal visualized pulmonary arteries. There is atherosclerotic calcification of the aortic arch with tortuosity. Normal visualized thoracic spine. Normal visualized ribs, clavicles, and shoulders. There is no demonstrated abnormality of the visualized soft tissue structures of the upper abdomen. RAD/CXR for Line Placement IMPRESSION: Mild bilateral perihilar atelectasis otherwise no acute cardiopulmonary disease. Lines and tubes as described. Recommend pulling back the endotracheal tube approximately 2 cm. Electronically Signed: Donna Stinson MD at 1:07 EDT , Service support ,
[2020-11-27] MEDS: Heparin 10,000 UNITS/10 ML Vial IV ×2 (16:16→20:45)
[2020-11-27 16:39] LABS: Lactic Acid 13.7 mmol/L (0.4-1.9)
--- NOTE | 2020-11-27 16:52 | NURSING ---
education re chronic illness deferred till acute illness resolving
[2020-11-27 16:53] LABS: CPK Total, Creatine Kinase 36 U/L (26-192); Triglycerides 94 mg/dL
[2020-11-27 18:03] LABS: M R Staph aureus DNA By PCR Negative (Negative); Probe Check PASS; Specimen Processing Control PASS
--- NOTE | 2020-11-27 18:11 | HP.PCM_ITS ---
History of Present Illness Date of Admission: 11/27/20 Chief Complaint: acute metabolic encephalopathy The patient is a 69 year old F with a past medical history as outlined was admitted through the ED on 11/27/2020 with acute metabolic encephalopathy. Patient was intubated and sedated at the time of review and so I could not get much history from her. According to ED physician, patient had recently been on antibiotics for an MRSA infection involving her forehead and axilla. Apparently, her says she had gone to bed the night before but he found her unresponsive this morning. The EMS was called. Apparently she had also been having nausea and vomiting and diarrhea recently. The EMS found her to be hypoglycemic and so she was given D10 prior to being brought to the ED. She remained hypotensive but her blood sugar had improved. Her nausea vomiting and diarrhea her abdomen apparently been due to the antibiotic she was taking. The antibiotic set up 20 been doxycycline and Bactrim per ED physician's discussion with her PCP and she had also been referred to surgery for I&D but she declined this. However in the ED she was noted to have a temperature of 90.5 Fahrenheit with blood pressure of 167/75, pulse rate of 86 and respiratory rate of 16. Chemistry done showed sodium of 143 with bicarb of 18 BUN of 102. Creatinine was was 5.63 with a baseline of less than 1. Lactic acid was 18.6 and anion gap was 36. Magnesium was 1 and phosphorus was 10.4 with a calcium of 9.9. CBC lanie wed WBC of 17.3 with hemoglobin of 10.2 and platelets of 364. CT of the abdomen and pelvis showed fluid-filled stomach and duodenum as well as small bowel loops and early small bowel obstruction should be ruled out. She also had left perinephric stranding and nonobstructive left intrarenal calculi with questionable extraluminal air within the pelvis. CT of the brain showed no acute intracranial pathology. After patient came back from CT, she started throwing up and subsequently became very short of breath and was requiring up to 7 5 L of oxygen. She was therefore emergently intubated on account of concerns for aspiration. She is therefore been admitted to be managed for acute hypoxic respiratory failure due to aspiration pneumonia, acute anion gap metabolic acidosis likely due to lactic acidosis and SANTI and severe sepsis due to UTI plus hypothermia and hypoglycemia. [] Past Medical History Past Medical History (Chronic Problems): Chronic Problems (Last Reviewed 09/09/20 @ 07:[address] Dashawn Acevedo MD) Kidney stone (Chronic) Non-STEMI (non-ST elevated myocardial infarction) (Chronic 02/10/20) Essential (primary) hypertension (Chronic) Hyperlipidemia (Chronic) Nicotine dependence (Chronic) Medical History: Medical History (Last Reviewed 09/09/20 @ 07:[address] Dasahwn Acevedo MD) Non-STEMI (non-ST elevated myocardial infarction) (Chronic) Onset Date: 02/10/20 I21.4 Essential (primary) hypertension (Chronic) I10 Hyperlipidemia (Chronic) E78.5 Nicotine dependence (Chronic) F17.200 CKD (chronic kidney disease) stage 3, GFR 30-59 ml/min N18.3 DM type 2 (diabetes mellitus, type 2) E11.9 GERD (gastroesophageal reflux disease) K21.9 Left renal stone N20.0 Nephrolithiasis N20.0 Tobacco abuse Z72.0 Allergies oxycodone [From Percocet] Allergy (Verified 02/10/20 15:34) Nausea Penicillins [PCN] Allergy (Verified 02/10/20 15:34) Unknown Home Medications: Ambulatory Orders Medication Instructions Recorded Aspirin E.C. [Ecotrin] 81 mg PO DAILY@0800 11/03/14 Metoprolol Tartrate [Lopressor 25 mg PO BID 11/03/14 (beta ericka)] Multivitamins,Therapeutic 1 tablet PO DAILY 11/03/14 [Multivitamin] Omeprazole [Prilosec] 20 mg PO DAILY 11/03/14 Rosuvastatin Calcium [Crestor] 40 mg PO QHS 11/03/14 metFORMIN HCl [Glucophage] 1,000 mg PO BIDCM 11/03/14 Cyanocobalamin (Vitamin B-12) 1,000 mcg PO DAILY 02/10/16 [Vitamin B-12] Lisinopril [Zestril] 20 mg PO QHS 01/09/20 Vitamin B Complex 1 ea PO QHS 01/22/20 Acetaminophen/Caffeine [Excedrin 1 tablet PO DAILY PRN PRN 11/27/20 Tension Headache Cplt] Doxycycline Hyclate 100 mg PO BID 11/27/20 Surgical History: Surgical History (Last Updated 02/11/20 @ 18:52 by Swapna Gonzales) History of left heart catheterization Onset Date: 02/11/20 Z98.890 Surgical History: - - lithotripsy Psychiatric History: No pertinent psych hx [employer] History: No pertinent [employer] history Smoking Status: Current every day smoker Tobacco Use: Cigarettes Review of Systems Unable to obtain accurate/complete ROS d/t: she is intubated and sedated VTE Information - Inpt Only VTE Present on Admission: No VTE Pharm Prophylaxis ordered?: Yes Patient Problems: Active and Suspected Problems (Last Reviewed 09/09/20 @ 07:[address] Dashawn Acevedo MD) Acute respiratory failure (Acute) Metabolic acidosis (Acute) Pyelonephritis (Acute) Acute renal failure (Acute) Aspiration into airway (Acute) Uremia (Acute) Hyperphosphatemia (Acute) Hypovolemic shock (Acute) Septic shock (Acute) - Physical Exam Vitals/I&O's: Vital Signs Temp Pulse Resp BP Pulse Ox 97.0 F L 125 H 24 H 106/50 L 96 11/27/20 17:45 11/27/20 17:45 11/27/20 17:45 11/27/20 17:45 11/27/20 17:45 Oxygen Flow Rate (L/min) 35 Oxygen Delivery Method Mechanical Ventilator Weight: 136 lb 10.986 oz Body Mass Index (BMI) 25.1 Finger Stick Blood Glucose 80 Intake and Output for Last 24 Hours 11/25/20 11/26/20 11/27/20 23:59 23:59 23:59 Intake Total 3191.50 / 3191.50 Output Total 10 / 10 Balance 3181.50 / 3181.50 General: - - intubated, sedated, RASS score is +3 HEENT: Atraumatic, PERRLA, EOMI, Normocephalic Oral: Dry Mucosa Neck: Supple, No JVD, Negative Carotid Bruits Lungs: - - diminished breath sounds bibasally, coarse crackles in all lung palumbo. Intubated and sedated Cardiovascular: Regular rate, Regular Rhythm, Normal S1, Normal S2, No murmurs Abdomen: Bowel Sounds Present, Soft, Non Tender, Non-Distended, No Hepato- splenomegaly Extremities: No clubbing, No cyanosis, No edema, Capillary Refill Less than 3 Seconds Skin: No rashes, No breakdown Musculoskeletal: No Tenderness to Palpation of Joints or Extremities, - - has BRENDAN hugger in place Lymphatic: No Cervical, Supraclavicular, or Inguinal Adenopathy Neurological: - - intubated sedated Microbiology Past 72 Hours 11/27/20 12:25 Interface Orders Gram Stain - Final 11/27/20 13:04 Mucosa - Nose SARS-CoV-2 Antigen (Rapid) - Final Laboratory Results 11/27/20 09:25: WBC 17.3 H, RBC 3.58 L, Hgb 10.2 L, Hct 33.9 L, MCV 94.7, MCH 28.5, MCHC 30.1 L, RDW Std Deviation 58.6 H, RDW Coeff of Hawa 17.1 H, Plt Count 364, MPV 12.6 H, Immature Gran % (Auto) 1.400 H, Neut % (Auto) 75.8 H, Lymph % (Auto) 18.5 L, Divide % (Auto) 3.2, Eos % (Auto) 0.5, Baso % (Auto) 0.6, Absolute Neuts (auto) 13.1 H, Absolute Lymphs (auto) 3.20, Nucleated RBC % 0 11/27/20 09:25: PT 17.8 H, INR 1.6, APTT 27.8 11/27/20 09:25: Sodium 143, Potassium 4.9, Chloride 99, Carbon Dioxide 8.0 L*, Anion Gap 36 H, BUN 102 H*, Creatinine 5.63 H, Estim Creat Clear Calc 7.67, Est GFR (MDRD) Af Amer 10 L, Est GFR (MDRD) Non-Af 8 L, BUN/Creatinine Ratio 18.1, Glucose 178 H, Calcium 9.9, Total Bilirubin 0.20, AST 34, ALT 44, Alkaline Phosphatase 89, Troponin I < 0.015, Total Protein 5.3 L, Albumin 2.7 L, Globulin 2.6, Albumin/Globulin Ratio 1.0 11/27/20 09:25: Lactic Acid 18.6 H* 11/27/20 09:25: Phosphorus 10.4 H*, Magnesium 1.0 L 11/27/20 09:25: Total Creatine Kinase 36, Triglycerides 94 11/27/20 09:54: Specimen Type ART, Sample Site L Radial, pH 6.93 L*, Bicarbonate Actual 4.2 L, Total CO2 < 5, Base Excess -28 L, O2 Saturation 94 L, ABG pCO2 20.4 L, ABG pO2 110 H, Justus Test Positive, O2 Delivery Device Room Air, Crit Call To/Read Back Yes, Blood Gas Notified Whom [facility] 11/27/20 10:00: Urine Color Yellow, Urine Clarity Cloudy, Urine pH 5.0, Ur Specific [place] 1.020, Urine Protein 100 H, Urine Glucose (UA) Normal, Urine Ketones Negative, Urine Occult Blood 25 H, Urine Nitrite Negative, Urine Bilirubin 1 H, Urine Urobilinogen Normal, Ur Leukocyte Esterase 500 H, Urine RBC 10-25 SEEN, Urine WBC >100 SEEN, Ur Squamous Epith Cells 0 SEEN, Urine Bacteria 2+, Urine Mucus 0 SEEN 11/27/20 10:22: POC Glucose 112 H 11/27/20 12:19: POC Glucose 80 11/27/20 12:55: Specimen Type ART, Sample Site L Radial, pH 6.87 L*, Bicarbonate Actual 4.8 L, Total CO2 6, Base Excess -29 L, O2 Saturation 98, O2 % 50, ABG pCO2 26.4 L, ABG pO2 191 H, Justus Test Positive, Respiration Rate 16, O2 Delivery Device Adult Vent, Vent Mode AC, Tidal Volume 450, POC PEEP 5, Crit Call To/Read Back Yes, Blood Gas Notified Whom [facility] 11/27/20 13:10: POC Glucose 180 H 11/27/20 15:07: POC Glucose 183 H 11/27/20 15:55: Lactic Acid 13.7 H* 11/27/20 16:30: MRSA (PCR) Negative Diagnostic Data Abdomen/Pelvis CT 11/27/20 10:20 IMPRESSION: Fluid-filled stomach and duodenum as well as small bowel loops. Early small bowel obstruction should be ruled out. A repeat examination following oral or rectal contrast is recommended. Left perinephric stranding. Nonobstructive left intrarenal calculi. Questionable extraluminal air within the pelvis. Electronically Signed: Fernando Caro MD at 11:31 EDT , Service support , Brain CT 11/27/20 10:20 IMPRESSION: Chronic involutional changes of the brain. Electronically Signed: Fernando Caro MD at 11:26 EDT , Service support , KUB X-Ray 11/27/20 14:20 IMPRESSION: The tip of the orogastric tube is in the body of the stomach. The tip of the endotracheal tube is at the level of the gabriella. It should be pulled back approximately 2 cm. Electronically Signed: Fernando Caro MD at 14:53 EDT , Service support , Current Medications Heparin Sodium (Porcine) (Heparin Injection (Vial) 5,000 Unit/Ml Vial) 5,000 unit SC Q8 SVEN Heparin Sodium (Porcine) (Heparin 10,000 Units/10 Ml Vial) 0 units IV X1 PRN PRN Reason: DIALYSIS Sodium Chloride () 1,000 mls @ 100 mls/hr IV .Q10H SVEN Last Admin: 11/27/20 15:15 Dose: 200 mls/hr Documented by: Norepinephrine Bitartrate 8 mg (/ Sodium Chloride) 250 mls @ 9.375 mls/hr CONT INF .O42M92H [facility]; Protocol Last Titration: 11/27/20 16:30 Dose: 20 mcg/min, 37.5 mls/hr Documented by: Propofol (Diprivan) 1,000 mg in 100 mls @ 3.576 mls/hr CONT INF .Q12H [facility]; Protocol Last Titration: 11/27/20 17:00 Dose: 25 mcg/kg/min, 8.9 mls/hr Documented by: Fentanyl Citrate 1,000 mcg/ (Sodium Chloride) 100 mls @ 2.5 mls/hr CONT INF .Q40H [facility]; Protocol Last Titration: 11/27/20 16:45 Dose: 100 mcg/hr, 10 mls/hr Documented by: Meropenem 500 mg/ Sodium (Chloride) 60 mls @ 100 mls/hr IV Q24H [facility] Vasopressin 20 units/ Sodium (Chloride) 25 mls @ 3 mls/hr IV .Q8H20M [facility] Last Admin: 11/27/20 18:00 Dose: 0.04 units/min, 3 mls/hr Documented by: Pantoprazole Sodium 40 mg/ (Sodium Chloride) 110 mls @ 330 mls/hr IV Q24 [facility] Ondansetron HCl (Ondansetron 4 Mg/2 Ml Vial) 4 mg IV Q8H PRN PRN PRN Reason: NAUSEA/VOMITING Sodium Chloride (0.9% Saline Lock 10 Ml Syringe) 10 - 40 ml IV UD PRN PRN Reason: SALINE FLUSH Assessment/Plan All Active Problems (Last Reviewed 09/09/20 @ 07:[address] Dashawn Acevedo MD) Acute respiratory failure (Acute) Metabolic acidosis (Acute) Pyelonephritis (Acute) Acute renal failure (Acute) Aspiration into airway (Acute) Uremia (Acute) Hyperphosphatemia (Acute) Hypovolemic shock (Acute) Septic shock (Acute) 69-year-old admitted for acute metabolic encephalopathy. #Acute hypoxic respiratory failure due to aspiration pneumonia * Admit to ICU * Critical care consulted. * Currently intubated and sedated with precedex * Blood cultures obtained. IV meropenem started on account of allergies to penicillins. We will add on vancomycin to give broad-spectrum coverage * Vent settings as per critical care. * #Anion gap metabolic acidosis * Anion gap is 36 with bicarb of 18. ABG done showed pH of 6.9 with PCO2 of 21 and PO2 of 110. This appears to be a pure anion gap acidosis. * This is likely due to lactic acidosis and SANTI. Creatinine is elevated at 5.36 with a baseline of less than 1 and lactic acid was above 18. * Nephrology consulted emergently. Patient to have dialysis emergently. * Creatinine and monitor bicarb. #Septic shock due to aspiration pneumonia and pyelonephritis * Patient subsequently went into shock requiring initiation of norepinephrine. * Titrate vasopressors to maintain a MAP of more than 65 * On IV meropenem. Will add on IV vancomycin. Blood cultures pending. * #Aspiration pneumonia: As above #SANTI: Creatinine is 5.36, a baseline of less than 1. Nephrology consulted emergently for dialysis. Will do further work-up with renal ultrasound tomorrow. #Acute pyelonephritis: as above #TYpe 2 diabetes mellitus: Hold oral medication. Insulin sliding scale. Accu- Cheks every 4 hourly. #Hypoglycemia: Likely due to patient not eating and taking the medication. Hold all diabetes medications. Insulin sliding scale as above. #Lactic Acidosis: * Lactic acid was over 18. * She has been taking Metformin and has also been having diarrhea and vomiting and this is likely contributing to symptoms. * Currently on vasopressors and has been hydrated with IV fluids. * #Hypertension: Hold BP meds due to hypotension #DVT prophylaxis: Heparin Inpatient E&M: 16123 Init Hosp L3
[2020-11-27] MEDS: TITRATION PARAMETER CHANGE 1 EACH IV (19:30)
--- NOTE | 2020-11-27 21:05 | DIALYSIS ---
Hemodialysis completed x 3hours today. Unstable BP requiring additional pressor meds added and NS bolus given via HD machine. Pt +1800ml of fluid via HD to be able to maintain on tx for clearance. CVC ran w/o difficulty. CVC closed with heparin to each lumen fill volume and report was given at bedside to Nola MANLEY
[2020-11-27] MEDS: 0.9% Normal Saline 1,000 ML 100 ML IV (22:07)
[2020-11-27] MEDS: Heparin Injection (Vial) 5,000 UNIT/ML VIAL 5000 UNIT SC (22:08)
[2020-11-28] VITALS (90 sets, daily range): BP systolic 64–141; BP diastolic 43–102; PULSE 80–135; RESP 16–28; TEMP 36.9–37.8; O2SAT 83–981
[2020-11-28 00:14] LABS: Lactic Acid 2.6 mmol/L (0.4-1.9)
[2020-11-28] MEDS: Magnesium Sulfate 4gm/100mL 4 GM/100 ML IV.SOLN. IV (02:45)
[2020-11-28 03:57] LABS: Reflex Lactate? Y
[2020-11-28] MEDS: Heparin Injection (Vial) 5,000 UNIT/ML VIAL 5000 UNIT SC ×3 (05:16→22:00)
[2020-11-28] MEDS: Propofol 10MG/Ml 1,000 MG/100 ML Bottle 3.6 MG CONT INF (05:16)
--- NOTE | 2020-11-28 05:36 | PN_ITS ---
Subjective: The patient was seen and examined at the bedside this morning. Events from the last 24 hours have been reviewed. The patient is currently afebrile. At 1 point yesterday, the patient was being maintained on 3 vasopressors to maintain hemodynamic stability. Overnight, the patient has been weaned off of phenylephrine, but remains on Levophed at 15 mcg/min along with vasopressin. She is currently sedated on Precedex, low-dose propofol and fentanyl. The patient did tolerate hemodialysis yesterday. The patient received an additional 1800 mL of fluid during dialysis. She is currently documented to be overall net +7 L for the hospital admission. Objective: The patient's most recent lab work, culture data and imaging studies have all been personally reviewed. Surface echocardiogram from February 2020 revealed normal LV size with an ejection fraction of 60%. Rapid coronavirus antigen testing was negative. Blood, urine and sputum cultures are pending. General: - - Intubated, sedated and mechanically ventilated. No ventilator dyssynchrony noted. HEENT: Atraumatic, PERRLA, Normocephalic Oral: No Gingival or Mucosal Lesions/ Ulcerations, - - Endotracheal and OG tubes in place Neck: Supple, No Nodes, Trachea Midline, - - Stable triple-lumen catheter and temporary hemodialysis line. Lungs: No rhonchi, No wheeze, No rales, Diminished Cardiovascular: Regular rate, Regular Rhythm Abdomen: Bowel Sounds Present, Soft, Non Tender Extremities: No clubbing, No cyanosis, No edema Skin: No breakdown Musculoskeletal: No Tenderness to Palpation of Joints or Extremities Lymphatic: No Cervical, Supraclavicular, or Inguinal Adenopathy Neurological: - - No focal neurological deficits. Currently sedated on the ventilator. Vital Signs Temp Pulse Resp BP Pulse Ox 99.2 F H 97 23 H 112/61 97 11/28/20 04:00 11/28/20 05:10 11/28/20 05:10 11/28/20 05:00 11/28/20 05:10 Oxygen Flow Rate (L/min) 35 Oxygen Delivery Method Mechanical Ventilator Weight: 141 lb 12.116 oz Body Mass Index (BMI) 25.1 Finger Stick Blood Glucose 80 Intake and Output for Last 24 Hours 11/26/20 11/27/20 11/28/20 23:59 23:59 23:59 Intake Total 6767.20 / 6876.50 1080.73 / 1080.73 Output Total Balance 6747.20 / 6856.50 1080.73 / 1080.73 Labs (Last 48 Hours) 11/27/20 11/27/20 11/27/20 09:25 09:25 09:25 WBC 17.3 H Corrected WBC RBC 3.58 L Hgb 10.2 L Hct 33.9 L MCV 94.7 MCH 28.5 MCHC 30.1 L RDW Std Deviation 58.6 H RDW Coeff of Haw[place] 17.1 H Plt Count 364 MPV 12.6 H Immature Gran % (Auto) 1.400 H Neut % (Auto) 75.8 H Lymph % (Auto) 18.5 L Stephens % (Auto) 3.2 Eos % (Auto) 0.5 Baso % (Auto) 0.6 Absolute Neuts (auto) 13.1 H Absolute Lymphs (auto) 3.20 Total Counted Neutrophils % (Manual) Band Neutrophils % Lymphocytes % (Manual) Monocytes % (Manual) Eosinophils % (Manual) Basophils % (Manual) Metamyelocytes % Myelocytes % Promyelocytes % Blast Cells % Plasma Cell % (Manual) Other Cells % Nucleated RBC % 0 Nucleated RBCs/100 WBC Differential Comment Diff Path Review Hypersegmented Neuts Atypical Lymphocytes Reactive Lymphocytes Smudge Cells Toxic Granulation Toxic Vacuolation Dohle Bodies Jey Rods Platelet Estimate Plt Morphology Comment RBC Morphology Polychromasia Hypochromasia Poikilocytosis Basophilic Stippling Anisocytosis Microcytosis Macrocytosis Spherocytes Sickle Cells Target Cells Tear Drop Cells Ovalocytes Stomatocytes [place] Bodies Sapphire Cells Bite Cells Crenated Cell Acanthocytes (Spur) Rouleaux Schistocytes PT 17.8 H INR 1.6 APTT 27.8 Specimen Type Sample Site pH Bicarbonate Actual Total CO2 Base Excess O2 Saturation O2 % ABG pCO2 ABG pO2 Justus Test Respiration Rate O2 Delivery Device Vent Mode Tidal Volume POC PEEP Crit Call To/Read Back Blood Gas Notified Whom Sodium 143 Potassium 4.9 Chloride 99 Carbon Dioxide 8.0 L* Anion Gap 36 H BUN 102 H* Creatinine 5.63 H Estim Creat Clear Calc 7.67 Est GFR (MDRD) Af Amer 10 L Est GFR (MDRD) Non-Af 8 L BUN/Creatinine Ratio 18.1 Glucose 178 H Lactic Acid Calcium 9.9 Phosphorus Magnesium Total Bilirubin 0.20 AST 34 ALT 44 Alkaline Phosphatase 89 Total Creatine Kinase Troponin I < 0.015 Total Protein 5.3 L Albumin 2.7 L Globulin 2.6 Albumin/Globulin Ratio 1.0 Triglycerides Urine Color Urine Clarity Urine pH Ur Specific Wilson Urine Protein Urine Glucose (UA) Urine Ketones Urine Occult Blood Urine Nitrite Urine Bilirubin Urine Urobilinogen Ur Leukocyte Esterase Urine RBC Urine WBC Ur Squamous Epith Cells Urine Bacteria Urine Mucus Hep Bs Antigen Hep Bs Antibody Hep B Core Total Ab MRSA (PCR) POC Glucose 11/27/20 11/27/20 11/27/20 09:25 09:25 09:25 WBC Corrected WBC RBC Hgb Hct MCV MCH MCHC RDW Std Deviation RDW Coeff of [place] Plt Count MPV Immature Gran % (Auto) Neut % (Auto) Lymph % (Auto) Stephens % (Auto) Eos % (Auto) Baso % (Auto) Absolute Neuts (auto) Absolute Lymphs (auto) Total Counted Neutrophils % (Manual) Band Neutrophils % Lymphocytes % (Manual) Monocytes % (Manual) Eosinophils % (Manual) Basophils % (Manual) Metamyelocytes % Myelocytes % Promyelocytes % Blast Cells % Plasma Cell % (Manual) Other Cells % Nucleated RBC % Nucleated RBCs/100 WBC Differential Comment Diff Path Review Hypersegmented Neuts Atypical Lymphocytes Reactive Lymphocytes Smudge Cells Toxic Granulation Toxic Vacuolation Dohle Bodies Jey Rods Platelet Estimate Plt Morphology Comment RBC Morphology Polychromasia Hypochromasia Poikilocytosis Basophilic Stippling Anisocytosis Microcytosis Macrocytosis Spherocytes Sickle Cells Target Cells Tear Drop Cells Ovalocytes Stomatocytes [place] Bodies [place] Cells Bite Cells Crenated Cell Acanthocytes (Spur) Rouleaux Schistocytes PT INR APTT Specimen Type Sample Site pH Bicarbonate Actual Total CO2 Base Excess O2 Saturation O2 % ABG pCO2 ABG pO2 Justus Test Respiration Rate O2 Delivery Device Vent Mode Tidal Volume POC PEEP Crit Call To/Read Back Blood Gas Notified Whom Sodium Potassium Chloride Carbon Dioxide Anion Gap BUN Creatinine Estim Creat Clear Calc Est GFR (MDRD) Af Amer Est GFR (MDRD) Non-Af BUN/Creatinine Ratio Glucose Lactic Acid 18.6 H* Calcium Phosphorus 10.4 H* Magnesium 1.0 L Total Bilirubin AST ALT Alkaline Phosphatase Total Creatine Kinase 36 Troponin I Total Protein Albumin Globulin Albumin/Globulin Ratio Triglycerides 94 Urine Color Urine Clarity Urine pH Ur Specific Wilson Urine Protein Urine Glucose (UA) Urine Ketones Urine Occult Blood Urine Nitrite Urine Bilirubin Urine Urobilinogen Ur Leukocyte Esterase Urine RBC Urine WBC Ur Squamous Epith Cells Urine Bacteria Urine Mucus Hep Bs Antigen Hep Bs Antibody Hep B Core Total Ab MRSA (PCR) POC Glucose 11/27/20 11/27/20 11/27/20 09:54 10:00 10:22 WBC Corrected WBC RBC Hgb Hct MCV MCH MCHC RDW Std Deviation RDW Coeff of [place] Plt Count MPV Immature Gran % (Auto) Neut % (Auto) Lymph % (Auto) Stephens % (Auto) Eos % (Auto) Baso % (Auto) Absolute Neuts (auto) Absolute Lymphs (auto) Total Counted Neutrophils % (Manual) Band Neutrophils % Lymphocytes % (Manual) Monocytes % (Manual) Eosinophils % (Manual) Basophils % (Manual) Metamyelocytes % Myelocytes % Promyelocytes % Blast Cells % Plasma Cell % (Manual) Other Cells % Nucleated RBC % Nucleated RBCs/100 WBC Differential Comment Diff Path Review Hypersegmented Neuts Atypical Lymphocytes Reactive Lymphocytes Smudge Cells Toxic Granulation Toxic Vacuolation Dohle Bodies Jey Rods Platelet Estimate Plt Morphology Comment RBC Morphology Polychromasia Hypochromasia Poikilocytosis Basophilic Stippling Anisocytosis Microcytosis Macrocytosis Spherocytes Sickle Cells Target Cells Tear Drop Cells Ovalocytes Stomatocytes [place] Bodies [place] Cells Bite Cells Crenated Cell Acanthocytes (Spur) Rouleaux Schistocytes PT INR APTT Specimen Type ART Sample Site L Radial pH 6.93 L* Bicarbonate Actual 4.2 L Total CO2 < 5 Base Excess -28 L O2 Saturation 94 L O2 % ABG pCO2 20.4 L ABG pO2 110 H Justus Test Positive Respiration Rate O2 Delivery Device Room Air Vent Mode Tidal Volume POC PEEP Crit Call To/Read Back Yes Blood Gas Notified Whom hoeh[place] Sodium Potassium Chloride Carbon Dioxide Anion Gap BUN Creatinine Estim Creat Clear Calc Est GFR (MDRD) Af Amer Est GFR (MDRD) Non-Af BUN/Creatinine Ratio Glucose Lactic Acid Calcium Phosphorus Magnesium Total Bilirubin AST ALT Alkaline Phosphatase Total Creatine Kinase Troponin I Total Protein Albumin Globulin Albumin/Globulin Ratio Triglycerides Urine Color Yellow Urine Clarity Cloudy Urine pH 5.0 Ur Specific Wilson 1.020 Urine Protein 100 H Urine Glucose (UA) Normal Urine Ketones Negative Urine Occult Blood 25 H Urine Nitrite Negative Urine Bilirubin 1 H Urine Urobilinogen Normal Ur Leukocyte Esterase 500 H Urine RBC 10-25 SEEN Urine WBC >100 SEEN Ur Squamous Epith Cells 0 SEEN Urine Bacteria 2+ Urine Mucus 0 SEEN Hep Bs Antigen Hep Bs Antibody Hep B Core Total Ab MRSA (PCR) POC Glucose 112 H 11/27/20 11/27/20 11/27/20 12:19 12:55 13:10 WBC Corrected WBC RBC Hgb Hct MCV MCH MCHC RDW Std Deviation RDW Coeff of [place] Plt Count MPV Immature Gran % (Auto) Neut % (Auto) Lymph % (Auto) Stephens % (Auto) Eos % (Auto) Baso % (Auto) Absolute Neuts (auto) Absolute Lymphs (auto) Total Counted Neutrophils % (Manual) Band Neutrophils % Lymphocytes % (Manual) Monocytes % (Manual) Eosinophils % (Manual) Basophils % (Manual) Metamyelocytes % Myelocytes % Promyelocytes % Blast Cells % Plasma Cell % (Manual) Other Cells % Nucleated RBC % Nucleated RBCs/100 WBC Differential Comment Diff Path Review Hypersegmented Neuts Atypical Lymphocytes Reactive Lymphocytes Smudge Cells Toxic Granulation Toxic Vacuolation Dohle Bodies Jey Rods Platelet Estimate Plt Morphology Comment RBC Morphology Polychromasia Hypochromasia Poikilocytosis Basophilic Stippling Anisocytosis Microcytosis Macrocytosis Spherocytes Sickle Cells Target Cells Tear Drop Cells Ovalocytes Stomatocytes [place] Bodies [place] Cells Bite Cells Crenated Cell Acanthocytes (Spur) Rouleaux Schistocytes PT INR APTT Specimen Type ART Sample Site L Radial pH 6.87 L* Bicarbonate Actual 4.8 L Total CO2 6 Base Excess -29 L O2 Saturation 98 O2 % 50 ABG pCO2 26.4 L ABG pO2 191 H Justus Test Positive Respiration Rate 16 O2 Delivery Device Adult Vent Vent Mode AC Tidal Volume 450 POC PEEP 5 Crit Call To/Read Back Yes Blood Gas Notified Whom hoe[place] Sodium Potassium Chloride Carbon Dioxide Anion Gap BUN Creatinine Estim Creat Clear Calc Est GFR (MDRD) Af Amer Est GFR (MDRD) Non-Af BUN/Creatinine Ratio Glucose Lactic Acid Calcium Phosphorus Magnesium Total Bilirubin AST ALT Alkaline Phosphatase Total Creatine Kinase Troponin I Total Protein Albumin Globulin Albumin/Globulin Ratio Triglycerides Urine Color Urine Clarity Urine pH Ur Specific Wilson Urine Protein Urine Glucose (UA) Urine Ketones Urine Occult Blood Urine Nitrite Urine Bilirubin Urine Urobilinogen Ur Leukocyte Esterase Urine RBC Urine WBC Ur Squamous Epith Cells Urine Bacteria Urine Mucus Hep Bs Antigen Hep Bs Antibody Hep B Core Total Ab MRSA (PCR) POC Glucose 80 180 H 11/27/20 11/27/20 11/27/20 15:07 15:55 16:30 WBC Corrected WBC RBC Hgb Hct MCV MCH MCHC RDW Std Deviation RDW Coeff of [place] Plt Count MPV Immature Gran % (Auto) Neut % (Auto) Lymph % (Auto) Stephens % (Auto) Eos % (Auto) Baso % (Auto) Absolute Neuts (auto) Absolute Lymphs (auto) Total Counted Neutrophils % (Manual) Band Neutrophils % Lymphocytes % (Manual) Monocytes % (Manual) Eosinophils % (Manual) Basophils % (Manual) Metamyelocytes % Myelocytes % Promyelocytes % Blast Cells % Plasma Cell % (Manual) Other Cells % Nucleated RBC % Nucleated RBCs/100 WBC Differential Comment Diff Path Review Hypersegmented Neuts Atypical Lymphocytes Reactive Lymphocytes Smudge Cells Toxic Granulation Toxic Vacuolation Dohle Bodies Jey Rods Platelet Estimate Plt Morphology Comment RBC Morphology Polychromasia Hypochromasia Poikilocytosis Basophilic Stippling Anisocytosis Microcytosis Macrocytosis Spherocytes Sickle Cells Target Cells Tear Drop Cells Ovalocytes Stomatocytes [place] Bodies [place] Cells Bite Cells Crenated Cell Acanthocytes (Spur) Rouleaux Schistocytes PT INR APTT Specimen Type Sample Site pH Bicarbonate Actual Total CO2 Base Excess O2 Saturation O2 % ABG pCO2 ABG pO2 Justus Test Respiration Rate O2 Delivery Device Vent Mode Tidal Volume POC PEEP Crit Call To/Read Back Blood Gas Notified Whom Sodium Potassium Chloride Carbon Dioxide Anion Gap BUN Creatinine Estim Creat Clear Calc Est GFR (MDRD) Af Amer Est GFR (MDRD) Non-Af BUN/Creatinine Ratio Glucose Lactic Acid 13.7 H* Calcium Phosphorus Magnesium Total Bilirubin AST ALT Alkaline Phosphatase Total Creatine Kinase Troponin I Total Protein Albumin Globulin Albumin/Globulin Ratio Triglycerides Urine Color Urine Clarity Urine pH Ur Specific Wilson Urine Protein Urine Glucose (UA) Urine Ketones Urine Occult Blood Urine Nitrite Urine Bilirubin Urine Urobilinogen Ur Leukocyte Esterase Urine RBC Urine WBC Ur Squamous Epith Cells Urine Bacteria Urine Mucus Hep Bs Antigen Hep Bs Antibody Hep B Core Total Ab MRSA (PCR) Negative POC Glucose 183 H 11/27/20 11/27/20 11/27/20 19:30 19:30 19:30 WBC Corrected WBC RBC Hgb Hct MCV MCH MCHC RDW Std Deviation RDW Coeff of [place] Plt Count MPV Immature Gran % (Auto) Neut % (Auto) Lymph % (Auto) Stephens % (Auto) Eos % (Auto) Baso % (Auto) Absolute Neuts (auto) Absolute Lymphs (auto) Total Counted Neutrophils % (Manual) Band Neutrophils % Lymphocytes % (Manual) Monocytes % (Manual) Eosinophils % (Manual) Basophils % (Manual) Metamyelocytes % Myelocytes % Promyelocytes % Blast Cells % Plasma Cell % (Manual) Other Cells % Nucleated RBC % Nucleated RBCs/100 WBC Differential Comment Diff Path Review Hypersegmented Neuts Atypical Lymphocytes Reactive Lymphocytes Smudge Cells Toxic Granulation Toxic Vacuolation Dohle Bodies Jey Rods Platelet Estimate Plt Morphology Comment RBC Morphology Polychromasia Hypochromasia Poikilocytosis Basophilic Stippling Anisocytosis Microcytosis Macrocytosis Spherocytes Sickle Cells Target Cells Tear Drop Cells Ovalocytes Stomatocytes [place] Bodies [place] Cells Bite Cells Crenated Cell Acanthocytes (Spur) Rouleaux Schistocytes PT INR APTT Specimen Type Sample Site pH Bicarbonate Actual Total CO2 Base Excess O2 Saturation O2 % ABG pCO2 ABG pO2 Justus Test Respiration Rate O2 Delivery Device Vent Mode Tidal Volume POC PEEP Crit Call To/Read Back Blood Gas Notified Whom Sodium Potassium Chloride Carbon Dioxide Anion Gap BUN Creatinine Estim Creat Clear Calc Est GFR (MDRD) Af Amer Est GFR (MDRD) Non-Af BUN/Creatinine Ratio Glucose Lactic Acid Calcium Phosphorus Magnesium Total Bilirubin AST ALT Alkaline Phosphatase Total Creatine Kinase Troponin I Total Protein Albumin Globulin Albumin/Globulin Ratio Triglycerides Urine Color Urine Clarity Urine pH Ur Specific Wilson Urine Protein Urine Glucose (UA) Urine Ketones Urine Occult Blood Urine Nitrite Urine Bilirubin Urine Urobilinogen Ur Leukocyte Esterase Urine RBC Urine WBC Ur Squamous Epith Cells Urine Bacteria Urine Mucus Hep Bs Antigen Pending Hep Bs Antibody Pending Hep B Core Total Ab Pending MRSA (PCR) POC Glucose 11/27/20 11/28/20 11/28/20 23:40 05:00 05:00 WBC Cancelled Corrected WBC Cancelled RBC Cancelled Hgb Cancelled Hct Cancelled MCV Cancelled MCH Cancelled MCHC Cancelled RDW Std Deviation Cancelled RDW Coeff of [place] Cancelled Plt Count Cancelled MPV Cancelled Immature Gran % (Auto) Cancelled Neut % (Auto) Cancelled Lymph % (Auto) Cancelled Stephens % (Auto) Cancelled Eos % (Auto) Cancelled Baso % (Auto) Cancelled Absolute Neuts (auto) Cancelled Absolute Lymphs (auto) Cancelled Total Counted Cancelled Neutrophils % (Manual) Cancelled Band Neutrophils % Cancelled Lymphocytes % (Manual) Cancelled Monocytes % (Manual) Cancelled Eosinophils % (Manual) Cancelled Basophils % (Manual) Cancelled Metamyelocytes % Cancelled Myelocytes % Cancelled Promyelocytes % Cancelled Blast Cells % Cancelled Plasma Cell % (Manual) Cancelled Other Cells % Cancelled Nucleated RBC % Cancelled Nucleated RBCs/100 WBC Cancelled Differential Comment Cancelled Diff Path Review Cancelled Hypersegmented Neuts Cancelled Atypical Lymphocytes Cancelled Reactive Lymphocytes Cancelled Smudge Cells Cancelled Toxic Granulation Cancelled Toxic Vacuolation Cancelled Dohle Bodies Cancelled Jey Rods Cancelled Platelet Estimate Cancelled Plt Morphology Comment Cancelled RBC Morphology Cancelled Polychromasia Cancelled Hypochromasia Cancelled Poikilocytosis Cancelled Basophilic Stippling Cancelled Anisocytosis Cancelled Microcytosis Cancelled Macrocytosis Cancelled Spherocytes Cancelled Sickle Cells Cancelled Target Cells Cancelled Tear Drop Cells Cancelled Ovalocytes Cancelled Stomatocytes Cancelled [place] Bodies Cancelled [place] Cells Cancelled Bite Cells Cancelled Crenated Cell Cancelled Acanthocytes (Spur) Cancelled Rouleaux Cancelled Schistocytes Cancelled PT INR APTT Specimen Type Sample Site pH Bicarbonate Actual Total CO2 Base Excess O2 Saturation O2 % ABG pCO2 ABG pO2 Justus Test Respiration Rate O2 Delivery Device Vent Mode Tidal Volume POC PEEP Crit Call To/Read Back Blood Gas Notified Whom Sodium Cancelled Potassium Cancelled Chloride Cancelled Carbon Dioxide Cancelled Anion Gap Cancelled BUN Cancelled Creatinine Cancelled Estim Creat Clear Calc Cancelled Est GFR (MDRD) Af Amer Cancelled Est GFR (MDRD) Non-Af Cancelled BUN/Creatinine Ratio Cancelled Glucose Cancelled Lactic Acid 2.6 H* Calcium Cancelled Phosphorus Magnesium Cancelled Total Bilirubin AST ALT Alkaline Phosphatase Total Creatine Kinase Troponin I Total Protein Albumin Globulin Albumin/Globulin Ratio Triglycerides Urine Color Urine Clarity Urine pH Ur Specific Wilson Urine Protein Urine Glucose (UA) Urine Ketones Urine Occult Blood Urine Nitrite Urine Bilirubin Urine Urobilinogen Ur Leukocyte Esterase Urine RBC Urine WBC Ur Squamous Epith Cells Urine Bacteria Urine Mucus Hep Bs Antigen Hep Bs Antibody Hep B Core Total Ab MRSA (PCR) POC Glucose 11/28/20 05:00 WBC Corrected WBC RBC Hgb Hct MCV MCH MCHC RDW Std Deviation RDW Coeff of [place] Plt Count MPV Immature Gran % (Auto) Neut % (Auto) Lymph % (Auto) Stephens % (Auto) Eos % (Auto) Baso % (Auto) Absolute Neuts (auto) Absolute Lymphs (auto) Total Counted Neutrophils % (Manual) Band Neutrophils % Lymphocytes % (Manual) Monocytes % (Manual) Eosinophils % (Manual) Basophils % (Manual) Metamyelocytes % Myelocytes % Promyelocytes % Blast Cells % Plasma Cell % (Manual) Other Cells % Nucleated RBC % Nucleated RBCs/100 WBC Differential Comment Diff Path Review Hypersegmented Neuts Atypical Lymphocytes Reactive Lymphocytes Smudge Cells Toxic Granulation Toxic Vacuolation Dohle Bodies Jey Rods Platelet Estimate Plt Morphology Comment RBC Morphology Polychromasia Hypochromasia Poikilocytosis Basophilic Stippling Anisocytosis Microcytosis Macrocytosis Spherocytes Sickle Cells Target Cells Tear Drop Cells Ovalocytes Stomatocytes [place] Bodies [place] Cells Bite Cells Crenated Cell Acanthocytes (Spur) Rouleaux Schistocytes PT INR APTT Specimen Type Sample Site pH Bicarbonate Actual Total CO2 Base Excess O2 Saturation O2 % ABG pCO2 ABG pO2 Justus Test Respiration Rate O2 Delivery Device Vent Mode Tidal Volume POC PEEP Crit Call To/Read Back Blood Gas Notified Whom Sodium Potassium Chloride Carbon Dioxide Anion Gap BUN Creatinine Estim Creat Clear Calc Est GFR (MDRD) Af Amer Est GFR (MDRD) Non-Af BUN/Creatinine Ratio Glucose Lactic Acid Cancelled Calcium Phosphorus Magnesium Total Bilirubin AST ALT Alkaline Phosphatase Total Creatine Kinase Troponin I Total Protein Albumin Globulin Albumin/Globulin Ratio Triglycerides Urine Color Urine Clarity Urine pH Ur Specific [place] Urine Protein Urine Glucose (UA) Urine Ketones Urine Occult Blood Urine Nitrite Urine Bilirubin Urine Urobilinogen Ur Leukocyte Esterase Urine RBC Urine WBC Ur Squamous Epith Cells Urine Bacteria Urine Mucus Hep Bs Antigen Hep Bs Antibody Hep B Core Total Ab MRSA (PCR) POC Glucose Microbiology 11/27/20 12:25 Interface Orders Gram Stain - Final 11/27/20 13:04 Mucosa - Nose SARS-CoV-2 Antigen (Rapid) - Final Clinical Impression(s) from Imaging Studies Chest X-Ray 11/27/20 09:51 IMPRESSION: No acute abnormality is seen. Electronically Signed: Fernando Caro MD at 10:10 EDT , Service support , Abdomen/Pelvis CT 11/27/20 10:20 IMPRESSION: Fluid-filled stomach and duodenum as well as small bowel loops. Early small bowel obstruction should be ruled out. A repeat examination following oral or rectal contrast is recommended. Left perinephric stranding. Nonobstructive left intrarenal calculi. Questionable extraluminal air within the pelvis. Electronically Signed: Fernando Caro MD at 11:31 EDT , Service support , Brain CT 11/27/20 10:20 IMPRESSION: Chronic involutional changes of the brain. Electronically Signed: Fernando Caro MD at 11:26 EDT , Service support , Chest X-Ray 11/27/20 11:32 IMPRESSION: The tip of the endotracheal tube is at 2.4 sinus proximal to the gabriella. Electronically Signed: Fernando Caro MD at 12:08 EDT , Service support , KUB X-Ray 11/27/20 14:20 IMPRESSION: The tip of the orogastric tube is in the body of the stomach. The tip of the endotracheal tube is at the level of the gabriella. It should be pulled back approximately 2 cm. Electronically Signed: Fernando Caro MD at 14:53 EDT , Service support , Chest X-Ray 11/27/20 15:40 IMPRESSION: Right IJ line terminates in the SVC. No demonstrated pneumothorax. Electronically Signed: Chastity Del Valle MD at 17:01 EDT Tel , Service support , Chest X-Ray 11/27/20 16:10 IMPRESSION: Mild bilateral perihilar atelectasis otherwise no acute cardiopulmonary disease. Lines and tubes as described. Recommend pulling back the endotracheal tube approximately 2 cm. Electronically Signed: Donna Stinson MD at 1:07 EDT , Service support , Medical Necessity - Tobacco Use Smoking Status: Current every day smoker Tobacco Use: Cigarettes Assessment/Plan All Active Problems (Last Reviewed 09/09/20 @ 07:[address] Dashawn Acevedo MD) Acute respiratory failure (Acute) Metabolic acidosis (Acute) Pyelonephritis (Acute) Acute renal failure (Acute) Aspiration into airway (Acute) Uremia (Acute) Hyperphosphatemia (Acute) Hypovolemic shock (Acute) Septic shock (Acute) RECOMMENDATIONS: 1. Continue antimicrobials per ID recommendations. 2. Continue dextrose containing supplemental fluids. 3. Obtain repeat arterial blood gas. 4. Continue to wean FiO2 to maintain oxygen saturations at or above 90%. 5. Continue Levophed to maintain a mean arterial pressure at or above 65 mmHg. 6. Continue appropriate ICU prophylaxis. IMPRESSIONS: 1. Septic shock Clinical concern for either urinary tract source of infection or aspiration pneumonia. Plan to continue aggressive fluid resuscitation along with broad- spectrum antimicrobials and vasopressor support, if indicated, to maintain a mean arterial pressure at or above 65 mmHg. Overall, the patient is clinically improving. 2. Acute hypoxemic respiratory failure Concern for aspiration event as precipitating etiology. The patient was intubated in the emergency department. She will be continued on assist control mode of mechanical ventilation, with plans to wean FiO2 to maintain saturations at or above 90%. Continue antimicrobials as noted above. 3. Encephalopathy Likely metabolic in etiology. Plan to continue current supportive measures as noted above. Continue Precedex and fentanyl for sedation. Goal to maintain a RASS of -1 to 1. 4. Profound anion gap metabolic acidosis/acute kidney injury/lactic acidemia Improved. Likely due to a combination of profound intravascular volume depletion in the setting of GI losses coupled with concurrent use of Metformin. Given that the patient is severely acidotic with profound metabolic derangements, nephrology was consulted for emergent dialysis. The patient's overall metabolic derangements are improving. Plan to continue dialysis support per nephrology recommendations. 5. History of diabetes mellitus/hypertension/hyperlipidemia/GERD Complicates care, management, recovery and prognosis. Continue to hold antihypertensives. CODE status: Discussed CODE status at length including difference between FULL code, DNR-CCA and DNR-CC status. Following discussions about the differences in these status, patient's requested FULL CODE STATUS. TIME: 37 minutes of critical care time, independent of procedures, was spent addressing the patient's septic shock, encephalopathy, anion gap metabolic acidosis, acute kidney injury, review of all data and collaboration with the care team. ([id number]) [phone] [id number] Critical care first hour
[2020-11-28 05:49] LABS: Absolute Lymphocyte Count 2.34 X10^3/uL (0.83-4.51); Absolute Neutrophil Count 12.7 X10^3/uL (2.0-7.7); Basophil# 0.05 X10^3/uL; Basophil% 0.3 % (0-1); Eosinophil# 0.02 X10^3/uL; Eosinophils% 0.1 % (0-5); Hematocrit 28.9 % (37-47); Hemoglobin 9.4 g/dL (12.0-15.0); Lymphocyte # 2.34 X10^3/ul (4.0); Lymphocyte % 14.5 % (19-41); Mean Corp Hgb Conc 32.5 g/dL (32-36); Mean Corpuscular Hgb 28.7 pg (27.0-32.0); Mean Corpuscular Volume 88.4 fL (81-99); Mean Platelet Vol. 11.5 fl (6.2-12.0); Monocyte# 0.96 X10^3/uL; Monocyte% 5.9 % (0-10); NRBC Flagged by Analyzer 0 % (0-5); Neutrophil # 12.67 X10^3/uL (2.7-7.7); Neutrophil % 78.6 % (47-70); Platelet Count 209 K/mm3 (150-450); RBC Distribution Width CV 16.5 % (11.6-14.6); RBC Distribution Width SD 53.2 fl (35.1-43.9); Red Blood Count 3.27 M/mm3 (4.2-5.4); White Blood Count 16.1 K/mm3 (4.4-11.0)
[2020-11-28] MEDS: TITRATION PARAMETER CHANGE 1 EACH IV ×2 (06:03→23:55)
[2020-11-28 06:14] LABS: Lactic Acid 0.9 mmol/L (0.4-1.9)
[2020-11-28 06:18] LABS: Anion Gap 17 (5-15); BUN 39 mg/dL (7-18); BUN/Creat Ratio 14.5 RATIO (10-20); Calcium,Total 6.5 mg/dL (8.5-10.1); Chloride 100 mmol/L (98-107); Creatinine, Serum 2.69 mg/dL (0.55-1.02); EST Glomerular Filtration Rate 19 mL/min (>60); Est Glom Filt Rate - Afr Amer 23 mL/min (>60); Estimated Creatinine Clearance 15.31 ml/min; Glucose 59 mg/dL (74-106); Magnesium 1.7 mg/dL (1.6-2.6); Potassium 3.8 mmol/L (3.5-5.1); Sodium Level 138 mmol/L (136-145)
--- NOTE | 2020-11-28 06:19 | PCM.RX.CS ---
Consult Pharmacy has been consulted to manage selected antiobiotic: Vancomycin Type of Consult: New start Labs: Sodium 138 mmol/L (136-145) 11/28/20 05:40 Potassium 3.8 mmol/L (3.5-5.1) 11/28/20 05:40 Chloride 100 mmol/L (98-107) 11/28/20 05:40 Carbon Dioxide 21.0 mmol/L (21.0-32.0) 11/28/20 05:40 Anion Gap 17 (5-15) H 11/28/20 05:40 BUN 39 mg/dL (7-18) H 11/28/20 05:40 Creatinine 2.69 mg/dL (0.55-1.02) H 11/28/20 05:40 Est GFR (MDRD) Af Amer 23 mL/min (>60) L 11/28/20 05:40 Est GFR (MDRD) Non-Af 19 mL/min (>60) L 11/28/20 05:40 BUN/Creatinine Ratio 14.5 RATIO (10-20) 11/28/20 05:40 Glucose 59 mg/dL (74-106) L 11/28/20 05:40 Microbiology: Microbiology 11/27/20 12:25 Interface Orders Gram Stain - Final 11/27/20 13:04 Mucosa - Nose SARS-CoV-2 Antigen (Rapid) - Final Goal Trough: 15-20 mcg/mL Pharmacy Plan for Drug Dosing: Pharmacy Service will continue to monitor and adjust dosing as required. Medications Discontinued Medications Vancomycin HCl 1,500 mg/ (Sodium Chloride) 530 mls @ 250 mls/hr IV X1 ONE Stop: 11/27/20 21:07 Last Admin: 11/28/20 01:00 Dose: Infused Documented by: PER CRCl RANDOM LEVEL 11/29 WITH AM LABS Follow-Up Labs: Trough Vancomycin Labs to be done on [date and time ordered]: RANDOM 11/29 @0600
[2020-11-28 07:36] LABS: Base Excess -8 mmol/L (-2 to +2); Bicarbonate 17.3 mmol/L (22-26); Blood Gas Specimen Type ART; FI02 30; Mode AC; O2 Delivery Device ET Tube; PEEP 5; PO2 70 mmHG (75-100); RR 16; SITE L Radial; SO2 94 % (95-99); Total Carbon Dioxide 18 mmol/L; Vt 450; pCO2 28.6 mmHg (35-45); pH 7.39 (7.35-7.45)
[2020-11-28 08:35] LABS: Bedside Glucose 101 mg/dL (70-110)
[2020-11-28 09:04] LABS: Hepatitis B Surface Antibody Non-Reactive
[2020-11-28 09:09] LABS: Hepatitis B Surface Antigen Non-Reactive (Nonreactive)
--- NOTE | 2020-11-28 09:35 | CASEMGMT ---
SINDHU GARCIA ASSESSMENT Pt intubated. SINDHU GARCIA placed call to pt's for initial transition planning/care coordination assessment. SINDHU GARCIA introduced self and role at [facility]. voices understanding and consents to assessment at this time. Care providers, pharmacy, and demographics verified/updated at this time. PCP: Dr Alvarez Specialists: Dr Howard--GI, Dr Acevedo-urology, Dr Maynard--nephrology Preferred Pharmacy: [facility] Retail Insurance: Cigna, MCR A. MCR was listed as primary and Cigna as secondary, but states pt has Cigna through her insurance and that Cigna is primary. Call placed to registration and they were made aware. Living Will/HPOA: Pt does not currently have LW/HCPOA LNOK: , Isaac Living Arrangements: Lives in 1 1/2 story home w/her , son, and son's girlfriend. Pt was working until about 2 months ago. Pt was independent w/ADL's up until she started becoming ill a couple of days ago. manages most home tasks. Transportation: Pt drives. and son do not drive. Son's girlfriend can help w/transportation if needed. DME: Pt does not use any DME, but does have the following available if needed: shower chair, walker. Pt does have a glucometer, but she has not used it in years. HHC/SNF: No history of either. PLAN: TBD. Pt is intubated. CM/SW to follow. Juan Daniel MCCAIN RN, CM
--- NOTE | 2020-11-28 12:10 | CON.PCM_ITS ---
Problem List (1) Septic shock Status: Acute Reason for Consult: shock Consulted by: Dr. Enrique History of Present Illness: The patient is a 69 year old F presented to ED yesterday AM with hypothermia, hypotension, unresponsiveness, resp failure. Had been on bactrim for MRSA axillary and forehead infection. Developed n/v/d. Admitted to icu on vanc/victor m and 3 pressors. Getting HD now. BP improved. ROS unobtainable due to intubated/sedation - Medical History Past Medical History (Chronic Problems): Chronic Problems (Last Reviewed 09/09/20 @ 07:[address] Dashawn Acevedo MD) Kidney stone (Chronic) Non-STEMI (non-ST elevated myocardial infarction) (Chronic 02/10/20) Essential (primary) hypertension (Chronic) Hyperlipidemia (Chronic) Nicotine dependence (Chronic) Allergies/Adverse Reactions: Allergies oxycodone [From Percocet] Allergy (Verified 02/10/20 15:34) Nausea Penicillins [PCN] Allergy (Verified 02/10/20 15:34) Unknown Home Medications: Ambulatory Orders Medication Instructions Recorded Aspirin E.C. [Ecotrin] 81 mg PO DAILY@0800 11/03/14 Metoprolol Tartrate [Lopressor 25 mg PO BID 11/03/14 (beta ericka)] Multivitamins,Therapeutic 1 tablet PO DAILY 11/03/14 [Multivitamin] Omeprazole [Prilosec] 20 mg PO DAILY 11/03/14 Rosuvastatin Calcium [Crestor] 40 mg PO QHS 11/03/14 metFORMIN HCl [Glucophage] 1,000 mg PO BIDCM 11/03/14 Cyanocobalamin (Vitamin B-12) 1,000 mcg PO DAILY 02/10/16 [Vitamin B-12] Lisinopril [Zestril] 20 mg PO QHS 01/09/20 Vitamin B Complex 1 ea PO QHS 01/22/20 Acetaminophen/Caffeine [Excedrin 1 tablet PO DAILY PRN PRN 11/27/20 Tension Headache Cplt] Doxycycline Hyclate 100 mg PO BID 11/27/20 - Social History SMOKING STATUS:: Current every day smoker Vital Signs Temp Pulse Resp BP Pulse Ox 99.1 F 84 16 93/53 L 97 11/28/20 11:57 11/28/20 11:57 11/28/20 11:57 11/28/20 11:57 11/28/20 11:29 Oxygen Flow Rate (L/min) 35 Oxygen Delivery Method Mechanical Ventilator Weight: 64.3 kg Body Mass Index (BMI) 25.1 Finger Stick Blood Glucose 80 Microbiology Past 72 Hours 11/27/20 12:25 Gram Stain - Final Interface Orders Respiratory Culture - Preliminary Culture exhibits no growth. 11/27/20 13:04 SARS-CoV-2 Antigen (Rapid) - Final Mucosa - Nose Laboratory Tests Past 24 Hrs 11/27/20 11/27/20 11/27/20 09:25 12:55 15:55 WBC Corrected WBC RBC Hgb Hct MCV MCH MCHC RDW Std Deviation RDW Coeff of Hawa Plt Count MPV Immature Gran % (Auto) Neut % (Auto) Lymph % (Auto) [place] % (Auto) Eos % (Auto) Baso % (Auto) Absolute Neuts (auto) Absolute Lymphs (auto) Total Counted Neutrophils % (Manual) Band Neutrophils % Lymphocytes % (Manual) Monocytes % (Manual) Eosinophils % (Manual) Basophils % (Manual) Metamyelocytes % Myelocytes % Promyelocytes % Blast Cells % Plasma Cell % (Manual) Other Cells % Nucleated RBC % Nucleated RBCs/100 WBC Differential Comment Diff Path Review Hypersegmented Neuts Atypical Lymphocytes Reactive Lymphocytes Smudge Cells Toxic Granulation Toxic Vacuolation Dohle Bodies Jey Rods Platelet Estimate Plt Morphology Comment RBC Morphology Polychromasia Hypochromasia Poikilocytosis Basophilic Stippling Anisocytosis Microcytosis Macrocytosis Spherocytes Sickle Cells Target Cells Tear Drop Cells Ovalocytes Stomatocytes Marquez-[place] Bodies Sapphire Cells Bite Cells Crenated Cell Acanthocytes (Spur) Rouleaux Schistocytes Specimen Type ART Sample Site L Radial pH 6.87 L* Bicarbonate Actual 4.8 L Total CO2 6 Base Excess -29 L O2 Saturation 98 O2 % 50 ABG pCO2 26.4 L ABG pO2 191 H Justus Test Positive Respiration Rate 16 O2 Delivery Device Adult Vent Vent Mode AC Tidal Volume 450 POC PEEP 5 Crit Call To/Read Back Yes Blood Gas Notified Whom hoehne Sodium Potassium Chloride Carbon Dioxide Anion Gap BUN Creatinine Estim Creat Clear Calc Est GFR (MDRD) Af Amer Est GFR (MDRD) Non-Af BUN/Creatinine Ratio Glucose Lactic Acid 13.7 H* Calcium Magnesium Total Creatine Kinase 36 Triglycerides 94 Hep Bs Antigen Hep Bs Antibody Hep B Core Total Ab MRSA (PCR) 11/27/20 11/27/20 11/27/20 16:30 19:30 19:30 WBC Corrected WBC RBC Hgb Hct MCV MCH MCHC RDW Std Deviation RDW Coeff of Hawa Plt Count MPV Immature Gran % (Auto) Neut % (Auto) Lymph % (Auto) [place] % (Auto) Eos % (Auto) Baso % (Auto) Absolute Neuts (auto) Absolute Lymphs (auto) Total Counted Neutrophils % (Manual) Band Neutrophils % Lymphocytes % (Manual) Monocytes % (Manual) Eosinophils % (Manual) Basophils % (Manual) Metamyelocytes % Myelocytes % Promyelocytes % Blast Cells % Plasma Cell % (Manual) Other Cells % Nucleated RBC % Nucleated RBCs/100 WBC Differential Comment Diff Path Review Hypersegmented Neuts Atypical Lymphocytes Reactive Lymphocytes Smudge Cells Toxic Granulation Toxic Vacuolation Dohle Bodies Jey Rods Platelet Estimate Plt Morphology Comment RBC Morphology Polychromasia Hypochromasia Poikilocytosis Basophilic Stippling Anisocytosis Microcytosis Macrocytosis Spherocytes Sickle Cells Target Cells Tear Drop Cells Ovalocytes Stomatocytes Marquez-[place] Bodies [place] Cells Bite Cells Crenated Cell Acanthocytes (Spur) Rouleaux Schistocytes Specimen Type Sample Site pH Bicarbonate Actual Total CO2 Base Excess O2 Saturation O2 % ABG pCO2 ABG pO2 Justus Test Respiration Rate O2 Delivery Device Vent Mode Tidal Volume POC PEEP Crit Call To/Read Back Blood Gas Notified Whom Sodium Potassium Chloride Carbon Dioxide Anion Gap BUN Creatinine Estim Creat Clear Calc Est GFR (MDRD) Af Amer Est GFR (MDRD) Non-Af BUN/Creatinine Ratio Glucose Lactic Acid Calcium Magnesium Total Creatine Kinase Triglycerides Hep Bs Antigen Non-Reactive Hep Bs Antibody Non-Reactive Hep B Core Total Ab MRSA (PCR) Negative 11/27/20 11/27/20 11/28/20 19:30 23:40 05:00 WBC Cancelled Corrected WBC Cancelled RBC Cancelled Hgb Cancelled Hct Cancelled MCV Cancelled MCH Cancelled MCHC Cancelled RDW Std Deviation Cancelled RDW Coeff of Hawa Cancelled Plt Count Cancelled MPV Cancelled Immature Gran % (Auto) Cancelled Neut % (Auto) Cancelled Lymph % (Auto) Cancelled [place] % (Auto) Cancelled Eos % (Auto) Cancelled Baso % (Auto) Cancelled Absolute Neuts (auto) Cancelled Absolute Lymphs (auto) Cancelled Total Counted Cancelled Neutrophils % (Manual) Cancelled Band Neutrophils % Cancelled Lymphocytes % (Manual) Cancelled Monocytes % (Manual) Cancelled Eosinophils % (Manual) Cancelled Basophils % (Manual) Cancelled Metamyelocytes % Cancelled Myelocytes % Cancelled Promyelocytes % Cancelled Blast Cells % Cancelled Plasma Cell % (Manual) Cancelled Other Cells % Cancelled Nucleated RBC % Cancelled Nucleated RBCs/100 WBC Cancelled Differential Comment Cancelled Diff Path Review Cancelled Hypersegmented Neuts Cancelled Atypical Lymphocytes Cancelled Reactive Lymphocytes Cancelled Smudge Cells Cancelled Toxic Granulation Cancelled Toxic Vacuolation Cancelled Dohle Bodies Cancelled Jey Rods Cancelled Platelet Estimate Cancelled Plt Morphology Comment Cancelled RBC Morphology Cancelled Polychromasia Cancelled Hypochromasia Cancelled Poikilocytosis Cancelled Basophilic Stippling Cancelled Anisocytosis Cancelled Microcytosis Cancelled Macrocytosis Cancelled Spherocytes Cancelled Sickle Cells Cancelled Target Cells Cancelled Tear Drop Cells Cancelled Ovalocytes Cancelled Stomatocytes Cancelled Marquez-[place] Bodies Cancelled [place] Cells Cancelled Bite Cells Cancelled Crenated Cell Cancelled Acanthocytes (Spur) Cancelled Rouleaux Cancelled Schistocytes Cancelled Specimen Type Sample Site pH Bicarbonate Actual Total CO2 Base Excess O2 Saturation O2 % ABG pCO2 ABG pO2 Justus Test Respiration Rate O2 Delivery Device Vent Mode Tidal Volume POC PEEP Crit Call To/Read Back Blood Gas Notified Whom Sodium Potassium Chloride Carbon Dioxide Anion Gap BUN Creatinine Estim Creat Clear Calc Est GFR (MDRD) Af Amer Est GFR (MDRD) Non-Af BUN/Creatinine Ratio Glucose Lactic Acid 2.6 H* Calcium Magnesium Total Creatine Kinase Triglycerides Hep Bs Antigen Hep Bs Antibody Hep B Core Total Ab Pending MRSA (PCR) 11/28/20 11/28/20 11/28/20 05:00 05:00 05:40 WBC 16.1 H Corrected WBC RBC 3.27 L Hgb 9.4 L Hct 28.9 L MCV 88.4 D MCH 28.7 MCHC 32.5 D RDW Std Deviation 53.2 H RDW Coeff of Hawa 16.5 H Plt Count 209 MPV 11.5 Immature Gran % (Auto) 0.600 Neut % (Auto) 78.6 H Lymph % (Auto) 14.5 L [place] % (Auto) 5.9 Eos % (Auto) 0.1 Baso % (Auto) 0.3 Absolute Neuts (auto) 12.7 H Absolute Lymphs (auto) 2.34 Total Counted Neutrophils % (Manual) Band Neutrophils % Lymphocytes % (Manual) Monocytes % (Manual) Eosinophils % (Manual) Basophils % (Manual) Metamyelocytes % Myelocytes % Promyelocytes % Blast Cells % Plasma Cell % (Manual) Other Cells % Nucleated RBC % 0 Nucleated RBCs/100 WBC Differential Comment Diff Path Review Hypersegmented Neuts Atypical Lymphocytes Reactive Lymphocytes Smudge Cells Toxic Granulation Toxic Vacuolation Dohle Bodies Jey Rods Platelet Estimate Plt Morphology Comment RBC Morphology Polychromasia Hypochromasia Poikilocytosis Basophilic Stippling Anisocytosis Microcytosis Macrocytosis Spherocytes Sickle Cells Target Cells Tear Drop Cells Ovalocytes Stomatocytes Marquez-[place] Bodies [place] Cells Bite Cells Crenated Cell Acanthocytes (Spur) Rouleaux Schistocytes Specimen Type Sample Site pH Bicarbonate Actual Total CO2 Base Excess O2 Saturation O2 % ABG pCO2 ABG pO2 Justus Test Respiration Rate O2 Delivery Device Vent Mode Tidal Volume POC PEEP Crit Call To/Read Back Blood Gas Notified Whom Sodium Cancelled Potassium Cancelled Chloride Cancelled Carbon Dioxide Cancelled Anion Gap Cancelled BUN Cancelled Creatinine Cancelled Estim Creat Clear Calc Cancelled Est GFR (MDRD) Af Amer Cancelled Est GFR (MDRD) Non-Af Cancelled BUN/Creatinine Ratio Cancelled Glucose Cancelled Lactic Acid Cancelled Calcium Cancelled Magnesium Cancelled Total Creatine Kinase Triglycerides Hep Bs Antigen Hep Bs Antibody Hep B Core Total Ab MRSA (PCR) 11/28/20 11/28/20 11/28/20 05:40 05:40 07:33 WBC Corrected WBC RBC Hgb Hct MCV MCH MCHC RDW Std Deviation RDW Coeff of Hawa Plt Count MPV Immature Gran % (Auto) Neut % (Auto) Lymph % (Auto) [place] % (Auto) Eos % (Auto) Baso % (Auto) Absolute Neuts (auto) Absolute Lymphs (auto) Total Counted Neutrophils % (Manual) Band Neutrophils % Lymphocytes % (Manual) Monocytes % (Manual) Eosinophils % (Manual) Basophils % (Manual) Metamyelocytes % Myelocytes % Promyelocytes % Blast Cells % Plasma Cell % (Manual) Other Cells % Nucleated RBC % Nucleated RBCs/100 WBC Differential Comment Diff Path Review Hypersegmented Neuts Atypical Lymphocytes Reactive Lymphocytes Smudge Cells Toxic Granulation Toxic Vacuolation Dohle Bodies Jey Rods Platelet Estimate Plt Morphology Comment RBC Morphology Polychromasia Hypochromasia Poikilocytosis Basophilic Stippling Anisocytosis Microcytosis Macrocytosis Spherocytes Sickle Cells Target Cells Tear Drop Cells Ovalocytes Stomatocytes Marquez-[place] Bodies [place]app[place] Cells Bite Cells Crenated Cell Acanthocytes (Spur) Rouleaux Schistocytes Specimen Type ART Sample Site L Radial pH 7.39 Bicarbonate Actual 17.3 L Total CO2 18 Base Excess -8 L O2 Saturation 94 L O2 % 30 ABG pCO2 28.6 L ABG pO2 70 L Justus Test Respiration Rate 16 O2 Delivery Device ET Tube Vent Mode AC Tidal Volume 450 POC PEEP 5 Crit Call To/Read Back Blood Gas Notified Whom Sodium 138 Potassium 3.8 Chloride 100 Carbon Dioxide 21.0 Anion Gap 17 H BUN 39 H Creatinine 2.69 H Estim Creat Clear Calc 15.31 Est GFR (MDRD) Af Amer 23 L Est GFR (MDRD) Non-Af 19 L BUN/Creatinine Ratio 14.5 Glucose 59 L Lactic Acid 0.9 Calcium 6.5 L* Magnesium 1.7 Total Creatine Kinase Triglycerides Hep Bs Antigen Hep Bs Antibody Hep B Core Total Ab MRSA (PCR) - Other Studies Radiology: [] reviewed Other Studies: [] Route of nutrition/ use of supplements: [] Nutritional Intake: [] IV Site: [] Loco Catheter: [] - Physical Exam General: Non-Cooperative, - - ill appearing HEENT: Atraumatic, PERRLA, EOMI Neck: Supple, No Nodes Lungs: Diminished Cardiovascular: Regular rate, Regular Rhythm Abdomen: Soft, Non Tender, Non-Distended Extremities: No edema Skin: No rashes IV Site: Central Line, without redness Musculoskeletal: No Tenderness to Palpation of Joints or Extremities - Assessment/Plan Antibiotics: [] Assessment/Plan: [] Active and Suspected Problems (Last Reviewed 09/09/20 @ 07:[address] Dashawn Acevedo MD) Acute respiratory failure (Acute) Metabolic acidosis (Acute) Pyelonephritis (Acute) Acute renal failure (Acute) Aspiration into airway (Acute) Uremia (Acute) Hyperphosphatemia (Acute) Hypovolemic shock (Acute) Septic shock (Acute) septic shock with resp failure, SANT[facility] - CT with L perinephric stranding. Sputum gram stain with some GPC, possible aspiration. On vanc/victor m empirically. HD today. BP improved, temp improved, remains on pressors. I do not see any residual abscess on face or axillae. Will follow, thank you, d/w nursing
--- NOTE | 2020-11-28 12:12 | PN_ITS ---
Patient Problems: Active and Suspected Problems (Last Reviewed 09/09/20 @ 07:[address] Dashawn Acevedo MD) Acute respiratory failure (Acute) Metabolic acidosis (Acute) Pyelonephritis (Acute) Acute renal failure (Acute) Aspiration into airway (Acute) Uremia (Acute) Hyperphosphatemia (Acute) Hypovolemic shock (Acute) Septic shock (Acute) Subjective: Patient seen and examined. She remains intubated and sedated. She is now only on norepinephrine, phenylephrine Afrin and Levophed have been turned off. She had emergent dialysis last night. Bicarb is now up to 21 from 8 on admission and anion gap is now 17. Creatinine is down to 2.69. Lactic acid has trended down to 0.9. Calcium is 6.5. Wbc is 16.1. Vitals/I&O's: Vital Signs Temp Pulse Resp BP Pulse Ox 99.1 F 84 16 93/53 L 97 11/28/20 11:57 11/28/20 11:57 11/28/20 11:57 11/28/20 11:57 11/28/20 11:29 Oxygen Flow Rate (L/min) 35 Oxygen Delivery Method Mechanical Ventilator Weight: 141 lb 12.116 oz Body Mass Index (BMI) 25.1 Finger Stick Blood Glucose 80 Intake and Output for Last 24 Hours 11/26/20 11/27/20 11/28/20 23:59 23:59 23:59 Intake Total 6767.20 / 6876.50 2983.93 / 2983.93 Output Total 800 / 800 Balance 6747.20 / 6856.50 2183.93 / 2183.93 General: - - intubated, sedated, RASS score is -1 HEENT: Atraumatic, PERRLA, EOMI, Normocephalic Oral: Dry Mucosa Neck: Supple, No JVD, Negative Carotid Bruits Lungs: - - diminished breath sounds bibasally, minimal wheezes or crackles. Intubated and sedated Cardiovascular: Regular rate, Regular Rhythm, Normal S1, Normal S2, No murmurs Abdomen: Bowel Sounds Present, Soft, Non Tender, Non-Distended, No Hepato- splenomegaly Extremities: No clubbing, No cyanosis, No edema, Capillary Refill Less than 3 Seconds Skin: No rashes, No breakdown Musculoskeletal: No Tenderness to Palpation of Joints or Extremities, - Lymphatic: No Cervical, Supraclavicular, or Inguinal Adenopathy Neurological: - - intubated sedated Microbiology Past 72 Hours 11/27/20 12:25 Interface Orders Gram Stain - Final 11/27/20 12:25 Interface Orders Respiratory Culture - Preliminary Culture exhibits no growth. 11/27/20 13:04 Mucosa - Nose SARS-CoV-2 Antigen (Rapid) - Final Laboratory Results 11/27/20 09:25: Total Creatine Kinase 36, Triglycerides 94 11/27/20 12:19: POC Glucose 80 11/27/20 12:55: Specimen Type ART, Sample Site L Radial, pH 6.87 L*, Bicarbonate Actual 4.8 L, Total CO2 6, Base Excess -29 L, O2 Saturation 98, O2 % 50, ABG pCO2 26.4 L, ABG pO2 191 H, Justus Test Positive, Respiration Rate 16, O2 Delivery Device Adult Vent, Vent Mode AC, Tidal Volume 450, POC PEEP 5, Crit Call To/Read Back Yes, Blood Gas Notified Whom guerlien 11/27/20 13:10: POC Glucose 180 H 11/27/20 15:07: POC Glucose 183 H 11/27/20 15:55: Lactic Acid 13.7 H* 11/27/20 16:30: MRSA (PCR) Negative 11/27/20 19:30: Hep Bs Antigen Non-Reactive 11/27/20 19:30: Hep Bs Antibody Non-Reactive 11/27/20 19:30: Hep B Core Total Ab Pending 11/27/20 23:40: Lactic Acid 2.6 H* 11/28/20 05:00: WBC Cancelled, Corrected WBC Cancelled, RBC Cancelled, Hgb Cancelled, Hct Cancelled, MCV Cancelled, MCH Cancelled, MCHC Cancelled, RDW Std Deviation Cancelled, RDW Coeff of Hawa Cancelled, Plt Count Cancelled, MPV Cancelled, Immature Gran % (Auto) Cancelled, Neut % (Auto) Cancelled, Lymph % (Auto) Cancelled, [place] % (Auto) Cancelled, Eos % (Auto) Cancelled, Baso % (Auto) Cancelled, Absolute Neuts (auto) Cancelled, Absolute Lymphs (auto) Cancelled, Total Counted Cancelled, Neutrophils % (Manual) Cancelled, Band Neutrophils % Cancelled, Lymphocytes % (Manual) Cancelled, Monocytes % (Manual) Cancelled, Eosinophils % (Manual) Cancelled, Basophils % (Manual) Cancelled, Metamyelocytes % Cancelled, Myelocytes % Cancelled, Promyelocytes % Cancelled, Blast Cells % Cancelled, Plasma Cell % (Manual) Cancelled, Other Cells % Cancelled, Nucleated RBC % Cancelled, Nucleated RBCs/100 WBC Cancelled, Differential Comment Cancelled, Diff Path Review Cancelled, Hypersegmented Neuts Cancelled, Atypical Lymphocytes Cancelled, Reactive Lymphocytes Cancelled, Smudge Cells Cancelled, Toxic Granulation Cancelled, Toxic Vacuolation Cancelled, Dohle Bodies Cancelled, Jey Rods Cancelled, Platelet Estimate Cancelled, Plt Morphology Comment Cancelled, RBC Morphology Cancelled, Polychromasia Cancelled, Hypochromasia Cancelled, Poikilocytosis Cancelled, Basophilic Stippling Cancelled, Anisocytosis Cancelled, Microcytosis Cancelled, Macrocytosis Cancelled, Spherocytes Cancelled, Sickle Cells Cancelled, Target Cells Cancelled, Tear Drop Cells Cancelled, Ovalocytes Cancelled, Stomatocytes Cancelled, Marquez-Liborio [place] Torres Bodies Cancelled, [place] Cells Cancelled, Bite Cells Cancelled, Crenated Cell Cancelled, Acanthocytes (Spur) Cancelled, Rouleaux Cancelled, Schistocytes Cancelled 11/28/20 05:00: Sodium Cancelled, Potassium Cancelled, Chloride Cancelled, Carbon Dioxide Cancelled, Anion Gap Cancelled, BUN Cancelled, Creatinine Cance lled, Estim Creat Clear Calc Cancelled, Est GFR (MDRD) Af Amer Cancelled, Est GFR (MDRD) Non-Af Cancelled, BUN/Creatinine Ratio Cancelled, Glucose Cancelled, Calcium Cancelled, Magnesium Cancelled 11/28/20 05:00: Lactic Acid Cancelled 11/28/20 05:40: WBC 16.1 H, RBC 3.27 L, Hgb 9.4 L, Hct 28.9 L, MCV 88.4 D, MCH 28.7, MCHC 32.5 D, RDW Std Deviation 53.2 H, RDW Coeff of Hawa 16.5 H, Plt Count 209, MPV 11.5, Immature Gran % (Auto) 0.600, Neut % (Auto) 78.6 H, Lymph % (Auto) 14.5 L, [place] % (Auto) 5.9, Eos % (Auto) 0.1, Baso % (Auto) 0.3, Absolute Neuts (auto) 12.7 H, Absolute Lymphs (auto) 2.34, Nucleated RBC % 0 11/28/20 05:40: Lactic Acid 0.9 11/28/20 05:40: Sodium 138, Potassium 3.8, Chloride 100, Carbon Dioxide 21.0, Anion Gap 17 H, BUN 39 H, Creatinine 2.69 H, Estim Creat Clear Calc 15.31, Est GFR (MDRD) Af Amer 23 L, Est GFR (MDRD) Non-Af 19 L, BUN/Creatinine Ratio 14.5, Glucose 59 L, Calcium 6.5 L*, Magnesium 1.7 11/28/20 07:33: Specimen Type ART, Sample Site L Radial, pH 7.39, Bicarbonate Actual 17.3 L, Total CO2 18, Base Excess -8 L, O2 Saturation 94 L, O2 % 30, ABG pCO2 28.6 L, ABG pO2 70 L, Respiration Rate 16, O2 Delivery Device ET Tube, Vent Mode AC, Tidal Volume 450, POC PEEP 5 11/28/20 08:32: POC Glucose 101 Current Medications Heparin Sodium (Porcine) (Heparin Injection (Vial) 5,000 Unit/Ml Vial) 5,000 unit SC Q8 SVEN Last Admin: 11/28/20 05:16 Dose: 5,000 unit Documented by: Heparin Sodium (Porcine) (Heparin 10,000 Units/10 Ml Vial) 0 units IV X1 PRN PRN Reason: DIALYSIS Last Admin: 11/27/20 20:45 Dose: 2,600 units Documented by: Norepinephrine Bitartrate 8 mg (/ Sodium Chloride) 250 mls @ 9.375 mls/hr CONT INF .[id number] [facility]; Protocol Last Titration: 11/28/20 11:00 Dose: 15 mcg/min, 28.1 mls/hr Documented by: Fentanyl Citrate 1,000 mcg/ (Sodium Chloride) 100 mls @ 20 mls/hr CONT INF .Q5H [facility]; Protocol Last Titration: 11/28/20 11:00 Dose: 200 mcg/hr, 20 mls/hr Documented by: Meropenem 500 mg/ Sodium (Chloride) 60 mls @ 100 mls/hr IV Q24H [facility] Vasopressin 20 units/ Sodium (Chloride) 25 mls @ 3 mls/hr IV .Q8H20M SVEN Last Infusion: 11/28/20 11:00 Dose: 0 units/min, 0 mls/hr Documented by: Pantoprazole Sodium 40 mg/ (Sodium Chloride) 110 mls @ 330 mls/hr IV Q24 SVEN Last Infusion: 11/27/20 22:25 Dose: Infused Documented by: Vancomycin IV Pharmacy to Dose (1 each/ Sodium Chloride) 500 mls @ 250 mls/hr IV X1 PRN; Protocol PRN Reason: Rx to Dose Phenylephrine HCl 10 mg/ (Sodium Chloride) 250 mls @ 15 mls/hr CONT INF .[id number] [facility]; Protocol Last Titration: 11/28/20 11:00 Dose: 0 mcg/min, 0 mls/hr Documented by: Dexmedetomidine HCl 400 mcg/ (Sodium Chloride) 100 mls @ 8.038 mls/hr CONT INF .[id number] [facility]; Protocol Last Admin: 11/28/20 11:21 Dose: 1.2 mcg/kg/hr, 19.3 mls/hr Documented by: Dextrose () 1,000 mls @ 125 mls/hr IV .Q8H [facility] Last Infusion: 11/28/20 11:00 Dose: 125 mls/hr Documented by: Ondansetron HCl (Ondansetron 4 Mg/2 Ml Vial) 4 mg IV Q8H PRN PRN PRN Reason: NAUSEA/VOMITING Sodium Chloride (0.9% Saline Lock 10 Ml Syringe) 10 - 40 ml IV UD PRN PRN Reason: SALINE FLUSH STROKE Vital Signs/Narrative: Vital Signs Temp Pulse Resp BP BP Pulse Ox 11/28/20 11:57 99.1 F 84 16 93/53 L 11/28/20 11:29 84 16 97 11/28/20 11:00 84 93/53 L 11/28/20 10:45 99.2 F H 85 16 89/52 L 97 11/28/20 10:30 99.2 F H 85 16 90/53 L 97 11/28/20 10:15 99.2 F H 85 16 89/53 L 97 11/28/20 10:00 99.3 F H 85 16 93/53 L 93/53 L 97 11/28/20 09:45 99.4 F H 85 16 101/54 L 97 11/28/20 09:31 90 16 97 11/28/20 09:30 99.5 F H 85 16 112/60 97 11/28/20 09:15 99.5 F H 83 16 138/68 H 97 11/28/20 09:00 99.5 F H 83 16 129/66 H 129/66 H 97 11/28/20 08:45 99.6 F H 84 16 131/72 H 97 11/28/20 08:30 99.7 F H 86 16 119/64 96 11/28/20 08:15 99.7 F H 85 16 121/63 H 97 Medical Necessity - Tobacco Use Smoking Status: Current every day smoker Tobacco Use: Cigarettes Assessment/Plan All Active Problems (Last Reviewed 09/09/20 @ 07:[address] Dashawn Acevedo MD) Acute respiratory failure (Acute) Metabolic acidosis (Acute) Pyelonephritis (Acute) Acute renal failure (Acute) Aspiration into airway (Acute) Uremia (Acute) Hyperphosphatemia (Acute) Hypovolemic shock (Acute) Septic shock (Acute) #Acute hypoxic respiratory failure due to aspiration pneumonia * remains intubated and sedated * on IV vancomycin and meropenem * blood cultures pending * vent settings as per critical care * #Anion gap metabolic acidosis * due to lactic acidosis likely from metformin, and SANTI * had emergent dialysis yesterday; bicarb is now 21, and Cr is down to 2.69 * nephrology on board * #Septic shock due to aspiration pneumonia and pyelonephritis * now on only levophed. Phenylephrine and vasopressin weaned off * on IV meropenem and IV vancomycin * blood cultures and urine cultures pending * ID on board * #Aspiration pneumonia: As above #Possible small bowel obstruction * CT of the abdomen showed fluid-filled stomach and duodenum as well as small bowel loops and early small bowel obstruction cannot be ruled out with left perinephric stranding and nonobstructive left intrarenal calculi and questionable extraluminal air within the pelvis. * general surgery consulted. await rec's * #SANTI:Cr down to 2.69. nephrology on board. #Acute pyelonephritis: as above #TYpe 2 diabetes mellitus: metformin on hold. Insulin sliding scale. Accu- Cheks every 4 hourly. #Hypoglycemia: Likely due to patient not eating and taking the medication. Hold all diabetes medications. Insulin sliding scale as above. #Lactic Acidosis: lactic acid down to 0.9, after dialysis. * #Hypertension: Hold BP meds due to hypotension #DVT prophylaxis: Heparin Inpatient E&M: [id number] [facility] L3
--- NOTE | 2020-11-28 12:17 | PCM.PN.REN ---
Patient Problems: Active and Suspected Problems (Last Reviewed 09/09/20 @ 07:[address] Dashawn Acevedo MD) Acute respiratory failure (Acute) Metabolic acidosis (Acute) Pyelonephritis (Acute) Acute renal failure (Acute) Aspiration into airway (Acute) Uremia (Acute) Hyperphosphatemia (Acute) Hypovolemic shock (Acute) Septic shock (Acute) Subjective: intubated sedated - Physical Exam Vitals/I&O's: Vital Signs Temp Pulse Resp BP Pulse Ox 99.1 F 84 16 93/53 L 97 11/28/20 11:57 11/28/20 11:57 11/28/20 11:57 11/28/20 11:57 11/28/20 11:29 Oxygen Flow Rate (L/min) 35 Oxygen Delivery Method Mechanical Ventilator Weight: 64.3 kg Body Mass Index (BMI) 25.1 Finger Stick Blood Glucose 80 Intake and Output for Last 24 Hours 11/26/20 11/27/20 11/28/20 23:59 23:59 23:59 Intake Total 6767.20 / 6876.50 2983.93 / 2983.93 Output Total 800 / 800 Balance 6747.20 / 6856.50 2183.93 / 2183.93 General: No apparent distress HEENT: Atraumatic, PERRLA, EOMI, Normocephalic Neck: Supple, No JVD, Negative Carotid Bruits Lungs: Clear to auscultation, Normal air movement Cardiovascular: Regular rate, No murmurs Abdomen: Bowel Sounds Present, Soft, Non Tender Extremities: No edema, Capillary Refill Less than 3 Seconds Skin: No rashes, No breakdown Musculoskeletal: No Tenderness to Palpation of Joints or Extremities Microbiology Past 72 Hours 11/27/20 12:25 Interface Orders Gram Stain - Final 11/27/20 12:25 Interface Orders Respiratory Culture - Preliminary Culture exhibits no growth. 11/27/20 13:04 Mucosa - Nose SARS-CoV-2 Antigen (Rapid) - Final Laboratory Results 11/27/20 09:25: Total Creatine Kinase 36, Triglycerides 94 11/27/20 12:19: POC Glucose 80 11/27/20 12:55: Specimen Type ART, Sample Site L Radial, pH 6.87 L*, Bicarbonate Actual 4.8 L, Total CO2 6, Base Excess -29 L, O2 Saturation 98, O2 % 50, ABG pCO2 26.4 L, ABG pO2 191 H, Justus Test Positive, Respiration Rate 16, O2 Delivery Device Adult Vent, Vent Mode AC, Tidal Volume 450, POC PEEP 5, Crit Call To/Read Back Yes, Blood Gas Notified Whom guerline 11/27/20 13:10: POC Glucose 180 H 11/27/20 15:07: POC Glucose 183 H 11/27/20 15:55: Lactic Acid 13.7 H* 11/27/20 16:30: MRSA (PCR) Negative 11/27/20 19:30: Hep Bs Antigen Non-Reactive 11/27/20 19:30: Hep Bs Antibody Non-Reactive 11/27/20 19:30: Hep B Core Total Ab Pending 11/27/20 23:40: Lactic Acid 2.6 H* 11/28/20 05:00: WBC Cancelled, Corrected WBC Cancelled, RBC Cancelled, Hgb Cancelled, Hct Cancelled, MCV Cancelled, MCH Cancelled, MCHC Cancelled, RDW Std Deviation Cancelled, RDW Coeff of Hawa Cancelled, Plt Count Cancelled, MPV Cancelled, Immature Gran % (Auto) Cancelled, Neut % (Auto) Cancelled, Lymph % (Auto) Cancelled, [place] % (Auto) Cancelled, Eos % (Auto) Cancelled, Baso % (Auto) Cancelled, Absolute Neuts (auto) Cancelled, Absolute Lymphs (auto) Cancelled, Total Counted Cancelled, Neutrophils % (Manual) Cancelled, Band Neutrophils % Cancelled, Lymphocytes % (Manual) Cancelled, Monocytes % (Manual) Cancelled, Eosinophils % (Manual) Cancelled, Basophils % (Manual) Cancelled, Metamyelocytes % Cancelled, Myelocytes % Cancelled, Promyelocytes % Cancelled, Blast Cells % Cancelled, Plasma Cell % (Manual) Cancelled, Other Cells % Cancelled, Nucleated RBC % Cancelled, Nucleated RBCs/100 WBC Cancelled, Differential Comment Cancelled, Diff Path Review Cancelled, Hypersegmented Neuts Cancelled, Atypical Lymphocytes Cancelled, Reactive Lymphocytes Cancelled, Smudge Cells Cancelled, Toxic Granulation Cancelled, Toxic Vacuolation Cancelled, Dohle Bodies Cancelled, Jey Rods Cancelled, Platelet Estimate Cancelled, Plt Morphology Comment Cancelled, RBC Morphology Cancelled, Polychromasia Cancelled, Hypochromasia Cancelled, Poikilocytosis Cancelled, Basophilic Stippling Cancelled, Anisocytosis Cancelled, Microcytosis Cancelled, Macrocytosis Cancelled, Spherocytes Cancelled, Sickle Cells Cancelled, Target Cells Cancelled, Tear Drop Cells Cancelled, Ovalocytes Cancelled, Stomatocytes Cancelled, Marquez[place] Bodies Cancelled, [place] Cells Cancelled, Bite Cells Cancelled, Crenated Cell Cancelled, Acanthocytes (Spur) Cancelled, Rouleaux Cancelled, Schistocytes Cancelled 11/28/20 05:00: Sodium Cancelled, Potassium Cancelled, Chloride Cancelled, Carbon Dioxide Cancelled, Anion Gap Cancelled, BUN Cancelled, Creatinine Cancelled, Estim Creat Clear Calc Cancelled, Est GFR (MDRD) Af Amer Cancelled, Est GFR (MDRD) Non-Af Cancelled, BUN/Creatinine Ratio Cancelled, Glucose Cancelled, Calcium Cancelled, Magnesium Cancelled 11/28/20 05:00: Lactic Acid Cancelled 11/28/20 05:40: WBC 16.1 H, RBC 3.27 L, Hgb 9.4 L, Hct 28.9 L, MCV 88.4 D, MCH 28.7, MCHC 32.5 D, RDW Std Deviation 53.2 H, RDW Coeff of Hawa 16.5 H, Plt Count 209, MPV 11.5, Immature Gran % (Auto) 0.600, Neut % (Auto) 78.6 H, Lymph % (Auto) 14.5 L, [place]offey % (Auto) 5.9, Eos % (Auto) 0.1, Baso % (Auto) 0.3, Absolute Neuts (auto) 12.7 H, Absolute Lymphs (auto) 2.34, Nucleated RBC % 0 11/28/20 05:40: Lactic Acid 0.9 11/28/20 05:40: Sodium 138, Potassium 3.8, Chloride 100, Carbon Dioxide 21.0, Anion Gap 17 H, BUN 39 H, Creatinine 2.69 H, Estim Creat Clear Calc 15.31, Est GFR (MDRD) Af Amer 23 L, Est GFR (MDRD) Non-Af 19 L, BUN/Creatinine Ratio 14.5, Glucose 59 L, Calcium 6.5 L*, Magnesium 1.7 11/28/20 07:33: Specimen Type ART, Sample Site L Radial, pH 7.39, Bicarbonate Actual 17.3 L, Total CO2 18, Base Excess -8 L, O2 Saturation 94 L, O2 % 30, ABG pCO2 28.6 L, ABG pO2 70 L, Respiration Rate 16, O2 Delivery Device ET Tube, Vent Mode AC, Tidal Volume 450, POC PEEP 5 11/28/20 08:32: POC Glucose 101 Current Medications Heparin Sodium (Porcine) (Heparin Injection (Vial) 5,000 Unit/Ml Vial) 5,000 unit SC Q8 SVEN Last Admin: 11/28/20 05:16 Dose: 5,000 unit Documented by: Heparin Sodium (Porcine) (Heparin 10,000 Units/10 Ml Vial) 0 units IV X1 PRN PRN Reason: DIALYSIS Last Admin: 11/27/20 20:45 Dose: 2,600 units Documented by: Norepinephrine Bitartrate 8 mg (/ Sodium Chloride) 250 mls @ 9.375 mls/hr CONT INF .[id number] [facility]; Protocol Last Titration: 11/28/20 11:00 Dose: 15 mcg/min, 28.1 mls/hr Documented by: Fentanyl Citrate 1,000 mcg/ (Sodium Chloride) 100 mls @ 20 mls/hr CONT INF .Q5H [facility]; Protocol Last Titration: 11/28/20 11:00 Dose: 200 mcg/hr, 20 mls/hr Documented by: Meropenem 500 mg/ Sodium (Chloride) 60 mls @ 100 mls/hr IV Q24H [facility] Vasopressin 20 units/ Sodium (Chloride) 25 mls @ 3 mls/hr IV .Q8H20M [facility] Last Infusion: 11/28/20 11:00 Dose: 0 units/min, 0 mls/hr Documented by: Pantoprazole Sodium 40 mg/ (Sodium Chloride) 110 mls @ 330 mls/hr IV Q24 SVEN Last Infusion: 11/27/20 22:25 Dose: Infused Documented by: Vancomycin IV Pharmacy to Dose (1 each/ Sodium Chloride) 500 mls @ 250 mls/hr IV X1 PRN; Protocol PRN Reason: Rx to Dose Phenylephrine HCl 10 mg/ (Sodium Chloride) 250 mls @ 15 mls/hr CONT INF .[id number] [facility]; Protocol Last Titration: 11/28/20 11:00 Dose: 0 mcg/min, 0 mls/hr Documented by: Dexmedetomidine HCl 400 mcg/ (Sodium Chloride) 100 mls @ 8.038 mls/hr CONT INF .[id number] [facility]; Protocol Last Admin: 11/28/20 11:21 Dose: 1.2 mcg/kg/hr, 19.3 mls/hr Documented by: Dextrose () 1,000 mls @ 125 mls/hr IV .Q8H [facility] Last Infusion: 11/28/20 11:00 Dose: 125 mls/hr Documented by: Ondansetron HCl (Ondansetron 4 Mg/2 Ml Vial) 4 mg IV Q8H PRN PRN PRN Reason: NAUSEA/VOMITING Sodium Chloride (0.9% Saline Lock 10 Ml Syringe) 10 - 40 ml IV UD PRN PRN Reason: SALINE FLUSH Medical Necessity - Tobacco Use Smoking Status: Current every day smoker Tobacco Use: Cigarettes Assessment/Plan All Active Problems (Last Reviewed 09/09/20 @ 07:[address] Dashawn Acevedo MD) Acute respiratory failure (Acute) Metabolic acidosis (Acute) Pyelonephritis (Acute) Acute renal failure (Acute) Aspiration into airway (Acute) Uremia (Acute) Hyperphosphatemia (Acute) Hypovolemic shock (Acute) Septic shock (Acute) Acute renal failure. Baseline creatinine as of October was normal at 1.0. Now has severe renal failure. Loco catheter in place. Urine analysis shows some leukocytes. CT abdomen with left-sided kidney stones, perinephric stranding. She might have pyelonephritis. She is being covered broadly with antibiotics. HD yesterday, did well, HD today. seen on HD Anion gap acidosis secondary to lactic acidosis. Lactic acidosis dramatic improvement in lactate levels with one session of dialysis. she is also net positive. most likely she had lactic acidosis related to metformin toxicity rather than sepsis since labs looks significantly different after one session of dialysis. HD today again for clearance. no fluid removal. she is no longer on neosynephrine, vasopressin, levophed is down to 20 mcg from 30 mcg yesterday. hypoglycemia. receiving IV D5W. will reassess for dialysis tomorrow
[2020-11-28] MEDS: 0.9% Saline Lock 10 ML Syringe IV ×3 (13:30→22:02)
--- NOTE | 2020-11-28 13:53 | CASEMGMT ---
RN CM NOTE: [facility] Palliative screening completed. Pt does not meet criteria. Juan Daniel MARTINN RN CM
[2020-11-28 14:06] LABS: Bedside Glucose 106 mg/dL (70-110)
--- NOTE | 2020-11-28 14:42 | DIALYSIS ---
HD tx x 3hrs. Pt ran even. Pt stable, tolerated well. Report given to SINDHU Winters. See HD flowsheet on chart.
[2020-11-28] MEDS: Heparin 10,000 UNITS/10 ML Vial IV (15:36)
--- NOTE | 2020-11-28 16:21 | NURSING ---
education re chronic illness deferred till acute illness resolving
--- NOTE | 2020-11-28 17:17 | RAD_ITS ---
INDICATION: ETT placement EXAMINATION/TECHNIQUE: X-RAY - XR Chest 1 View COMPARISON: 11/27/2020. FINDINGS: Endotracheal tube is present with tip 2.3 cm above the gabriella. NG tube is present with tip in the stomach. Right IJ central venous catheter is present with tip in the low SVC. Left IJ central venous catheter is present with tip in the right atrium. The lungs are clear. Tortuous calcified thoracic aorta. The heart is not enlarged. Trace left pleural effusion. No pneumothorax. No acute osseous abnormalities. RAD/Chest 1 View (Portable) IMPRESSION: Trace left pleural effusion. Otherwise, stable exam. Electronically Signed: Marv Peace MD at 18:20 EDT Tel , Service support ,
--- NOTE | 2020-11-28 17:26 | NURSING ---
pt sitting upright in bed, right hand wrapped around the OET. multiple ICU staff to room. pt kicking and trying to pinch/hit/push. OET 28cm at lip. pt hand removed from OET, tube pushed to 24cm. to 100% per vent. equal coarse breath sds bilat, pulse ox 91%. RT called, CXR ordered. pt cont to fight staff. Dr. Abdul notified above. orders recd. Propofol started. pt more restful. RT x2 changed OET diaz. 24cm at lip, bilat breath sds, SpO2 96% w/Fio2 30%.
[2020-11-28] MEDS: Propofol 10MG/Ml 1,000 MG/100 ML Bottle 3.9 MG CONT INF (17:30)
[2020-11-28 18:16] LABS: Bedside Glucose 137 mg/dL (70-110)
[2020-11-28 21:50] LABS: Bedside Glucose 156 mg/dL (70-110)
[2020-11-28] MEDS: Chlorhexidine 15 ML PO (22:01)
[2020-11-28] MEDS: Insulin Lispro 100 UNIT/ML INSULN.PEN SC (23:31)
[2020-11-28 23:41] LABS: Bedside Glucose 184 mg/dL (70-110)
[2020-11-29] VITALS (68 sets, daily range): BP systolic 61–162; BP diastolic 46–87; PULSE 77–97; RESP 13–18; TEMP 37.1–38.2; O2SAT 94–100
[2020-11-29 05:11] LABS: Absolute Lymphocyte Count 1.65 X10^3/uL (0.83-4.51); Absolute Neutrophil Count 10.9 X10^3/uL (2.0-7.7); Basophil# 0.03 X10^3/uL; Basophil% 0.2 % (0-1); Eosinophil# 0.06 X10^3/uL; Eosinophils% 0.4 % (0-5); Hematocrit 29.8 % (37-47); Lymphocyte # 1.65 X10^3/ul (4.0); Mean Corp Hgb Conc 33.6 g/dL (32-36); Mean Corpuscular Hgb 28.5 pg (27.0-32.0); Mean Corpuscular Volume 84.9 fL (81-99); Mean Platelet Vol. 11.6 fl (6.2-12.0); Monocyte# 1.06 X10^3/uL; Monocyte% 7.7 % (0-10); NRBC Flagged by Analyzer 0 % (0-5); Neutrophil # 10.89 X10^3/uL (2.7-7.7); Neutrophil % 79.1 % (47-70); Platelet Count 143 K/mm3 (150-450); RBC Distribution Width SD 50.1 fl (35.1-43.9); Red Blood Count 3.51 M/mm3 (4.2-5.4); White Blood Count 13.8 K/mm3 (4.4-11.0)
[2020-11-29 05:30] LABS: Anion Gap 11 (5-15); BUN 23 mg/dL (7-18); BUN/Creat Ratio 9.7 RATIO (10-20); Calcium,Total 6.4 mg/dL (8.5-10.1); Chloride 96 mmol/L (98-107); Creatinine, Serum 2.37 mg/dL (0.55-1.02); EST Glomerular Filtration Rate 22 mL/min (>60); Est Glom Filt Rate - Afr Amer 26 mL/min (>60); Estimated Creatinine Clearance 17.38 ml/min; Glucose 177 mg/dL (74-106); Potassium 3.1 mmol/L (3.5-5.1); Sodium Level 132 mmol/L (136-145)
[2020-11-29 05:34] LABS: Vancomycin, Random Level 14.8 ug/mL (0.0-15.0)
--- NOTE | 2020-11-29 05:42 | PCM.PN.INT ---
Subjective: The patient was seen and examined at the bedside this morning. Events from the last 24 hours have been reviewed. The patient currently has a low-grade fever. The patient remains on assist control mode of mechanical ventilation with minimal FiO2 requirement. Her Levophed was able to be weaned down to 5 mcg as of this morning. The patient remains on Precedex and fentanyl for sedation. Potassium is low this morning at 3.1. Calcium when corrected for hypoalbuminemia was noted to be 7.4. The patient once again tolerated 3 hours of dialysis yesterday. She is currently documented to be overall net +11.6 L for the hospital admission. Continuous supplemental fluids were discontinued this morning. Unfortunately, the patient failed her spontaneous awakening trial, after she developed significant agitation, tachycardia and tachypnea. Objective: The patient's most recent lab work, culture data and imaging studies have all been personally reviewed. Surface echocardiogram from February 2020 revealed normal LV size with an ejection fraction of 60%. Rapid coronavirus antigen testing was negative. Culture data has been unrevealing to date. General: - - The patient remains intubated, sedated and mechanically ventilated. No ventilator dyssynchrony noted. HEENT: Atraumatic, PERRLA, Normocephalic Oral: No Gingival or Mucosal Lesions/ Ulcerations, - - Endotracheal and OG tubes remain in place. Neck: Supple, No Nodes, Trachea Midline, - - Stable bilateral central venous catheters Lungs: No rhonchi, No wheeze, No rales, Diminished Cardiovascular: Regular rate, Regular Rhythm Abdomen: Bowel Sounds Present, Soft, Non Tender Extremities: No clubbing, No cyanosis, Edema - Trace Skin: No breakdown Musculoskeletal: No Muscle Wasting Lymphatic: No Cervical, Supraclavicular, or Inguinal Adenopathy Neurological: - - No focal neurological deficits. Remains sedated on the ventilator. Vital Signs Temp Pulse Resp BP Pulse Ox 100.8 F H 85 16 84/56 L 99 11/29/20 04:00 11/29/20 04:00 11/29/20 04:00 11/29/20 04:00 11/29/20 04:00 Oxygen Flow Rate (L/min) 35 Oxygen Delivery Method Mechanical Ventilator Weight: 147 lb 11.355 oz Body Mass Index (BMI) 25.1 Finger Stick Blood Glucose 80 Intake and Output for Last 24 Hours 11/27/20 11/28/20 11/29/20 23:59 23:59 23:59 Intake Total 6767.20 / 6876.50 5662.12 / 5705.75 269.48 / 269.48 Output Total 1100 / 1100 Balance 6747.20 / 6856.50 4562.12 / 4605.75 254.48 / 254.48 Labs (Last 48 Hours) 11/27/20 11/27/20 11/27/20 09:25 09:25 09:25 WBC 17.3 H Corrected WBC RBC 3.58 L Hgb 10.2 L Hct 33.9 L MCV 94.7 MCH 28.5 MCHC 30.1 L RDW Std Deviation 58.6 H RDW Coeff of [place] 17.1 H Plt Count 364 MPV 12.6 H Immature Gran % (Auto) 1.400 H Neut % (Auto) 75.8 H Lymph % (Auto) 18.5 L [place] % (Auto) 3.2 Eos % (Auto) 0.5 Baso % (Auto) 0.6 Absolute Neuts (auto) 13.1 H Absolute Lymphs (auto) 3.20 Total Counted Neutrophils % (Manual) Band Neutrophils % Lymphocytes % (Manual) Monocytes % (Manual) Eosinophils % (Manual) Basophils % (Manual) Metamyelocytes % Myelocytes % Promyelocytes % Blast Cells % Plasma Cell % (Manual) Other Cells % Nucleated RBC % 0 Nucleated RBCs/100 WBC Differential Comment Diff Path Review Hypersegmented Neuts Atypical Lymphocytes Reactive Lymphocytes Smudge Cells Toxic Granulation Toxic Vacuolation Dohle Bodies Jey Rods Platelet Estimate Plt Morphology Comment RBC Morphology Polychromasia Hypochromasia Poikilocytosis Basophilic Stippling Anisocytosis Microcytosis Macrocytosis Spherocytes Sickle Cells Target Cells Tear Drop Cells Ovalocytes Stomatocytes Marquez-Dresbach Bodies Sapphire Cells Bite Cells Crenated Cell Acanthocytes (Spur) Rouleaux Schistocytes PT 17.8 H INR 1.6 APTT 27.8 Specimen Type Sample Site pH Bicarbonate Actual Total CO2 Base Excess O2 Saturation O2 % ABG pCO2 ABG pO2 Justus Test Respiration Rate O2 Delivery Device Vent Mode Tidal Volume POC PEEP Crit Call To/Read Back Blood Gas Notified Whom Sodium 143 Potassium 4.9 Chloride 99 Carbon Dioxide 8.0 L* Anion Gap 36 H BUN 102 H* Creatinine 5.63 H Estim Creat Clear Calc 7.67 Est GFR (MDRD) Af Amer 10 L Est GFR (MDRD) Non-Af 8 L BUN/Creatinine Ratio 18.1 Glucose 178 H Lactic Acid Calcium 9.9 Phosphorus Magnesium Total Bilirubin 0.20 AST 34 ALT 44 Alkaline Phosphatase 89 Total Creatine Kinase Troponin I < 0.015 Total Protein 5.3 L Albumin 2.7 L Globulin 2.6 Albumin/Globulin Ratio 1.0 Triglycerides Urine Color Urine Clarity Urine pH Ur Specific [place] Urine Protein Urine Glucose (UA) Urine Ketones Urine Occult Blood Urine Nitrite Urine Bilirubin Urine Urobilinogen Ur Leukocyte Esterase Urine RBC Urine WBC Ur Squamous Epith Cells Urine Bacteria Urine Mucus Random Vancomycin Hep Bs Antigen Hep Bs Antibody Hep B Core Total Ab MRSA (PCR) POC Glucose 11/27/20 11/27/20 11/27/20 09:25 09:25 09:25 WBC Corrected WBC RBC Hgb Hct MCV MCH MCHC RDW Std Deviation RDW Coeff of [place] Plt Count MPV Immature Gran % (Auto) Neut % (Auto) Lymph % (Auto) [place] % (Auto) Eos % (Auto) Baso % (Auto) Absolute Neuts (auto) Absolute Lymphs (auto) Total Counted Neutrophils % (Manual) Band Neutrophils % Lymphocytes % (Manual) Monocytes % (Manual) Eosinophils % (Manual) Basophils % (Manual) Metamyelocytes % Myelocytes % Promyelocytes % Blast Cells % Plasma Cell % (Manual) Other Cells % Nucleated RBC % Nucleated RBCs/100 WBC Differential Comment Diff Path Review Hypersegmented Neuts Atypical Lymphocytes Reactive Lymphocytes Smudge Cells Toxic Granulation Toxic Vacuolation Dohle Bodies Jey Rods Platelet Estimate Plt Morphology Comment RBC Morphology Polychromasia Hypochromasia Poikilocytosis Basophilic Stippling Anisocytosis Microcytosis Macrocytosis Spherocytes Sickle Cells Target Cells Tear Drop Cells Ovalocytes Stomatocytes Marquez-Dresbach Bodies [place] Cells Bite Cells Crenated Cell Acanthocytes (Spur) Rouleaux Schistocytes PT INR APTT Specimen Type Sample Site pH Bicarbonate Actual Total CO2 Base Excess O2 Saturation O2 % ABG pCO2 ABG pO2 Justus Test Respiration Rate O2 Delivery Device Vent Mode Tidal Volume POC PEEP Crit Call To/Read Back Blood Gas Notified Whom Sodium Potassium Chloride Carbon Dioxide Anion Gap BUN Creatinine Estim Creat Clear Calc Est GFR (MDRD) Af Amer Est GFR (MDRD) Non-Af BUN/Creatinine Ratio Glucose Lactic Acid 18.6 H* Calcium Phosphorus 10.4 H* Magnesium 1.0 L Total Bilirubin AST ALT Alkaline Phosphatase Total Creatine Kinase 36 Troponin I Total Protein Albumin Globulin Albumin/Globulin Ratio Triglycerides 94 Urine Color Urine Clarity Urine pH Ur Specific [place] Urine Protein Urine Glucose (UA) Urine Ketones Urine Occult Blood Urine Nitrite Urine Bilirubin Urine Urobilinogen Ur Leukocyte Esterase Urine RBC Urine WBC Ur Squamous Epith Cells Urine Bacteria Urine Mucus Random Vancomycin Hep Bs Antigen Hep Bs Antibody Hep B Core Total Ab MRSA (PCR) POC Glucose 11/27/20 11/27/20 11/27/20 09:54 10:00 10:22 WBC Corrected WBC RBC Hgb Hct MCV MCH MCHC RDW Std Deviation RDW Coeff of [place] Plt Count MPV Immature Gran % (Auto) Neut % (Auto) Lymph % (Auto) [place] % (Auto) Eos % (Auto) Baso % (Auto) Absolute Neuts (auto) Absolute Lymphs (auto) Total Counted Neutrophils % (Manual) Band Neutrophils % Lymphocytes % (Manual) Monocytes % (Manual) Eosinophils % (Manual) Basophils % (Manual) Metamyelocytes % Myelocytes % Promyelocytes % Blast Cells % Plasma Cell % (Manual) Other Cells % Nucleated RBC % Nucleated RBCs/100 WBC Differential Comment Diff Path Review Hypersegmented Neuts Atypical Lymphocytes Reactive Lymphocytes Smudge Cells Toxic Granulation Toxic Vacuolation Dohle Bodies Jey Rods Platelet Estimate Plt Morphology Comment RBC Morphology Polychromasia Hypochromasia Poikilocytosis Basophilic Stippling Anisocytosis Microcytosis Macrocytosis Spherocytes Sickle Cells Target Cells Tear Drop Cells Ovalocytes Stomatocytes Marquez-Dresbach Bodies [place] Cells Bite Cells Crenated Cell Acanthocytes (Spur) Rouleaux Schistocytes PT INR APTT Specimen Type ART Sample Site L Radial pH 6.93 L* Bicarbonate Actual 4.2 L Total CO2 < 5 Base Excess -28 L O2 Saturation 94 L O2 % ABG pCO2 20.4 L ABG pO2 110 H Justus Test Positive Respiration Rate O2 Delivery Device Room Air Vent Mode Tidal Volume POC PEEP Crit Call To/Read Back Yes Blood Gas Notified Whom [place] Sodium Potassium Chloride Carbon Dioxide Anion Gap BUN Creatinine Estim Creat Clear Calc Est GFR (MDRD) Af Amer Est GFR (MDRD) Non-Af BUN/Creatinine Ratio Glucose Lactic Acid Calcium Phosphorus Magnesium Total Bilirubin AST ALT Alkaline Phosphatase Total Creatine Kinase Troponin I Total Protein Albumin Globulin Albumin/Globulin Ratio Triglycerides Urine Color Yellow Urine Clarity Cloudy Urine pH 5.0 Ur Specific [place] 1.020 Urine Protein 100 H Urine Glucose (UA) Normal Urine Ketones Negative Urine Occult Blood 25 H Urine Nitrite Negative Urine Bilirubin 1 H Urine Urobilinogen Normal Ur Leukocyte Esterase 500 H Urine RBC 10-25 SEEN Urine WBC >100 SEEN Ur Squamous Epith Cells 0 SEEN Urine Bacteria 2+ Urine Mucus 0 SEEN Random Vancomycin Hep Bs Antigen Hep Bs Antibody Hep B Core Total Ab MRSA (PCR) POC Glucose 112 H 11/27/20 11/27/20 11/27/20 12:19 12:55 13:10 WBC Corrected WBC RBC Hgb Hct MCV MCH MCHC RDW Std Deviation RDW Coeff of [place] Plt Count MPV Immature Gran % (Auto) Neut % (Auto) Lymph % (Auto) [place] % (Auto) Eos % (Auto) Baso % (Auto) Absolute Neuts (auto) Absolute Lymphs (auto) Total Counted Neutrophils % (Manual) Band Neutrophils % Lymphocytes % (Manual) Monocytes % (Manual) Eosinophils % (Manual) Basophils % (Manual) Metamyelocytes % Myelocytes % Promyelocytes % Blast Cells % Plasma Cell % (Manual) Other Cells % Nucleated RBC % Nucleated RBCs/100 WBC Differential Comment Diff Path Review Hypersegmented Neuts Atypical Lymphocytes Reactive Lymphocytes Smudge Cells Toxic Granulation Toxic Vacuolation Dohle Bodies Jey Rods Platelet Estimate Plt Morphology Comment RBC Morphology Polychromasia Hypochromasia Poikilocytosis Basophilic Stippling Anisocytosis Microcytosis Macrocytosis Spherocytes Sickle Cells Target Cells Tear Drop Cells Ovalocytes Stomatocytes Marquez-Dresbach Bodies [place] Cells Bite Cells Crenated Cell Acanthocytes (Spur) Rouleaux Schistocytes PT INR APTT Specimen Type ART Sample Site L Radial pH 6.87 L* Bicarbonate Actual 4.8 L Total CO2 6 Base Excess -29 L O2 Saturation 98 O2 % 50 ABG pCO2 26.4 L ABG pO2 191 H Justus Test Positive Respiration Rate 16 O2 Delivery Device Adult Vent Vent Mode AC Tidal Volume 450 POC PEEP 5 Crit Call To/Read Back Yes Blood Gas Notified Whom [place] Sodium Potassium Chloride Carbon Dioxide Anion Gap BUN Creatinine Estim Creat Clear Calc Est GFR (MDRD) Af Amer Est GFR (MDRD) Non-Af BUN/Creatinine Ratio Glucose Lactic Acid Calcium Phosphorus Magnesium Total Bilirubin AST ALT Alkaline Phosphatase Total Creatine Kinase Troponin I Total Protein Albumin Globulin Albumin/Globulin Ratio Triglycerides Urine Color Urine Clarity Urine pH Ur Specific [place] Urine Protein Urine Glucose (UA) Urine Ketones Urine Occult Blood Urine Nitrite Urine Bilirubin Urine Urobilinogen Ur Leukocyte Esterase Urine RBC Urine WBC Ur Squamous Epith Cells Urine Bacteria Urine Mucus Random Vancomycin Hep Bs Antigen Hep Bs Antibody Hep B Core Total Ab MRSA (PCR) POC Glucose 80 180 H 11/27/20 11/27/20 11/27/20 15:07 15:55 16:30 WBC Corrected WBC RBC Hgb Hct MCV MCH MCHC RDW Std Deviation RDW Coeff of [place] Plt Count MPV Immature Gran % (Auto) Neut % (Auto) Lymph % (Auto) [place] % (Auto) Eos % (Auto) Baso % (Auto) Absolute Neuts (auto) Absolute Lymphs (auto) Total Counted Neutrophils % (Manual) Band Neutrophils % Lymphocytes % (Manual) Monocytes % (Manual) Eosinophils % (Manual) Basophils % (Manual) Metamyelocytes % Myelocytes % Promyelocytes % Blast Cells % Plasma Cell % (Manual) Other Cells % Nucleated RBC % Nucleated RBCs/100 WBC Differential Comment Diff Path Review Hypersegmented Neuts Atypical Lymphocytes Reactive Lymphocytes Smudge Cells Toxic Granulation Toxic Vacuolation Dohle Bodies Jey Rods Platelet Estimate Plt Morphology Comment RBC Morphology Polychromasia Hypochromasia Poikilocytosis Basophilic Stippling Anisocytosis Microcytosis Macrocytosis Spherocytes Sickle Cells Target Cells Tear Drop Cells Ovalocytes Stomatocytes Marquez-Dresbach Bodies [place] Cells Bite Cells Crenated Cell Acanthocytes (Spur) Rouleaux Schistocytes PT INR APTT Specimen Type Sample Site pH Bicarbonate Actual Total CO2 Base Excess O2 Saturation O2 % ABG pCO2 ABG pO2 Justus Test Respiration Rate O2 Delivery Device Vent Mode Tidal Volume POC PEEP Crit Call To/Read Back Blood Gas Notified Whom Sodium Potassium Chloride Carbon Dioxide Anion Gap BUN Creatinine Estim Creat Clear Calc Est GFR (MDRD) Af Amer Est GFR (MDRD) Non-Af BUN/Creatinine Ratio Glucose Lactic Acid 13.7 H* Calcium Phosphorus Magnesium Total Bilirubin AST ALT Alkaline Phosphatase Total Creatine Kinase Troponin I Total Protein Albumin Globulin Albumin/Globulin Ratio Triglycerides Urine Color Urine Clarity Urine pH Ur Specific [place] Urine Protein Urine Glucose (UA) Urine Ketones Urine Occult Blood Urine Nitrite Urine Bilirubin Urine Urobilinogen Ur Leukocyte Esterase Urine RBC Urine WBC Ur Squamous Epith Cells Urine Bacteria Urine Mucus Random Vancomycin Hep Bs Antigen Hep Bs Antibody Hep B Core Total Ab MRSA (PCR) Negative POC Glucose 183 H 11/27/20 11/27/20 11/27/20 19:30 19:30 19:30 WBC Corrected WBC RBC Hgb Hct MCV MCH MCHC RDW Std Deviation RDW Coeff of [place] Plt Count MPV Immature Gran % (Auto) Neut % (Auto) Lymph % (Auto) [place] % (Auto) Eos % (Auto) Baso % (Auto) Absolute Neuts (auto) Absolute Lymphs (auto) Total Counted Neutrophils % (Manual) Band Neutrophils % Lymphocytes % (Manual) Monocytes % (Manual) Eosinophils % (Manual) Basophils % (Manual) Metamyelocytes % Myelocytes % Promyelocytes % Blast Cells % Plasma Cell % (Manual) Other Cells % Nucleated RBC % Nucleated RBCs/100 WBC Differential Comment Diff Path Review Hypersegmented Neuts Atypical Lymphocytes Reactive Lymphocytes Smudge Cells Toxic Granulation Toxic Vacuolation Dohle Bodies Jey Rods Platelet Estimate Plt Morphology Comment RBC Morphology Polychromasia Hypochromasia Poikilocytosis Basophilic Stippling Anisocytosis Microcytosis Macrocytosis Spherocytes Sickle Cells Target Cells Tear Drop Cells Ovalocytes Stomatocytes Marquez-Dresbach Bodies [place] Cells Bite Cells Crenated Cell Acanthocytes (Spur) Rouleaux Schistocytes PT INR APTT Specimen Type Sample Site pH Bicarbonate Actual Total CO2 Base Excess O2 Saturation O2 % ABG pCO2 ABG pO2 Justus Test Respiration Rate O2 Delivery Device Vent Mode Tidal Volume POC PEEP Crit Call To/Read Back Blood Gas Notified Whom Sodium Potassium Chloride Carbon Dioxide Anion Gap BUN Creatinine Estim Creat Clear Calc Est GFR (MDRD) Af Amer Est GFR (MDRD) Non-Af BUN/Creatinine Ratio Glucose Lactic Acid Calcium Phosphorus Magnesium Total Bilirubin AST ALT Alkaline Phosphatase Total Creatine Kinase Troponin I Total Protein Albumin Globulin Albumin/Globulin Ratio Triglycerides Urine Color Urine Clarity Urine pH Ur Specific [place] Urine Protein Urine Glucose (UA) Urine Ketones Urine Occult Blood Urine Nitrite Urine Bilirubin Urine Urobilinogen Ur Leukocyte Esterase Urine RBC Urine WBC Ur Squamous Epith Cells Urine Bacteria Urine Mucus Random Vancomycin Hep Bs Antigen Non-Reactive Hep Bs Antibody Non-Reactive Hep B Core Total Ab Pending MRSA (PCR) POC Glucose 11/27/20 11/28/20 11/28/20 23:40 05:00 05:00 WBC Cancelled Corrected WBC Cancelled RBC Cancelled Hgb Cancelled Hct Cancelled MCV Cancelled MCH Cancelled MCHC Cancelled RDW Std Deviation Cancelled RDW Coeff of [place] Cancelled Plt Count Cancelled MPV Cancelled Immature Gran % (Auto) Cancelled Neut % (Auto) Cancelled Lymph % (Auto) Cancelled [place] % (Auto) Cancelled Eos % (Auto) Cancelled Baso % (Auto) Cancelled Absolute Neuts (auto) Cancelled Absolute Lymphs (auto) Cancelled Total Counted Cancelled Neutrophils % (Manual) Cancelled Band Neutrophils % Cancelled Lymphocytes % (Manual) Cancelled Monocytes % (Manual) Cancelled Eosinophils % (Manual) Cancelled Basophils % (Manual) Cancelled Metamyelocytes % Cancelled Myelocytes % Cancelled Promyelocytes % Cancelled Blast Cells % Cancelled Plasma Cell % (Manual) Cancelled Other Cells % Cancelled Nucleated RBC % Cancelled Nucleated RBCs/100 WBC Cancelled Differential Comment Cancelled Diff Path Review Cancelled Hypersegmented Neuts Cancelled Atypical Lymphocytes Cancelled Reactive Lymphocytes Cancelled Smudge Cells Cancelled Toxic Granulation Cancelled Toxic Vacuolation Cancelled Dohle Bodies Cancelled Jey Rods Cancelled Platelet Estimate Cancelled Plt Morphology Comment Cancelled RBC Morphology Cancelled Polychromasia Cancelled Hypochromasia Cancelled Poikilocytosis Cancelled Basophilic Stippling Cancelled Anisocytosis Cancelled Microcytosis Cancelled Macrocytosis Cancelled Spherocytes Cancelled Sickle Cells Cancelled Target Cells Cancelled Tear Drop Cells Cancelled Ovalocytes Cancelled Stomatocytes Cancelled Marquez-Dresbach Bodies Cancelled [place]calfe Cells Cancelled Bite Cells Cancelled Crenated Cell Cancelled Acanthocytes (Spur) Cancelled Rouleaux Cancelled Schistocytes Cancelled PT INR APTT Specimen Type Sample Site pH Bicarbonate Actual Total CO2 Base Excess O2 Saturation O2 % ABG pCO2 ABG pO2 Justus Test Respiration Rate O2 Delivery Device Vent Mode Tidal Volume POC PEEP Crit Call To/Read Back Blood Gas Notified Whom Sodium Cancelled Potassium Cancelled Chloride Cancelled Carbon Dioxide Cancelled Anion Gap Cancelled BUN Cancelled Creatinine Cancelled Estim Creat Clear Calc Cancelled Est GFR (MDRD) Af Amer Cancelled Est GFR (MDRD) Non-Af Cancelled BUN/Creatinine Ratio Cancelled Glucose Cancelled Lactic Acid 2.6 H* Calcium Cancelled Phosphorus Magnesium Cancelled Total Bilirubin AST ALT Alkaline Phosphatase Total Creatine Kinase Troponin I Total Protein Albumin Globulin Albumin/Globulin Ratio Triglycerides Urine Color Urine Clarity Urine pH Ur Specific [place] Urine Protein Urine Glucose (UA) Urine Ketones Urine Occult Blood Urine Nitrite Urine Bilirubin Urine Urobilinogen Ur Leukocyte Esterase Urine RBC Urine WBC Ur Squamous Epith Cells Urine Bacteria Urine Mucus Random Vancomycin Hep Bs Antigen Hep Bs Antibody Hep B Core Total Ab MRSA (PCR) POC Glucose 11/28/20 11/28/20 11/28/20 05:00 05:40 05:40 WBC 16.1 H Corrected WBC RBC 3.27 L Hgb 9.4 L Hct 28.9 L MCV 88.4 D MCH 28.7 MCHC 32.5 D RDW Std Deviation 53.2 H RDW Coeff of [place] 16.5 H Plt Count 209 MPV 11.5 Immature Gran % (Auto) 0.600 Neut % (Auto) 78.6 H Lymph % (Auto) 14.5 L [place] % (Auto) 5.9 Eos % (Auto) 0.1 Baso % (Auto) 0.3 Absolute Neuts (auto) 12.7 H Absolute Lymphs (auto) 2.34 Total Counted Neutrophils % (Manual) Band Neutrophils % Lymphocytes % (Manual) Monocytes % (Manual) Eosinophils % (Manual) Basophils % (Manual) Metamyelocytes % Myelocytes % Promyelocytes % Blast Cells % Plasma Cell % (Manual) Other Cells % Nucleated RBC % 0 Nucleated RBCs/100 WBC Differential Comment Diff Path Review Hypersegmented Neuts Atypical Lymphocytes Reactive Lymphocytes Smudge Cells Toxic Granulation Toxic Vacuolation Dohle Bodies Jey Rods Platelet Estimate Plt Morphology Comment RBC Morphology Polychromasia Hypochromasia Poikilocytosis Basophilic Stippling Anisocytosis Microcytosis Macrocytosis Spherocytes Sickle Cells Target Cells Tear Drop Cells Ovalocytes Stomatocytes Marquez-Dresbach Bodies [place] Cells Bite Cells Crenated Cell Acanthocytes (Spur) Rouleaux Schistocytes PT INR APTT Specimen Type Sample Site pH Bicarbonate Actual Total CO2 Base Excess O2 Saturation O2 % ABG pCO2 ABG pO2 Justus Test Respiration Rate O2 Delivery Device Vent Mode Tidal Volume POC PEEP Crit Call To/Read Back Blood Gas Notified Whom Sodium Potassium Chloride Carbon Dioxide Anion Gap BUN Creatinine Estim Creat Clear Calc Est GFR (MDRD) Af Amer Est GFR (MDRD) Non-Af BUN/Creatinine Ratio Glucose Lactic Acid Cancelled 0.9 Calcium Phosphorus Magnesium Total Bilirubin AST ALT Alkaline Phosphatase Total Creatine Kinase Troponin I Total Protein Albumin Globulin Albumin/Globulin Ratio Triglycerides Urine Color Urine Clarity Urine pH Ur Specific [place] Urine Protein Urine Glucose (UA) Urine Ketones Urine Occult Blood Urine Nitrite Urine Bilirubin Urine Urobilinogen Ur Leukocyte Esterase Urine RBC Urine WBC Ur Squamous Epith Cells Urine Bacteria Urine Mucus Random Vancomycin Hep Bs Antigen Hep Bs Antibody Hep B Core Total Ab MRSA (PCR) POC Glucose 11/28/20 11/28/20 11/28/20 05:40 07:33 08:32 WBC Corrected WBC RBC Hgb Hct MCV MCH MCHC RDW Std Deviation RDW Coeff of [place] Plt Count MPV Immature Gran % (Auto) Neut % (Auto) Lymph % (Auto) [place] % (Auto) Eos % (Auto) Baso % (Auto) Absolute Neuts (auto) Absolute Lymphs (auto) Total Counted Neutrophils % (Manual) Band Neutrophils % Lymphocytes % (Manual) Monocytes % (Manual) Eosinophils % (Manual) Basophils % (Manual) Metamyelocytes % Myelocytes % Promyelocytes % Blast Cells % Plasma Cell % (Manual) Other Cells % Nucleated RBC % Nucleated RBCs/100 WBC Differential Comment Diff Path Review Hypersegmented Neuts Atypical Lymphocytes Reactive Lymphocytes Smudge Cells Toxic Granulation Toxic Vacuolation Dohle Bodies Jey Rods Platelet Estimate Plt Morphology Comment RBC Morphology Polychromasia Hypochromasia Poikilocytosis Basophilic Stippling Anisocytosis Microcytosis Macrocytosis Spherocytes Sickle Cells Target Cells Tear Drop Cells Ovalocytes Stomatocytes Marquez-Dresbach Bodies [place] Cells Bite Cells Crenated Cell Acanthocytes (Spur) Rouleaux Schistocytes PT INR APTT Specimen Type ART Sample Site L Radial pH 7.39 Bicarbonate Actual 17.3 L Total CO2 18 Base Excess -8 L O2 Saturation 94 L O2 % 30 ABG pCO2 28.6 L ABG pO2 70 L Justus Test Respiration Rate 16 O2 Delivery Device ET Tube Vent Mode AC Tidal Volume 450 POC PEEP 5 Crit Call To/Read Back Blood Gas Notified Whom Sodium 138 Potassium 3.8 Chloride 100 Carbon Dioxide 21.0 Anion Gap 17 H BUN 39 H Creatinine 2.69 H Estim Creat Clear Calc 15.31 Est GFR (MDRD) Af Amer 23 L Est GFR (MDRD) Non-Af 19 L BUN/Creatinine Ratio 14.5 Glucose 59 L Lactic Acid Calcium 6.5 L* Phosphorus Magnesium 1.7 Total Bilirubin AST ALT Alkaline Phosphatase Total Creatine Kinase Troponin I Total Protein Albumin Globulin Albumin/Globulin Ratio Triglycerides Urine Color Urine Clarity Urine pH Ur Specific [place] Urine Protein Urine Glucose (UA) Urine Ketones Urine Occult Blood Urine Nitrite Urine Bilirubin Urine Urobilinogen Ur Leukocyte Esterase Urine RBC Urine WBC Ur Squamous Epith Cells Urine Bacteria Urine Mucus Random Vancomycin Hep Bs Antigen Hep Bs Antibody Hep B Core Total Ab MRSA (PCR) POC Glucose 101 11/28/20 11/28/20 11/28/20 14:03 18:07 21:47 WBC Corrected WBC RBC Hgb Hct MCV MCH MCHC RDW Std Deviation RDW Coeff of [place] Plt Count MPV Immature Gran % (Auto) Neut % (Auto) Lymph % (Auto) [place] % (Auto) Eos % (Auto) Baso % (Auto) Absolute Neuts (auto) Absolute Lymphs (auto) Total Counted Neutrophils % (Manual) Band Neutrophils % Lymphocytes % (Manual) Monocytes % (Manual) Eosinophils % (Manual) Basophils % (Manual) Metamyelocytes % Myelocytes % Promyelocytes % Blast Cells % Plasma Cell % (Manual) Other Cells % Nucleated RBC % Nucleated RBCs/100 WBC Differential Comment Diff Path Review Hypersegmented Neuts Atypical Lymphocytes Reactive Lymphocytes Smudge Cells Toxic Granulation Toxic Vacuolation Dohle Bodies Jey Rods Platelet Estimate Plt Morphology Comment RBC Morphology Polychromasia Hypochromasia Poikilocytosis Basophilic Stippling Anisocytosis Microcytosis Macrocytosis Spherocytes Sickle Cells Target Cells Tear Drop Cells Ovalocytes Stomatocytes Marquez-Dresbach Bodies [place] Cells Bite Cells Crenated Cell Acanthocytes (Spur) Rouleaux Schistocytes PT INR APTT Specimen Type Sample Site pH Bicarbonate Actual Total CO2 Base Excess O2 Saturation O2 % ABG pCO2 ABG pO2 Justus Test Respiration Rate O2 Delivery Device Vent Mode Tidal Volume POC PEEP Crit Call To/Read Back Blood Gas Notified Whom Sodium Potassium Chloride Carbon Dioxide Anion Gap BUN Creatinine Estim Creat Clear Calc Est GFR (MDRD) Af Amer Est GFR (MDRD) Non-Af BUN/Creatinine Ratio Glucose Lactic Acid Calcium Phosphorus Magnesium Total Bilirubin AST ALT Alkaline Phosphatase Total Creatine Kinase Troponin I Total Protein Albumin Globulin Albumin/Globulin Ratio Triglycerides Urine Color Urine Clarity Urine pH Ur Specific [place] Urine Protein Urine Glucose (UA) Urine Ketones Urine Occult Blood Urine Nitrite Urine Bilirubin Urine Urobilinogen Ur Leukocyte Esterase Urine RBC Urine WBC Ur Squamous Epith Cells Urine Bacteria Urine Mucus Random Vancomycin Hep Bs Antigen Hep Bs Antibody Hep B Core Total Ab MRSA (PCR) POC Glucose 106 137 H 156 H 11/28/20 11/29/20 11/29/20 23:31 05:00 05:00 WBC 13.8 H Corrected WBC RBC 3.51 L Hgb 10.0 L Hct 29.8 L MCV 84.9 MCH 28.5 MCHC 33.6 RDW Std Deviation 50.1 H RDW Coeff of [place] 16.0 H Plt Count 143 L MPV 11.6 Immature Gran % (Auto) 0.600 Neut % (Auto) 79.1 H Lymph % (Auto) 12.0 L [place] % (Auto) 7.7 Eos % (Auto) 0.4 Baso % (Auto) 0.2 Absolute Neuts (auto) 10.9 H Absolute Lymphs (auto) 1.65 Total Counted Neutrophils % (Manual) Band Neutrophils % Lymphocytes % (Manual) Monocytes % (Manual) Eosinophils % (Manual) Basophils % (Manual) Metamyelocytes % Myelocytes % Promyelocytes % Blast Cells % Plasma Cell % (Manual) Other Cells % Nucleated RBC % 0 Nucleated RBCs/100 WBC Differential Comment Diff Path Review Hypersegmented Neuts Atypical Lymphocytes Reactive Lymphocytes Smudge Cells Toxic Granulation Toxic Vacuolation Dohle Bodies Jey Rods Platelet Estimate Plt Morphology Comment RBC Morphology Polychromasia Hypochromasia Poikilocytosis Basophilic Stippling Anisocytosis Microcytosis Macrocytosis Spherocytes Sickle Cells Target Cells Tear Drop Cells Ovalocytes Stomatocytes Marquez-Dresbach Bodies [place]calfe Cells Bite Cells Crenated Cell Acanthocytes (Spur) Rouleaux Schistocytes PT INR APTT Specimen Type Sample Site pH Bicarbonate Actual Total CO2 Base Excess O2 Saturation O2 % ABG pCO2 ABG pO2 Justus Test Respiration Rate O2 Delivery Device Vent Mode Tidal Volume POC PEEP Crit Call To/Read Back Blood Gas Notified Whom Sodium Potassium Chloride Carbon Dioxide Anion Gap BUN Creatinine Estim Creat Clear Calc Est GFR (MDRD) Af Amer Est GFR (MDRD) Non-Af BUN/Creatinine Ratio Glucose Lactic Acid Calcium Phosphorus Magnesium Total Bilirubin AST ALT Alkaline Phosphatase Total Creatine Kinase Troponin I Total Protein Albumin Globulin Albumin/Globulin Ratio Triglycerides Urine Color Urine Clarity Urine pH Ur Specific [place] Urine Protein Urine Glucose (UA) Urine Ketones Urine Occult Blood Urine Nitrite Urine Bilirubin Urine Urobilinogen Ur Leukocyte Esterase Urine RBC Urine WBC Ur Squamous Epith Cells Urine Bacteria Urine Mucus Random Vancomycin 14.8 Hep Bs Antigen Hep Bs Antibody Hep B Core Total Ab MRSA (PCR) POC Glucose 184 H 11/29/20 05:00 WBC Corrected WBC RBC Hgb Hct MCV MCH MCHC RDW Std Deviation RDW Coeff of [place] Plt Count MPV Immature Gran % (Auto) Neut % (Auto) Lymph % (Auto) [place] % (Auto) Eos % (Auto) Baso % (Auto) Absolute Neuts (auto) Absolute Lymphs (auto) Total Counted Neutrophils % (Manual) Band Neutrophils % Lymphocytes % (Manual) Monocytes % (Manual) Eosinophils % (Manual) Basophils % (Manual) Metamyelocytes % Myelocytes % Promyelocytes % Blast Cells % Plasma Cell % (Manual) Other Cells % Nucleated RBC % Nucleated RBCs/100 WBC Differential Comment Diff Path Review Hypersegmented Neuts Atypical Lymphocytes Reactive Lymphocytes Smudge Cells Toxic Granulation Toxic Vacuolation Dohle Bodies Jey Rods Platelet Estimate Plt Morphology Comment RBC Morphology Polychromasia Hypochromasia Poikilocytosis Basophilic Stippling Anisocytosis Microcytosis Macrocytosis Spherocytes Sickle Cells Target Cells Tear Drop Cells Ovalocytes Stomatocytes Marquez-Dresbach Bodies Metcalfe Cells Bite Cells Crenated Cell Acanthocytes (Spur) Rouleaux Schistocytes PT INR APTT Specimen Type Sample Site pH Bicarbonate Actual Total CO2 Base Excess O2 Saturation O2 % ABG pCO2 ABG pO2 Justus Test Respiration Rate O2 Delivery Device Vent Mode Tidal Volume POC PEEP Crit Call To/Read Back Blood Gas Notified Whom Sodium 132 L Potassium 3.1 L Chloride 96 L Carbon Dioxide 25.0 Anion Gap 11 BUN 23 H Creatinine 2.37 H Estim Creat Clear Calc 17.38 Est GFR (MDRD) Af Amer 26 L Est GFR (MDRD) Non-Af 22 L BUN/Creatinine Ratio 9.7 L Glucose 177 H Lactic Acid Calcium 6.4 L* Phosphorus Magnesium Total Bilirubin AST ALT Alkaline Phosphatase Total Creatine Kinase Troponin I Total Protein Albumin Globulin Albumin/Globulin Ratio Triglycerides Urine Color Urine Clarity Urine pH Ur Specific [place] Urine Protein Urine Glucose (UA) Urine Ketones Urine Occult Blood Urine Nitrite Urine Bilirubin Urine Urobilinogen Ur Leukocyte Esterase Urine RBC Urine WBC Ur Squamous Epith Cells Urine Bacteria Urine Mucus Random Vancomycin Hep Bs Antigen Hep Bs Antibody Hep B Core Total Ab MRSA (PCR) POC Glucose Microbiology 11/27/20 12:25 Interface Orders Gram Stain - Final 11/27/20 12:25 Interface Orders Respiratory Culture - Preliminary Culture exhibits no growth. 11/27/20 13:04 Mucosa - Nose SARS-CoV-2 Antigen (Rapid) - Final Clinical Impression(s) from Imaging Studies Chest X-Ray 11/27/20 09:51 IMPRESSION: No acute abnormality is seen. Electronically Signed: Fernando Caro MD at 10:10 EDT , Service support , Abdomen/Pelvis CT 11/27/20 10:20 IMPRESSION: Fluid-filled stomach and duodenum as well as small bowel loops. Early small bowel obstruction should be ruled out. A repeat examination following oral or rectal contrast is recommended. Left perinephric stranding. Nonobstructive left intrarenal calculi. Questionable extraluminal air within the pelvis. Electronically Signed: Fernando Caro MD at 11:31 EDT , Service support , Brain CT 11/27/20 10:20 IMPRESSION: Chronic involutional changes of the brain. Electronically Signed: Fernando Caro MD at 11:26 EDT , Service support , Chest X-Ray 11/27/20 11:32 IMPRESSION: The tip of the endotracheal tube is at 2.4 sinus proximal to the gabriella. Electronically Signed: Fernando Caro MD at 12:08 EDT , Service support , KUB X-Ray 11/27/20 14:20 IMPRESSION: The tip of the orogastric tube is in the body of the stomach. The tip of the endotracheal tube is at the level of the gabriella. It should be pulled back approximately 2 cm. Electronically Signed: Fernando Caro MD at 14:53 EDT , Service support , Chest X-Ray 11/27/20 15:40 IMPRESSION: Right IJ line terminates in the SVC. No demonstrated pneumothorax. Electronically Signed: Chastity Del Valle MD at 17:01 EDT Tel , Service support , Chest X-Ray 11/27/20 16:10 IMPRESSION: Mild bilateral perihilar atelectasis otherwise no acute cardiopulmonary disease. Lines and tubes as described. Recommend pulling back the endotracheal tube approximately 2 cm. Electronically Signed: Donna Stinson MD at 1:07 EDT , Service support , Chest X-Ray 11/28/20 17:17 IMPRESSION: Trace left pleural effusion. Otherwise, stable exam. Electronically Signed: Marv Peace MD at 18:20 EDT Tel , Service support , Medical Necessity - Tobacco Use Smoking Status: Current every day smoker Tobacco Use: Cigarettes Assessment/Plan All Active Problems (Last Reviewed 09/09/20 @ 07:[address] Dashawn Acevedo MD) Acute respiratory failure (Acute) Metabolic acidosis (Acute) Pyelonephritis (Acute) Acute renal failure (Acute) Aspiration into airway (Acute) Uremia (Acute) Hyperphosphatemia (Acute) Hypovolemic shock (Acute) Septic shock (Acute) RECOMMENDATIONS: 1. Continue antimicrobials per ID recommendations. 2. Stop continuous supplemental IV fluids. 3. Continue current sedation regimen including Precedex and fentanyl. 4. Start scheduled Seroquel today. 5. Continue patient on assist control mode of mechanical ventilation and wean FiO2 to maintain saturations at or above 90%. 6. Continue to wean Levophed to maintain a mean arterial pressure at or above 65 mmHg. 7. Plan for repeat spontaneous awakening and breathing trial tomorrow morning. 8. Continue appropriate ICU prophylaxis. 9. Electrolyte repletion as ordered. IMPRESSIONS: 1. Septic shock Clinical concern for either urinary tract source of infection or aspiration pneumonia. Plan to continue aggressive fluid resuscitation along with broad-spectrum antimicrobials and vasopressor support, if indicated, to maintain a mean arterial pressure at or above 65 mmHg. Overall, the patient is clinically improving. 2. Acute hypoxemic respiratory failure Improving. Concern for aspiration event as precipitating etiology. The patient was intubated in the emergency department. She will be continued on assist control mode of mechanical ventilation, with plans to wean FiO2 to maintain saturations at or above 90%. Continue antimicrobials as noted above. The patient will be continued on Precedex and fentanyl for sedation, with plans to initiate scheduled Seroquel in hopes that she will pass her spontaneous awakening trial tomorrow. 3. Encephalopathy Likely metabolic in etiology. Plan to continue current supportive measures as noted above. Continue Precedex and fentanyl for sedation. Goal to maintain a RASS of -1 to 1. 4. Profound anion gap metabolic acidosis/acute kidney injury/lactic acidemia Improved. Likely due to a combination of profound intravascular volume depletion in the setting of GI losses coupled with concurrent use of Metformin. The patient has responded well to hemodialysis. Plan to continue supportive measures per nephrology recommendations. 5. Hypokalemia/hypocalcemia Electrolyte repletion as ordered. Recheck levels in the morning. 6. History of diabetes mellitus/hypertension/hyperlipidemia/GERD Complicates care, management, recovery and prognosis. Continue to hold antihypertensives. CODE status: Discussed CODE status at length including difference between FULL code, DNR-CCA and DNR-CC status. Following discussions about the differences in these status, patient's requested FULL CODE STATUS. TIME: 35 minutes of critical care time, independent of procedures, was spent addressing the patient's septic shock, encephalopathy, anion gap metabolic acidosis, acute kidney injury, review of all data and collaboration with the care team. ([id number]) [phone]: [id number] Critical care first hour
[2020-11-29] MEDS: Insulin Lispro 100 UNIT/ML INSULN.PEN SC (06:06)
[2020-11-29] MEDS: TITRATION PARAMETER CHANGE 1 EACH IV ×2 (06:15→12:16)
[2020-11-29 06:30] LABS: Bedside Glucose 194 mg/dL (70-110)
[2020-11-29] MEDS: Heparin Injection (Vial) 5,000 UNIT/ML VIAL 5000 UNIT SC ×3 (06:43→22:40)
--- NOTE | 2020-11-29 09:08 | PN_ITS ---
Patient Problems: Active and Suspected Problems (Last Reviewed 09/09/20 @ 07:[address] Dashawn Acevedo MD) Acute respiratory failure (Acute) Metabolic acidosis (Acute) Pyelonephritis (Acute) Acute renal failure (Acute) Aspiration into airway (Acute) Uremia (Acute) Hyperphosphatemia (Acute) Hypovolemic shock (Acute) Septic shock (Acute) Subjective: Intubated and sedated, failed her spontaneous breathing trial today. No issues overnight. Vitals/I&O's: Vital Signs Temp Pulse Resp BP Pulse Ox 100.1 F H 81 16 103/61 96 11/29/20 08:00 11/29/20 08:00 11/29/20 08:00 11/29/20 08:00 11/29/20 08:00 Oxygen Flow Rate (L/min) 35 Oxygen Delivery Method Mechanical Ventilator Weight: 147 lb 11.355 oz Body Mass Index (BMI) 25.1 Finger Stick Blood Glucose 80 Intake and Output for Last 24 Hours 11/27/20 11/28/20 11/29/20 23:59 23:59 23:59 Intake Total 6767.20 / 6876.50 5662.12 / 5705.75 1548.23 / 1548.23 Output Total 1100 / 1100 300 / 300 Balance 6747.20 / 6856.50 4562.12 / 4605.75 1248.23 / 1248.23 General: - - Intubated and sedated HEENT: Atraumatic, PERRLA, Normocephalic Oral: Moist Mucosa Neck: Supple, No JVD Lungs: Normal air movement, No rhonchi, No wheeze, No rales Cardiovascular: Regular rate, Regular Rhythm, Normal S1, Normal S2, No murmurs Abdomen: Soft, Non Tender, Non-Distended, No Hepato-splenomegaly Extremities: Capillary Refill Less than 3 Seconds, Edema - Trace Skin: No rashes, No breakdown Neurological: - - Intubated and sedated Psych/Mental Status: - - Intubated and sedated Microbiology Past 72 Hours 11/27/20 09:25 Blood Culture (Wb) - Anticubital Right Blood Culture - Preliminary No growth in 48 hours. 11/27/20 09:25 Blood Culture (Wb) - Anticubital Left Blood Culture - Preliminary No growth in 48 hours. 11/27/20 12:25 Interface Orders Gram Stain - Final 11/27/20 12:25 Interface Orders Respiratory Culture - Preliminary Culture exhibits no growth. 11/27/20 13:04 Mucosa - Nose SARS-CoV-2 Antigen (Rapid) - Final Laboratory Results 11/27/20 19:30: Hep Bs Antigen Non-Reactive 11/28/20 14:03: POC Glucose 106 11/28/20 18:07: POC Glucose 137 H 11/28/20 21:47: POC Glucose 156 H 11/28/20 23:31: POC Glucose 184 H 11/29/20 05:00: Random Vancomycin 14.8 11/29/20 05:00: WBC 13.8 H, RBC 3.51 L, Hgb 10.0 L, Hct 29.8 L, MCV 84.9, MCH 28.5, MCHC 33.6, RDW Std Deviation 50.1 H, RDW Coeff of [place] 16.0 H, Plt Count 143 L, MPV 11.6, Immature Gran % (Auto) 0.600, Neut % (Auto) 79.1 H, Lymph % (Auto) 12.0 L, [place] % (Auto) 7.7, Eos % (Auto) 0.4, Baso % (Auto) 0.2, Absolute Neuts (auto) 10.9 H, Absolute Lymphs (auto) 1.65, Nucleated RBC % 0 11/29/20 05:00: Sodium 132 L, Potassium 3.1 L, Chloride 96 L, Carbon Dioxide 25.0, Anion Gap 11, BUN 23 H, Creatinine 2.37 H, Estim Creat Clear Calc 17.38, Est GFR (MDRD) Af Amer 26 L, Est GFR (MDRD) Non-Af 22 L, BUN/Creatinine Ratio 9.7 L, Glucose 177 H, Calcium 6.4 L* 11/29/20 06:06: POC Glucose 194 H Current Medications Chlorhexidine Gluconate (Chlorhexidine 15 Ml) 15 ml PO BID SVEN Last Admin: 11/28/20 22:01 Dose: 15 ml Documented by: Dextrose (Dextrose 50%-Water 25 Gm/50 Ml Disp.Syrin) 0 gm IV X1 PRN; Protocol PRN Reason: Hypoglycemia Glucagon (Glucagon 1 Mg/Ml Syringe) 1 mg IM .X1 PRN PRN Reason: Hypoglycemia Heparin Sodium (Porcine) (Heparin Injection (Vial) 5,000 Unit/Ml Vial) 5,000 unit SC Q8 SVEN Last Admin: 11/29/20 06:43 Dose: 5,000 unit Documented by: Heparin Sodium (Porcine) (Heparin 10,000 Units/10 Ml Vial) 0 units IV X1 PRN PRN Reason: DIALYSIS Last Admin: 11/28/20 15:36 Dose: 1.3 units Documented by: Norepinephrine Bitartrate 8 mg (/ Sodium Chloride) 250 mls @ 9.375 mls/hr CONT INF .[id number] SVEN; Protocol Last Titration: 11/29/20 07:00 Dose: 7.5 mcg/min, 14.1 mls/hr Documented by: Fentanyl Citrate 1,000 mcg/ (Sodium Chloride) 100 mls @ 20 mls/hr CONT INF .Q5H [facility]; Protocol Last Admin: 11/29/20 08:59 Dose: 175 mcg/hr, 17.5 mls/hr Documented by: Meropenem 500 mg/ Sodium (Chloride) 60 mls @ 100 mls/hr IV Q24H SVEN Last Infusion: 11/28/20 19:02 Dose: Infused Documented by: Pantoprazole Sodium 40 mg/ (Sodium Chloride) 110 mls @ 330 mls/hr IV Q24 SVEN Last Infusion: 11/28/20 17:08 Dose: Infused Documented by: Vancomycin IV Pharmacy to Dose (1 each/ Sodium Chloride) 500 mls @ 250 mls/hr IV X1 PRN; Protocol PRN Reason: Rx to Dose Dexmedetomidine HCl 400 mcg/ (Sodium Chloride) 100 mls @ 8.375 mls/hr CONT INF .[id number] [facility]; Protocol Last Titration: 11/29/20 07:00 Dose: 1.2 mcg/kg/hr, 20.1 mls/hr Documented by: Sodium Chloride () 250 mls @ 15 mls/hr IV .[id number] PRN PRN Reason: Saline Flush Last Infusion: 11/29/20 06:26 Dose: 0 mls/hr Documented by: Sodium Chloride () 250 mls @ 15 mls/hr IV .[id number] PRN PRN Reason: Additional IVPB Infusion Last Infusion: 11/29/20 06:17 Dose: 0 mls/hr Documented by: Insulin Human Lispro (Insulin Lispro 100 Unit/Ml Insuln.Pen) 0 unit SC Q6 [facility]EN; Protocol Last Admin: 11/29/20 06:06 Dose: 1 u Documented by: Ondansetron HCl (Ondansetron 4 Mg/2 Ml Vial) 4 mg IV Q8H PRN PRN PRN Reason: NAUSEA/VOMITING Quetiapine Fumarate (Quetiapine 25 Mg Tablet) 50 mg PO BID SVEN Sodium Chloride (0.9% Saline Lock 10 Ml Syringe) 10 - 40 ml IV UD PRN PRN Reason: SALINE FLUSH Last Admin: 11/28/20 22:02 Dose: 20 ml Documented by: STROKE Vital Signs/Narrative: Vital Signs Temp Pulse Resp BP BP Pulse Ox 11/29/20 08:00 100.1 F H 81 16 103/61 96 11/29/20 07:00 100.4 F H 85 16 107/64 98 11/29/20 06:59 85 11/29/20 06:45 107/59 L 11/29/20 06:30 82/55 L 11/29/20 06:00 100.5 F H 86 16 82/55 L 98 11/29/20 05:45 108/63 Medical Necessity - Tobacco Use Smoking Status: Current every day smoker Tobacco Use: Cigarettes Assessment/Plan All Active Problems (Last Reviewed 09/09/20 @ 07:[address] Dashawn Acevedo MD) Acute respiratory failure (Acute) Metabolic acidosis (Acute) Pyelonephritis (Acute) Acute renal failure (Acute) Aspiration into airway (Acute) Uremia (Acute) Hyperphosphatemia (Acute) Hypovolemic shock (Acute) Septic shock (Acute) 1. Septic shock and acute hypoxic respiratory failure secondary to aspiration pneumonia and pyelonephritis with an anion gap metabolic acidosis/SANTI/hypocalcemia/metabolic encephalopathy -She is currently intubated and sedated -We will continue with her vancomycin and meropenem -Blood cultures are pending -Appreciate nephrology assistance. She is receiving dialysis secondary to her acute lactic acidosis which is likely combination of her Metformin use and her SANTI -Appreciate ID assistance -Continue to monitor creatinine, it is improving -Calcium of 6.4, currently being replaced -Continue with Levophed and Precedex 2. DM 2 -Hold Metformin -Accu-Cheks every 4 hours, sliding scale insulin will make adjustments as necessary 3. HTN/HLD -She is on pressor support, therefore continue to hold her home blood pressure medications -Can restart Crestor when able to take p.o. DVT: Heparin Inpatient E&M: [id number] Subs Hosp L2
[2020-11-29] MEDS: 0.9% Saline Lock 10 ML Syringe IV (09:24)
[2020-11-29] MEDS: QUEtiapine 25 MG Tablet 50 MG PO ×2 (09:24→22:39)
[2020-11-29] MEDS: Chlorhexidine 15 ML PO ×2 (09:24→22:59)
[2020-11-29 11:46] LABS: Bedside Glucose 137 mg/dL (70-110)
[2020-11-29 12:12] LABS: Hepatitis B Core Ab Total Negative (Negative)
--- NOTE | 2020-11-29 14:29 | PCM.RX.CS ---
Consult Pharmacy has been consulted to manage selected antiobiotic: Vancomycin Type of Consult: Follow-up Prior Doses of Antibiotics Received/Current Regimen: received 1500mg x1 on 11/27/20 at 22:52 Labs: Sodium 132 mmol/L (136-145) L 11/29/20 05:00 Potassium 3.1 mmol/L (3.5-5.1) L 11/29/20 05:00 Chloride 96 mmol/L (98-107) L 11/29/20 05:00 Carbon Dioxide 25.0 mmol/L (21.0-32.0) 11/29/20 05:00 Anion Gap 11 (5-15) 11/29/20 05:00 BUN 23 mg/dL (7-18) H 11/29/20 05:00 Creatinine 2.37 mg/dL (0.55-1.02) H 11/29/20 05:00 Est GFR (MDRD) Af Amer 26 mL/min (>60) L 11/29/20 05:00 Est GFR (MDRD) Non-Af 22 mL/min (>60) L 11/29/20 05:00 BUN/Creatinine Ratio 9.7 RATIO (10-20) L 11/29/20 05:00 Glucose 177 mg/dL (74-106) H 11/29/20 05:00 Random Vancomycin 14.8 ug/mL (0.0-15.0) 11/29/20 05:00 Microbiology: Microbiology 11/27/20 10:00 Urine Catheter - Catheter Urine Culture - Preliminary Yeast Like Organism 11/27/20 12:25 Interface Orders Gram Stain - Final 11/27/20 12:25 Interface Orders Respiratory Culture - Preliminary Culture exhibits no growth. 11/27/20 09:25 Blood Culture (Wb) - Anticubital Right Blood Culture - Preliminary No growth in 48 hours. 11/27/20 09:25 Blood Culture (Wb) - Anticubital Left Blood Culture - Preliminary No growth in 48 hours. 11/27/20 13:04 Mucosa - Nose SARS-CoV-2 Antigen (Rapid) - Final Weight used for dosin kg Estimated Creatinine Clearance: 17ml/min Goal Trough: 15-20 mcg/mL Pharmacy Plan for Drug Dosing: The vancomycin random level drawn this morning at [address] [facility] dosing protocol for hemodialysis patients, will give another 750mg x1 later today after dialysis is finished. Since it is unclear if the patient will be getting dialysis again tomorrow, will order another vancomycin random level for tomorrow morning so that it will be done in the event that the patient does end up receiving dialysis again tomorrow. Further dosing will be based off that level tomorrow, whether the patient gets dialysis or not. Pharmacy Service will continue to monitor and adjust dosing as required. Follow-Up Labs: Trough Vancomycin - random Labs to be done on [date and time ordered]: 11/30/20 0600
--- NOTE | 2020-11-29 17:13 | NURSING ---
rosin barrel filler at bedside
[2020-11-29 17:26] LABS: Bedside Glucose 135 mg/dL (70-110)
--- NOTE | 2020-11-29 19:00 | PCM.PN.REN ---
Patient Problems: Active and Suspected Problems (Last Reviewed 09/09/20 @ 07:[address] Dashawn Acevedo MD) Acute respiratory failure (Acute) Metabolic acidosis (Acute) Pyelonephritis (Acute) Acute renal failure (Acute) Aspiration into airway (Acute) Uremia (Acute) Hyperphosphatemia (Acute) Hypovolemic shock (Acute) Septic shock (Acute) Subjective: Following for acute kidney injury. The patient was seen during hemodialysis treatment. Blood pressure dropped during the treatment, so ultrafiltration will be limited. Patient is currently intubated, and cannot provide review of system. - Physical Exam Vitals/I&O's: Vital Signs Temp Pulse Resp BP Pulse Ox 100.1 F H 84 16 103/67 97 11/29/20 18:00 11/29/20 18:41 11/29/20 18:41 11/29/20 18:20 11/29/20 18:41 Oxygen Flow Rate (L/min) 35 Oxygen Delivery Method Mechanical Ventilator Weight: 67 kg Body Mass Index (BMI) 25.1 Finger Stick Blood Glucose 80 Intake and Output for Last 24 Hours 11/27/20 11/28/20 11/29/20 23:59 23:59 23:59 Intake Total 6767.20 / 6876.50 5662.12 / 5705.75 2613.69 / 2613.69 Output Total 1100 / 1100 535 / 535 Balance 6747.20 / 6856.50 4562.12 / 4605.75 2078.69 / 2078.69 General: No apparent distress, - - Sedated HEENT: Atraumatic Oral: Moist Mucosa, - - Intubated Neck: Supple Lungs: Clear to auscultation - Anteriorly Cardiovascular: Normal S1, Normal S2, No murmurs Abdomen: Bowel Sounds Present, Soft, Non Tender, Non-Distended Extremities: No cyanosis, No edema Skin: No rashes Microbiology Past 72 Hours 11/27/20 10:00 Urine Catheter - Catheter Urine Culture - Final Aurora albicans 11/27/20 12:25 Interface Orders Gram Stain - Final 11/27/20 12:25 Interface Orders Respiratory Culture - Preliminary Culture exhibits no growth. 11/27/20 09:25 Blood Culture (Wb) - Anticubital Right Blood Culture - Preliminary No growth in 48 hours. 11/27/20 09:25 Blood Culture (Wb) - Anticubital Left Blood Culture - Preliminary No growth in 48 hours. 11/27/20 13:04 Mucosa - Nose SARS-CoV-2 Antigen (Rapid) - Final Laboratory Results 11/27/20 19:30: Hep B Core Total Ab Negative 11/28/20 21:47: POC Glucose 156 H 11/28/20 23:31: POC Glucose 184 H 11/29/20 05:00: Random Vancomycin 14.8 11/29/20 05:00: WBC 13.8 H, RBC 3.51 L, Hgb 10.0 L, Hct 29.8 L, MCV 84.9, MCH 28.5, MCHC 33.6, RDW Std Deviation 50.1 H, RDW Coeff of Hawa 16.0 H, Plt Count 143 L, MPV 11.6, Immature Gran % (Auto) 0.600, Neut % (Auto) 79.1 H, Lymph % (Auto) 12.0 L, [place] % (Auto) 7.7, Eos % (Auto) 0.4, Baso % (Auto) 0.2, Absolute Neuts (auto) 10.9 H, Absolute Lymphs (auto) 1.65, Nucleated RBC % 0 11/29/20 05:00: Sodium 132 L, Potassium 3.1 L, Chloride 96 L, Carbon Dioxide 25.0, Anion Gap 11, BUN 23 H, Creatinine 2.37 H, Estim Creat Clear Calc 17.38, Est GFR (MDRD) Af Amer 26 L, Est GFR (MDRD) Non-Af 22 L, BUN/Creatinine Ratio 9.7 L, Glucose 177 H, Calcium 6.4 L* 11/29/20 06:06: POC Glucose 194 H 11/29/20 11:37: POC Glucose 137 H 11/29/20 17:20: POC Glucose 135 H Current Medications Chlorhexidine Gluconate (Chlorhexidine 15 Ml) 15 ml PO BID SVEN Last Admin: 11/29/20 09:24 Dose: 15 ml Documented by: Dextrose (Dextrose 50%-Water 25 Gm/50 Ml Disp.Syrin) 0 gm IV X1 PRN; Protocol PRN Reason: Hypoglycemia Glucagon (Glucagon 1 Mg/Ml Syringe) 1 mg IM .X1 PRN PRN Reason: Hypoglycemia Heparin Sodium (Porcine) (Heparin Injection (Vial) 5,000 Unit/Ml Vial) 5,000 unit SC Q8 SVEN Last Admin: 11/29/20 14:00 Dose: 5,000 unit Documented by: Heparin Sodium (Porcine) (Heparin 10,000 Units/10 Ml Vial) 0 units IV X1 PRN PRN Reason: DIALYSIS Last Admin: 11/28/20 15:36 Dose: 1.3 units Documented by: Norepinephrine Bitartrate 8 mg (/ Sodium Chloride) 250 mls @ 9.375 mls/hr CONT INF .[id number] SVEN; Protocol Last Titration: 11/29/20 18:20 Dose: 9 mcg/min, 16.9 mls/hr Documented by: Fentanyl Citrate 1,000 mcg/ (Sodium Chloride) 100 mls @ 20 mls/hr CONT INF .Q5H [facility]; Protocol Last Titration: 11/29/20 18:00 Dose: 175 mcg/hr, 17.5 mls/hr Documented by: Meropenem 500 mg/ Sodium (Chloride) 60 mls @ 100 mls/hr IV Q24H SVEN Last Infusion: 11/29/20 14:48 Dose: Infused Documented by: Pantoprazole Sodium 40 mg/ (Sodium Chloride) 110 mls @ 330 mls/hr IV Q24 SVEN Last Infusion: 11/29/20 09:44 Dose: Infused Documented by: Vancomycin IV Pharmacy to Dose (1 each/ Sodium Chloride) 500 mls @ 250 mls/hr IV X1 PRN; Protocol PRN Reason: Rx to Dose Dexmedetomidine HCl 400 mcg/ (Sodium Chloride) 100 mls @ 8.375 mls/hr CONT INF .[id number] [facility]; Protocol Last Titration: 11/29/20 18:00 Dose: 1.3 mcg/kg/hr, 21.8 mls/hr Documented by: Sodium Chloride () 250 mls @ 15 mls/hr IV .[id number] PRN PRN Reason: Saline Flush Last Infusion: 11/29/20 14:48 Dose: 0 mls/hr Documented by: Sodium Chloride () 250 mls @ 15 mls/hr IV .[id number] PRN PRN Reason: Additional IVPB Infusion Last Infusion: 11/29/20 14:48 Dose: 0 mls/hr Documented by: Vancomycin HCl 750 mg/ Sodium (Chloride) 265 mls @ 250 mls/hr IV X1 ONE Stop: 11/29/20 20:03 Insulin Human Lispro (Insulin Lispro 100 Unit/Ml Insuln.Pen) 0 unit SC Q6 SVEN; Protocol Last Admin: 11/29/20 17:31 Dose: Not Given Documented by: Ondansetron HCl (Ondansetron 4 Mg/2 Ml Vial) 4 mg IV Q8H PRN PRN PRN Reason: NAUSEA/VOMITING Quetiapine Fumarate (Quetiapine 25 Mg Tablet) 50 mg PO BID SVEN Last Admin: 11/29/20 09:24 Dose: 50 mg Documented by: Sodium Chloride (0.9% Saline Lock 10 Ml Syringe) 10 - 40 ml IV UD PRN PRN Reason: SALINE FLUSH Last Admin: 11/29/20 09:24 Dose: 40 ml Documented by: Medical Necessity - Tobacco Use Smoking Status: Current every day smoker Tobacco Use: Cigarettes Assessment/Plan All Active Problems (Last Reviewed 09/09/20 @ 07:[address] Dashawn Acevedo MD) Acute respiratory failure (Acute) Metabolic acidosis (Acute) Pyelonephritis (Acute) Acute renal failure (Acute) Aspiration into airway (Acute) Uremia (Acute) Hyperphosphatemia (Acute) Hypovolemic shock (Acute) Septic shock (Acute) 1. Acute kidney injury. Baseline serum creatinine is 1.00 mg/dL. SANTI secondary to ischemic ATN. The patient is oliguric and is dialysis dependent. The patient was seen during hemodialysis treatment today. I supervised the dialysis: 3.5-hour treatment, blood flow 350/dialysate flow 600; 4K dialysate used. She is tolerating dialysis relatively well. However, blood pressure does drop during dialysis. Therefore, we may not be able to get a lot of fluid removed. We will try for 1 L ultrafiltration. 2. Hypokalemia. We will use 4K dialysate today. Recheck potassium level tomorrow. 3. Anion gap metabolic acidosis. This is secondary to SANTI, Metformin, and septic shock. Resolved. Serum bicarbonate level is 25 today. Serum bicarbonate level should stabilize with dialysis. 4. Septic shock. The patient is on broad-spectrum antimicrobials. She is on vasopressor support to maintain MAP of 65 mmHg. 5. Acute hypoxic respiratory failure. The patient is ventilator dependent. Ventilator management as per brush maker. We will continue dialysis to help with volume removal.
--- NOTE | 2020-11-29 21:55 | DIALYSIS ---
Hemodialysis x 3h45m completed at 2124 on a 4K bath, 3rd treatment, tolerated well with Levophed, UF 1000mL, accessed via right neck temporary dialysis catheter, worked well
[2020-11-29 23:56] LABS: Bedside Glucose 123 mg/dL (70-110)
[2020-11-30] VITALS (52 sets, daily range): BP systolic 72–131; BP diastolic 50–85; PULSE 77–114; RESP 12–23; TEMP 27.2–38.1; O2SAT 91–100
[2020-11-30 05:31] LABS: Absolute Lymphocyte Count 1.59 X10^3/uL (0.83-4.51); Absolute Neutrophil Count 8.7 X10^3/uL (2.0-7.7); Basophil# 0.06 X10^3/uL; Basophil% 0.5 % (0-1); Eosinophil# 0.08 X10^3/uL; Eosinophils% 0.7 % (0-5); Hematocrit 30.8 % (37-47); Hemoglobin 10.4 g/dL (12.0-15.0); Lymphocyte # 1.59 X10^3/ul (4.0); Lymphocyte % 13.9 % (19-41); Mean Corp Hgb Conc 33.8 g/dL (32-36); Mean Corpuscular Hgb 28.6 pg (27.0-32.0); Mean Corpuscular Volume 84.6 fL (81-99); Mean Platelet Vol. 11.5 fl (6.2-12.0); Monocyte# 0.97 X10^3/uL; Monocyte% 8.5 % (0-10); NRBC Flagged by Analyzer 0 % (0-5); Neutrophil # 8.66 X10^3/uL (2.7-7.7); Platelet Count 103 K/mm3 (150-450); RBC Distribution Width CV 15.9 % (11.6-14.6); RBC Distribution Width SD 49.3 fl (35.1-43.9); Red Blood Count 3.64 M/mm3 (4.2-5.4); White Blood Count 11.4 K/mm3 (4.4-11.0)
[2020-11-30] MEDS: Heparin Injection (Vial) 5,000 UNIT/ML VIAL 5000 UNIT SC ×3 (05:39→20:48)
--- NOTE | 2020-11-30 05:39 | PCM.PN.INT ---
Subjective: The patient was seen and examined at the bedside this morning. Events from the last 24 hours have been reviewed. The patient currently has a low-grade fever. Ventilator requirements are minimal with an FiO2 of 21%. The patient tolerated dialysis yesterday, which was her third treatment, with 1 L of fluid removed. The patient is currently documented to be overall net +13 L for the hospital admission. The patient is currently on Levophed at 2 mcg/min. She remains on Precedex, which has allowed her to pass her spontaneous awakening trial. In addition, the patient has done well this morning on her spontaneous breathing trial. Objective: The patient's most recent lab work, culture data and imaging studies have all been personally reviewed. Surface echocardiogram from February 2020 revealed normal LV size with an ejection fraction of 60%. Rapid coronavirus antigen testing was negative. Culture data has been unrevealing to date. General: Alert, No apparent distress, - - Remains intubated and mechanically ventilated. Currently tolerating spontaneous mode of mechanical ventilation. HEENT: Atraumatic, Normocephalic Oral: No Gingival or Mucosal Lesions/ Ulcerations, - - Endotracheal and OG tubes in place Neck: Supple, No Nodes, Trachea Midline Lungs: No rhonchi, No wheeze, No rales, Diminished Cardiovascular: Regular rate, Regular Rhythm, Normal S1, Normal S2, No murmurs Abdomen: Bowel Sounds Present, Soft, Non Tender Extremities: No clubbing, No cyanosis, Edema Skin: No breakdown Musculoskeletal: No Tenderness to Palpation of Joints or Extremities Lymphatic: No Cervical, Supraclavicular, or Inguinal Adenopathy Neurological: - - No focal neurological deficits. Alert and following commands appropriately. Vital Signs Temp Pulse Resp BP Pulse Ox 100.4 F H 77 12 86/58 L 93 11/30/20 04:00 11/30/20 05:02 11/30/20 05:02 11/30/20 04:00 11/30/20 05:02 Oxygen Flow Rate (L/min) 35 Oxygen Delivery Method Mechanical Ventilator Weight: 149 lb 7.574 oz Body Mass Index (BMI) 25.1 Finger Stick Blood Glucose 80 Intake and Output for Last 24 Hours 11/28/20 11/29/20 11/30/20 23:59 23:59 23:59 Intake Total 5662.12 / 5705.75 3217.44 / 3240.70 198.37 / 198.37 Output Total 1100 / 1100 1593 / 1603 35 / 35 Balance 4562.12 / 4605.75 1624.44 / 1637.70 163.37 / 163.37 Labs (Last 48 Hours) 11/27/20 11/27/20 11/27/20 19:30 19:30 19:30 WBC RBC Hgb Hct MCV MCH MCHC RDW Std Deviation RDW Coeff of Hawa Plt Count MPV Immature Gran % (Auto) Neut % (Auto) Lymph % (Auto) [place] % (Auto) Eos % (Auto) Baso % (Auto) Absolute Neuts (auto) Absolute Lymphs (auto) Nucleated RBC % Specimen Type Sample Site pH Bicarbonate Actual Total CO2 Base Excess O2 Saturation O2 % ABG pCO2 ABG pO2 Respiration Rate O2 Delivery Device Vent Mode Tidal Volume POC PEEP Sodium Potassium Chloride Carbon Dioxide Anion Gap BUN Creatinine Estim Creat Clear Calc Est GFR (MDRD) Af Amer Est GFR (MDRD) Non-Af BUN/Creatinine Ratio Glucose Lactic Acid Calcium Phosphorus Magnesium Total Bilirubin AST ALT Alkaline Phosphatase Total Protein Albumin Random Vancomycin Hep Bs Antigen Non-Reactive Hep Bs Antibody Non-Reactive Hep B Core Total Ab Negative POC Glucose 11/28/20 11/28/20 11/28/20 05:40 05:40 05:40 WBC 16.1 H RBC 3.27 L Hgb 9.4 L Hct 28.9 L MCV 88.4 D MCH 28.7 MCHC 32.5 D RDW Std Deviation 53.2 H RDW Coeff of Hawa 16.5 H Plt Count 209 MPV 11.5 Immature Gran % (Auto) 0.600 Neut % (Auto) 78.6 H Lymph % (Auto) 14.5 L [place] % (Auto) 5.9 Eos % (Auto) 0.1 Baso % (Auto) 0.3 Absolute Neuts (auto) 12.7 H Absolute Lymphs (auto) 2.34 Nucleated RBC % 0 Specimen Type Sample Site pH Bicarbonate Actual Total CO2 Base Excess O2 Saturation O2 % ABG pCO2 ABG pO2 Respiration Rate O2 Delivery Device Vent Mode Tidal Volume POC PEEP Sodium 138 Potassium 3.8 Chloride 100 Carbon Dioxide 21.0 Anion Gap 17 H BUN 39 H Creatinine 2.69 H Estim Creat Clear Calc 15.31 Est GFR (MDRD) Af Amer 23 L Est GFR (MDRD) Non-Af 19 L BUN/Creatinine Ratio 14.5 Glucose 59 L Lactic Acid 0.9 Calcium 6.5 L* Phosphorus Magnesium 1.7 Total Bilirubin AST ALT Alkaline Phosphatase Total Protein Albumin Random Vancomycin Hep Bs Antigen Hep Bs Antibody Hep B Core Total Ab POC Glucose 11/28/20 11/28/20 11/28/20 07:33 08:32 14:03 WBC RBC Hgb Hct MCV MCH MCHC RDW Std Deviation RDW Coeff of Hawa Plt Count MPV Immature Gran % (Auto) Neut % (Auto) Lymph % (Auto) [place] % (Auto) Eos % (Auto) Baso % (Auto) Absolute Neuts (auto) Absolute Lymphs (auto) Nucleated RBC % Specimen Type ART Sample Site L Radial pH 7.39 Bicarbonate Actual 17.3 L Total CO2 18 Base Excess -8 L O2 Saturation 94 L O2 % 30 ABG pCO2 28.6 L ABG pO2 70 L Respiration Rate 16 O2 Delivery Device ET Tube Vent Mode AC Tidal Volume 450 POC PEEP 5 Sodium Potassium Chloride Carbon Dioxide Anion Gap BUN Creatinine Estim Creat Clear Calc Est GFR (MDRD) Af Amer Est GFR (MDRD) Non-Af BUN/Creatinine Ratio Glucose Lactic Acid Calcium Phosphorus Magnesium Total Bilirubin AST ALT Alkaline Phosphatase Total Protein Albumin Random Vancomycin Hep Bs Antigen Hep Bs Antibody Hep B Core Total Ab POC Glucose 101 106 11/28/20 11/28/20 11/28/20 18:07 21:47 23:31 WBC RBC Hgb Hct MCV MCH MCHC RDW Std Deviation RDW Coeff of Hawa Plt Count MPV Immature Gran % (Auto) Neut % (Auto) Lymph % (Auto) [place] % (Auto) Eos % (Auto) Baso % (Auto) Absolute Neuts (auto) Absolute Lymphs (auto) Nucleated RBC % Specimen Type Sample Site pH Bicarbonate Actual Total CO2 Base Excess O2 Saturation O2 % ABG pCO2 ABG pO2 Respiration Rate O2 Delivery Device Vent Mode Tidal Volume POC PEEP Sodium Potassium Chloride Carbon Dioxide Anion Gap BUN Creatinine Estim Creat Clear Calc Est GFR (MDRD) Af Amer Est GFR (MDRD) Non-Af BUN/Creatinine Ratio Glucose Lactic Acid Calcium Phosphorus Magnesium Total Bilirubin AST ALT Alkaline Phosphatase Total Protein Albumin Random Vancomycin Hep Bs Antigen Hep Bs Antibody Hep B Core Total Ab POC Glucose 137 H 156 H 184 H 11/29/20 11/29/20 11/29/20 05:00 05:00 05:00 WBC 13.8 H RBC 3.51 L Hgb 10.0 L Hct 29.8 L MCV 84.9 MCH 28.5 MCHC 33.6 RDW Std Deviation 50.1 H RDW Coeff of Hawa 16.0 H Plt Count 143 L MPV 11.6 Immature Gran % (Auto) 0.600 Neut % (Auto) 79.1 H Lymph % (Auto) 12.0 L [place] % (Auto) 7.7 Eos % (Auto) 0.4 Baso % (Auto) 0.2 Absolute Neuts (auto) 10.9 H Absolute Lymphs (auto) 1.65 Nucleated RBC % 0 Specimen Type Sample Site pH Bicarbonate Actual Total CO2 Base Excess O2 Saturation O2 % ABG pCO2 ABG pO2 Respiration Rate O2 Delivery Device Vent Mode Tidal Volume POC PEEP Sodium 132 L Potassium 3.1 L Chloride 96 L Carbon Dioxide 25.0 Anion Gap 11 BUN 23 H Creatinine 2.37 H Estim Creat Clear Calc 17.38 Est GFR (MDRD) Af Amer 26 L Est GFR (MDRD) Non-Af 22 L BUN/Creatinine Ratio 9.7 L Glucose 177 H Lactic Acid Calcium 6.4 L* Phosphorus Magnesium Total Bilirubin AST ALT Alkaline Phosphatase Total Protein Albumin Random Vancomycin 14.8 Hep Bs Antigen Hep Bs Antibody Hep B Core Total Ab POC Glucose 11/29/20 11/29/20 11/29/20 06:06 11:37 17:20 WBC RBC Hgb Hct MCV MCH MCHC RDW Std Deviation RDW Coeff of Hawa Plt Count MPV Immature Gran % (Auto) Neut % (Auto) Lymph % (Auto) [place] % (Auto) Eos % (Auto) Baso % (Auto) Absolute Neuts (auto) Absolute Lymphs (auto) Nucleated RBC % Specimen Type Sample Site pH Bicarbonate Actual Total CO2 Base Excess O2 Saturation O2 % ABG pCO2 ABG pO2 Respiration Rate O2 Delivery Device Vent Mode Tidal Volume POC PEEP Sodium Potassium Chloride Carbon Dioxide Anion Gap BUN Creatinine Estim Creat Clear Calc Est GFR (MDRD) Af Amer Est GFR (MDRD) Non-Af BUN/Creatinine Ratio Glucose Lactic Acid Calcium Phosphorus Magnesium Total Bilirubin AST ALT Alkaline Phosphatase Total Protein Albumin Random Vancomycin Hep Bs Antigen Hep Bs Antibody Hep B Core Total Ab POC Glucose 194 H 137 H 135 H 11/29/20 11/30/20 11/30/20 23:48 05:15 05:15 WBC RBC Hgb Hct MCV MCH MCHC RDW Std Deviation RDW Coeff of Hawa Plt Count MPV Immature Gran % (Auto) Neut % (Auto) Lymph % (Auto) [place] % (Auto) Eos % (Auto) Baso % (Auto) Absolute Neuts (auto) Absolute Lymphs (auto) Nucleated RBC % Specimen Type Sample Site pH Bicarbonate Actual Total CO2 Base Excess O2 Saturation O2 % ABG pCO2 ABG pO2 Respiration Rate O2 Delivery Device Vent Mode Tidal Volume POC PEEP Sodium Pending Potassium Pending Chloride Pending Carbon Dioxide Pending Anion Gap BUN Pending Creatinine Pending Estim Creat Clear Calc Est GFR (MDRD) Af Amer Pending Est GFR (MDRD) Non-Af Pending BUN/Creatinine Ratio Pending Glucose Pending Lactic Acid Calcium Pending Phosphorus Pending Magnesium Total Bilirubin AST ALT Alkaline Phosphatase Total Protein Albumin Pending Random Vancomycin Pending Hep Bs Antigen Hep Bs Antibody Hep B Core Total Ab POC Glucose 123 H 11/30/20 11/30/20 05:15 05:15 WBC 11.4 H RBC 3.64 L Hgb 10.4 L Hct 30.8 L MCV 84.6 MCH 28.6 MCHC 33.8 RDW Std Deviation 49.3 H RDW Coeff of [place] 15.9 H Plt Count 103 L MPV 11.5 Immature Gran % (Auto) 0.400 Neut % (Auto) 76.0 H Lymph % (Auto) 13.9 L [place] % (Auto) 8.5 Eos % (Auto) 0.7 Baso % (Auto) 0.5 Absolute Neuts (auto) 8.7 H Absolute Lymphs (auto) 1.59 Nucleated RBC % 0 Specimen Type Sample Site pH Bicarbonate Actual Total CO2 Base Excess O2 Saturation O2 % ABG pCO2 ABG pO2 Respiration Rate O2 Delivery Device Vent Mode Tidal Volume POC PEEP Sodium Pending Potassium Pending Chloride Pending Carbon Dioxide Pending Anion Gap Pending BUN Pending Creatinine Pending Estim Creat Clear Calc Est GFR (MDRD) Af Amer Pending Est GFR (MDRD) Non-Af Pending BUN/Creatinine Ratio Pending Glucose Pending Lactic Acid Calcium Pending Phosphorus Magnesium Total Bilirubin Pending AST Pending ALT Pending Alkaline Phosphatase Pending Total Protein Pending Albumin Pending Random Vancomycin Hep Bs Antigen Hep Bs Antibody Hep B Core Total Ab POC Glucose Microbiology 11/27/20 10:00 Urine Catheter - Catheter Urine Culture - Final [place] albicans 11/27/20 12:25 Interface Orders Gram Stain - Final 11/27/20 12:25 Interface Orders Respiratory Culture - Preliminary Culture exhibits no growth. 11/27/20 09:25 Blood Culture (Wb) - Anticubital Right Blood Culture - Preliminary No growth in 48 hours. 11/27/20 09:25 Blood Culture (Wb) - Anticubital Left Blood Culture - Preliminary No growth in 48 hours. Clinical Impression(s) from Imaging Studies Chest X-Ray 11/27/20 09:51 IMPRESSION: No acute abnormality is seen. Electronically Signed: Fernando Caro MD at 10:10 EDT , Service support , Abdomen/Pelvis CT 11/27/20 10:20 IMPRESSION: Fluid-filled stomach and duodenum as well as small bowel loops. Early small bowel obstruction should be ruled out. A repeat examination following oral or rectal contrast is recommended. Left perinephric stranding. Nonobstructive left intrarenal calculi. Questionable extraluminal air within the pelvis. Electronically Signed: Fernando Caro MD at 11:31 EDT , Service support , Brain CT 11/27/20 10:20 IMPRESSION: Chronic involutional changes of the brain. Electronically Signed: Fernando Caro MD at 11:26 EDT , Service support , Chest X-Ray 11/27/20 11:32 IMPRESSION: The tip of the endotracheal tube is at 2.4 sinus proximal to the gabriella. Electronically Signed: Fernando Caro MD at 12:08 EDT , Service support , KUB X-Ray 11/27/20 14:20 IMPRESSION: The tip of the orogastric tube is in the body of the stomach. The tip of the endotracheal tube is at the level of the gabriella. It should be pulled back approximately 2 cm. Electronically Signed: Fernando Caro MD at 14:53 EDT , Service support , Chest X-Ray 11/27/20 15:40 IMPRESSION: Right IJ line terminates in the SVC. No demonstrated pneumothorax. Electronically Signed: Chastity Del Valle MD at 17:01 EDT Tel , Service support , Chest X-Ray 11/27/20 16:10 IMPRESSION: Mild bilateral perihilar atelectasis otherwise no acute cardiopulmonary disease. Lines and tubes as described. Recommend pulling back the endotracheal tube approximately 2 cm. Electronically Signed: Donna Stinson MD at 1:07 EDT , Service support , Chest X-Ray 11/28/20 17:17 IMPRESSION: Trace left pleural effusion. Otherwise, stable exam. Electronically Signed: Marv Peace MD at 18:20 EDT Tel , Service support , Medical Necessity - Tobacco Use Smoking Status: Current every day smoker Tobacco Use: Cigarettes Assessment/Plan All Active Problems (Last Reviewed 09/09/20 @ 07:[address] Dashawn Acevedo MD) Acute respiratory failure (Acute) Metabolic acidosis (Acute) Pyelonephritis (Acute) Acute renal failure (Acute) Aspiration into airway (Acute) Uremia (Acute) Hyperphosphatemia (Acute) Hypovolemic shock (Acute) Septic shock (Acute) RECOMMENDATIONS: 1. Proceed with a trial of extubation this morning. 2. Once extubated, wean supplemental oxygen to maintain saturations at or above 90%. 3. Encourage incentive spirometer use and mobilize patient as tolerated. 4. Continue antimicrobials per ID recommendations. 5. Continue to wean Levophed to maintain a mean arterial pressure at or above 65 mmHg. 6. Dialysis support per nephrology recommendations. 7. Continue appropriate ICU prophylaxis. IMPRESSIONS: 1. Septic shock Clinical concern for either urinary tract source of infection and aspiration pneumonia. The patient has improved clinically, having previously required 3 vasopressors to maintain hemodynamic stability. She is currently on low-dose Levophed, which will be weaned accordingly. She has been adequately volume resuscitated. Antimicrobials will be continued as ordered. 2. Acute hypoxemic respiratory failure Improved. Concern for aspiration event as precipitating etiology. The patient was intubated in the emergency department. The patient is oxygenation status has improved and she was able to be extubated on the morning of November 30. Plan to wean supplemental oxygen to maintain saturations at or above 90%. Encourage incentive spirometer use and mobilize patient as tolerated. 3. Encephalopathy Resolved. Likely metabolic in etiology. Plan to continue current supportive measures as noted above. 4. Profound anion gap metabolic acidosis/acute kidney injury/lactic acidemia Improved. Likely due to a combination of profound intravascular volume depletion in the setting of GI losses coupled with concurrent use of Metformin. The patient has responded well to hemodialysis. Plan to continue supportive measures per nephrology recommendations. 5. History of diabetes mellitus/hypertension/hyperlipidemia/GERD Complicates care, management, recovery and prognosis. Continue to hold antihypertensives. CODE status: Discussed CODE status at length including difference between FULL code, DNR-CCA and DNR-CC status. Following discussions about the differences in these status, patient's requested FULL CODE STATUS. TIME: 34 minutes of critical care time, independent of procedures, was spent addressing the patient's septic shock, encephalopathy, anion gap metabolic acidosis, acute kidney injury, review of all data and collaboration with the care team. ([id number]) [id number] Critical care first hour
[2020-11-30 05:44] LABS: Albumin, Serum 2.1 g/dL (3.2-5.0); BUN 18 mg/dL (7-18); BUN/Creat Ratio 9.6 RATIO (10-20); Calcium,Total 7.3 mg/dL (8.5-10.1); Chloride 100 mmol/L (98-107); Creatinine, Serum 1.87 mg/dL (0.55-1.02); EST Glomerular Filtration Rate 29 mL/min (>60); Est Glom Filt Rate - Afr Amer 34 mL/min (>60); Estimated Creatinine Clearance 22.03 ml/min; Glucose 110 mg/dL (74-106); Phosphorus 2.5 mg/dL (2.5-4.9); Potassium 3.8 mmol/L (3.5-5.1); Sodium Level 134 mmol/L (136-145)
[2020-11-30 05:46] LABS: Bedside Glucose 105 mg/dL (70-110)
[2020-11-30 05:46] LABS: Vancomycin, Random Level 20.4 ug/mL (0.0-15.0)
[2020-11-30 06:16] LABS: ALB/GLOB Ratio 0.8 RATIO (0.9-2.4); AST(SGOT) 157 U/L (15-37); Alanine Aminotransfer ALT/SGPT 90 U/L (13-56); Albumin, Serum 2.1 g/dL (3.2-5.0); Alkaline Phosphatase 128 U/L (45-117); Anion Gap 9 (5-15); BUN 18 mg/dL (7-18); BUN/Creat Ratio 9.6 RATIO (10-20); Calcium,Total 7.4 mg/dL (8.5-10.1); Chloride 101 mmol/L (98-107); Creatinine, Serum 1.88 mg/dL (0.55-1.02); EST Glomerular Filtration Rate 28 mL/min (>60); Est Glom Filt Rate - Afr Amer 34 mL/min (>60); Estimated Creatinine Clearance 21.91 ml/min; Globulin 2.6 g/dL (2.2-4.2); Glucose 109 mg/dL (74-106); Potassium 3.9 mmol/L (3.5-5.1); Protein, Total 4.7 g/dL (6.4-8.2); Sodium Level 136 mmol/L (136-145)
[2020-11-30] MEDS: Haloperidol Lactate 5 MG/ML Vial 2.5 MG IV (07:20)
--- NOTE | 2020-11-30 07:23 | NURSING ---
0700: Patient becoming increasingly agitated post extubation. Patient attempting to get out of the bed and pulling at IV lines such as left IJ and right temp dialysis catheter. Attempting to remove ryan catheter. When attempting to reorient the patient, RN is told shut the hell up you stupid bitch and you're a dumb bitch. Patient attempting to bite RN's hand and kick her. MD made aware and new orders have been received. See MAR. Bed alarm is on to ensure patient's safety. RN reoriented patient to surroundings and medical equipment.
--- NOTE | 2020-11-30 07:25 | NURSING ---
pt restless/agitated, pulling at IV, ryan, TDC, and TLC. Attempted to redirect, pt stated get your fucking hands off me you fucking bitch. Haldol was given, pt is oriented to person, place, and year, will continue to monitor.
--- NOTE | 2020-11-30 08:00 | NURSING ---
pt pulled off RIJ TDC and LIJ TLC dressings, holding lumens of TLC and pulling, this RN removed hand from lines and educated patient on POC and need for lines to stay in place, pt stated fuck you and then continued to pull at ryan and IV. Soft restraints applied for safety at this time, MD aware and restraint order signed, will continue to monitor.
--- NOTE | 2020-11-30 08:30 | NURSING ---
refused to participate in CAM assessment.
--- NOTE | 2020-11-30 09:32 | PN_ITS ---
Patient Problems: Active and Suspected Problems (Last Reviewed 09/09/20 @ 07:[address] Dashawn Acevedo MD) Acute respiratory failure (Acute) Metabolic acidosis (Acute) Pyelonephritis (Acute) Acute renal failure (Acute) Aspiration into airway (Acute) Uremia (Acute) Hyperphosphatemia (Acute) Hypovolemic shock (Acute) Septic shock (Acute) Subjective: Extubated this morning, maintaining her oxygen sats. Vitals/I&O's: Vital Signs Temp Pulse Resp BP Pulse Ox 100.2 F H 114 H 22 H 94/50 L 95 11/30/20 08:00 11/30/20 08:00 11/30/20 08:00 11/30/20 09:00 11/30/20 08:00 Oxygen Flow Rate (L/min) 2 Oxygen Delivery Method Nasal Cannula Weight: 149 lb 7.574 oz Body Mass Index (BMI) 25.1 Finger Stick Blood Glucose 80 Intake and Output for Last 24 Hours 11/28/20 11/29/20 11/30/20 23:59 23:59 23:59 Intake Total 5662.12 / 5705.75 3217.44 / 3240.70 241.60 / 241.60 Output Total 1100 / 1100 1593 / 1603 40 / 40 Balance 4562.12 / 4605.75 1624.44 / 1637.70 201.60 / 201.60 General: Alert, Oriented x3, Cooperative, No apparent distress HEENT: Atraumatic, PERRLA, EOMI, Normocephalic Oral: Moist Mucosa Neck: Supple, No JVD Lungs: Clear to auscultation, Normal air movement, No rhonchi, No wheeze, No rales Cardiovascular: Regular rate, Regular Rhythm, Normal S1, Normal S2, No murmurs Abdomen: Soft, Non Tender, Non-Distended, No Hepato-splenomegaly Skin: No rashes, No breakdown Neurological: Neuro grossly intact, Sensory exam intact to light touch and pain Psych/Mental Status: Normal Affect, Appropriate Microbiology Past 72 Hours 11/27/20 10:00 Urine Catheter - Catheter Urine Culture - Final Aurora albicans 11/27/20 12:25 Interface Orders Gram Stain - Final 11/27/20 12:25 Interface Orders Respiratory Culture - Preliminary Culture exhibits no growth. 11/27/20 09:25 Blood Culture (Wb) - Anticubital Right Blood Culture - Preliminary No growth in 48 hours. 11/27/20 09:25 Blood Culture (Wb) - Anticubital Left Blood Culture - Preliminary No growth in 48 hours. 11/27/20 13:04 Mucosa - Nose SARS-CoV-2 Antigen (Rapid) - Final Laboratory Results 11/27/20 19:30: Hep B Core Total Ab Negative 11/29/20 11:37: POC Glucose 137 H 11/29/20 17:20: POC Glucose 135 H 11/29/20 23:48: POC Glucose 123 H 11/30/20 05:15: Random Vancomycin 20.4 H 11/30/20 05:15: Sodium 134 L, Potassium 3.8, Chloride 100, Carbon Dioxide 26.0, BUN 18, Creatinine 1.87 H, Estim Creat Clear Calc 22.03, Est GFR (MDRD) Af Amer 34 L, Est GFR (MDRD) Non-Af 29 L, BUN/Creatinine Ratio 9.6 L, Glucose 110 H, Calcium 7.3 L, Phosphorus 2.5, Albumin 2.1 L 11/30/20 05:15: WBC 11.4 H, RBC 3.64 L, Hgb 10.4 L, Hct 30.8 L, MCV 84.6, MCH 28.6, MCHC 33.8, RDW Std Deviation 49.3 H, RDW Coeff of Hawa 15.9 H, Plt Count 103 L, MPV 11.5, Immature Gran % (Auto) 0.400, Neut % (Auto) 76.0 H, Lymph % (Auto) 13.9 L, [place] % (Auto) 8.5, Eos % (Auto) 0.7, Baso % (Auto) 0.5, Absolute Neuts (auto) 8.7 H, Absolute Lymphs (auto) 1.59, Nucleated RBC % 0 11/30/20 05:15: Sodium 136, Potassium 3.9, Chloride 101, Carbon Dioxide 26.0, Anion Gap 9, BUN 18, Creatinine 1.88 H, Estim Creat Clear Calc 21.91, Est GFR (MDRD) Af Amer 34 L, Est GFR (MDRD) Non-Af 28 L, BUN/Creatinine Ratio 9.6 L, Glucose 109 H, Calcium 7.4 L, Total Bilirubin 0.80, AST 157 H, ALT 90 H, Alkaline Phosphatase 128 H, Total Protein 4.7 L, Albumin 2.1 L, Globulin 2.6, Albumin/Globulin Ratio 0.8 L 11/30/20 05:36: POC Glucose 105 Current Medications Dextrose (Dextrose 50%-Water 25 Gm/50 Ml Disp.Syrin) 0 gm IV X1 PRN; Protocol PRN Reason: Hypoglycemia Glucagon (Glucagon 1 Mg/Ml Syringe) 1 mg IM .X1 PRN PRN Reason: Hypoglycemia Heparin Sodium (Porcine) (Heparin Injection (Vial) 5,000 Unit/Ml Vial) 5,000 unit SC Q8 SVEN Last Admin: 11/30/20 05:39 Dose: 5,000 unit Documented by: Heparin Sodium (Porcine) (Heparin 10,000 Units/10 Ml Vial) 0 units IV X1 PRN PRN Reason: DIALYSIS Last Admin: 11/28/20 15:36 Dose: 1.3 units Documented by: Norepinephrine Bitartrate 8 mg (/ Sodium Chloride) 250 mls @ 9.375 mls/hr CONT INF .[id number] [facility]; Protocol Last Titration: 11/30/20 09:00 Dose: 1 mcg/min, 1.9 mls/hr Documented by: Meropenem 500 mg/ Sodium (Chloride) 60 mls @ 100 mls/hr IV Q24H SVEN Last Infusion: 11/29/20 14:48 Dose: Infused Documented by: Pantoprazole Sodium 40 mg/ (Sodium Chloride) 110 mls @ 330 mls/hr IV Q24 SVEN Last Admin: 11/30/20 09:25 Dose: 330 mls/hr Documented by: Vancomycin IV Pharmacy to Dose (1 each/ Sodium Chloride) 500 mls @ 250 mls/hr IV X1 PRN; Protocol PRN Reason: Rx to Dose Dexmedetomidine HCl 400 mcg/ (Sodium Chloride) 100 mls @ 8.375 mls/hr CONT INF .[id number] [facility]; Protocol Last Admin: 11/30/20 09:25 Dose: Not Given Documented by: Sodium Chloride () 250 mls @ 15 mls/hr IV .[id number] PRN PRN Reason: Saline Flush Last Infusion: 11/29/20 14:48 Dose: 0 mls/hr Documented by: Sodium Chloride () 250 mls @ 15 mls/hr IV .[id number] PRN PRN Reason: Additional IVPB Infusion Last Infusion: 11/29/20 14:48 Dose: 0 mls/hr Documented by: Insulin Human Lispro (Insulin Lispro 100 Unit/Ml Insuln.Pen) 0 unit SC Q6 [facility]; Protocol Last Admin: 11/30/20 05:39 Dose: Not Given Documented by: Ondansetron HCl (Ondansetron 4 Mg/2 Ml Vial) 4 mg IV Q8H PRN PRN PRN Reason: NAUSEA/VOMITING Quetiapine Fumarate (Quetiapine 25 Mg Tablet) 50 mg PO BID SVEN Last Admin: 11/30/20 09:26 Dose: Not Given Documented by: Sodium Chloride (0.9% Saline Lock 10 Ml Syringe) 10 - 40 ml IV UD PRN PRN Reason: SALINE FLUSH Last Admin: 11/29/20 09:24 Dose: 40 ml Documented by: STROKE Vital Signs/Narrative: Vital Signs Temp Pulse Resp BP Pulse Ox 11/30/20 09:00 94/50 L 11/30/20 08:45 101/68 11/30/20 08:00 100.2 F H 114 H 22 H 120/72 95 11/30/20 07:39 86 11/30/20 07:00 100.3 F H 113 H 20 H 100/54 L 94 11/30/20 06:08 97 11/30/20 06:00 100.4 F H 103 H 23 H 101/85 H 93 Medical Necessity - Tobacco Use Smoking Status: Current every day smoker Tobacco Use: Cigarettes Assessment/Plan All Active Problems (Last Reviewed 09/09/20 @ 07:[address] Dashawn Acevedo MD) Acute respiratory failure (Acute) Metabolic acidosis (Acute) Pyelonephritis (Acute) Acute renal failure (Acute) Aspiration into airway (Acute) Uremia (Acute) Hyperphosphatemia (Acute) Hypovolemic shock (Acute) Septic shock (Acute) 1. Septic shock and acute hypoxic respiratory failure secondary to aspiration pneumonia with an anion gap metabolic acidosis/SANTI/hypocalcemia/metabolic encephalopathy -She is currently intubated and sedated -We will continue with her vancomycin and meropenem -Blood cultures are pending, urine cultures with Aurora -Appreciate nephrology assistance. She is receiving dialysis secondary to her acute lactic acidosis which is likely combination of her Metformin use and her SANTI -Appreciate ID assistance -Continue to monitor creatinine, it is improving -Calcium of 6.4, currently being replaced -Continue with Levophed, wean as able -Continue with Seroquel for confusion and encephalopathy 2. DM 2 -Hold Metformin -Accu-Cheks every 4 hours, sliding scale insulin will make adjustments as nece ssary 3. HTN/HLD -She is on pressor support, therefore continue to hold her home blood pressure medications -Can restart Crestor when able to take p.o. DVT: Heparin Inpatient E&M: 10096 Subs Hosp L2
--- NOTE | 2020-11-30 09:48 | NURSING ---
attempted dysphagia screen, pt followed commands and able to complete teaspoon of water x2, then refused to drink from cup and refusing applesauce, stated Im not doing that, I am not taking any pills and I am not hungry, leave me alone. This RN ensured call light within reach, bed in low position, restaints remain intact, and left room.
[2020-11-30 09:55] LABS: Magnesium 2.1 mg/dL (1.6-2.6)
[2020-11-30 13:16] LABS: Bedside Glucose 99 mg/dL (70-110)
--- NOTE | 2020-11-30 14:27 | PHA.PHARE_ITS ---
Consult Pharmacy has been consulted to manage selected antiobiotic: Vancomycin Type of Consult: Follow-up Prior Doses of Antibiotics Received/Current Regimen: last dose given was last night 11/29/20 at 22:39 (750mg x1) Labs: Sodium 134 mmol/L (136-145) L 11/30/20 05:15 Sodium 136 mmol/L (136-145) 11/30/20 05:15 Potassium 3.8 mmol/L (3.5-5.1) 11/30/20 05:15 Potassium 3.9 mmol/L (3.5-5.1) 11/30/20 05:15 Chloride 100 mmol/L (98-107) 11/30/20 05:15 Chloride 101 mmol/L (98-107) 11/30/20 05:15 Carbon Dioxide 26.0 mmol/L (21.0-32.0) 11/30/20 05:15 Carbon Dioxide 26.0 mmol/L (21.0-32.0) 11/30/20 05:15 Anion Gap 9 (5-15) 11/30/20 05:15 BUN 18 mg/dL (7-18) 11/30/20 05:15 BUN 18 mg/dL (7-18) 11/30/20 05:15 Creatinine 1.87 mg/dL (0.55-1.02) H 11/30/20 05:15 Creatinine 1.88 mg/dL (0.55-1.02) H 11/30/20 05:15 Est GFR (MDRD) Af Amer 34 mL/min (>60) L 11/30/20 05:15 Est GFR (MDRD) Af Amer 34 mL/min (>60) L 11/30/20 05:15 Est GFR (MDRD) Non-Af 28 mL/min (>60) L 11/30/20 05:15 Est GFR (MDRD) Non-Af 29 mL/min (>60) L 11/30/20 05:15 BUN/Creatinine Ratio 9.6 RATIO (10-20) L 11/30/20 05:15 BUN/Creatinine Ratio 9.6 RATIO (10-20) L 11/30/20 05:15 Glucose 109 mg/dL (74-106) H 11/30/20 05:15 Glucose 110 mg/dL (74-106) H 11/30/20 05:15 Random Vancomycin 20.4 ug/mL (0.0-15.0) H 11/30/20 05:15 Microbiology: Microbiology 11/27/20 12:25 Interface Orders Gram Stain - Final 11/27/20 12:25 Interface Orders Respiratory Culture - Final Culture exhibits no growth. 11/27/20 10:00 Urine Catheter - Catheter Urine Culture - Final Aurora albicans 11/27/20 09:25 Blood Culture (Wb) - Anticubital Right Blood Culture - Preliminary No growth in 48 hours. 11/27/20 09:25 Blood Culture (Wb) - Anticubital Left Blood Culture - Preli minary No growth in 48 hours. 11/27/20 13:04 Mucosa - Nose SARS-CoV-2 Antigen (Rapid) - Final Weight used for dosin.8 kg Estimated Creatinine Clearance: 22ml/min Goal Trough: 15-20 mcg/mL Pharmacy Plan for Drug Dosing: The vanc random level drawn this morning was 20.4. Per protocol, no dose needed to be given today since it is >20. It is unclear at this time if patient will be getting more dialysis today or tomorrow so will order another random level to be drawn early tomorrow morning. That level can help determine if patient is to receive a dose tomorrow, regardless of dialysis status. Pharmacy Service will continue to monitor and adjust dosing as required. Follow-Up Labs: Trough Vancomycin - random Labs to be done on [date and time ordered]: 12/01/20 0600
[2020-11-30 17:20] LABS: Bedside Glucose 84 mg/dL (70-110)
[2020-11-30] MEDS: Menthol/Lanolin/Calamine/Znox 113 GM Tube 1 APPLIC TOPICAL (20:47)
[2020-11-30 22:36] LABS: Bedside Glucose 75 mg/dL (70-110)
[2020-11-30 23:56] LABS: Bedside Glucose 75 mg/dL (70-110)
[2020-12-01] VITALS (18 sets, daily range): BP systolic 107–145; BP diastolic 58–80; PULSE 68–122; RESP 14–21; TEMP 36.3–37.1; O2SAT 93–97
[2020-12-01 02:21] LABS: Bedside Glucose 73 mg/dL (70-110)
[2020-12-01 04:41] LABS: Vancomycin, Random Level 17.2 ug/mL (0.0-15.0)
[2020-12-01] MEDS: Menthol/Lanolin/Calamine/Znox 113 GM Tube 1 APPLIC TOPICAL ×3 (05:24→21:36)
[2020-12-01] MEDS: Heparin Injection (Vial) 5,000 UNIT/ML VIAL 5000 UNIT SC ×3 (05:24→21:36)
[2020-12-01] MEDS: Dextrose 50%-Water 25 GM/50 ML DISP.SYRIN IV (05:26)
[2020-12-01 05:36] LABS: Bedside Glucose 71 mg/dL (70-110)
[2020-12-01 05:43] LABS: Absolute Lymphocyte Count 0.92 X10^3/uL (0.83-4.51); Absolute Neutrophil Count 7.5 X10^3/uL (2.0-7.7); Basophil# 0.04 X10^3/uL; Basophil% 0.4 % (0-1); Eosinophils% 2.1 % (0-5); Hemoglobin 9.3 g/dL (12.0-15.0); Lymphocyte # 0.92 X10^3/ul (4.0); Lymphocyte % 9.7 % (19-41); Mean Corp Hgb Conc 32.1 g/dL (32-36); Mean Corpuscular Hgb 27.9 pg (27.0-32.0); Mean Corpuscular Volume 87.1 fL (81-99); Mean Platelet Vol. 12.9 fl (6.2-12.0); Monocyte# 0.81 X10^3/uL; Monocyte% 8.5 % (0-10); NRBC Flagged by Analyzer 0 % (0-5); Neutrophil # 7.52 X10^3/uL (2.7-7.7); POSITIVE COUNT YES; Platelet Count 71 K/mm3 (150-450); RBC Distribution Width CV 16.3 % (11.6-14.6); RBC Distribution Width SD 51.8 fl (35.1-43.9); Red Blood Count 3.33 M/mm3 (4.2-5.4); White Blood Count 9.5 K/mm3 (4.4-11.0)
[2020-12-01 05:44] LABS: Differential Indicated SCAN CRITERIA MET
[2020-12-01 05:51] LABS: Bedside Glucose 123 mg/dL (70-110)
[2020-12-01 05:52] LABS: Anion Gap 10 (5-15); BUN 32 mg/dL (7-18); BUN/Creat Ratio 10.1 RATIO (10-20); Chloride 103 mmol/L (98-107); Creatinine, Serum 3.16 mg/dL (0.55-1.02); EST Glomerular Filtration Rate 16 mL/min (>60); Est Glom Filt Rate - Afr Amer 19 mL/min (>60); Estimated Creatinine Clearance 13.04 ml/min; Glucose 73 mg/dL (74-106); Phosphorus 4.4 mg/dL (2.5-4.9); Potassium 3.8 mmol/L (3.5-5.1); Sodium Level 138 mmol/L (136-145)
--- NOTE | 2020-12-01 06:50 | PN_ITS ---
Subjective: Patient did well overnight. Patient was able to be taken off of pressor agents at approximately 10 AM yesterday. Patient tolerated room air overnight. Patient was very apologetic about being resistant earlier in the week to care. Patient denies any current chest pain or abdominal pain. Patient does report neck irritation, but believes this is secondary to her lines. Patient did have some hypoglycemia overnight secondary to n.p.o. status. Patient was not started on IV fluids secondary to concerns for fluid status. Objective: Patient did not receive hemodialysis yesterday. General: Alert, Oriented x3, Cooperative, No apparent distress, - - No conversational dyspnea. Appears older than stated age. HEENT: Atraumatic, PERRLA, EOMI, Normocephalic, - - No scleral icterus or injection noted Oral: Moist Mucosa, No Gingival or Mucosal Lesions/ Ulcerations Neck: Supple, No Nodes, Trachea Midline, - - Lines are clean, dry and intact Lungs: Clear to auscultation, Normal air movement, No rhonchi, No wheeze, No rales, - - Symmetric expansion. No dullness to percussion. Cardiovascular: Regular rate, Regular Rhythm, Normal S1, Normal S2, No murmurs, No rub noted, No Gallop Abdomen: Bowel Sounds Present, Soft, Non Tender, Non-Distended Vital Signs Temp Pulse Resp BP Pulse Ox 36.6 C 76 17 125/71 H 95 12/01/20 04:00 12/01/20 06:00 12/01/20 06:00 12/01/20 06:00 12/01/20 06:00 Oxygen Flow Rate (L/min) 2 Oxygen Delivery Method Room Air Weight: 65.8 kg Body Mass Index (BMI) 25.1 Finger Stick Blood Glucose 80 Intake and Output for Last 24 Hours 11/29/20 11/30/20 12/01/20 23:59 23:59 23:59 Intake Total 3217.44 / 3240.70 419.48 / 419.48 Output Total 1593 / 1603 490 / 490 80 / 80 Balance 1624.44 / 1637.70 -70.52 / -70.52 -80 / -80 Labs (Last 48 Hours) 11/27/20 11/29/20 11/29/20 19:30 11:37 17:20 WBC RBC Hgb Hct MCV MCH MCHC RDW Std Deviation RDW Coeff of Hawa Plt Count MPV Immature Gran % (Auto) Neut % (Auto) Lymph % (Auto) [place] % (Auto) Eos % (Auto) Baso % (Auto) Absolute Neuts (auto) Absolute Lymphs (auto) Nucleated RBC % Sodium Potassium Chloride Carbon Dioxide Anion Gap BUN Creatinine Estim Creat Clear Calc Est GFR (MDRD) Af Amer Est GFR (MDRD) Non-Af BUN/Creatinine Ratio Glucose Calcium Phosphorus Magnesium Total Bilirubin AST ALT Alkaline Phosphatase Total Protein Albumin Globulin Albumin/Globulin Ratio Random Vancomycin Hep B Core Total Ab Negative POC Glucose 137 H 135 H 11/29/20 11/30/20 11/30/20 23:48 05:15 05:15 WBC RBC Hgb Hct MCV MCH MCHC RDW Std Deviation RDW Coeff of Hawa Plt Count MPV Immature Gran % (Auto) Neut % (Auto) Lymph % (Auto) [place] % (Auto) Eos % (Auto) Baso % (Auto) Absolute Neuts (auto) Absolute Lymphs (auto) Nucleated RBC % Sodium 134 L Potassium 3.8 Chloride 100 Carbon Dioxide 26.0 Anion Gap BUN 18 Creatinine 1.87 H Estim Creat Clear Calc 22.03 Est GFR (MDRD) Af Amer 34 L Est GFR (MDRD) Non-Af 29 L BUN/Creatinine Ratio 9.6 L Glucose 110 H Calcium 7.3 L Phosphorus 2.5 Magnesium Total Bilirubin AST ALT Alkaline Phosphatase Total Protein Albumin 2.1 L Globulin Albumin/Globulin Ratio Random Vancomycin 20.4 H Hep B Core Total Ab POC Glucose 123 H 11/30/20 11/30/20 11/30/20 05:15 05:15 05:15 WBC 11.4 H RBC 3.64 L Hgb 10.4 L Hct 30.8 L MCV 84.6 MCH 28.6 MCHC 33.8 RDW Std Deviation 49.3 H RDW Coeff of Hawa 15.9 H Plt Count 103 L MPV 11.5 Immature Gran % (Auto) 0.400 Neut % (Auto) 76.0 H Lymph % (Auto) 13.9 L [place] % (Auto) 8.5 Eos % (Auto) 0.7 Baso % (Auto) 0.5 Absolute Neuts (auto) 8.7 H Absolute Lymphs (auto) 1.59 Nucleated RBC % 0 Sodium 136 Potassium 3.9 Chloride 101 Carbon Dioxide 26.0 Anion Gap 9 BUN 18 Creatinine 1.88 H Estim Creat Clear Calc 21.91 Est GFR (MDRD) Af Amer 34 L Est GFR (MDRD) Non-Af 28 L BUN/Creatinine Ratio 9.6 L Glucose 109 H Calcium 7.4 L Phosphorus Magnesium 2.1 Total Bilirubin 0.80 AST 157 H ALT 90 H Alkaline Phosphatase 128 H Total Protein 4.7 L Albumin 2.1 L Globulin 2.6 Albumin/Globulin Ratio 0.8 L Random Vancomycin Hep B Core Total Ab POC Glucose 11/30/20 11/30/20 11/30/20 05:36 11:39 17:18 WBC RBC Hgb Hct MCV MCH MCHC RDW Std Deviation RDW Coeff of Hawa Plt Count MPV Immature Gran % (Auto) Neut % (Auto) Lymph % (Auto) [place] % (Auto) Eos % (Auto) Baso % (Auto) Absolute Neuts (auto) Absolute Lymphs (auto) Nucleated RBC % Sodium Potassium Chloride Carbon Dioxide Anion Gap BUN Creatinine Estim Creat Clear Calc Est GFR (MDRD) Af Amer Est GFR (MDRD) Non-Af BUN/Creatinine Ratio Glucose Calcium Phosphorus Magnesium Total Bilirubin AST ALT Alkaline Phosphatase Total Protein Albumin Globulin Albumin/Globulin Ratio Random Vancomycin Hep B Core Total Ab POC Glucose 105 99 84 11/30/20 11/30/20 12/01/20 22:30 23:50 02:15 WBC RBC Hgb Hct MCV MCH MCHC RDW Std Deviation RDW Coeff of Hawa Plt Count MPV Immature Gran % (Auto) Neut % (Auto) Lymph % (Auto) [place] % (Auto) Eos % (Auto) Baso % (Auto) Absolute Neuts (auto) Absolute Lymphs (auto) Nucleated RBC % Sodium Potassium Chloride Carbon Dioxide Anion Gap BUN Creatinine Estim Creat Clear Calc Est GFR (MDRD) Af Amer Est GFR (MDRD) Non-Af BUN/Creatinine Ratio Glucose Calcium Phosphorus Magnesium Total Bilirubin AST ALT Alkaline Phosphatase Total Protein Albumin Globulin Albumin/Globulin Ratio Random Vancomycin Hep B Core Total Ab POC Glucose 75 75 73 12/01/20 12/01/20 12/01/20 03:40 03:40 04:00 WBC 9.5 RBC 3.33 L Hgb 9.3 L Hct 29.0 L MCV 87.1 MCH 27.9 MCHC 32.1 D RDW Std Deviation 51.8 H RDW Coeff of Hawa 16.3 H Plt Count 71 L MPV 12.9 H Immature Gran % (Auto) 0.300 Neut % (Auto) 79.0 H Lymph % (Auto) 9.7 L [place] % (Auto) 8.5 Eos % (Auto) 2.1 Baso % (Auto) 0.4 Absolute Neuts (auto) 7.5 Absolute Lymphs (auto) 0.92 Nucleated RBC % 0 Sodium 138 Potassium 3.8 Chloride 103 Carbon Dioxide 25.0 Anion Gap 10 BUN 32 H Creatinine 3.16 H Estim Creat Clear Calc 13.04 Est GFR (MDRD) Af Amer 19 L Est GFR (MDRD) Non-Af 16 L BUN/Creatinine Ratio 10.1 Glucose 73 L Calcium 8.0 L Phosphorus 4.4 Magnesium 2.0 Total Bilirubin AST ALT Alkaline Phosphatase Total Protein Albumin Globulin Albumin/Globulin Ratio Random Vancomycin 17.2 H Hep B Core Total Ab POC Glucose 12/01/20 12/01/20 05:22 05:46 WBC RBC Hgb Hct MCV MCH MCHC RDW Std Deviation RDW Coeff of Hawa Plt Count MPV Immature Gran % (Auto) Neut % (Auto) Lymph % (Auto) [place] % (Auto) Eos % (Auto) Baso % (Auto) Absolute Neuts (auto) Absolute Lymphs (auto) Nucleated RBC % Sodium Potassium Chloride Carbon Dioxide Anion Gap BUN Creatinine Estim Creat Clear Calc Est GFR (MDRD) Af Amer Est GFR (MDRD) Non-Af BUN/Creatinine Ratio Glucose Calcium Phosphorus Magnesium Total Bilirubin AST ALT Alkaline Phosphatase Total Protein Albumin Globulin Albumin/Globulin Ratio Random Vancomycin Hep B Core Total Ab POC Glucose 71 123 H Microbiology 11/27/20 12:25 Interface Orders Gram Stain - Final 11/27/20 12:25 Interface Orders Respiratory Culture - Final Culture exhibits no growth. 11/27/20 10:00 Urine Catheter - Catheter Urine Culture - Final Aurora albicans 11/27/20 09:25 Blood Culture (Wb) - Anticubital Right Blood Culture - Preliminary No growth in 48 hours. 11/27/20 09:25 Blood Culture (Wb) - Anticubital Left Blood Culture - Preliminary No growth in 48 hours. Medical Necessity - Tobacco Use Smoking Status: Current every day smoker Tobacco Use: Cigarettes Assessment/Plan All Active Problems (Last Reviewed 09/09/20 @ 07:[address] Dashawn Acevedo MD) Acute respiratory failure (Acute) Metabolic acidosis (Acute) Pyelonephritis (Acute) Acute renal failure (Acute) Aspiration into airway (Acute) Uremia (Acute) Hyperphosphatemia (Acute) Hypovolemic shock (Acute) Septic shock (Acute) RECOMMENDATIONS: 1. Increase activity as tolerated 2. Await response to swallow study 3. Encourage incentive spirometer use and mobilize patient as tolerated. 4. Continue antimicrobials per ID recommendations. 5. Await nephrology recommendations 6. Okay to leave the intensive care unit from my perspective 7. Possibly initiate low flow D10 drip for hypoglycemia IMPRESSIONS: 1. Septic shock Clinical concern for either urinary tract source of infection and aspiration pneumonia. The patient has improved clinically, having previously required 3 vasopressors to maintain hemodynamic stability. She is currently off all pressors. She has been adequately volume resuscitated. Antimicrobials will be continued as ordered. Attempting to limit IV fluids at this point given patient is currently hemodynamically stable 2. Acute hypoxemic respiratory failure Improved. Concern for aspiration event as precipitating etiology. The patient was intubated in the emergency department. The patient is oxygenation status has improved and she was able to be extubated on the morning of November 30. Plan to wean supplemental oxygen to maintain saturations at or above 90%. Encourage incentive spirometer use and mobilize patient as tolerated. 3. Encephalopathy Resolved. Likely metabolic in etiology. Plan to continue current supportive measures as noted above. 4. Profound anion gap metabolic acidosis/acute kidney injury/lactic acidemia Improved. Likely due to a combination of profound intravascular volume depletion in the setting of GI losses coupled with concurrent use of Metformin. The patient has responded well to hemodialysis. Plan to continue supportive measures per nephrology recommendations. Patient did not have dialysis yesterday with significant worsening in creatinine. Patient with marginal urine output at this time. 5. History of diabetes mellitus/hypertension/hyperlipidemia/GERD Complicates care, management, recovery and prognosis. Continue to hold antihypertensives. Inpatient E&M: [id number] [facility] Hosp L3
--- NOTE | 2020-12-01 07:46 | PCM.RX.CS ---
Consult Pharmacy has been consulted to manage selected antiobiotic: Vancomycin Type of Consult: Follow-up Prior Doses of Antibiotics Received/Current Regimen: Last dose was 750mg iv x 1 on 11.29.20. Labs: Sodium 138 mmol/L (136-145) 12/01/20 03:40 Potassium 3.8 mmol/L (3.5-5.1) 12/01/20 03:40 Chloride 103 mmol/L (98-107) 12/01/20 03:40 Carbon Dioxide 25.0 mmol/L (21.0-32.0) 12/01/20 03:40 Anion Gap 10 (5-15) 12/01/20 03:40 BUN 32 mg/dL (7-18) H 12/01/20 03:40 Creatinine 3.16 mg/dL (0.55-1.02) H 12/01/20 03:40 Est GFR (MDRD) Af Amer 19 mL/min (>60) L 12/01/20 03:40 Est GFR (MDRD) Non-Af 16 mL/min (>60) L 12/01/20 03:40 BUN/Creatinine Ratio 10.1 RATIO (10-20) 12/01/20 03:40 Glucose 73 mg/dL (74-106) L 12/01/20 03:40 Random Vancomycin 17.2 ug/mL (0.0-15.0) H 12/01/20 04:00 Microbiology: Microbiology 11/27/20 12:25 Interface Orders Gram Stain - Final 11/27/20 12:25 Interface Orders Respiratory Culture - Final Culture exhibits no growth. 11/27/20 10:00 Urine Catheter - Catheter Urine Culture - Final Aurora albicans 11/27/20 09:25 Blood Culture (Wb) - Anticubital Right Blood Culture - Preliminary No growth in 48 hours. 11/27/20 09:25 Blood Culture (Wb) - Anticubital Left Blood Culture - Preliminary No growth in 48 hours. 11/27/20 13:04 Mucosa - Nose SARS-CoV-2 Antigen (Rapid) - Final Weight used for dosin.8 kg Estimated Creatinine Clearance: 13 ml/min Goal Trough: 15-20 mcg/mL Pharmacy Plan for Drug Dosing: Random level this AM was 17.2. Have ordered 500mg iv x 1 post dialysis today per protocol. Another random level ordered for 03.04.21 in AM. Pharmacy Service will continue to monitor and adjust dosing as required. Follow-Up Labs: Trough Vancomycin - random 12.02.20 @0600
[2020-12-01 08:51] LABS: Bedside Glucose 76 mg/dL (70-110)
--- NOTE | 2020-12-01 09:38 | PCM.PN.HOSP ---
Patient Problems: Active and Suspected Problems (Last Reviewed 09/09/20 @ 07:[address] Dashawn Acevedo MD) Acute respiratory failure (Acute) Metabolic acidosis (Acute) Pyelonephritis (Acute) Acute renal failure (Acute) Aspiration into airway (Acute) Uremia (Acute) Hyperphosphatemia (Acute) Hypovolemic shock (Acute) Septic shock (Acute) Subjective: Doing well, no issues overnight Vitals/I&O's: Vital Signs Temp Pulse Resp BP Pulse Ox 97.7 F L 81 19 H 122/67 H 95 12/01/20 08:00 12/01/20 08:00 12/01/20 08:00 12/01/20 08:00 12/01/20 08:00 Oxygen Flow Rate (L/min) 2 Oxygen Delivery Method Room Air Weight: 145 lb 1.027 oz Body Mass Index (BMI) 25.1 Finger Stick Blood Glucose 80 Intake and Output for Last 24 Hours 11/29/20 11/30/20 12/01/20 23:59 23:59 23:59 Intake Total 3217.44 / 3240.70 419.48 / 419.48 Output Total 1593 / 1603 490 / 490 80 / 80 Balance 1624.44 / 1637.70 -70.52 / -70.52 -80 / -80 General: Alert, Oriented x3, Cooperative, No apparent distress HEENT: Atraumatic, PERRLA, EOMI, Normocephalic Oral: Moist Mucosa Neck: Supple, No JVD Lungs: Clear to auscultation, Normal air movement, No rhonchi, No wheeze, No rales Cardiovascular: Regular rate, Regular Rhythm, Normal S1, Normal S2, No murmurs Abdomen: Soft, Non Tender, Non-Distended, No Hepato-splenomegaly Skin: No rashes, No breakdown Neurological: Neuro grossly intact, Sensory exam intact to light touch and pain Psych/Mental Status: Normal Affect, Appropriate Microbiology Past 72 Hours 11/27/20 12:25 Interface Orders Gram Stain - Final 11/27/20 12:25 Interface Orders Respiratory Culture - Final Culture exhibits no growth. 11/27/20 10:00 Urine Catheter - Catheter Urine Culture - Final Aurora albicans 11/27/20 09:25 Blood Culture (Wb) - Anticubital Right Blood Culture - Preliminary No growth in 48 hours. 11/27/20 09:25 Blood Culture (Wb) - Anticubital Left Blood Culture - Preliminary No growth in 48 hours. Laboratory Results 11/30/20 05:15: Magnesium 2.1 11/30/20 11:39: POC Glucose 99 11/30/20 17:18: POC Glucose 84 11/30/20 22:30: POC Glucose 75 11/30/20 23:50: POC Glucose 75 12/01/20 02:15: POC Glucose 73 12/01/20 03:40: WBC 9.5, RBC 3.33 L, Hgb 9.3 L, Hct 29.0 L, MCV 87.1, MCH 27.9, MCHC 32.1 D, RDW Std Deviation 51.8 H, RDW Coeff of Hawa 16.3 H, Plt Count 71 L, MPV 12.9 H, Immature Gran % (Auto) 0.300, Neut % (Auto) 79.0 H, Lymph % (Auto) 9.7 L, [place] % (Auto) 8.5, Eos % (Auto) 2.1, Baso % (Auto) 0.4, Absolute Neuts (auto) 7.5, Absolute Lymphs (auto) 0.92, Nucleated RBC % 0 12/01/20 03:40: Sodium 138, Potassium 3.8, Chloride 103, Carbon Dioxide 25.0, Anion Gap 10, BUN 32 H, Creatinine 3.16 H, Estim Creat Clear Calc 13.04, Est GFR (MDRD) Af Amer 19 L, Est GFR (MDRD) Non-Af 16 L, BUN/Creatinine Ratio 10.1, Glucose 73 L, Calcium 8.0 L, Phosphorus 4.4, Magnesium 2.0 12/01/20 04:00: Random Vancomycin 17.2 H 12/01/20 05:22: POC Glucose 71 12/01/20 05:46: POC Glucose 123 H 12/01/20 08:26: POC Glucose 76 Current Medications Calamine/Phenol (Menthol/Lanolin/Calamine/Znox 113 Gm Tube) 1 applic TOPICAL TID SVEN; Protocol Last Admin: 12/01/20 05:24 Dose: 1 applic Documented by: Dextrose (Dextrose 50%-Water 25 Gm/50 Ml Disp.Syrin) 0 gm IV X1 PRN; Protocol PRN Reason: Hypoglycemia Last Admin: 12/01/20 05:26 Dose: 12.5 gm Documented by: Glucagon (Glucagon 1 Mg/Ml Syringe) 1 mg IM .X1 PRN PRN Reason: Hypoglycemia Heparin Sodium (Porcine) (Heparin Injection (Vial) 5,000 Unit/Ml Vial) 5,000 unit SC Q8 SVEN Last Admin: 12/01/20 05:24 Dose: 5,000 unit Documented by: Heparin Sodium (Porcine) (Heparin 10,000 Units/10 Ml Vial) 0 units IV X1 PRN PRN Reason: DIALYSIS Last Admin: 11/28/20 15:36 Dose: 1.3 units Documented by: Meropenem 500 mg/ Sodium (Chloride) 60 mls @ 100 mls/hr IV Q24H SVEN Last Infusion: 11/30/20 14:37 Dose: Infused Documented by: Pantoprazole Sodium 40 mg/ (Sodium Chloride) 110 mls @ 330 mls/hr IV Q24 SVEN Last Infusion: 11/30/20 09:45 Dose: Infused Documented by: Vancomycin IV Pharmacy to Dose (1 each/ Sodium Chloride) 500 mls @ 250 mls/hr IV X1 PRN; Protocol PRN Reason: Rx to Dose Sodium Chloride () 250 mls @ 15 mls/hr IV .[id number] PRN PRN Reason: Saline Flush Last Infusion: 11/30/20 15:17 Dose: Infused Documented by: Vancomycin HCl () 500 mg in 100 mls @ 100 mls/hr IV X1 ONE Stop: 12/01/20 16:59 Ondansetron HCl (Ondansetron 4 Mg/2 Ml Vial) 4 mg IV Q8H PRN PRN PRN Reason: NAUSEA/VOMITING Sodium Chloride (0.9% Saline Lock 10 Ml Syringe) 10 - 40 ml IV UD PRN PRN Reason: SALINE FLUSH Last Admin: 11/29/20 09:24 Dose: 40 ml Documented by: STROKE Vital Signs/Narrative: Vital Signs Temp Pulse Resp BP BP Pulse Ox 12/01/20 08:00 97.7 F L 81 19 H 122/67 H 95 12/01/20 07:00 97.4 F L 68 14 107/70 96 12/01/20 06:00 76 17 125/71 H 95 Medical Necessity - Tobacco Use Smoking Status: Current every day smoker Tobacco Use: Cigarettes Assessment/Plan All Active Problems (Last Reviewed 09/09/20 @ 07:[address] Dashawn Acevedo MD) Acute respiratory failure (Acute) Metabolic acidosis (Acute) Pyelonephritis (Acute) Acute renal failure (Acute) Aspiration into airway (Acute) Uremia (Acute) Hyperphosphatemia (Acute) Hypovolemic shock (Acute) Septic shock (Acute) 1. Septic shock and acute hypoxic respiratory failure secondary to aspiration pneumonia with an anion gap metabolic acidosis/SANTI/hypocalcemia/metabolic encephalopathy -Extubated 11/30/2020 -We will continue with her vancomycin and meropenem -Blood cultures are negative, urine cultures with Aurora -Appreciate nephrology assistance. She is receiving dialysis secondary to her acute lactic acidosis which is likely combination of her Metformin use and her SANTI -Appreciate ID assistance -Continue to monitor creatinine, receiving dialysis today and will try to remove at least 2 L if possible -Hypercalcemia has resolved -Levophed is currently discontinued -She appears much more mentally stable at the moment and is apologetic about her previous behavior therefore can discontinue her Seroquel 2. DM 2 -Hold Metformin -Accu-Cheks every 4 hours, sliding scale insulin will make adjustments as necessary -May need to start a D10 drip given her hypoglycemia however we will try her on p.o. intake again today 3. HTN/HLD -She is on pressor support, therefore continue to hold her home blood pressure medications -Can restart Crestor when able to take p.o. DVT: Heparin Inpatient E&M: 56855 Subs Hosp L2
--- NOTE | 2020-12-01 09:56 | CASEMGMT ---
SW attempted to meet w/pt in room, as pt is alert and oriented at this time. However, pt is sleeping and getting dialysis. SW did note in PT documentation pt would like to go to TCU. SW put pt on the list, however if pt needs dialysis she will not be able to go there. SW will follow up w/pt after dialysis or when pt is awake. CORRIE Hobbs
--- NOTE | 2020-12-01 10:40 | NURSING ---
report called to FIELD SERVICE TECHNICIAN
--- NOTE | 2020-12-01 11:31 | CASEMGMT ---
SW met w/pt in room during dialysis, reviewed discharge options. It is not certain that pt will need to go to a SNF, but if she does SW provided a list of nursing to pt that take pt's insurance, complete with quality and resource use data, and in pt's geographic area. Pt would be interested in [facility] or possibly. SW explained to pt that we will need to see first if dialysis is needed, as this may change where we can send referrals if SNF is needed. Pt states understanding. [facility], once it is known whether or not pt needs dialysis. CORRIE Hobbs
[2020-12-01 11:46] LABS: Bedside Glucose 91 mg/dL (70-110)
--- NOTE | 2020-12-01 12:29 | DIALYSIS ---
Tx discontinued 14 minutes early d/t system clotting. Able to return the blood. Dr. Sandoval was notified. Tolerated tx well. UF of 1700ml. Used temporary right neck dialysis catheter. Catheter is positional. Lumens closed with heparin per fill volume post tx. Caps placed. Dressing is dry and intact. Report was given to SINDHU Guo.
--- NOTE | 2020-12-01 12:30 | PCM.PN.ID ---
Patient Problems: Active and Suspected Problems (Last Reviewed 09/09/20 @ 07:[address] Dashawn Acevedo MD) Acute respiratory failure (Acute) Metabolic acidosis (Acute) Pyelonephritis (Acute) Acute renal failure (Acute) Aspiration into airway (Acute) Uremia (Acute) Hyperphosphatemia (Acute) Hypovolemic shock (Acute) Septic shock (Acute) Subjective: Feeling better, off vent, no fever, no dyspnea, no abd pain - Physical Exam Vitals/I&O's: Vital Signs Temp Pulse Resp BP Pulse Ox 98.6 F 91 21 H 122/67 H 95 12/01/20 12:28 12/01/20 12:28 12/01/20 12:28 12/01/20 12:28 12/01/20 08:00 Oxygen Flow Rate (L/min) 2 Oxygen Delivery Method Room Air Weight: 65.8 kg Body Mass Index (BMI) 25.1 Finger Stick Blood Glucose 80 Intake and Output for Last 24 Hours 11/29/20 11/30/20 12/01/20 23:59 23:59 23:59 Intake Total 3217.44 / 3240.70 419.48 / 419.48 Output Total 1593 / 1603 490 / 490 80 / 80 Balance 1624.44 / 1637.70 -70.52 / -70.52 -80 / -80 General: Alert, Cooperative, No apparent distress Lungs: Clear to auscultation, Normal air movement Cardiovascular: Regular rate, Regular Rhythm Abdomen: Soft, Non Tender, Non-Distended Skin: No rashes Microbiology Past 72 Hours 11/27/20 12:25 Interface Orders Gram Stain - Final 11/27/20 12:25 Interface Orders Respiratory Culture - Final Culture exhibits no growth. 11/27/20 10:00 Urine Catheter - Catheter Urine Culture - Final Aurora albicans 11/27/20 09:25 Blood Culture (Wb) - Anticubital Right Blood Culture - Preliminary No growth in 48 hours. 11/27/20 09:25 Blood Culture (Wb) - Anticubital Left Blood Culture - Preliminary No growth in 48 hours. Laboratory Results 11/30/20 11:39: POC Glucose 99 11/30/20 17:18: POC Glucose 84 11/30/20 22:30: POC Glucose 75 11/30/20 23:50: POC Glucose 75 12/01/20 02:15: POC Glucose 73 12/01/20 03:40: WBC 9.5, RBC 3.33 L, Hgb 9.3 L, Hct 29.0 L, MCV 87.1, MCH 27.9, MCHC 32.1 D, RDW Std Deviation 51.8 H, RDW Coeff of Hawa 16.3 H, Plt Count 71 L, MPV 12.9 H, Immature Gran % (Auto) 0.300, Neut % (Auto) 79.0 H, Lymph % (Auto) 9.7 L, [place] % (Auto) 8.5, Eos % (Auto) 2.1, Baso % (Auto) 0.4, Absolute Neuts (auto) 7.5, Absolute Lymphs (auto) 0.92, Nucleated RBC % 0 12/01/20 03:40: Sodium 138, Potassium 3.8, Chloride 103, Carbon Dioxide 25.0, Anion Gap 10, BUN 32 H, Creatinine 3.16 H, Estim Creat Clear Calc 13.04, Est GFR (MDRD) Af Amer 19 L, Est GFR (MDRD) Non-Af 16 L, BUN/Creatinine Ratio 10.1, Glucose 73 L, Calcium 8.0 L, Phosphorus 4.4, Magnesium 2.0 12/01/20 04:00: Random Vancomycin 17.2 H 12/01/20 05:22: POC Glucose 71 12/01/20 05:46: POC Glucose 123 H 12/01/20 08:26: POC Glucose 76 12/01/20 11:34: POC Glucose 91 Current Medications Calamine/Phenol (Menthol/Lanolin/Calamine/Znox 113 Gm Tube) 1 applic TOPICAL TID SVEN; Protocol Last Admin: 12/01/20 05:24 Dose: 1 applic Documented by: Dextrose (Dextrose 50%-Water 25 Gm/50 Ml Disp.Syrin) 0 gm IV X1 PRN; Protocol PRN Reason: Hypoglycemia Last Admin: 12/01/20 05:26 Dose: 12.5 gm Documented by: Glucagon (Glucagon 1 Mg/Ml Syringe) 1 mg IM .X1 PRN PRN Reason: Hypoglycemia Heparin Sodium (Porcine) (Heparin Injection (Vial) 5,000 Unit/Ml Vial) 5,000 unit SC Q8 [facility] Last Admin: 12/01/20 05:24 Dose: 5,000 unit Documented by: Heparin Sodium (Porcine) (Heparin 10,000 Units/10 Ml Vial) 0 units IV X1 PRN PRN Reason: DIALYSIS Last Admin: 11/28/20 15:36 Dose: 1.3 units Documented by: Meropenem 500 mg/ Sodium (Chloride) 60 mls @ 100 mls/hr IV Q24H SVEN Last Infusion: 11/30/20 14:37 Dose: Infused Documented by: Pantoprazole Sodium 40 mg/ (Sodium Chloride) 110 mls @ 330 mls/hr IV Q24 SVEN Last Infusion: 11/30/20 09:45 Dose: Infused Documented by: Sodium Chloride () 250 mls @ 15 mls/hr IV .[id number] PRN PRN Reason: Saline Flush Last Infusion: 11/30/20 15:17 Dose: Infused Documented by: Ondansetron HCl (Ondansetron 4 Mg/2 Ml Vial) 4 mg IV Q8H PRN PRN PRN Reason: NAUSEA/VOMITING Sodium Chloride (0.9% Saline Lock 10 Ml Syringe) 10 - 40 ml IV UD PRN PRN Reason: SALINE FLUSH Last Admin: 11/29/20 09:24 Dose: 40 ml Documented by: Medical Necessity - Tobacco Use Smoking Status: Current every day smoker Tobacco Use: Cigarettes Route of nutrition/ use of supplements: [] Nutritional Intake: [] IV Site: [] Loco Catheter: [] - Assessment/Plan Antibiotics: [] Assessment/Plan: [] Active and Suspected Problems (Last Reviewed 09/09/20 @ 07:[address] Dashawn Acevedo MD) Acute respiratory failure (Acute) Metabolic acidosis (Acute) Pyelonephritis (Acute) Acute renal failure (Acute) Aspiration into airway (Acute) Uremia (Acute) Hyperphosphatemia (Acute) Hypovolemic shock (Acute) Septic shock (Acute) septic shock with resp failure, SANTI - CT with L perinephric stranding. Sputum gram stain with some GPC, possible aspiration and cx neg. On vanc/victor m empirically. HD today. Much improved, will stop vanc, cont victor m and likely can stop tomorrow. Will follow
[2020-12-01] MEDS: Heparin 10,000 UNITS/10 ML Vial IV (14:37)
[2020-12-01] MEDS: 0.9% Saline Lock 10 ML Syringe IV (14:39)
[2020-12-01] MEDS: Pantoprazole Sodium 40 MG Tablet PO (15:18)
[2020-12-01 15:41] LABS: Bedside Glucose 128 mg/dL (70-110)
--- NOTE | 2020-12-01 16:06 | PCM.PN.REN ---
Patient Problems: Active and Suspected Problems (Last Reviewed 09/09/20 @ 07:[address] Dashawn Acevedo MD) Acute respiratory failure (Acute) Metabolic acidosis (Acute) Pyelonephritis (Acute) Acute renal failure (Acute) Aspiration into airway (Acute) Uremia (Acute) Hyperphosphatemia (Acute) Hypovolemic shock (Acute) Septic shock (Acute) Subjective: Following for acute kidney injury. The patient has moved to PCU. She is feeling much better. She denies chest pain or shortness of breath. She does complain of upper extremity edema especially the left side. There is no nausea or vomiting. - Physical Exam Vitals/I&O's: Vital Signs Temp Pulse Resp BP Pulse Ox 97.8 F 105 H 18 141/68 H 96 12/01/20 15:30 12/01/20 15:30 12/01/20 15:30 12/01/20 15:30 12/01/20 15:30 Oxygen Flow Rate (L/min) 2 Oxygen Delivery Method Room Air Weight: 65.8 kg Body Mass Index (BMI) 25.1 Finger Stick Blood Glucose 80 Intake and Output for Last 24 Hours 11/29/20 11/30/20 12/01/20 23:59 23:59 23:59 Intake Total 3217.44 / 3240.70 419.48 / 419.48 160 / 160 Output Total 1593 / 1603 490 / 490 1898 / 1898 Balance 1624.44 / 1637.70 -70.52 / -70.52 -1738 / -1738 General: Alert, Oriented x3, Cooperative, No apparent distress HEENT: Atraumatic, PERRLA, EOMI Oral: Moist Mucosa Neck: Supple Lungs: Diminished - At bases, otherwise clear Cardiovascular: Normal S1, Normal S2, No murmurs Abdomen: Bowel Sounds Present, Soft, Non Tender Extremities: Edema - This upper extremity edema. No lower extremity edema. Microbiology Past 72 Hours 11/27/20 12:25 Interface Orders Gram Stain - Final 11/27/20 12:25 Interface Orders Respiratory Culture - Final Culture exhibits no growth. 11/27/20 10:00 Urine Catheter - Catheter Urine Culture - Final Aurora albicans 11/27/20 09:25 Blood Culture (Wb) - Anticubital Right Blood Culture - Preliminary No growth in 48 hours. 11/27/20 09:25 Blood Culture (Wb) - Anticubital Left Blood Culture - Preliminary No growth in 48 hours. Laboratory Results 11/30/20 17:18: POC Glucose 84 11/30/20 22:30: POC Glucose 75 11/30/20 23:50: POC Glucose 75 12/01/20 02:15: POC Glucose 73 12/01/20 03:40: WBC 9.5, RBC 3.33 L, Hgb 9.3 L, Hct 29.0 L, MCV 87.1, MCH 27.9, MCHC 32.1 D, RDW Std Deviation 51.8 H, RDW Coeff of Hawa 16.3 H, Plt Count 71 L, MPV 12.9 H, Immature Gran % (Auto) 0.300, Neut % (Auto) 79.0 H, Lymph % (Auto) 9.7 L, [place] % (Auto) 8.5, Eos % (Auto) 2.1, Baso % (Auto) 0.4, Absolute Neuts (auto) 7.5, Absolute Lymphs (auto) 0.92, Nucleated RBC % 0 12/01/20 03:40: Sodium 138, Potassium 3.8, Chloride 103, Carbon Dioxide 25.0, Anion Gap 10, BUN 32 H, Creatinine 3.16 H, Estim Creat Clear Calc 13.04, Est GFR (MDRD) Af Amer 19 L, Est GFR (MDRD) Non-Af 16 L, BUN/Creatinine Ratio 10.1, Glucose 73 L, Calcium 8.0 L, Phosphorus 4.4, Magnesium 2.0 12/01/20 04:00: Random Vancomycin 17.2 H 12/01/20 05:22: POC Glucose 71 12/01/20 05:46: POC Glucose 123 H 12/01/20 08:26: POC Glucose 76 12/01/20 11:34: POC Glucose 91 12/01/20 15:33: POC Glucose 128 H Current Medications Calamine/Phenol (Menthol/Lanolin/Calamine/Znox 113 Gm Tube) 1 applic TOPICAL TID SVEN; Protocol Last Admin: 12/01/20 14:32 Dose: 1 applic Documented by: Dextrose (Dextrose 50%-Water 25 Gm/50 Ml Disp.Syrin) 0 gm IV X1 PRN; Protocol PRN Reason: Hypoglycemia Last Admin: 12/01/20 05:26 Dose: 12.5 gm Documented by: Glucagon (Glucagon 1 Mg/Ml Syringe) 1 mg IM .X1 PRN PRN Reason: Hypoglycemia Heparin Sodium (Porcine) (Heparin Injection (Vial) 5,000 Unit/Ml Vial) 5,000 unit SC Q8 SVEN Last Admin: 12/01/20 14:32 Dose: 5,000 unit Documented by: Heparin Sodium (Porcine) (Heparin 10,000 Units/10 Ml Vial) 0 units IV X1 PRN PRN Reason: DIALYSIS Last Admin: 11/28/20 15:36 Dose: 1.3 units Documented by: Meropenem 500 mg/ Sodium (Chloride) 60 mls @ 100 mls/hr IV Q24H SVEN Last Infusion: 12/01/20 15:19 Dose: Infused Documented by: Sodium Chloride () 250 mls @ 15 mls/hr IV .[id number] PRN PRN Reason: Saline Flush Last Infusion: 11/30/20 15:17 Dose: Infused Documented by: Ondansetron HCl (Ondansetron 4 Mg/2 Ml Vial) 4 mg IV Q8H PRN PRN PRN Reason: NAUSEA/VOMITING Pantoprazole Sodium (Pantoprazole Sodium 40 Mg Tablet) 40 mg PO DAILY [facility] Last Admin: 12/01/20 15:18 Dose: 40 mg Documented by: Sodium Chloride (0.9% Saline Lock 10 Ml Syringe) 10 - 40 ml IV UD PRN PRN Reason: SALINE FLUSH Last Admin: 12/01/20 14:39 Dose: 40 ml Documented by: Medical Necessity - Tobacco Use Smoking Status: Current every day smoker Tobacco Use: Cigarettes Assessment/Plan All Active Problems (Last Reviewed 09/09/20 @ 07:[address] Dashawn Acevedo MD) Acute respiratory failure (Acute) Metabolic acidosis (Acute) Pyelonephritis (Acute) Acute renal failure (Acute) Aspiration into airway (Acute) Uremia (Acute) Hyperphosphatemia (Acute) Hypovolemic shock (Acute) Septic shock (Acute) 1. Acute kidney injury. Baseline serum creatinine is 1.00 mg/dL. SANTI secondary to ischemic ATN. Urine output is a bit better although there is no significant recovery of kidney function yet. The patient was dialyzed today. We removed 1.4 L of fluid with ultrafiltration. I will plan on holding dialysis tomorrow and see if there is any renal recovery. Okay to remove Loco catheter from my standpoint. 2. Hypokalemia. Resolved. Used 3K dialysate today. Recheck potassium level tomorrow. 3. Anion gap metabolic acidosis. Resolved. This was secondary to SANTI, metformin, and septic shock. Serum bicarbonate level is 25 today. Serum bicarbonate level should stabilize with dialysis. 4. Septic shock. Improved. The patient is now off of vasopressor agents. Antimicrobials as per infectious disease service. 5. Acute hypoxic respiratory failure. The patient was with ventilator dependent. She is now off of the ventilator and is doing well. The patient remains oliguric. Therefore, we have taken additional 1.4 L off with UF today. Reassess volume status again tomorrow.
[2020-12-01 20:16] LABS: Bedside Glucose 178 mg/dL (70-110)
[2020-12-01 21:45] LABS: Bedside Glucose 121 mg/dL (70-110)
[2020-12-02] VITALS (13 sets, daily range): BP systolic 133–164; BP diastolic 73–94; PULSE 78–142; RESP 16–18; TEMP 36.4–36.9; O2SAT 94–96
[2020-12-02 02:31] LABS: Bedside Glucose 113 mg/dL (70-110)
[2020-12-02] MEDS: Menthol/Lanolin/Calamine/Znox 113 GM Tube 1 APPLIC TOPICAL ×2 (06:08→22:57)
[2020-12-02] MEDS: Heparin Injection (Vial) 5,000 UNIT/ML VIAL 5000 UNIT SC ×3 (06:08→22:56)
[2020-12-02 06:14] LABS: Absolute Lymphocyte Count 1.12 X10^3/uL (0.83-4.51); Absolute Neutrophil Count 5.9 X10^3/uL (2.0-7.7); Basophil# 0.04 X10^3/uL; Basophil% 0.5 % (0-1); Eosinophil# 0.41 X10^3/uL; Eosinophils% 4.9 % (0-5); Hematocrit 28.9 % (37-47); Hemoglobin 9.6 g/dL (12.0-15.0); Lymphocyte # 1.12 X10^3/ul (4.0); Lymphocyte % 13.3 % (19-41); Mean Corp Hgb Conc 33.2 g/dL (32-36); Mean Corpuscular Hgb 28.5 pg (27.0-32.0); Mean Corpuscular Volume 85.8 fL (81-99); Monocyte# 0.97 X10^3/uL; Monocyte% 11.5 % (0-10); NRBC Flagged by Analyzer 0 % (0-5); Neutrophil # 5.86 X10^3/uL (2.7-7.7); Neutrophil % 69.4 % (47-70); Platelet Count 111 K/mm3 (150-450); RBC Distribution Width CV 16.1 % (11.6-14.6); RBC Distribution Width SD 50.4 fl (35.1-43.9); Red Blood Count 3.37 M/mm3 (4.2-5.4); White Blood Count 8.4 K/mm3 (4.4-11.0)
[2020-12-02 06:47] LABS: Anion Gap 6 (5-15); BUN 24 mg/dL (7-18); Calcium,Total 8.6 mg/dL (8.5-10.1); Chloride 105 mmol/L (98-107); Creatinine, Serum 2.67 mg/dL (0.55-1.02); EST Glomerular Filtration Rate 19 mL/min (>60); Est Glom Filt Rate - Afr Amer 23 mL/min (>60); Estimated Creatinine Clearance 15.43 ml/min; Glucose 123 mg/dL (74-106); Potassium 3.5 mmol/L (3.5-5.1); Sodium Level 139 mmol/L (136-145)
[2020-12-02 07:00] LABS: Bedside Glucose 116 mg/dL (70-110)
--- NOTE | 2020-12-02 07:29 | PCM.PN.INT ---
Subjective: Patient transferred out of the intensive care unit yesterday. Patient believes she is subjectively improved compared to yesterday. Patient states her mind feels less cloudy. Patient did tolerate hemodialysis yesterday with no complications. Patient is not reporting any void overnight. General: Alert, Oriented x3, Cooperative, No apparent distress, Well developed, Well nourished, - - Speaking in full sentences HEENT: Atraumatic, PERRLA, EOMI, Normocephalic, - - No scleral icterus or injection noted Oral: Moist Mucosa, No Gingival or Mucosal Lesions/ Ulcerations Neck: Supple, No Nodes, Trachea Midline, - - Lines are clean, dry and intact Lungs: Clear to auscultation, Normal air movement, No rhonchi, No wheeze, No rales Cardiovascular: Regular rate, Regular Rhythm, Normal S1, Normal S2, No murmurs, No rub noted, No Gallop Abdomen: Bowel Sounds Present, Soft, Non Tender, Non-Distended Extremities: No clubbing, No cyanosis, Edema - Improved Skin: No rashes, No breakdown Musculoskeletal: No Tenderness to Palpation of Joints or Extremities Lymphatic: No Cervical, Supraclavicular, or Inguinal Adenopathy Neurological: Cranial nerves II-XII grossly intact, Neuro grossly intact, Motor Exam 5/5 strength throughout Psych/Mental Status: Alert and oriented to time, place, person, mood and affect Vital Signs Temp Pulse Resp BP Pulse Ox 36.4 C L 82 18 133/74 H 94 12/02/20 02:22 12/02/20 07:00 12/02/20 02:22 12/02/20 02:22 12/02/20 02:22 Oxygen Flow Rate (L/min) 2 Oxygen Delivery Method Room Air Weight: 64.229 kg Body Mass Index (BMI) 25.1 Finger Stick Blood Glucose 80 Intake and Output for Last 24 Hours 11/30/20 12/01/20 12/02/20 23:59 23:59 23:59 Intake Total 419.48 / 419.48 800 / 800 120 / 120 Output Total 490 / 490 8 / 2098 Balance -70.52 / -70.52 -1298 / -1298 120 / 120 Labs (Last 48 Hours) 11/30/20 11/30/20 11/30/20 05:15 11:39 17:18 WBC RBC Hgb Hct MCV MCH MCHC RDW Std Deviation RDW Coeff of Haw[place] Plt Count MPV Immature Gran % (Auto) Neut % (Auto) Lymph % (Auto) [place] % (Auto) Eos % (Auto) Baso % (Auto) Absolute Neuts (auto) Absolute Lymphs (auto) Nucleated RBC % Sodium Potassium Chloride Carbon Dioxide Anion Gap BUN Creatinine Estim Creat Clear Calc Est GFR (MDRD) Af Amer Est GFR (MDRD) Non-Af BUN/Creatinine Ratio Glucose Calcium Phosphorus Magnesium 2.1 Random Vancomycin POC Glucose 99 84 11/30/20 11/30/20 12/01/20 22:30 23:50 02:15 WBC RBC Hgb Hct MCV MCH MCHC RDW Std Deviation RDW Coeff of [place] Plt Count MPV Immature Gran % (Auto) Neut % (Auto) Lymph % (Auto) [place] % (Auto) Eos % (Auto) Baso % (Auto) Absolute Neuts (auto) Absolute Lymphs (auto) Nucleated RBC % Sodium Potassium Chloride Carbon Dioxide Anion Gap BUN Creatinine Estim Creat Clear Calc Est GFR (MDRD) Af Amer Est GFR (MDRD) Non-Af BUN/Creatinine Ratio Glucose Calcium Phosphorus Magnesium Random Vancomycin POC Glucose 75 75 73 12/01/20 12/01/20 12/01/20 03:40 03:40 04:00 WBC 9.5 RBC 3.33 L Hgb 9.3 L Hct 29.0 L MCV 87.1 MCH 27.9 MCHC 32.1 D RDW Std Deviation 51.8 H RDW Coeff of Hawa 16.3 H Plt Count 71 L MPV 12.9 H Immature Gran % (Auto) 0.300 Neut % (Auto) 79.0 H Lymph % (Auto) 9.7 L [place] % (Auto) 8.5 Eos % (Auto) 2.1 Baso % (Auto) 0.4 Absolute Neuts (auto) 7.5 Absolute Lymphs (auto) 0.92 Nucleated RBC % 0 Sodium 138 Potassium 3.8 Chloride 103 Carbon Dioxide 25.0 Anion Gap 10 BUN 32 H Creatinine 3.16 H Estim Creat Clear Calc 13.04 Est GFR (MDRD) Af Amer 19 L Est GFR (MDRD) Non-Af 16 L BUN/Creatinine Ratio 10.1 Glucose 73 L Calcium 8.0 L Phosphorus 4.4 Magnesium 2.0 Random Vancomycin 17.2 H POC Glucose 12/01/20 12/01/20 12/01/20 05:22 05:46 08:26 WBC RBC Hgb Hct MCV MCH MCHC RDW Std Deviation RDW Coeff of [place] Plt Count MPV Immature Gran % (Auto) Neut % (Auto) Lymph % (Auto) [place] % (Auto) Eos % (Auto) Baso % (Auto) Absolute Neuts (auto) Absolute Lymphs (auto) Nucleated RBC % Sodium Potassium Chloride Carbon Dioxide Anion Gap BUN Creatinine Estim Creat Clear Calc Est GFR (MDRD) Af Amer Est GFR (MDRD) Non-Af BUN/Creatinine Ratio Glucose Calcium Phosphorus Magnesium Random Vancomycin POC Glucose 71 123 H 76 12/01/20 12/01/20 12/01/20 11:34 15:33 19:51 WBC RBC Hgb Hct MCV MCH MCHC RDW Std Deviation RDW Coeff of [place] Plt Count MPV Immature Gran % (Auto) Neut % (Auto) Lymph % (Auto) [place] % (Auto) Eos % (Auto) Baso % (Auto) Absolute Neuts (auto) Absolute Lymphs (auto) Nucleated RBC % Sodium Potassium Chloride Carbon Dioxide Anion Gap BUN Creatinine Estim Creat Clear Calc Est GFR (MDRD) Af Amer Est GFR (MDRD) Non-Af BUN/Creatinine Ratio Glucose Calcium Phosphorus Magnesium Random Vancomycin POC Glucose 91 128 H 178 H 12/01/20 12/02/20 12/02/20 21:35 02:25 05:44 WBC 8.4 RBC 3.37 L Hgb 9.6 L Hct 28.9 L MCV 85.8 MCH 28.5 MCHC 33.2 RDW Std Deviation 50.4 H RDW Coeff of Haw[place] 16.1 H Plt Count 111 L MPV 12.0 Immature Gran % (Auto) 0.400 Neut % (Auto) 69.4 Lymph % (Auto) 13.3 L [place] % (Auto) 11.5 H Eos % (Auto) 4.9 Baso % (Auto) 0.5 Absolute Neuts (auto) 5.9 Absolute Lymphs (auto) 1.12 Nucleated RBC % 0 Sodium Potassium Chloride Carbon Dioxide Anion Gap BUN Creatinine Estim Creat Clear Calc Est GFR (MDRD) Af Amer Est GFR (MDRD) Non-Af BUN/Creatinine Ratio Glucose Calcium Phosphorus Magnesium Random Vancomycin POC Glucose 121 H 113 H 12/02/20 12/02/20 05:44 06:07 WBC RBC Hgb Hct MCV MCH MCHC RDW Std Deviation RDW Coeff of [place] Plt Count MPV Immature Gran % (Auto) Neut % (Auto) Lymph % (Auto) [place] % (Auto) Eos % (Auto) Baso % (Auto) Absolute Neuts (auto) Absolute Lymphs (auto) Nucleated RBC % Sodium 139 Potassium 3.5 Chloride 105 Carbon Dioxide 28.0 Anion Gap 6 BUN 24 H Creatinine 2.67 H Estim Creat Clear Calc 15.43 Est GFR (MDRD) Af Amer 23 L Est GFR (MDRD) Non-Af 19 L BUN/Creatinine Ratio 9.0 L Glucose 123 H Calcium 8.6 Phosphorus Magnesium Random Vancomycin POC Glucose 116 H Microbiology 11/27/20 12:25 Interface Orders Gram Stain - Final 11/27/20 12:25 Interface Orders Respiratory Culture - Final Culture exhibits no growth. Medical Necessity - Tobacco Use Smoking Status: Current every day smoker Tobacco Use: Cigarettes Assessment/Plan All Active Problems (Last Reviewed 09/09/20 @ 07:[address] Dashawn Acevedo MD) Acute respiratory failure (Acute) Metabolic acidosis (Acute) Pyelonephritis (Acute) Acute renal failure (Acute) Aspiration into airway (Acute) Uremia (Acute) Hyperphosphatemia (Acute) Hypovolemic shock (Acute) Septic shock (Acute) RECOMMENDATIONS: 1. Increase activity as tolerated 2. Hemodialysis per nephrology 3. Encourage incentive spirometer use and mobilize patient as tolerated. 4. Hemodynamically stable on room air. Will sign off from a critical care perspective IMPRESSIONS: 1. Septic shock Clinical concern for either urinary tract source of infection and aspiration pneumonia. The patient has improved clinically, having previously required 3 vasopressors to maintain hemodynamic stability initially. She is currently off all pressors. She has been adequately volume resuscitated. Antimicrobials per infectious disease. 2. Acute hypoxemic respiratory failure Resolved. Concern for aspiration event as precipitating etiology. The patient was intubated in the emergency department. The patient is oxygenation status has improved and she was able to be extubated on the morning of November 30. Encourage incentive spirometer use and mobilize patient as tolerated. 3. Encephalopathy Resolved. Likely metabolic in etiology. Plan to continue current supportive measures as noted above. 4. Profound anion gap metabolic acidosis/acute kidney injury/lactic acidemia Improved. Likely due to a combination of profound intravascular volume depletion in the setting of GI losses coupled with concurrent use of Metformin. The patient has responded well to hemodialysis. Plan to continue supportive measures per nephrology recommendations. Patient did not have dialysis yesterday with significant worsening in creatinine. Patient with marginal urine output at this time. 5. History of diabetes mellitus/hypertension/hyperlipidemia/GERD Complicates care, management, recovery and prognosis. Continue to hold antihypertensives. Inpatient E&M: 12772 Subs Hosp L2
[2020-12-02] MEDS: Pantoprazole Sodium 40 MG Tablet PO (08:58)
[2020-12-02 10:01] LABS: Bedside Glucose 245 mg/dL (70-110)
--- NOTE | 2020-12-02 10:02 | PN_ITS ---
Patient Problems: Active and Suspected Problems (Last Reviewed 09/09/20 @ 07:[address] Dashawn Acevedo MD) Acute respiratory failure (Acute) Metabolic acidosis (Acute) Pyelonephritis (Acute) Acute renal failure (Acute) Aspiration into airway (Acute) Uremia (Acute) Hyperphosphatemia (Acute) Hypovolemic shock (Acute) Septic shock (Acute) Subjective: She is feeling much better today, no new issues overnight Vitals/I&O's: Vital Signs Temp Pulse Resp BP Pulse Ox 98.2 F 88 18 146/81 H 95 12/02/20 07:25 12/02/20 07:25 12/02/20 07:25 12/02/20 07:25 12/02/20 07:30 Oxygen Flow Rate (L/min) 2 Oxygen Delivery Method Room Air Weight: 141 lb 9.6 oz Body Mass Index (BMI) 25.1 Finger Stick Blood Glucose 80 Intake and Output for Last 24 Hours 11/30/20 12/01/20 12/02/20 23:59 23:59 23:59 Intake Total 419.48 / 419.48 800 / 800 120 / 120 Output Total 490 / 490 2098 / 2098 Balance -70.52 / -70.52 -1298 / -1298 120 / 120 General: Alert, Oriented x3, Cooperative, No apparent distress HEENT: Atraumatic, PERRLA, EOMI, Normocephalic Oral: Moist Mucosa Neck: Supple, No JVD Lungs: Clear to auscultation, Normal air movement, No rhonchi, No wheeze, No rales Cardiovascular: Regular rate, Regular Rhythm, Normal S1, Normal S2, No murmurs Abdomen: Soft, Non Tender, Non-Distended, No Hepato-splenomegaly Skin: No rashes, No breakdown Neurological: Neuro grossly intact, Sensory exam intact to light touch and pain Psych/Mental Status: Normal Affect, Appropriate Microbiology Past 72 Hours 11/27/20 12:25 Interface Orders Gram Stain - Final 11/27/20 12:25 Interface Orders Respiratory Culture - Final Culture exhibits no growth. 11/27/20 10:00 Urine Catheter - Catheter Urine Culture - Final Aurora albicans 11/27/20 09:25 Blood Culture (Wb) - Anticubital Right Blood Culture - Preliminary No growth in 48 hours. 11/27/20 09:25 Blood Culture (Wb) - Anticubital Left Blood Culture - Preliminary No growth in 48 hours. Laboratory Results 12/01/20 11:34: POC Glucose 91 12/01/20 15:33: POC Glucose 128 H 12/01/20 19:51: POC Glucose 178 H 12/01/20 21:35: POC Glucose 121 H 12/02/20 02:25: POC Glucose 113 H 12/02/20 05:44: WBC 8.4, RBC 3.37 L, Hgb 9.6 L, Hct 28.9 L, MCV 85.8, MCH 28.5, MCHC 33.2, RDW Std Deviation 50.4 H, RDW Coeff of Hawa 16.1 H, Plt Count 111 L, MPV 12.0, Immature Gran % (Auto) 0.400, Neut % (Auto) 69.4, Lymph % (Auto) 13.3 L, [place] % (Auto) 11.5 H, Eos % (Auto) 4.9, Baso % (Auto) 0.5, Absolute Neuts (auto) 5.9, Absolute Lymphs (auto) 1.12, Nucleated RBC % 0 12/02/20 05:44: Sodium 139, Potassium 3.5, Chloride 105, Carbon Dioxide 28.0, Anion Gap 6, BUN 24 H, Creatinine 2.67 H, Estim Creat Clear Calc 15.43, Est GFR (MDRD) Af Amer 23 L, Est GFR (MDRD) Non-Af 19 L, BUN/Creatinine Ratio 9.0 L, Glucose 123 H, Calcium 8.6 12/02/20 06:07: POC Glucose 116 H 12/02/20 09:55: POC Glucose 245 H Current Medications Calamine/Phenol (Menthol/Lanolin/Calamine/Znox 113 Gm Tube) 1 applic TOPICAL TID SVEN; Protocol Last Admin: 12/02/20 06:08 Dose: 1 applic Documented by: Dextrose (Dextrose 50%-Water 25 Gm/50 Ml Disp.Syrin) 0 gm IV X1 PRN; Protocol PRN Reason: Hypoglycemia Last Admin: 12/01/20 05:26 Dose: 12.5 gm Documented by: Glucagon (Glucagon 1 Mg/Ml Syringe) 1 mg IM .X1 PRN PRN Reason: Hypoglycemia Heparin Sodium (Porcine) (Heparin Injection (Vial) 5,000 Unit/Ml Vial) 5,000 unit SC Q8 SVEN Last Admin: 12/02/20 06:08 Dose: 5,000 unit Documented by: Heparin Sodium (Porcine) (Heparin 10,000 Units/10 Ml Vial) 0 units IV X1 PRN PRN Reason: DIALYSIS Last Admin: 11/28/20 15:36 Dose: 1.3 units Documented by: Sodium Chloride () 250 mls @ 15 mls/hr IV .[id number] PRN PRN Reason: Saline Flush Last Infusion: 11/30/20 15:17 Dose: Infused Documented by: Insulin Human Lispro (Insulin Lispro 100 Unit/Ml Insuln.Pen) 0 unit SC ACHS SVEN; Protocol Ondansetron HCl (Ondansetron 4 Mg/2 Ml Vial) 4 mg IV Q8H PRN PRN PRN Reason: NAUSEA/VOMITING Pantoprazole Sodium (Pantoprazole Sodium 40 Mg Tablet) 40 mg PO DAILY [facility] Last Admin: 12/02/20 08:58 Dose: 40 mg Documented by: Sodium Chloride (0.9% Saline Lock 10 Ml Syringe) 10 - 40 ml IV UD PRN PRN Reason: SALINE FLUSH Last Admin: 12/01/20 14:39 Dose: 40 ml Documented by: STROKE Vital Signs/Narrative: Vital Signs Temp Pulse Resp BP Pulse Ox 12/02/20 07:30 95 12/02/20 07:25 98.2 F 88 18 146/81 H 95 12/02/20 07:21 95 12/02/20 07:00 82 Medical Necessity - Tobacco Use Smoking Status: Current every day smoker Tobacco Use: Cigarettes Assessment/Plan All Active Problems (Last Reviewed 09/09/20 @ 07:[address] Dashawn Acevedo MD) Acute respiratory failure (Acute) Metabolic acidosis (Acute) Pyelonephritis (Acute) Acute renal failure (Acute) Aspiration into airway (Acute) Uremia (Acute) Hyperphosphatemia (Acute) Hypovolemic shock (Acute) Septic shock (Acute) 1. Septic shock and acute hypoxic respiratory failure secondary to aspiration pneumonia with an anion gap metabolic acidosis/SANTI secondary to ischemic ATN /hypocalcemia/metabolic encephalopathy -Extubated 11/30/2020 -We will continue with her meropenem, ID discontinued vancomycin yesterday -Blood cultures are negative, urine cultures with [place] -Appreciate nephrology assistance. She is receiving dialysis secondary to her acute lactic acidosis which is likely combination of her Metformin use and her SANTI -Appreciate ID assistance, she remains afebrile and her leukocytosis has resolved -Continue to monitor creatinine, dialysis as necessary, appreciate nephrology assistance -Hypocalcemia has resolved 2. DM 2 -Hold Metformin -Accu-Cheks AC at bedtime, sliding scale insulin will make adjustments as necessary 3. HTN/HLD -She is on pressor support, therefore continue to hold her home blood pressure medications -Can restart Crestor when able to take p.o. DVT: Heparin Inpatient E&M: 52029 Subs Hosp L2
--- NOTE | 2020-12-02 10:06 | CASEMGMT ---
Pt qualifies for palliative c/s per [facility] palliative screening tool and Dr. Meek agreeable. Referral faxed to palliative and call to [place] at Palliative to notify of referral, voices understanding. Nati MANLEY CM
--- NOTE | 2020-12-02 10:27 | PN.ID_ITS ---
Patient Problems: Active and Suspected Problems (Last Reviewed 09/09/20 @ 07:[address] Dashawn Acevedo MD) Acute respiratory failure (Acute) Metabolic acidosis (Acute) Pyelonephritis (Acute) Acute renal failure (Acute) Aspiration into airway (Acute) Uremia (Acute) Hyperphosphatemia (Acute) Hypovolemic shock (Acute) Septic shock (Acute) Subjective: Feeling much better, no dyspnea, mild cough, no fever - Physical Exam Vitals/I&O's: Vital Signs Temp Pulse Resp BP Pulse Ox 98.2 F 88 18 146/81 H 95 12/02/20 07:25 12/02/20 07:25 12/02/20 07:25 12/02/20 07:25 12/02/20 07:30 Oxygen Flow Rate (L/min) 2 Oxygen Delivery Method Room Air Weight: 64.229 kg Body Mass Index (BMI) 25.1 Finger Stick Blood Glucose 80 Intake and Output for Last 24 Hours 11/30/20 12/01/20 12/02/20 23:59 23:59 23:59 Intake Total 419.48 / 419.48 800 / 800 120 / 120 Output Total 490 / 490 2098 / 2098 Balance -70.52 / -70.52 -1298 / -1298 120 / 120 General: Alert, Cooperative, No apparent distress Lungs: Clear to auscultation, Normal air movement Cardiovascular: Regular rate, Regular Rhythm Abdomen: Soft, Non Tender, Non-Distended Skin: No rashes Microbiology Past 72 Hours 11/27/20 09:25 Blood Culture (Wb) - Anticubital Right Blood Culture - Final No growth in 5 days. 11/27/20 09:25 Blood Culture (Wb) - Anticubital Left Blood Culture - Final No growth in 5 days. 11/27/20 12:25 Interface Orders Gram Stain - Final 11/27/20 12:25 Interface Orders Respiratory Culture - Final Culture exhibits no growth. 11/27/20 10:00 Urine Catheter - Catheter Urine Culture - Final [place] albicans Laboratory Results 12/01/20 11:34: POC Glucose 91 12/01/20 15:33: POC Glucose 128 H 12/01/20 19:51: POC Glucose 178 H 12/01/20 21:35: POC Glucose 121 H 12/02/20 02:25: POC Glucose 113 H 12/02/20 05:44: WBC 8.4, RBC 3.37 L, Hgb 9.6 L, Hct 28.9 L, MCV 85.8, MCH 28.5, MCHC 33.2, RDW Std Deviation 50.4 H, RDW Coeff of Hawa 16.1 H, Plt Count 111 L, MPV 12.0, Immature Gran % (Auto) 0.400, Neut % (Auto) 69.4, Lymph % (Auto) 13.3 L, [place] % (Auto) 11.5 H, Eos % (Auto) 4.9, Baso % (Auto) 0.5, Absolute Neuts (auto) 5.9, Absolute Lymphs (auto) 1.12, Nucleated RBC % 0 12/02/20 05:44: Sodium 139, Potassium 3.5, Chloride 105, Carbon Dioxide 28.0, Anion Gap 6, BUN 24 H, Creatinine 2.67 H, Estim Creat Clear Calc 15.43, Est GFR (MDRD) Af Amer 23 L, Est GFR (MDRD) Non-Af 19 L, BUN/Creatinine Ratio 9.0 L, Glucose 123 H, Calcium 8.6 12/02/20 06:07: POC Glucose 116 H 12/02/20 09:55: POC Glucose 245 H Current Medications Calamine/Phenol (Menthol/Lanolin/Calamine/Znox 113 Gm Tube) 1 applic TOPICAL TID SVEN; Protocol Last Admin: 12/02/20 06:08 Dose: 1 applic Documented by: Dextrose (Dextrose 50%-Water 25 Gm/50 Ml Disp.Syrin) 0 gm IV X1 PRN; Protocol PRN Reason: Hypoglycemia Last Admin: 12/01/20 05:26 Dose: 12.5 gm Documented by: Glucagon (Glucagon 1 Mg/Ml Syringe) 1 mg IM .X1 PRN PRN Reason: Hypoglycemia Heparin Sodium (Porcine) (Heparin Injection (Vial) 5,000 Unit/Ml Vial) 5,000 unit SC Q8 SVEN Last Admin: 12/02/20 06:08 Dose: 5,000 unit Documented by: Heparin Sodium (Porcine) (Heparin 10,000 Units/10 Ml Vial) 0 units IV X1 PRN PRN Reason: DIALYSIS Last Admin: 11/28/20 15:36 Dose: 1.3 units Documented by: Sodium Chloride () 250 mls @ 15 mls/hr IV .[id number] PRN PRN Reason: Saline Flush Last Infusion: 11/30/20 15:17 Dose: Infused Documented by: Insulin Human Lispro (Insulin Lispro 100 Unit/Ml Insuln.Pen) 0 unit SC ACHS [facility]; Protocol Ondansetron HCl (Ondansetron 4 Mg/2 Ml Vial) 4 mg IV Q8H PRN PRN PRN Reason: NAUSEA/VOMITING Pantoprazole Sodium (Pantoprazole Sodium 40 Mg Tablet) 40 mg PO DAILY [facility] Last Admin: 12/02/20 08:58 Dose: 40 mg Documented by: Sodium Chloride (0.9% Saline Lock 10 Ml Syringe) 10 - 40 ml IV UD PRN PRN Reason: SALINE FLUSH Last Admin: 12/01/20 14:39 Dose: 40 ml Documented by: Medical Necessity - Tobacco Use Smoking Status: Current every day smoker Tobacco Use: Cigarettes Route of nutrition/ use of supplements: [] Nutritional Intake: [] IV Site: [] Loco Catheter: [] - Assessment/Plan Antibiotics: [] Assessment/Plan: [] Active and Suspected Problems (Last Reviewed 09/09/20 @ 07:[address] Dashawn Acevedo MD) Acute respiratory failure (Acute) Metabolic acidosis (Acute) Pyelonephritis (Acute) Acute renal failure (Acute) Aspiration into airway (Acute) Uremia (Acute) Hyperphosphatemia (Acute) Hypovolemic shock (Acute) Septic shock (Acute) septic shock with resp failure, SANTI - CT with L perinephric stranding. Sputum gram stain with some GPC, possible aspiration and cx neg. On victor m empirically. HD today. Much improved. Vanc stopped yesterday, stop victor m today. Will follow as needed. Recommend removing temp cvc if she has adequate peripheral access
[2020-12-02] MEDS: Insulin Lispro 100 UNIT/ML INSULN.PEN SC (10:38)
--- NOTE | 2020-12-02 12:19 | PCM.PN.REN ---
Patient Problems: Active and Suspected Problems (Last Reviewed 09/09/20 @ 07:[address] Dashawn Acevedo MD) Acute respiratory failure (Acute) Metabolic acidosis (Acute) Pyelonephritis (Acute) Acute renal failure (Acute) Aspiration into airway (Acute) Uremia (Acute) Hyperphosphatemia (Acute) Hypovolemic shock (Acute) Septic shock (Acute) Subjective: Following for acute kidney injury. The patient is feeling better. She is not short of breath. She is without chest pain, nausea or anorexia. Edema, especially of the hands, is much improved. - Physical Exam Vitals/I&O's: Vital Signs Temp Pulse Resp BP Pulse Ox 98.2 F 88 18 146/81 H 95 12/02/20 07:25 12/02/20 07:25 12/02/20 07:25 12/02/20 07:25 12/02/20 07:30 Oxygen Flow Rate (L/min) 2 Oxygen Delivery Method Room Air Weight: 64.229 kg Body Mass Index (BMI) 25.1 Finger Stick Blood Glucose 80 Intake and Output for Last 24 Hours 11/30/20 12/01/20 12/02/20 23:59 23:59 23:59 Intake Total 419.48 / 419.48 800 / 800 120 / 120 Output Total 490 / 490 2098 / 2098 Balance -70.52 / -70.52 -1298 / -1298 120 / 120 General: Alert, Oriented x3, Cooperative HEENT: Atraumatic, PERRLA Oral: Moist Mucosa Neck: Supple Lungs: Clear to auscultation Cardiovascular: Normal S1, Normal S2, No murmurs Abdomen: Bowel Sounds Present, Soft, Non Tender Extremities: No cyanosis, No edema Skin: No rashes Microbiology Past 72 Hours 11/27/20 09:25 Blood Culture (Wb) - Anticubital Right Blood Culture - Final No growth in 5 days. 11/27/20 09:25 Blood Culture (Wb) - Anticubital Left Blood Culture - Final No growth in 5 days. 11/27/20 12:25 Interface Orders Gram Stain - Final 11/27/20 12:25 Interface Orders Respiratory Culture - Final Culture exhibits no growth. 11/27/20 10:00 Urine Catheter - Catheter Urine Culture - Final Aurora albicans Laboratory Results 12/01/20 15:33: POC Glucose 128 H 12/01/20 19:51: POC Glucose 178 H 12/01/20 21:35: POC Glucose 121 H 12/02/20 02:25: POC Glucose 113 H 12/02/20 05:44: WBC 8.4, RBC 3.37 L, Hgb 9.6 L, Hct 28.9 L, MCV 85.8, MCH 28.5, MCHC 33.2, RDW Std Deviation 50.4 H, RDW Coeff of Hawa 16.1 H, Plt Count 111 L, MPV 12.0, Immature Gran % (Auto) 0.400, Neut % (Auto) 69.4, Lymph % (Auto) 13.3 L, Dane % (Auto) 11.5 H, Eos % (Auto) 4.9, Baso % (Auto) 0.5, Absolute Neuts (auto) 5.9, Absolute Lymphs (auto) 1.12, Nucleated RBC % 0 12/02/20 05:44: Sodium 139, Potassium 3.5, Chloride 105, Carbon Dioxide 28.0, Anion Gap 6, BUN 24 H, Creatinine 2.67 H, Estim Creat Clear Calc 15.43, Est GFR (MDRD) Af Amer 23 L, Est GFR (MDRD) Non-Af 19 L, BUN/Creatinine Ratio 9.0 L, Glucose 123 H, Calcium 8.6 12/02/20 06:07: POC Glucose 116 H 12/02/20 09:55: POC Glucose 245 H Current Medications Calamine/Phenol (Menthol/Lanolin/Calamine/Znox 113 Gm Tube) 1 applic TOPICAL TID SVEN; Protocol Last Admin: 12/02/20 06:08 Dose: 1 applic Documented by: Dextrose (Dextrose 50%-Water 25 Gm/50 Ml Disp.Syrin) 0 gm IV X1 PRN; Protocol PRN Reason: Hypoglycemia Last Admin: 12/01/20 05:26 Dose: 12.5 gm Documented by: Glucagon (Glucagon 1 Mg/Ml Syringe) 1 mg IM .X1 PRN PRN Reason: Hypoglycemia Heparin Sodium (Porcine) (Heparin Injection (Vial) 5,000 Unit/Ml Vial) 5,000 unit SC Q8 SVEN Last Admin: 12/02/20 06:08 Dose: 5,000 unit Documented by: Heparin Sodium (Porcine) (Heparin 10,000 Units/10 Ml Vial) 0 units IV X1 PRN PRN Reason: DIALYSIS Last Admin: 11/28/20 15:36 Dose: 1.3 units Documented by: Sodium Chloride () 250 mls @ 15 mls/hr IV .[id number] PRN PRN Reason: Saline Flush Last Infusion: 11/30/20 15:17 Dose: Infused Documented by: Insulin Human Lispro (Insulin Lispro 100 Unit/Ml Insuln.Pen) 0 unit SC ACHS SVEN; Protocol Last Admin: 12/02/20 10:38 Dose: 4 u Documented by: Ondansetron HCl (Ondansetron 4 Mg/2 Ml Vial) 4 mg IV Q8H PRN PRN PRN Reason: NAUSEA/VOMITING Pantoprazole Sodium (Pantoprazole Sodium 40 Mg Tablet) 40 mg PO DAILY [facility] Last Admin: 12/02/20 08:58 Dose: 40 mg Documented by: Sodium Chloride (0.9% Saline Lock 10 Ml Syringe) 10 - 40 ml IV UD PRN PRN Reason: SALINE FLUSH Last Admin: 12/01/20 14:39 Dose: 40 ml Documented by: Medical Necessity - Tobacco Use Smoking Status: Current every day smoker Tobacco Use: Cigarettes Assessment/Plan All Active Problems (Last Reviewed 09/09/20 @ 07:[address] Dashawn Acevedo MD) Acute respiratory failure (Acute) Metabolic acidosis (Acute) Pyelonephritis (Acute) Acute renal failure (Acute) Aspiration into airway (Acute) Uremia (Acute) Hyperphosphatemia (Acute) Hypovolemic shock (Acute) Septic shock (Acute) 1. Acute kidney injury. Baseline serum creatinine is 1.00 mg/dL. SANTI secondary to ischemic ATN. The patient was last dialyzed on 12/01/2020. I will hold off on dialysis today, and I will recheck renal function tomorrow. I am still optimistic that she will be recovering kidney function enough to start dialysis. 2. Hypokalemia. Resolved. Used 3K dialysate yesterday. Recheck potassium level tomorrow. 3. Anion gap metabolic acidosis. Resolved. This was secondary to SANTI, metformin, and septic shock. Serum bicarbonate level is 28 today. Serum bicarbonate level should stabilize with dialysis. 4. Septic shock. Improved. The patient is now off of vasopressor agents. Antimicrobials as per infectious disease service. 5. Acute hypoxic respiratory failure. The patient was with ventilator dependent. She is now off of the ventilator and is doing well. We have taken additional 1.4 L off with UF today. The patient looks more euvolemic today. Reassess volume status again tomorrow.
[2020-12-02] MEDS: 0.9% Saline Lock 10 ML Syringe IV (14:05)
[2020-12-02 16:40] LABS: Bedside Glucose 135 mg/dL (70-110)
[2020-12-02 23:06] LABS: Bedside Glucose 125 mg/dL (70-110)
[2020-12-03] VITALS (11 sets, daily range): BP systolic 128–167; BP diastolic 78–94; PULSE 84–107; RESP 16–20; TEMP 36.6–37.1; O2SAT 95–97; BMI 26.4
[2020-12-03] MEDS: Acetaminophen 325 MG Tablet 650 MG PO ×2 (03:53→21:59)
[2020-12-03] MEDS: Menthol/Lanolin/Calamine/Znox 113 GM Tube 1 APPLIC TOPICAL ×2 (05:28→13:57)
[2020-12-03] MEDS: Heparin Injection (Vial) 5,000 UNIT/ML VIAL 5000 UNIT SC (05:28)
[2020-12-03 06:46] LABS: Bedside Glucose 103 mg/dL (70-110)
[2020-12-03 06:49] LABS: Anion Gap 5 (5-15); BUN 33 mg/dL (7-18); BUN/Creat Ratio 8.2 RATIO (10-20); Calcium,Total 8.9 mg/dL (8.5-10.1); Chloride 106 mmol/L (98-107); Creatinine, Serum 4.01 mg/dL (0.55-1.02); EST Glomerular Filtration Rate 12 mL/min (>60); Est Glom Filt Rate - Afr Amer 14 mL/min (>60); Estimated Creatinine Clearance 10.27 ml/min; Glucose 108 mg/dL (74-106); Potassium 3.5 mmol/L (3.5-5.1); Sodium Level 140 mmol/L (136-145)
--- NOTE | 2020-12-03 10:13 | PCM.PN.REN ---
Patient Problems: Active and Suspected Problems (Last Reviewed 09/09/20 @ 07:[address] Dashawn Acevedo MD) Acute respiratory failure (Acute) Metabolic acidosis (Acute) Pyelonephritis (Acute) Acute renal failure (Acute) Aspiration into airway (Acute) Uremia (Acute) Hyperphosphatemia (Acute) Hypovolemic shock (Acute) Septic shock (Acute) Subjective: Following for acute kidney injury. Patient seen during hemodialysis today. She denies chest pain, shortness of breath, nausea, or increasing edema. Of her, she is still oliguric. - Physical Exam Vitals/I&O's: Vital Signs Temp Pulse Resp BP Pulse Ox 97.8 F 85 16 167/94 H 96 12/03/20 03:45 12/03/20 07:00 12/03/20 03:45 12/03/20 03:45 12/03/20 03:45 Oxygen Flow Rate (L/min) 2 Oxygen Delivery Method Room Air Weight: 63.6 kg Body Mass Index (BMI) 25.1 Finger Stick Blood Glucose 80 Intake and Output for Last 24 Hours 12/01/20 12/02/20 12/03/20 23:59 23:59 23:59 Intake Total 800 / 800 900 / 900 Output Total 2098 / 2098 Balance -1298 / -1298 900 / 900 General: Alert, Oriented x3 HEENT: Atraumatic, PERRLA, EOMI, Normocephalic Oral: Moist Mucosa Neck: Supple, No JVD Lungs: Clear to auscultation Cardiovascular: Normal S1, Normal S2, No murmurs Abdomen: Bowel Sounds Present, Soft, Non Tender Extremities: No edema Skin: No rashes Microbiology Past 72 Hours 11/27/20 09:25 Blood Culture (Wb) - Anticubital Right Blood Culture - Final No growth in 5 days. 11/27/20 09:25 Blood Culture (Wb) - Anticubital Left Blood Culture - Final No growth in 5 days. 11/27/20 12:25 Interface Orders Gram Stain - Final 11/27/20 12:25 Interface Orders Respiratory Culture - Final Culture exhibits no growth. Laboratory Results 12/02/20 16:29: POC Glucose 135 H 12/02/20 22:56: POC Glucose 125 H 12/03/20 05:40: Sodium 140, Potassium 3.5, Chloride 106, Carbon Dioxide 29.0, Anion Gap 5, BUN 33 H, Creatinine 4.01 H, Estim Creat Clear Calc 10.27, Est GFR (MDRD) Af Amer 14 L, Est GFR (MDRD) Non-Af 12 L, BUN/Creatinine Ratio 8.2 L, Glucose 108 H, Calcium 8.9 12/03/20 06:40: POC Glucose 103 Current Medications Acetaminophen (Acetaminophen 325 Mg Tablet) 650 mg PO Q6H PRN PRN PRN Reason: Pain 1-10 or Fever Last Admin: 12/03/20 03:53 Dose: 650 mg Documented by: Calamine/Phenol (Menthol/Lanolin/Calamine/Znox 113 Gm Tube) 1 applic TOPICAL TID SVEN; Protocol Last Admin: 12/03/20 05:28 Dose: 1 applic Documented by: Dextrose (Dextrose 50%-Water 25 Gm/50 Ml Disp.Syrin) 0 gm IV X1 PRN; Protocol PRN Reason: Hypoglycemia Last Admin: 12/01/20 05:26 Dose: 12.5 gm Documented by: Glucagon (Glucagon 1 Mg/Ml Syringe) 1 mg IM .X1 PRN PRN Reason: Hypoglycemia Heparin Sodium (Porcine) (Heparin Injection (Vial) 5,000 Unit/Ml Vial) 5,000 unit SC Q8 SVEN Last Admin: 12/03/20 05:28 Dose: 5,000 unit Documented by: Heparin Sodium (Porcine) (Heparin 10,000 Units/10 Ml Vial) 0 units IV X1 PRN PRN Reason: DIALYSIS Last Admin: 11/28/20 15:36 Dose: 1.3 units Documented by: Sodium Chloride () 250 mls @ 15 mls/hr IV .[id number] PRN PRN Reason: Saline Flush Last Infusion: 11/30/20 15:17 Dose: Infused Documented by: Insulin Human Lispro (Insulin Lispro 100 Unit/Ml Insuln.Pen) 0 unit SC ACHS SVEN; Protocol Last Admin: 12/03/20 06:41 Dose: Not Given Documented by: Ondansetron HCl (Ondansetron 4 Mg/2 Ml Vial) 4 mg IV Q8H PRN PRN PRN Reason: NAUSEA/VOMITING Pantoprazole Sodium (Pantoprazole Sodium 40 Mg Tablet) 40 mg PO DAILY SVEN Last Admin: 12/02/20 08:58 Dose: 40 mg Documented by: Sodium Chloride (0.9% Saline Lock 10 Ml Syringe) 10 - 40 ml IV UD PRN PRN Reason: SALINE FLUSH Last Admin: 12/02/20 14:05 Dose: 40 ml Documented by: Medical Necessity - Tobacco Use Smoking Status: Current every day smoker Tobacco Use: Cigarettes Assessment/Plan All Active Problems (Last Reviewed 09/09/20 @ 07:[address] Dashawn Acevedo MD) Acute respiratory failure (Acute) Metabolic acidosis (Acute) Pyelonephritis (Acute) Acute renal failure (Acute) Aspiration into airway (Acute) Uremia (Acute) Hyperphosphatemia (Acute) Hypovolemic shock (Acute) Septic shock (Acute) 1. Acute kidney injury. Baseline serum creatinine is 1.00 mg/dL. SANTI secondary to ischemic ATN. The patient remains oliguric. There is no significant recovery of kidney function yet. Her serum creatinine still increases significantly between dialysis. Therefore, I will ask surgery to place tunneled dialysis catheter. We will get her admitted to [facility] [place] for ongoing dialysis. We can monitor the patient at the dialysis center for recovery. 2. Hypokalemia. Resolved. Used 3K dialysate today. Recheck potassium level tomorrow. 3. Anion gap metabolic acidosis. Resolved. This was secondary to SANTI, metformin, and septic shock. Serum bicarbonate level is 29 today. Serum bicarbonate level should stabilize with dialysis. 4. Septic shock. Resolved. The patient is now off of vasopressor agents. Antimicrobials as per infectious disease service. 5. Acute hypoxic respiratory failure. The patient was ventilator dependent. She is now off of the ventilator and is doing well. We have taken additional 1.4 L off with UF yesterday. Will UF again today since she is oliguric. Reassess volume status again tomorrow. Above discussed with Dr. Meek
--- NOTE | 2020-12-03 10:54 | CON.PCM_ITS ---
Problem List (1) Acute renal failure Status: Acute Reason for Consult Date of Consultation: 12/03/20 Reason for Consultation: Acute renal failure. In need of dialysis access. History of Present Illness: The patient is a 69 year old F who presented unresponsive following a fall where she was found by her . Patient states she developed a kidney stone in September. She was scheduled for laser treatment with Dr. Acevedo. She developed a UTI at that same time. She was evaluated by her PCP who recommended she hold off on going through the kidney stone procedure. She then developed multiple abscesses under both axilla and forehead. She was placed on antibiotics for MRSA and referred to Dr. Durant for removal of the abscesses. Patient stated she was told that she should have been referred to infectious disease. She denies having any of the abscesses opened. She stated she went upstairs on Tuesday night and remembers falling and then she woke up here. She was noted to be hypotensive and hypoglycemic in the field. She states she had an M.I. last February. She is on a daily aspirin at home. She was initiated on dialysis in the hospital via temporary dialysis catheter right chest. Her creatinine continues to be elevated. Past Medical History Past Medical History (Chronic Problems): Chronic Problems (Last Reviewed 09/09/20 @ 07:[address] Dashawn Acevedo MD) Kidney stone (Chronic) Non-STEMI (non-ST elevated myocardial infarction) (Chronic 02/10/20) Essential (primary) hypertension (Chronic) Hyperlipidemia (Chronic) Nicotine dependence (Chronic) Medical History: Medical History (Last Reviewed 12/03/20 @ 12:50 by Roxana PADILLA, PA-C) Non-STEMI (non-ST elevated myocardial infarction) (Chronic) Onset Date: 0 02/10/20 I21.4 Essential (primary) hypertension (Chronic) I10 Hyperlipidemia (Chronic) E78.5 Nicotine dependence (Chronic) F17.200 CKD (chronic kidney disease) stage 3, GFR 30-59 ml/min N18.3 DM type 2 (diabetes mellitus, type 2) E11.9 GERD (gastroesophageal reflux disease) K21.9 Left renal stone N20.0 Nephrolithiasis N20.0 Tobacco abuse Z72.0 Allergies oxycodone [From Percocet] Allergy (Verified 02/10/20 15:34) Nausea Penicillins [PCN] Allergy (Verified 02/10/20 15:34) Unknown Home Medications: Ambulatory Orders Medication Instructions Recorded Aspirin E.C. [Ecotrin] 81 mg PO DAILY@0800 11/03/14 Metoprolol Tartrate [Lopressor 25 mg PO BID 11/03/14 (beta ericka)] Multivitamins,Therapeutic 1 tablet PO DAILY 11/03/14 [Multivitamin] Omeprazole [Prilosec] 20 mg PO DAILY 11/03/14 Rosuvastatin Calcium [Crestor] 40 mg PO QHS 11/03/14 metFORMIN HCl [Glucophage] 1,000 mg PO BIDCM 11/03/14 Cyanocobalamin (Vitamin B-12) 1,000 mcg PO DAILY 02/10/16 [Vitamin B-12] Lisinopril [Zestril] 20 mg PO QHS 01/09/20 Vitamin B Complex 1 ea PO QHS 01/22/20 Acetaminophen/Caffeine [Excedrin 1 tablet PO DAILY PRN PRN 11/27/20 Tension Headache Cplt] Doxycycline Hyclate 100 mg PO BID 11/27/20 Surgical History: Surgical History (Last Reviewed 12/03/20 @ 12:51 by Roxana PADILLA, PA-C) History of left heart catheterization Onset Date: 02/11/20 Z98.890 Surgical History: - - lithotripsy Psychiatric History: No pertinent psych hx [employer] History: No pertinent [employer] history Smoking Status: Current every day smoker Tobacco Use: Cigarettes Review of Systems Constitutional: Denies: Chills, Fever, Weight Change HEENT: Denies: Head Aches, Sinus Congestion, Sinus Drainage Cardiovascular: Denies: Chest Pain, Palpitations Respiratory: Denies: Cough, Shortness of breath at rest, Sputum production Gastrointestinal: Denies: Abdominal Pain, Nausea, Vomiting Genitourinary: Denies: Dysuria Musculoskeletal: Denies: Joint Pain, Joint Tenderness Skin: Denies: Rash, Wounds Neurological: Reports: Balance problems. Denies: Focal weakness, Numbness, Tingling Psychiatric: Denies: Anxiety, Depression, Homicidal Ideations, Suicidal Ideations Hematologic/ Lymphatic: Reports: Anemia, Easy Bruising Patient Problems: Active and Suspected Problems (Last Reviewed 09/09/20 @ 07:[address] Dashawn Acevedo MD) Acute respiratory failure (Acute) Metabolic acidosis (Acute) Pyelonephritis (Acute) Acute renal failure (Acute) Aspiration into airway (Acute) Uremia (Acute) Hyperphosphatemia (Acute) Hypovolemic shock (Acute) Septic shock (Acute) - Physical Exam Vitals/I&O's: Vital Signs Temp Pulse Resp BP Pulse Ox 97.8 F 107 H 18 128/78 H 97 12/03/20 10:05 12/03/20 10:05 12/03/20 10:05 12/03/20 10:05 12/03/20 10:05 Oxygen Flow Rate (L/min) 2 Oxygen Delivery Method Room Air Weight: 140 lb 3.424 oz Body Mass Index (BMI) 25.1 Finger Stick Blood Glucose 80 Intake and Output for Last 24 Hours 12/01/20 12/02/20 12/03/20 23:59 23:59 23:59 Intake Total 800 / 800 900 / 900 Output Total 2097 / 2097 Balance -1298 / -1298 900 / 900 General: Alert, Oriented x3, Cooperative HEENT: Atraumatic, PERRLA, EOMI, Normocephalic Neck: Supple, No JVD, Negative Carotid Bruits Lungs: Wheezes - bilaterally Cardiovascular: Regular rate, No murmurs Abdomen: Bowel Sounds Present, Soft, Non Tender Extremities: No edema, Capillary Refill Less than 3 Seconds Skin: No rashes, No breakdown Musculoskeletal: No Tenderness to Palpation of Joints or Extremities Neurological: Neuro grossly intact Psych/Mental Status: Normal Affect, Appropriate Microbiology Past 72 Hours 11/27/20 09:25 Blood Culture (Wb) - Anticubital Right Blood Culture - Final No growth in 5 days. 11/27/20 09:25 Blood Culture (Wb) - Anticubital Left Blood Culture - Final No growth in 5 days. 11/27/20 12:25 Interface Orders Gram Stain - Final 11/27/20 12:25 Interface Orders Respiratory Culture - Final Culture exhibits no growth. Laboratory Results 12/02/20 16:29: POC Glucose 135 H 12/02/20 22:56: POC Glucose 125 H 12/03/20 05:40: Sodium 140, Potassium 3.5, Chloride 106, Carbon Dioxide 29.0, Anion Gap 5, BUN 33 H, Creatinine 4.01 H, Estim Creat Clear Calc 10.27, Est GFR (MDRD) Af Amer 14 L, Est GFR (MDRD) Non-Af 12 L, BUN/Creatinine Ratio 8.2 L, Glucose 108 H, Calcium 8.9 12/03/20 06:40: POC Glucose 103 Current Medications Acetaminophen (Acetaminophen 325 Mg Tablet) 650 mg PO Q6H PRN PRN PRN Reason: Pain 1-10 or Fever Last Admin: 12/03/20 03:53 Dose: 650 mg Documented by: Calamine/Phenol (Menthol/Lanolin/Calamine/Znox 113 Gm Tube) 1 applic TOPICAL TID [facility]; Protocol Last Admin: 12/03/20 05:28 Dose: 1 applic Documented by: Dextrose (Dextrose 50%-Water 25 Gm/50 Ml Disp.Syrin) 0 gm IV X1 PRN; Protocol PRN Reason: Hypoglycemia Last Admin: 12/01/20 05:26 Dose: 12.5 gm Documented by: Glucagon (Glucagon 1 Mg/Ml Syringe) 1 mg IM .X1 PRN PRN Reason: Hypoglycemia Heparin Sodium (Porcine) (Heparin Injection (Vial) 5,000 Unit/Ml Vial) 5,000 unit SC Q8 SVEN Last Admin: 12/03/20 05:28 Dose: 5,000 unit Documented by: Heparin Sodium (Porcine) (Heparin 10,000 Units/10 Ml Vial) 0 units IV X1 PRN PRN Reason: DIALYSIS Last Admin: 11/28/20 15:36 Dose: 1.3 units Documented by: Sodium Chloride () 250 mls @ 15 mls/hr IV .[id number] PRN PRN Reason: Saline Flush Last Infusion: 11/30/20 15:17 Dose: Infused Documented by: Clindamycin Phosphate 900 mg/ (Dextrose) 106 mls @ 150 mls/hr IV PREOP ONE Stop: 12/04/20 08:42 Insulin Human Lispro (Insulin Lispro 100 Unit/Ml Insuln.Pen) 0 unit SC ACHS [facility]; Protocol Last Admin: 12/03/20 06:41 Dose: Not Given Documented by: Ondansetron HCl (Ondansetron 4 Mg/2 Ml Vial) 4 mg IV Q8H PRN PRN PRN Reason: NAUSEA/VOMITING Pantoprazole Sodium (Pantoprazole Sodium 40 Mg Tablet) 40 mg PO DAILY [facility] Last Admin: 12/02/20 08:58 Dose: 40 mg Documented by: Sodium Chloride (0.9% Saline Lock 10 Ml Syringe) 10 - 40 ml IV UD PRN PRN Reason: SALINE FLUSH Last Admin: 12/02/20 14:05 Dose: 40 ml Documented by: Assessment/Plan All Active Problems (Last Reviewed 09/09/20 @ 07:[address] Dashawn Acevedo MD) Acute respiratory failure (Acute) Metabolic acidosis (Acute) Pyelonephritis (Acute) Acute renal failure (Acute) Aspiration into airway (Acute) Uremia (Acute) Hyperphosphatemia (Acute) Hypovolemic shock (Acute) Septic shock (Acute) I have been consulted in conjunction with Dr. Anders. He will independently evaluate this patient. Impression: Acute renal failure. In need of tunneled dialysis catheters. Plan: Discussed patient with Dr. Anders. Dr. Anders will plan to perform a right possible left chest tunneled dialysis catheter placement. Procedure details, risks and benefits have been explained. A post-procedure CXR will be performed. Patient will be NPO after midnight. Clindamycin will be ordered preop. Temporary chest catheter will be pulled after dialysis today. Patient has had the opportunity to ask and have questions answered. Patient verbally understands and agrees with the plan. Thank you for allowing us to participate in this patient's care. Office Visits / Consults: [id number] IP Consult L3
--- NOTE | 2020-12-03 10:58 | PCM.PN.HOSP ---
Patient Problems: Active and Suspected Problems (Last Reviewed 12/03/20 @ 12:50 by Roxana PADILLA, PADeliaC) Acute respiratory failure (Acute) Metabolic acidosis (Acute) Pyelonephritis (Acute) Acute renal failure (Acute) Aspiration into airway (Acute) Uremia (Acute) Hyperphosphatemia (Acute) Hypovolemic shock (Acute) Septic shock (Acute) Subjective: Doing well, no issues overnight. She did undergo dialysis yesterday however the line did clot off. They were able to remove 1700 cc. Vitals/I&O's: Vital Signs Temp Pulse Resp BP Pulse Ox 97.8 F 107 H 18 128/78 H 97 12/03/20 10:05 12/03/20 10:05 12/03/20 10:05 12/03/20 10:05 12/03/20 10:05 Oxygen Flow Rate (L/min) 2 Oxygen Delivery Method Room Air Weight: 140 lb 3.424 oz Body Mass Index (BMI) 25.1 Finger Stick Blood Glucose 80 Intake and Output for Last 24 Hours 12/01/20 12/02/20 12/03/20 23:59 23:59 23:59 Intake Total 800 / 800 900 / 900 Output Total 2098 / 2098 Balance -1298 / -1298 900 / 900 General: Alert, Oriented x3, Cooperative, No apparent distress HEENT: Atraumatic, PERRLA, EOMI, Normocephalic Oral: Moist Mucosa Neck: Supple, No JVD Lungs: Clear to auscultation, Normal air movement, No rhonchi, No wheeze, No rales Cardiovascular: Regular rate, Regular Rhythm, Normal S1, Normal S2, No murmurs Abdomen: Soft, Non Tender, Non-Distended, No Hepato-splenomegaly Extremities: Capillary Refill Less than 3 Seconds, Edema Skin: No rashes, No breakdown Neurological: Neuro grossly intact, Sensory exam intact to light touch and pain Psych/Mental Status: Normal Affect, Appropriate Microbiology Past 72 Hours 11/27/20 09:25 Blood Culture (Wb) - Anticubital Right Blood Culture - Final No growth in 5 days. 11/27/20 09:25 Blood Culture (Wb) - Anticubital Left Blood Culture - Final No growth in 5 days. 11/27/20 12:25 Interface Orders Gram Stain - Final 11/27/20 12:25 Interface Orders Respiratory Culture - Final Culture exhibits no growth. Laboratory Results 12/02/20 16:29: POC Glucose 135 H 12/02/20 22:56: POC Glucose 125 H 12/03/20 05:40: Sodium 140, Potassium 3.5, Chloride 106, Carbon Dioxide 29.0, Anion Gap 5, BUN 33 H, Creatinine 4.01 H, Estim Creat Clear Calc 10.27, Est GFR (MDRD) Af Amer 14 L, Est GFR (MDRD) Non-Af 12 L, BUN/Creatinine Ratio 8.2 L, Glucose 108 H, Calcium 8.9 12/03/20 06:40: POC Glucose 103 Current Medications Acetaminophen (Acetaminophen 325 Mg Tablet) 650 mg PO Q6H PRN PRN PRN Reason: Pain 1-10 or Fever Last Admin: 12/03/20 03:53 Dose: 650 mg Documented by: Calamine/Phenol (Menthol/Lanolin/Calamine/Znox 113 Gm Tube) 1 applic TOPICAL TID SVEN; Protocol Last Admin: 12/03/20 05:28 Dose: 1 applic Documented by: Dextrose (Dextrose 50%-Water 25 Gm/50 Ml Disp.Syrin) 0 gm IV X1 PRN; Protocol PRN Reason: Hypoglycemia Last Admin: 12/01/20 05:26 Dose: 12.5 gm Documented by: Glucagon (Glucagon 1 Mg/Ml Syringe) 1 mg IM .X1 PRN PRN Reason: Hypoglycemia Heparin Sodium (Porcine) (Heparin Injection (Vial) 5,000 Unit/Ml Vial) 5,000 unit SC Q8 SVEN Last Admin: 12/03/20 05:28 Dose: 5,000 unit Documented by: Heparin Sodium (Porcine) (Heparin 10,000 Units/10 Ml Vial) 0 units IV X1 PRN PRN Reason: DIALYSIS Last Admin: 11/28/20 15:36 Dose: 1.3 units Documented by: Sodium Chloride () 250 mls @ 15 mls/hr IV .[id number] PRN PRN Reason: Saline Flush Last Infusion: 11/30/20 15:17 Dose: Infused Documented by: Clindamycin Phosphate 900 mg/ (Dextrose) 106 mls @ 150 mls/hr IV PREOP ONE Stop: 12/04/20 08:42 Insulin Human Lispro (Insulin Lispro 100 Unit/Ml Insuln.Pen) 0 unit SC ACHS [facility]; Protocol Last Admin: 12/03/20 06:41 Dose: Not Given Documented by: Ondansetron HCl (Ondansetron 4 Mg/2 Ml Vial) 4 mg IV Q8H PRN PRN PRN Reason: NAUSEA/VOMITING Pantoprazole Sodium (Pantoprazole Sodium 40 Mg Tablet) 40 mg PO DAILY [facility] Last Admin: 12/02/20 08:58 Dose: 40 mg Documented by: Sodium Chloride (0.9% Saline Lock 10 Ml Syringe) 10 - 40 ml IV UD PRN PRN Reason: SALINE FLUSH Last Admin: 12/02/20 14:05 Dose: 40 ml Documented by: STROKE Vital Signs/Narrative: Vital Signs Temp Pulse Resp BP Pulse Ox 12/03/20 10:05 97.8 F 107 H 18 128/78 H 97 12/03/20 07:00 85 Medical Necessity - Tobacco Use Smoking Status: Current every day smoker Tobacco Use: Cigarettes Assessment/Plan All Active Problems (Last Reviewed 12/03/20 @ 12:50 by Roxana PADILLA, PA-C) Acute respiratory failure (Acute) Metabolic acidosis (Acute) Pyelonephritis (Acute) Acute renal failure (Acute) Aspiration into airway (Acute) Uremia (Acute) Hyperphosphatemia (Acute) Hypovolemic shock (Acute) Septic shock (Acute) 1. Septic shock and acute hypoxic respiratory failure secondary to aspiration pneumonia with an anion gap metabolic acidosis/SANTI secondary to ischemic ATN/hypocalcemia/metabolic encephalopathy -Extubated 11/30/2020 -Both antibiotics were discontinued by ID, and both central lines will be removed today. -Blood cultures are negative, urine cultures with [facility] -Appreciate nephrology assistance. She is receiving dialysis secondary to her acute lactic acidosis which is likely combination of her Metformin use and her SANTI -Appreciate ID assistance, she remains afebrile and her leukocytosis has resolved -Based on the fluctuations in her creatinine on day that she does not dialysis, will consult general surgery to place a tunneled dialysis catheter for dialysis as an outpatient once tunneled dialysis catheter is in, can remove central line -Hypocalcemia has resolved 2. DM 2 -Hold Metformin -Accu-Cheks AC at bedtime, sliding scale insulin will make adjustments as necessary 3. HTN/HLD -She is on pressor support, therefore continue to hold her home blood pressure medications -Can restart Crestor when able to take p.o. DVT: Heparin Inpatient E&M: [id number] Subs Hosp L2
[2020-12-03 11:31] LABS: Bedside Glucose 121 mg/dL (70-110)
--- NOTE | 2020-12-03 11:56 | CASEMGMT ---
SINDHU GARCIA updated by Dr. Sandoval that patient will need temporary HD as outpatient at discharge for SANTI. SINDHU GARCIA completed HD referral and faxed to [facility]. SINDHU GARCIA in to discuss discharge planning with patient regarding HHC. Patient was provided a list of HHC providers including quality and resource use data and consistent with the patient?s preferred geographic region, medical needs, and insurance network. Patient states that son's girlfriend should be able to provide transportation to HD. SINDHU GARCIA called [facility] and updated on referral. Tentative schedule for HD is TTS 0650 with arrival at 0630. SINDHU GARCIA updated patient with tentative schedule to arrange transportation. CM will continue to follow this patient and plan for a safe discharge.
--- NOTE | 2020-12-03 13:14 | DIALYSIS ---
Hemodialysis x 2.5hrs completed at 1210 on a 3K bath, 5th treatment, tolerated well, UF 500mL, next tx planned for tomorrow for 2.5 hours to get on a TTS schedule, plans to go to [facility] after DC, accessed via right neck temporary dialysis catheter, machine alarmed with each cough, scheduled for tunneled line at 1000 tomorrow morning, temp line right neck pulled post tx per protocol, tolerated well, pressure dressing applied, can be removed after 24 hours
[2020-12-03] MEDS: Pantoprazole Sodium 40 MG Tablet PO (13:57)
--- NOTE | 2020-12-03 15:31 | CASEMGMT ---
SINDHU GARCIA in to discuss HHC choices. Patient states her first choice for HHC after review list is [facility]. SINDHU GARCIA sent referral to [facility] a awaiting acceptance. CM will continue to follow this patient and plan for a safe discharge.
[2020-12-03 16:35] LABS: Bedside Glucose 117 mg/dL (70-110)
[2020-12-03 22:15] LABS: Bedside Glucose 147 mg/dL (70-110)
[2020-12-04] VITALS (24 sets, daily range): BP systolic 140–163; BP diastolic 72–97; PULSE 83–117; RESP 12–18; TEMP 36.1–37; O2SAT 95–100; BMI 26.3
[2020-12-04 05:32] LABS: Hematocrit 29.4 % (37-47); Hemoglobin 9.4 g/dL (12.0-15.0); Mean Corpuscular Hgb 27.7 pg (27.0-32.0); Mean Corpuscular Volume 86.7 fL (81-99); Mean Platelet Vol. 11.5 fl (6.2-12.0); Platelet Count 196 K/mm3 (150-450); RBC Distribution Width CV 16.1 % (11.6-14.6); RBC Distribution Width SD 51.2 fl (35.1-43.9); Red Blood Count 3.39 M/mm3 (4.2-5.4); White Blood Count 9.4 K/mm3 (4.4-11.0)
[2020-12-04 05:45] LABS: International Normalized Ratio 1.1; Partial Thromboplast Time 28.4 Seconds (24.1-36.2); Prothrombin Time (Protime)PT. 13.1 SECONDS (11.7-14.9)
[2020-12-04 05:49] LABS: Anion Gap 5 (5-15); BUN 25 mg/dL (7-18); BUN/Creat Ratio 7.8 RATIO (10-20); Calcium,Total 8.8 mg/dL (8.5-10.1); Chloride 105 mmol/L (98-107); Creatinine, Serum 3.22 mg/dL (0.55-1.02); EST Glomerular Filtration Rate 15 mL/min (>60); Est Glom Filt Rate - Afr Amer 18 mL/min (>60); Estimated Creatinine Clearance 12.79 ml/min; Glucose 86 mg/dL (74-106); Potassium 3.8 mmol/L (3.5-5.1); Sodium Level 138 mmol/L (136-145)
--- NOTE | 2020-12-04 05:55 | EKG12_ITS ---
Test Reason : AM EKG Blood Pressure : / mmHG Vent. Rate : 079 BPM Atrial Rate : 079 BPM P-R Int : 120 ms QRS Dur : 090 ms QT Int : 384 ms P-R-T Axes : 054 -37 038 degrees QTc Int : 440 ms Normal sinus rhythm Left axis deviation Low voltage QRS Abnormal ECG Confirmed by UVALDO JOHNSON, KUN ([id number]), continuity editor STERLING BRO ([id number]) on 12/04/2020 2:00:25 PM Referred By: DR JACKSON Confirmed By:KUN BAILON MD
[2020-12-04] MEDS: Menthol/Lanolin/Calamine/Znox 113 GM Tube 1 APPLIC TOPICAL ×2 (06:36→20:51)
[2020-12-04] MEDS: 0.9% Saline Lock 10 ML Syringe IV (06:40)
[2020-12-04] MEDS: Dextrose 50%-Water 25 GM/50 ML DISP.SYRIN IV (06:40)
[2020-12-04 07:01] LABS: Bedside Glucose 97 mg/dL (70-110)
[2020-12-04 08:10] LABS: Bedside Glucose 108 mg/dL (70-110)
[2020-12-04 09:50] LABS: Bedside Glucose 97 mg/dL (70-110)
--- NOTE | 2020-12-04 10:15 | CASEMGMT ---
Addendum entered by Gloria Cuellar 12/04/20 15:36: This RN CM back to room and she states no need for HHC at discharge at this time after working with therapy. Pt aware to ask for RN JOSE for any further questions/concerns/needs. CM to follow. Nati MANLEY CM Addendum entered by Gloria Cuellar 12/04/20 12:35: Pt aware the [facility] cannot take Cigna at this time. Pt is unsure if she really needs HHC and would like to see how she does with therapy today before deciding if she really wants it. CM to follow. Nati MANLEY CM Original Note: Call from [facility] and they state they do not take Cign[employer] at this time. This RN CM to room to discuss with pt but she is out of the dept for tunnel cath placement currently. CM to follow. Nati MANLEY CM
[2020-12-04] MEDS: Heparin 10,000 UNITS/10 ML Vial 10000 UNITS (10:24)
[2020-12-04] MEDS: Lidocaine 1% /Epi 1:100 (20ml) 20 ML Vial (10:24)
--- NOTE | 2020-12-04 10:43 | OP.PCM_ITS ---
Problem List (1) Acute renal failure Status: Acute Qualifiers: Acute renal failure type: unspecified Qualified Code(s): N17.9 - Acute kidney failure, unspecified Report of Operation Date of Procedure: 12/04/20 Pre-Operative Diagnosis: Acute renal failure and need for long-term dialysis access Post-Operative Diagnosis: Same Surgery/Procedure Performed:: Ultrasound and fluoroscopy guided right chest tunneled dialysis catheter placement utilizing right IJ Description of Procedure: The patient was brought back to the operating room and MAC anesthesia was induced. The right neck and chest were prepped in usual sterile fashion. Ultrasound was used to locate the right IJ. The skin overlying the IJ was injected with local anesthetic as well as the skin overlying the chest and the tunnel between the two. A scalpel was used to make an incision in the right neck as well as in the right chest. Access needle was used to access the right IJ under ultrasound guidance and dark red blood was aspirated. Guidewire was placed without resistance. Fluoroscopy was used to confirm placement of the guidewire into the superior vena cava. The needle was removed and serial dilators were placed over the guidewire as well as a peel-away sheath. The dilators and guidewire were removed. The catheter was placed into the lower chest incision and tunneled to the superior incision and then placed into the peel-away sheath and the peel-away sheath was removed. Fluoroscopy was used during placement to ensure good placement and the ports were easily drawn back and flushed. 1.6 cc of heparinized saline were placed into each port and the catheters were clamped. The catheter was sutured to the skin using 3-0 nylon suture and the upper neck incision was closed using 3-0 Vicryl suture. Steri- Strips were placed and a Silverlon dressing was placed. Patient tolerated the procedure well and the catheters were capped. Grafts/Implants Used: Palindrome temporary dialysis catheter - Admit VTE Documentation VTE Mechan Device Prophylaxis: SCD's
--- NOTE | 2020-12-04 10:44 | PN.RENAL_ITS ---
Patient Problems: Active and Suspected Problems (Last Reviewed 12/03/20 @ 12:50 by Roxana PADILLA, PADeliaC) Acute respiratory failure (Acute) Metabolic acidosis (Acute) Pyelonephritis (Acute) Acute renal failure (Acute) Aspiration into airway (Acute) Uremia (Acute) Hyperphosphatemia (Acute) Hypovolemic shock (Acute) Septic shock (Acute) Subjective: Following for SANTI. The patient is getting a tunneled dialysis catheter today. We will dialyze her afterwards. The patient denies chest pain, shortness of breath, nausea, or edema. - Physical Exam Vitals/I&O's: Vital Signs Temp Pulse Resp BP Pulse Ox 98.3 F 83 12 149/74 H 95 12/04/20 09:48 12/04/20 09:48 12/04/20 09:48 12/04/20 09:48 12/04/20 09:48 Oxygen Flow Rate (L/min) 2 Oxygen Delivery Method Room Air Weight: 63.2 kg Body Mass Index (BMI) 26.3 Finger Stick Blood Glucose 80 Intake and Output for Last 24 Hours 12/02/20 12/03/20 12/04/20 23:59 23:59 23:59 Intake Total 900 / 900 480 / 480 Output Total 500 / 500 Balance 900 / 900 -20 / -20 General: Alert, Oriented x3, Cooperative HEENT: Atraumatic, Normocephalic Oral: Moist Mucosa Neck: Supple Lungs: Clear to auscultation Cardiovascular: Normal S1, Normal S2, No murmurs Abdomen: Bowel Sounds Present, Soft, Non Tender Extremities: No edema Microbiology Past 72 Hours 12/03/20 14:26 Mucosa - Nose SARS-CoV-2 Antigen (Rapid) - Final 11/27/20 09:25 Blood Culture (Wb) - Anticubital Right Blood Culture - Final No growth in 5 days. 11/27/20 09:25 Blood Culture (Wb) - Anticubital Left Blood Culture - Final No growth in 5 days. Laboratory Results 12/03/20 11:20: POC Glucose 121 H 12/03/20 16:33: POC Glucose 117 H 12/03/20 21:39: POC Glucose 147 H 12/04/20 04:50: WBC 9.4, RBC 3.39 L, Hgb 9.4 L, Hct 29.4 L, MCV 86.7, MCH 27.7, MCHC 32.0, RDW Std Deviation 51.2 H, RDW Coeff of Hawa 16.1 H, Plt Count 196, MPV 11.5 12/04/20 04:50: PT 13.1, INR 1.1, APTT 28.4 12/04/20 04:50: Sodium 138, Potassium 3.8, Chloride 105, Carbon Dioxide 28.0, Anion Gap 5, BUN 25 H, Creatinine 3.22 H, Estim Creat Clear Calc 12.79, Est GFR (MDRD) Af Amer 18 L, Est GFR (MDRD) Non-Af 15 L, BUN/Creatinine Ratio 7.8 L, Glucose 86, Calcium 8.8 12/04/20 04:50: Hemoglobin A1c 6.0 H 12/04/20 06:35: POC Glucose 97 12/04/20 07:54: POC Glucose 108 12/04/20 09:44: POC Glucose 97 Current Medications Acetaminophen (Acetaminophen 325 Mg Tablet) 650 mg PO Q6H PRN PRN PRN Reason: Pain 1-10 or Fever Last Admin: 12/03/20 21:59 Dose: 650 mg Documented by: Calamine/Phenol (Menthol/Lanolin/Calamine/Znox 113 Gm Tube) 1 applic TOPICAL TID SVEN; Protocol Last Admin: 12/04/20 06:36 Dose: 1 applic Documented by: Dextrose (Dextrose 50%-Water 25 Gm/50 Ml Disp.Syrin) 0 gm IV X1 PRN; Protocol PRN Reason: Hypoglycemia Last Admin: 12/04/20 06:40 Dose: 12.5 gm Documented by: Glucagon (Glucagon 1 Mg/Ml Syringe) 1 mg IM .X1 PRN PRN Reason: Hypoglycemia Heparin Sodium (Porcine) (Heparin Injection (Vial) 5,000 Unit/Ml Vial) 5,000 unit SC Q8 SVEN Last Admin: 12/03/20 05:28 Dose: 5,000 unit Documented by: Heparin Sodium (Porcine) (Heparin 10,000 Units/10 Ml Vial) 0 units IV X1 PRN PRN Reason: DIALYSIS Last Admin: 11/28/20 15:36 Dose: 1.3 units Documented by: Sodium Chloride () 250 mls @ 15 mls/hr IV .[id number] PRN PRN Reason: Saline Flush Last Infusion: 11/30/20 15:17 Dose: Infused Documented by: Insulin Human Lispro (Insulin Lispro 100 Unit/Ml Insuln.Pen) 0 unit SC ACHS [facility]; Protocol Last Admin: 12/04/20 06:36 Dose: Not Given Documented by: Ondansetron HCl (Ondansetron 4 Mg/2 Ml Vial) 4 mg IV Q8H PRN PRN PRN Reason: NAUSEA/VOMITING Pantoprazole Sodium (Pantoprazole Sodium 40 Mg Tablet) 40 mg PO DAILY [facility] Last Admin: 12/03/20 13:57 Dose: 40 mg Documented by: Sodium Chloride (0.9% Saline Lock 10 Ml Syringe) 10 - 40 ml IV UD PRN PRN Reason: SALINE FLUSH Last Admin: 12/04/20 06:40 Dose: 30 ml Documented by: Medical Necessity - Tobacco Use Smoking Status: Current every day smoker Tobacco Use: Cigarettes Assessment/Plan All Active Problems (Last Reviewed 12/03/20 @ 12:50 by Roxana PADILLA PADeliaC) Acute respiratory failure (Acute) Metabolic acidosis (Acute) Pyelonephritis (Acute) Acute renal failure (Acute) Aspiration into airway (Acute) Uremia (Acute) Hyperphosphatemia (Acute) Hypovolemic shock (Acute) Septic shock (Acute) 1. Acute kidney injury. Baseline serum creatinine is 1.00 mg/dL. SANTI secondary to ischemic ATN. The patient remains oliguric. There is no significant recovery of kidney function yet. Her serum creatinine is been significantly between dialysis. The refore, I asked surgery to place tunneled dialysis catheter. We will get her admitted to [facility] dialysis center for ongoing dialysis. We can monitor the patient at the dialysis center for recovery. 2. Hypokalemia. Resolved. Used 3K dialysate today. Recheck potassium level tomorrow. 3. Anion gap metabolic acidosis. Resolved. This was secondary to SANTI, metformin, and septic shock. Serum bicarbonate level is 28 today. Serum bicarbonate level should stabilize with dialysis. 4. Septic shock. Resolved. The patient is now off of vasopressor agents. Antimicrobials as per infectious disease service. 5. Acute hypoxic respiratory failure. The patient was ventilator dependent. She has been off of the ventilator and is doing well. We have taken additional 1.4 L off with UF yesterday. Will UF again today since she is oliguric. Reassess volume status again tomorrow. Above discussed with Dr. Meek
--- NOTE | 2020-12-04 10:53 | CASEMGMT ---
Addendum entered by Gloria Cuellar 12/04/20 13:31: Per Dr. Meek, pt now will not discharge till tomorrow and pt is aware. Nati MANLEY CM Original Note: Soledad at [facility] informed that pt getting tunnel cath today and plan is to dialyze after then discharge pt today. Soledad is aware that pt will be coming for 1st OP treatment tuesday am, voices understanding. 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 Nati MANLEY CM
--- NOTE | 2020-12-04 11:00 | RAD_ITS ---
STUDY: X-RAY CHEST REASON FOR EXAM: Female, 69 years old. Dialysis catheter placement. pacu -- in pacu TECHNIQUE: Single AP portable view of the chest. COMPARISON: Comparison is made with prior study 11/28/2020. FINDINGS: The endotracheal tube and orogastric tube removed. A right-sided dialysis catheter has been placed with the tip at the junction of the superior vena cava and right atrium. The lungs are clear and expanded. There is no demonstrated pleural abnormality. Normal size heart. Normal mediastinum and jame. Normal visualized pulmonary arteries. Normal visualized aortic arch and descending thoracic aorta. Normal visualized thoracic spine. Normal visualized ribs, clavicles, and shoulders. The patient is status post cholecystectomy. RAD/CXR for Line Placement IMPRESSION: The tip of the right-sided dialysis catheter is at the junction of the superior vena cava and right atrium. Electronically Signed: Fernando Caro MD at 11:40 EDT , Service support ,
--- NOTE | 2020-12-04 11:07 | CON.PCM_ITS ---
Problem List (1) Debility Status: Acute (2) Acute respiratory failure Status: Acute (3) Aspiration into airway Status: Acute Qualifiers: Encounter type: subsequent encounter Qualified Code(s): T17.908D - Unspecified foreign body in respiratory tract, part unspecified causing other injury, subsequent encounter (4) Metabolic acidosis Status: Acute (5) Pyelonephritis Status: Acute (6) Acute renal failure Status: Acute Qualifiers: Acute renal failure type: unspecified Qualified Code(s): N17.9 - Acute kidney failure, unspecified (7) Uremia Status: Acute (8) Hyperphosphatemia Status: Acute (9) Hypovolemic shock Status: Acute (10) Septic shock Status: Acute (11) Non-STEMI (non-ST elevated myocardial infarction) Status: Chronic (12) Essential (primary) hypertension Status: Chronic (13) Hyperlipidemia Status: Chronic (14) Nicotine dependence Status: Chronic (15) Kidney stone Status: Chronic History of Present Illness Date of Consult: 12/04/20 Reason for Consult: debility, esrd Requesting physician: [] Primary care physician: Dr. Garrett Alvarez MD - History of Present Illness The patient is a 69 year old F with PMH as below, presented to the ED 11/27/2020 via EMS due to unresponsiveness at home with her . She was hypotensive and hypoglycemic. Patient recently treated for MRSA infection in her axilla and forehead with antibiotics, she had declined I&D. She has had some recent falls. Patient has been notably very weak and not taking her medications regularly, very poor oral intake. In the ED, she was noted to be hypothermic, hypotensive, and tachypneic. Blood work was obtained and an ABG. Her UA was positive for infection. Sent for a CT of the abdomen/pelvis which revealed incidental pulmonary nodule along with fluid-filled small bowel loops with possible early distal small bowel obstruction. CT the head was unremarkable. Patient ended up intubated secondary to diaphoresis, emesis, and acute respiratory distress. She was admitted to the ICU for further evaluation and management. Nephrology was consulted and temporary dialysis cath was placed. She required aggressive IV fluid resuscitation, vasopressors, and emergent dialysis. Patient eventually improved and was transferred to the progressive care unit. She received a right chest tunneled dialysis catheter 12/04/2020. She will receive dialysis today and be discharged to SNF afterwards. Patient lives at home with her , son, and son's girlfriend. Her son has health issues and does not work. Patient has 2 sons, her other son lives in [place]. Her spouse also has 2 children, who live in [place] and [place]. They help occasionally. Patient was working up until about 2 months ago and was independent with ADLs until then. Patient still drives, and son do not. Patient has a glucometer at home but has not used it in years. She also has a shower chair and walker available if needed, however not currently using. Plan is to discharge home with home health care. Gloria reports she is a little overwhelmed with everything that has been going on. Everything started in January 2020 when she had renal calculi and lithotripsy. Then the heart attack over the summer. Then on September 09, she presented to the ED with lots of pain in was found to have a large renal calculi. Ever since then, things have been going downhill. She still wants to work full-time and is worried about losing her job at [employer]. Patient will be on dialysis Saturdays in [place], she is worried that she will not be able to work as much and tolerate HD. We did discuss financial assistance and potentially getting short-term disability from her work until she can figure things out. Discussed palliative services with the patient and what services we could offer. Reviewed her medications. She does have chronic pain but mostl y in her joints, usually just takes Tylenol. Blood pressure has been somewhat elevated, systolic in the 150s to 160s. Currently on metoprolol 25 mg twice daily. She has trace to 1+ pitting edema to her legs. Tachycardic at times. Chronic smoker's cough. Lungs are clear but diminished. She is tolerating room air well. Specialists include: GI Dr. Howard Urology Dr. Acevedo Nephrology Dr. Maynard Patient Problems: Chronic Problems (Last Reviewed 12/03/20 @ 12:50 by Roxana PADILLA, PA-C) Kidney stone (Chronic) Non-STEMI (non-ST elevated myocardial infarction) (Chronic 02/10/20) Essential (primary) hypertension (Chronic) Hyperlipidemia (Chronic) Nicotine dependence (Chronic) Surgical History: - - lithotripsy Psychiatric History: No pertinent psych hx Home Medications: Ambulatory Orders Medication Instructions Recorded Aspirin E.C. [Ecotrin] 81 mg PO DAILY@0800 11/03/14 Metoprolol Tartrate [Lopressor 25 mg PO BID 11/03/14 (beta ericka)] Multivitamins,Therapeutic 1 tablet PO DAILY 11/03/14 [Multivitamin] Omeprazole [Prilosec] 20 mg PO DAILY 11/03/14 Rosuvastatin Calcium [Crestor] 40 mg PO QHS 11/03/14 metFORMIN HCl [Glucophage] 1,000 mg PO BIDCM 11/03/14 Cyanocobalamin (Vitamin B-12) 1,000 mcg PO DAILY 02/10/16 [Vitamin B-12] Lisinopril [Zestril] 20 mg PO QHS 01/09/20 Vitamin B Complex 1 ea PO QHS 01/22/20 Acetaminophen/Caffeine [Excedrin 1 tablet PO DAILY PRN PRN 11/27/20 Tension Headache Cplt] Doxycycline Hyclate 100 mg PO BID 11/27/20 Allergies oxycodone [From Percocet] Allergy (Verified 12/04/20 09:59) Nausea Penicillins [PCN] Allergy (Verified 12/04/20 09:59) Unknown - Social History Lives: With Family Smoking Status: Heavy Smoker (>10/day) - 05-vepq-[id number] history Tobacco Use: Cigarettes Alcohol: None Drugs: None Code Status: Full Code Physical Exam Objective: Vital Signs Temp Pulse Resp BP Pulse Ox 97.1 F L 99 16 143/80 H 99 12/04/20 10:47 12/04/20 10:56 12/04/20 10:56 12/04/20 10:56 12/04/20 10:56 Oxygen Flow Rate (L/min) 2 Oxygen Delivery Method Room Air Weight: 63.2 kg Body Mass Index (BMI) 26.3 Finger Stick Blood Glucose 80 Intake and Output for Last 24 Hours 12/02/20 12/03/20 12/04/20 23:59 23:59 23:59 Intake Total 900 / 900 480 / 480 Output Total 500 / 500 Balance 900 / 900 -20 / -20 Microbiology Past 72 Hours 12/03/20 14:26 SARS-CoV-2 Antigen (Rapid) - Final Mucosa - Nose 11/27/20 09:25 Blood Culture - Final Blood Culture (Wb) - Anticubital Right No growth in 5 days. 11/27/20 09:25 Blood Culture - Final Blood Culture (Wb) - Anticubital Left No growth in 5 days. Laboratory Tests Past 24 Hrs 12/04/20 12/04/20 12/04/20 04:50 04:50 04:50 WBC 9.4 RBC 3.39 L Hgb 9.4 L Hct 29.4 L MCV 86.7 MCH 27.7 MCHC 32.0 RDW Std Deviation 51.2 H RDW Coeff of Hawa 16.1 H Plt Count 196 MPV 11.5 PT 13.1 INR 1.1 APTT 28.4 Sodium 138 Potassium 3.8 Chloride 105 Carbon Dioxide 28.0 Anion Gap 5 BUN 25 H Creatinine 3.22 H Estim Creat Clear Calc 12.79 Est GFR (MDRD) Af Amer 18 L Est GFR (MDRD) Non-Af 15 L BUN/Creatinine Ratio 7.8 L Glucose 86 Hemoglobin A1c Calcium 8.8 12/04/20 04:50 WBC RBC Hgb Hct MCV MCH MCHC RDW Std Deviation RDW Coeff of Hawa Plt Count MPV PT INR APTT Sodium Potassium Chloride Carbon Dioxide Anion Gap BUN Creatinine Estim Creat Clear Calc Est GFR (MDRD) Af Amer Est GFR (MDRD) Non-Af BUN/Creatinine Ratio Glucose Hemoglobin A1c 6.0 H Calcium Assessment/Plan All Active Problems (Last Reviewed 12/03/20 @ 12:50 by Roxana PADILLA, PA-C) Acute respiratory failure (Acute) Metabolic acidosis (Acute) Pyelonephritis (Acute) Acute renal failure (Acute) Aspiration into airway (Acute) Uremia (Acute) Hyperphosphatemia (Acute) Hypovolemic shock (Acute) Septic shock (Acute) Debility (Acute) 69-year-old female with acute on chronic renal failure, current MRSA wounds to the forehead and bilateral axilla, seen today for initial palliative care consultation regarding her weakness/debility and end-stage renal disease. 1. Weakness/debility: Multifactorial, she will continue with therapy in the home setting. We will follow-up as an outpatient since she is being discharged later today (possibly tomorrow if dialysis runs late). 2. Aspiration PNA/resp failure/septic and hypovolemic shock: Improving, she is stable on room air. She is off antibiotics. Plan is to discharge today after dialysis. Encouraged close follow-up with her PCP and specialist. 3. Renal calculi: Was scheduled for lithotripsy however was put on hold. She should follow up with urology as an outpatient. 4. History of NSTEMI/HTN/HLD/nicotine dependence: Complicates overall care, management, recovery, and prognosis. Encourage smoking cessation, education provided. She has had success with the nicotine patch in the past. Follow-up closely with PCP and specialist. Defer management to them. Thank you for the opportunity to participate in this patient's care, please do not hesitate to contact [facility] with any further questions or concerns. Palliative direct line is [phone]. We will have RN follow up approximately 3 days after discharge to home and will discuss palliative services further at that time. Greater than 50% of F2F visit dedicated to education and counseling of palliative care services, medications, comorbid conditions and potential assistance with management, and plan of care moving forward. Start time: 1548 End time: 1630
[2020-12-04] MEDS: Pantoprazole Sodium 40 MG Tablet PO (12:21)
[2020-12-04 12:45] LABS: Bedside Glucose 94 mg/dL (70-110)
--- NOTE | 2020-12-04 13:34 | PCM.PN.HOSP ---
Patient Problems: Active and Suspected Problems (Last Reviewed 12/03/20 @ 12:50 by Roxana PADILLA, PADeliaC) Acute respiratory failure (Acute) Metabolic acidosis (Acute) Pyelonephritis (Acute) Acute renal failure (Acute) Aspiration into airway (Acute) Uremia (Acute) Hyperphosphatemia (Acute) Hypovolemic shock (Acute) Septic shock (Acute) Debility (Acute) Subjective: Doing better today, she was seen after she had her tunneled dialysis catheter placed. She is scheduled for dialysis this afternoon Vitals/I&O's: Vital Signs Temp Pulse Resp BP Pulse Ox 98.2 F 97 16 163/81 H 95 12/04/20 12:15 12/04/20 12:15 12/04/20 12:15 12/04/20 12:15 12/04/20 12:15 Oxygen Flow Rate (L/min) 2 Oxygen Delivery Method Room Air Weight: 139 lb 5.314 oz Body Mass Index (BMI) 26.3 Finger Stick Blood Glucose 80 Intake and Output for Last 24 Hours 12/02/20 12/03/20 12/04/20 23:59 23:59 23:59 Intake Total 900 / 900 480 / 480 126 / 126 Output Total 500 / 500 250 / 250 Balance 900 / 900 -20 / -20 -124 / -124 General: Alert, Oriented x3, Cooperative, No apparent distress HEENT: Atraumatic, PERRLA, EOMI, Normocephalic Oral: Moist Mucosa Neck: Supple, No JVD Lungs: Clear to auscultation, Normal air movement, No rhonchi, No wheeze, No rales Cardiovascular: Regular rate, Regular Rhythm, Normal S1, Normal S2, No murmurs Abdomen: Soft, Non Tender, Non-Distended, No Hepato-splenomegaly Extremities: Capillary Refill Less than 3 Seconds, Edema Skin: No rashes, No breakdown Neurological: Neuro grossly intact, Sensory exam intact to light touch and pain Psych/Mental Status: Normal Affect, Appropriate Microbiology Past 72 Hours 12/03/20 14:26 Mucosa - Nose SARS-CoV-2 Antigen (Rapid) - Final 11/27/20 09:25 Blood Culture (Wb) - Anticubital Right Blood Culture - Final No growth in 5 days. 11/27/20 09:25 Blood Culture (Wb) - Anticubital Left Blood Culture - Final No growth in 5 days. Laboratory Results 12/03/20 16:33: POC Glucose 117 H 12/03/20 21:39: POC Glucose 147 H 12/04/20 04:50: WBC 9.4, RBC 3.39 L, Hgb 9.4 L, Hct 29.4 L, MCV 86.7, MCH 27.7, MCHC 32.0, RDW Std Deviation 51.2 H, RDW Coeff of Hawa 16.1 H, Plt Count 196, MPV 11.5 12/04/20 04:50: PT 13.1, INR 1.1, APTT 28.4 12/04/20 04:50: Sodium 138, Potassium 3.8, Chloride 105, Carbon Dioxide 28.0, Anion Gap 5, BUN 25 H, Creatinine 3.22 H, Estim Creat Clear Calc 12.79, Est GFR (MDRD) Af Amer 18 L, Est GFR (MDRD) Non-Af 15 L, BUN/Creatinine Ratio 7.8 L, Glucose 86, Calcium 8.8 12/04/20 04:50: Hemoglobin A1c 6.0 H 12/04/20 06:35: POC Glucose 97 12/04/20 07:54: POC Glucose 108 12/04/20 09:44: POC Glucose 97 12/04/20 12:22: POC Glucose 94 Current Medications Acetaminophen (Acetaminophen 325 Mg Tablet) 650 mg PO Q6H PRN PRN PRN Reason: Pain 1-10 or Fever Last Admin: 12/03/20 21:59 Dose: 650 mg Documented by: Calamine/Phenol (Menthol/Lanolin/Calamine/Znox 113 Gm Tube) 1 applic TOPICAL TID SVEN; Protocol Last Admin: 12/04/20 06:36 Dose: 1 applic Documented by: Dextrose (Dextrose 50%-Water 25 Gm/50 Ml Disp.Syrin) 0 gm IV X1 PRN; Protocol PRN Reason: Hypoglycemia Last Admin: 12/04/20 06:40 Dose: 12.5 gm Documented by: Glucagon (Glucagon 1 Mg/Ml Syringe) 1 mg IM .X1 PRN PRN Reason: Hypoglycemia Heparin Sodium (Porcine) (Heparin Injection (Vial) 5,000 Unit/Ml Vial) 5,000 unit SC Q8 SVEN Last Admin: 12/03/20 05:28 Dose: 5,000 unit Documented by: Heparin Sodium (Porcine) (Heparin 10,000 Units/10 Ml Vial) 0 units IV X1 PRN PRN Reason: DIALYSIS Last Admin: 11/28/20 15:36 Dose: 1.3 units Documented by: Sodium Chloride () 250 mls @ 15 mls/hr IV .[id number] PRN PRN Reason: Saline Flush Last Infusion: 11/30/20 15:17 Dose: Infused Documented by: Insulin Human Lispro (Insulin Lispro 100 Unit/Ml Insuln.Pen) 0 unit SC ACHS [facility]; Protocol Last Admin: 12/04/20 12:23 Dose: Not Given Documented by: Ondansetron HCl (Ondansetron 4 Mg/2 Ml Vial) 4 mg IV Q8H PRN PRN PRN Reason: NAUSEA/VOMITING Pantoprazole Sodium (Pantoprazole Sodium 40 Mg Tablet) 40 mg PO DAILY [facility] Last Admin: 12/04/20 12:21 Dose: 40 mg Documented by: Sodium Chloride (0.9% Saline Lock 10 Ml Syringe) 10 - 40 ml IV UD PRN PRN Reason: SALINE FLUSH Last Admin: 12/04/20 06:40 Dose: 30 ml Documented by: STROKE Vital Signs/Narrative: Vital Signs Temp Pulse Resp BP Pulse Ox 12/04/20 12:15 98.2 F 97 16 163/81 H 95 12/04/20 11:45 96.9 F L 92 16 158/82 H 100 12/04/20 11:30 93 16 160/79 H 98 12/04/20 11:15 93 16 150/82 H 99 12/04/20 11:10 94 16 159/78 H 100 12/04/20 11:05 94 16 140/85 H 100 12/04/20 11:00 91 16 160/78 H 100 12/04/20 10:56 99 16 143/80 H 99 12/04/20 10:50 96 16 148/80 H 100 12/04/20 10:47 97.1 F L 104 H 16 148/80 H 99 12/04/20 09:48 98.3 F 83 12 149/74 H 95 Medical Necessity - Tobacco Use Smoking Status: Current every day smoker Tobacco Use: Cigarettes Assessment/Plan All Active Problems (Last Reviewed 12/03/20 @ 12:50 by Roxana PADILLA PAAmanda) Acute respiratory failure (Acute) Metabolic acidosis (Acute) Pyelonephritis (Acute) Acute renal failure (Acute) Aspiration into airway (Acute) Uremia (Acute) Hyperphosphatemia (Acute) Hypovolemic shock (Acute) Septic shock (Acute) Debility (Acute) 1. Septic shock and acute hypoxic respiratory failure secondary to aspiration pneumonia with an anion gap metabolic acidosis/SANTI secondary to ischemic ATN/hypocalcemia/metabolic encephalopathy -Extubated 11/30/2020 -Both antibiotics were discontinued by ID, and both central lines were removed 12/03/2020 -Blood cultures are negative, urine cultures with [facility] -Appreciate nephrology assistance. She is receiving dialysis secondary to her acute renal failure which is likely combination of her Metformin use and her SANTI -Appreciate ID assistance, she remains afebrile and her leukocytosis has resolved -Tunneled catheter placed 12/04/2020, her dialysis schedule be TT -Hypocalcemia has resolved 2. DM 2 -Hold Metformin -Accu-Cheks AC at bedtime, sliding scale insulin will make adjustments as necessary 3. HTN/HLD -She was on pressor support in the ICU and her blood pressure medications were held. She is currently tolerating dialysis pretty well and her blood pressures are staying in the 140s to 150s therefore we will restart her home blood pressure medication will hold off lisinopril may need to transition her metoprolol for better blood pressure management. -Restart Crestor 4. GERD -Stable -Continue with PPI DVT: Heparin Inpatient E&M: [id number] [facility] L2
[2020-12-04] MEDS: Metoprolol Tartrate 25 MG Tablet PO ×2 (14:43→20:50)
[2020-12-04 16:50] LABS: Bedside Glucose 159 mg/dL (70-110)
[2020-12-04 19:01] LABS: Bedside Glucose 91 mg/dL (70-110)
--- NOTE | 2020-12-04 19:42 | DIALYSIS ---
HD X 2.5HRS ON 3K BATH UF-1300ML NEW RIJ CATH VERY POSTIONAL BFR DOWN TO 250 WITH + tmp WILL NEED HEPARIN - NO MEDS GIVEN-VITALS STABLE- REPORT TO HORACIO MANLEY
[2020-12-04] MEDS: Atorvastatin Calcium 80 MG Tablet PO (20:51)
[2020-12-04] MEDS: Insulin Lispro 100 UNIT/ML INSULN.PEN SC (20:59)
[2020-12-04 22:10] LABS: Bedside Glucose 154 mg/dL (70-110)
[2020-12-05 02:48] VITALS: BP 154/83; PULSE 87; RESP 16; TEMP 37; O2SAT 96
[2020-12-05 03:00] VITALS: PULSE 92
[2020-12-05] MEDS: Menthol/Lanolin/Calamine/Znox 113 GM Tube 1 APPLIC TOPICAL (05:29)
[2020-12-05 06:09] LABS: Absolute Lymphocyte Count 1.27 X10^3/uL (0.83-4.51); Absolute Neutrophil Count 4.3 X10^3/uL (2.0-7.7); Basophil# 0.04 X10^3/uL; Basophil% 0.5 % (0-1); Eosinophil# 0.36 X10^3/uL; Eosinophils% 4.8 % (0-5); Hematocrit 26.1 % (37-47); Hemoglobin 8.3 g/dL (12.0-15.0); Lymphocyte # 1.27 X10^3/ul (4.0); Mean Corp Hgb Conc 31.8 g/dL (32-36); Mean Corpuscular Hgb 27.8 pg (27.0-32.0); Mean Corpuscular Volume 87.3 fL (81-99); Mean Platelet Vol. 11.3 fl (6.2-12.0); Monocyte# 1.42 X10^3/uL; NRBC Flagged by Analyzer 0 % (0-5); Neutrophil # 4.34 X10^3/uL (2.7-7.7); Neutrophil % 57.9 % (47-70); Platelet Count 166 K/mm3 (150-450); RBC Distribution Width CV 16.4 % (11.6-14.6); RBC Distribution Width SD 52.2 fl (35.1-43.9); Red Blood Count 2.99 M/mm3 (4.2-5.4); White Blood Count 7.5 K/mm3 (4.4-11.0)
[2020-12-05 06:33] LABS: Anion Gap 3 (5-15); BUN 19 mg/dL (7-18); BUN/Creat Ratio 6.2 RATIO (10-20); Calcium,Total 8.6 mg/dL (8.5-10.1); Chloride 107 mmol/L (98-107); Creatinine, Serum 3.06 mg/dL (0.55-1.02); EST Glomerular Filtration Rate 16 mL/min (>60); Est Glom Filt Rate - Afr Amer 20 mL/min (>60); Estimated Creatinine Clearance 13.46 ml/min; Glucose 96 mg/dL (74-106); Potassium 3.7 mmol/L (3.5-5.1); Sodium Level 140 mmol/L (136-145)
--- NOTE | 2020-12-05 06:37 | PCM.PN.SRG ---
Patient Problems: Active and Suspected Problems (Last Reviewed 12/03/20 @ 12:50 by Roxana PADILLA, PADeliaC) Acute respiratory failure (Acute) Metabolic acidosis (Acute) Pyelonephritis (Acute) Acute renal failure (Acute) Aspiration into airway (Acute) Uremia (Acute) Hyperphosphatemia (Acute) Hypovolemic shock (Acute) Septic shock (Acute) Debility (Acute) Subjective: Patient is doing well after dialysis catheter placement - Physical Exam Vitals/I&O's: Vital Signs Temp Pulse Resp BP Pulse Ox 98.6 F 92 16 154/83 H 96 12/05/20 02:48 12/05/20 03:00 12/05/20 02:48 12/05/20 02:48 12/05/20 02:48 Oxygen Flow Rate (L/min) 2 Oxygen Delivery Method Room Air Weight: 139 lb 5.314 oz Body Mass Index (BMI) 26.3 Finger Stick Blood Glucose 80 Intake and Output for Last 24 Hours 12/03/20 12/04/20 12/05/20 23:59 23:59 23:59 Intake Total 480 / 480 326 / 326 120 / 120 Output Total 500 / 500 250 / 250 Balance -20 / -20 76 / 76 120 / 120 General: Alert, Oriented x3 Neck: - - Dialysis catheter in place with no bleeding or oozing Microbiology Past 72 Hours 12/03/20 14:26 Mucosa - Nose SARS-CoV-2 Antigen (Rapid) - Final 11/27/20 09:25 Blood Culture (Wb) - Anticubital Right Blood Culture - Final No growth in 5 days. 11/27/20 09:25 Blood Culture (Wb) - Anticubital Left Blood Culture - Final No growth in 5 days. Laboratory Results 12/04/20 04:50: Hemoglobin A1c 6.0 H 12/04/20 06:35: POC Glucose 97 12/04/20 07:54: POC Glucose 108 12/04/20 09:44: POC Glucose 97 12/04/20 12:22: POC Glucose 94 12/04/20 16:44: POC Glucose 159 H 12/04/20 18:54: POC Glucose 91 12/04/20 20:56: POC Glucose 154 H 12/05/20 04:55: WBC 7.5, RBC 2.99 L, Hgb 8.3 L, Hct 26.1 L, MCV 87.3, MCH 27.8, MCHC 31.8 L, RDW Std Deviation 52.2 H, RDW Coeff of Hawa 16.4 H, Plt Count 166, MPV 11.3, Immature Gran % (Auto) 0.800, Neut % (Auto) 57.9, Lymph % (Auto) 17.0 L, Upson % (Auto) 19.0 H, Eos % (Auto) 4.8, Baso % (Auto) 0.5, Absolute Neuts (auto) 4.3, Absolute Lymphs (auto) 1.27, Nucleated RBC % 0 12/05/20 04:55: Sodium 140, Potassium 3.7, Chloride 107, Carbon Dioxide 30.0, Anion Gap 3 L, BUN 19 H, Creatinine 3.06 H, Estim Creat Clear Calc 13.46, Est GFR (MDRD) Af Amer 20 L, Est GFR (MDRD) Non-Af 16 L, BUN/Creatinine Ratio 6.2 L, Glucose 96, Calcium 8.6 Current Medications Acetaminophen (Acetaminophen 325 Mg Tablet) 650 mg PO Q6H PRN PRN PRN Reason: Pain 1-10 or Fever Last Admin: 12/03/20 21:59 Dose: 650 mg Documented by: Atorvastatin Calcium (Atorvastatin Calcium 80 Mg Tablet) 80 mg PO QHS SVEN Last Admin: 12/04/20 20:51 Dose: 80 mg Documented by: Calamine/Phenol (Menthol/Lanolin/Calamine/Znox 113 Gm Tube) 1 applic TOPICAL TID SVEN; Protocol Last Admin: 12/05/20 05:29 Dose: 1 applic Documented by: Dextrose (Dextrose 50%-Water 25 Gm/50 Ml Disp.Syrin) 0 gm IV X1 PRN; Protocol PRN Reason: Hypoglycemia Last Admin: 12/04/20 06:40 Dose: 12.5 gm Documented by: Glucagon (Glucagon 1 Mg/Ml Syringe) 1 mg IM .X1 PRN PRN Reason: Hypoglycemia Heparin Sodium (Porcine) (Heparin Injection (Vial) 5,000 Unit/Ml Vial) 5,000 unit SC Q8 SVEN Last Admin: 12/03/20 05:28 Dose: 5,000 unit Documented by: Heparin Sodium (Porcine) (Heparin 10,000 Units/10 Ml Vial) 0 units IV X1 PRN PRN Reason: DIALYSIS Last Admin: 11/28/20 15:36 Dose: 1.3 units Documented by: Sodium Chloride () 250 mls @ 15 mls/hr IV .[id number] PRN PRN Reason: Saline Flush Last Infusion: 11/30/20 15:17 Dose: Infused Documented by: Insulin Human Lispro (Insulin Lispro 100 Unit/Ml Insuln.Pen) 0 unit SC ACHS [facility]; Protocol Last Admin: 12/04/20 20:59 Dose: 2 u Documented by: Metoprolol Tartrate (Metoprolol Tartrate 25 Mg Tablet) 25 mg PO BID [facility] Last Admin: 12/04/20 20:50 Dose: 25 mg Documented by: Ondansetron HCl (Ondansetron 4 Mg/2 Ml Vial) 4 mg IV Q8H PRN PRN PRN Reason: NAUSEA/VOMITING Pantoprazole Sodium (Pantoprazole Sodium 40 Mg Tablet) 40 mg PO DAILY [facility] Last Admin: 12/04/20 12:21 Dose: 40 mg Documented by: Sodium Chloride (0.9% Saline Lock 10 Ml Syringe) 10 - 40 ml IV UD PRN PRN Reason: SALINE FLUSH Last Admin: 12/04/20 06:40 Dose: 30 ml Documented by: Medical Necessity - Tobacco Use Smoking Status: Heavy Smoker (>10/day) - 80-osbb-ybnw history Tobacco Use: Cigarettes Assessment/Plan All Active Problems (Last Reviewed 12/03/20 @ 12:50 by Roxana PADILLA, PA-C) Acute respiratory failure (Acute) Metabolic acidosis (Acute) Pyelonephritis (Acute) Acute renal failure (Acute) Aspiration into airway (Acute) Uremia (Acute) Hyperphosphatemia (Acute) Hypovolemic shock (Acute) Septic shock (Acute) Debility (Acute) 69-year-old female status post right tunneled dialysis catheter placement 1. Patient is doing well dialysis catheter was used yesterday for dialysis. I have given the patient my contact information and she is to follow-up with me once she is ready for her catheter to be removed. I will sign off please call if needed, thank you Raffi Anders MD Pager: [facility] [address] [place] [address], [address] [place] [phone] Office:
[2020-12-05 06:50] LABS: Bedside Glucose 110 mg/dL (70-110)
[2020-12-05 07:00] VITALS: PULSE 94
--- NOTE | 2020-12-05 09:01 | DCINST_ITS ---
- Discharge Diagnoses Current Active Problems: Current Active and Chronic Problems (Last Reviewed 12/03/20 @ 12:50 by MARKO GaribayC) Kidney stone (Chronic) Acute respiratory failure (Acute) Metabolic acidosis (Acute) Pyelonephritis (Acute) Acute renal failure (Acute) Aspiration into airway (Acute) Uremia (Acute) Hyperphosphatemia (Acute) Hypovolemic shock (Acute) Septic shock (Acute) Debility (Acute) Non-STEMI (non-ST elevated myocardial infarction) (Chronic 02/10/20) Essential (primary) hypertension (Chronic) Hyperlipidemia (Chronic) Nicotine dependence (Chronic) You will use the following diet at home:: Calorie/Carbohydrate Controlled (specify 1200, 1400, etc) Your food should be the consistency of: Regular Your liquids should be the consistency of: Regular/Thin Discharge Activity: Return to Normal Activity Call your doctor if you observe: Fever of 101 or Higher, Shortness of breath, Dizziness, Fainting spells, Swelling in the ankles, Chest pain, Increased palpitations (irregular heartbeat) Allergies/Adverse Reactions: Allergies oxycodone [From Percocet] Allergy (Verified 12/04/20 09:59) Nausea Penicillins [PCN] Allergy (Verified 12/04/20 09:59) Unknown Medications to take at Discharge Aspirin E.C. [Ecotrin] 81 mg PO DAILY@0800 11/03/14 Metoprolol Tartrate [Lopressor (beta ericka)] 25 mg PO BID 11/03/14 Multivitamins,Therapeutic [Multivitamin] 1 tablet PO DAILY 11/03/14 Omeprazole [Prilosec] 20 mg PO DAILY 11/03/14 Rosuvastatin Calcium [Crestor] 40 mg PO QHS 11/03/14 Cyanocobalamin (Vitamin B-12) [Vitamin B-12] 1,000 mcg PO DAILY 02/10/16 Vitamin B Complex 1 ea PO QHS 01/22/20 Acetaminophen/Caffeine [Excedrin Tension Headache Cplt] 1 tablet PO DAILY PRN PRN 11/27/20 Orders to be completed after discharge: Glucometer Location: None Selected Primary Care Physician: Garrett Alvarez Chi, MD [Primary Care Provider] - Please follow up with your Primary Care Physician in: 3-5 days Test Results: Test results from this visit will be discussed in further detail at your follow- up appointment, if applicable. Please Follow Up With: Helga Nguyen MD When: 2-4 weeks
[2020-12-05 09:15] VITALS: BP 138/76; PULSE 106; RESP 18; TEMP 37.6; O2SAT 96
[2020-12-05 09:20] VITALS: PULSE 106
[2020-12-05] MEDS: Metoprolol Tartrate 25 MG Tablet PO (09:20)
[2020-12-05] MEDS: Pantoprazole Sodium 40 MG Tablet PO (09:21)
--- NOTE | 2020-12-05 09:50 | PHA.DC.MR ---
Pharmacy Service has performed discharge medication reconciliation for this patient. The patient's discharge medication list was reviewed for discrepancies and discrepancies were resolved. Home Medications Aspirin E.C. [Ecotrin] 81 mg PO DAILY@0800 11/03/14 Metoprolol Tartrate [Lopressor (beta ericka)] 25 mg PO BID 11/03/14 Multivitamins,Therapeutic [Multivitamin] 1 tablet PO DAILY 11/03/14 Omeprazole [Prilosec] 20 mg PO DAILY 11/03/14 Rosuvastatin Calcium [Crestor] 40 mg PO QHS 11/03/14 Cyanocobalamin (Vitamin B-12) [Vitamin B-12] 1,000 mcg PO DAILY 02/10/16 Vitamin B Complex 1 ea PO QHS 01/22/20 Acetaminophen/Caffeine [Excedrin Tension Headache Cplt] 1 tablet PO DAILY PRN PRN 11/27/20
--- NOTE | 2020-12-05 10:03 | CASEMGMT ---
This RN CM to room and pt still declines need for HHC at discharge. Pt has therapy exercises for home and dialysis schedule letter at bedside. Pt voices no further questions/concerns/needs. [place] RN CM
[2020-12-05 11:10] LABS: Bedside Glucose 217 mg/dL (70-110)
--- NOTE | 2020-12-05 11:28 | PCM.DC.SUM ---
Discharge Date and Diagnosis - Problem List Patient Problems: Active and Suspected Problems (Last Reviewed 12/03/20 @ 12:50 by Roxana PADILLA PA-C) Acute respiratory failure (Acute) Metabolic acidosis (Acute) Pyelonephritis (Acute) Acute renal failure (Acute) Aspiration into airway (Acute) Uremia (Acute) Hyperphosphatemia (Acute) Hypovolemic shock (Acute) Septic shock (Acute) Debility (Acute) Date of Admission: 11/27/20 Date of Discharge: 12/05/20 - Primary Discharge Diagnosis Acute Problems: Active Problems (Last Reviewed 12/03/20 @ 12:50 by Roxana PADILLA PA-C) Acute respiratory failure (Acute) Metabolic acidosis (Acute) Pyelonephritis (Acute) Acute renal failure (Acute) Aspiration into airway (Acute) Uremia (Acute) Hyperphosphatemia (Acute) Hypovolemic shock (Acute) Septic shock (Acute) Debility (Acute) - Secondary Discharge Diagnosis Chronic Problems: Chronic Problems (Last Reviewed 12/03/20 @ 12:50 by Roxana PADILLA PA-C) Kidney stone (Chronic) Non-STEMI (non-ST elevated myocardial infarction) (Chronic 02/10/20) Essential (primary) hypertension (Chronic) Hyperlipidemia (Chronic) Nicotine dependence (Chronic) Hospital Course and Treatment Imaging Results: Clinical Impression(s) from Imaging Studies Chest X-Ray 11/27/20 09:51 IMPRESSION: No acute abnormality is seen. Electronically Signed: Fernando Caro MD at 10:10 EDT , Service support , Abdomen/Pelvis CT 11/27/20 10:20 IMPRESSION: Fluid-filled stomach and duodenum as well as small bowel loops. Early small bowel obstruction should be ruled out. A repeat examination following oral or rectal contrast is recommended. Left perinephric stranding. Nonobstructive left intrarenal calculi. Questionable extraluminal air within the pelvis. Electronically Signed: Fernando Caro MD at 11:31 EDT , Service support , Brain CT 11/27/20 10:20 IMPRESSION: Chronic involutional changes of the brain. Electronically Signed: Fernando Caro MD at 11:26 EDT , Service support , Chest X-Ray 11/27/20 11:32 IMPRESSION: The tip of the endotracheal tube is at 2.4 sinus proximal to the gabriella. Electronically Signed: Fernando Caro MD at 12:08 EDT , Service support , KUB X-Ray 11/27/20 14:20 IMPRESSION: The tip of the orogastric tube is in the body of the stomach. The tip of the endotracheal tube is at the level of the gabriella. It should be pulled back approximately 2 cm. Electronically Signed: Fernando Caro MD at 14:53 EDT , Service support , Chest X-Ray 11/27/20 15:40 IMPRESSION: Right IJ line terminates in the SVC. No demonstrated pneumothorax. Electronically Signed: Chastity Del Valle MD at 17:01 EDT Tel , Service support , Chest X-Ray 11/27/20 16:10 IMPRESSION: Mild bilateral perihilar atelectasis otherwise no acute cardiopulmonary disease. Lines and tubes as described. Recommend pulling back the endotracheal tube approximately 2 cm. Electronically Signed: Donna Stinson MD at 1:07 EDT , Service support , Chest X-Ray 11/28/20 17:17 IMPRESSION: Trace left pleural effusion. Otherwise, stable exam. Electronically Signed: Marv Peace MD at 18:20 EDT Tel , Service support , Chest X-Ray 12/04/20 11:00 IMPRESSION: The tip of the right-sided dialysis catheter is at the junction of the superior vena cava and right atrium. Electronically Signed: Fernando Caro MD at 11:40 EDT , Service support , Report of Operation Date of Procedure: 12/04/20 Pre-Operative Diagnosis: Acute renal failure and need for long-term dialysis access Post-Operative Diagnosis: Same Surgery/Procedure Performed:: Ultrasound and fluoroscopy guided right chest tunneled dialysis catheter placement utilizing right IJ Consults: ICU Nephrology ID General Surgery Operations: None Procedures: Central line placement, Dialysis, Intubation Summary of Care Provided: Per HPI: The patient is a 69 year old F with a past medical history as outlined was admitted through the ED on 11/27/2020 with acute metabolic encephalopathy. Patient was intubated and sedated at the time of review and so I could not get much history from her. According to ED physician, patient had recently been on antibiotics for an MRSA infection involving her forehead and axilla. Apparently, her says she had gone to bed the night before but he found her unresponsive this morning. The EMS was called. Apparently she had also been having nausea and vomiting and diarrhea recently. The EMS found her to be hypoglycemic and so she was given D10 prior to being brought to the ED. She remained hypotensive but her blood sugar had improved. Her nausea vomiting and diarrhea her abdomen apparently been due to the antibiotic she was taking. The antibiotic set up 20 been doxycycline and Bactrim per ED physician's discussion with her PCP and she had also been referred to surgery for I&D but she declined this. However in the ED she was noted to have a temperature of 90.5 Fahrenheit with blood pressure of 167/75, pulse rate of 86 and respiratory rate of 16. Chemistry done showed sodium of 143 with bicarb of 18 BUN of 102. Creatinine was was 5.63 with a baseline of less than 1. Lactic acid was 18.6 and anion gap was 36. Magnesium was 1 and phosphorus was 10.4 with a calcium of 9.9. CBC showed WBC of 17.3 with hemoglobin of 10.2 and platelets of 364. CT of the abdomen and pelvis showed fluid-filled stomach and duodenum as well as small bowel loops and early small bowel obstruction should be ruled out. She also had left perinephric stranding and nonobstructive left intrarenal calculi with questionable extraluminal air within the pelvis. CT of the brain showed no acute intracranial pathology. After patient came back from CT, she started throwing up and subsequently became very short of breath and was requiring up to 7 5 L of oxygen. She was therefore emergently intubated on account of concerns for aspiration. She is therefore been admitted to be managed for acute hypoxic respiratory failure due to aspiration pneumonia, acute anion gap metabolic acidosis likely due to lactic acidosis and SANTI and severe sepsis due to UTI plus hypothermia and hypoglycemia. Hospital Course: 1. Septic shock and acute hypoxic respiratory failure secondary to aspiration pneumonia with an anion gap metabolic acidosis/SANTI secondary to ischemic ATN/hypocalcemia/metabolic encephalopathy -Extubated 11/30/2020 -Both antibiotics were discontinued by ID, and both central lines were removed 12/03/2020 -Blood cultures are negative, urine cultures with [facility] -Appreciate nephrology assistance. She is receiving dialysis secondary to her acute renal failure which is likely combination of her Metformin use and her SANTI -Appreciate ID assistance, she remains afebrile and her leukocytosis has resolved -Tunneled catheter placed 12/04/2020, her dialysis schedule be [facility] -Hypocalcemia has resolved 2. DM 2 -Her blood sugars been controlled with gentle sliding scale insulin and she has not needed much with her diet being managed -Given that there is concern that her lactic acidosis was secondary to Metformin and dehydration, will discontinue her metformin until she follows up with her PCP -We will provide her with a glucometer for blood sugar checks. 3. HTN/HLD -She was on pressor support in the ICU and her blood pressure medications were held. She is currently tolerating dialysis pretty well and her blood pressures are staying in the 140s to 150s therefore we will restart her home blood pressure medication will hold off lisinopril may need to transition her metoprolol to Coreg for better blood pressure management. I also would like to see how she does with repeated dialysis before making any major changes to her blood pressure regimen -Continue with Crestor 4. GERD -Stable -Continue with PPI Patient Problems: Active and Suspected Problems (Last Reviewed 12/03/20 @ 12:50 by Roxana PADILLA, PA-C) Acute respiratory failure (Acute) Metabolic acidosis (Acute) Pyelonephritis (Acute) Acute renal failure (Acute) Aspiration into airway (Acute) Uremia (Acute) Hyperphosphatemia (Acute) Hypovolemic shock (Acute) Septic shock (Acute) Debility (Acute) - Physical Exam Vitals/I&O's: Vital Signs Temp Pulse Resp BP Pulse Ox 99.6 F H 106 H 18 138/76 H 96 12/05/20 09:15 12/05/20 09:20 12/05/20 09:15 12/05/20 09:15 12/05/20 09:15 Oxygen Flow Rate (L/min) 2 Oxygen Delivery Method Room Air Weight: 134 lb 7.712 oz Body Mass Index (BMI) 26.3 Finger Stick Blood Glucose 80 Intake and Output for Last 24 Hours 12/03/20 12/04/20 12/05/20 23:59 23:59 23:59 Intake Total 480 / 480 326 / 326 120 / 120 Output Total 500 / 500 250 / 250 Balance -20 / -20 76 / 76 120 / 120 General: Alert, Oriented x3, Cooperative, No apparent distress HEENT: Atraumatic, PERRLA, EOMI, Normocephalic Oral: Moist Mucosa Neck: Supple, No JVD Lungs: Clear to auscultation, Normal air movement, No rhonchi, No wheeze, No rales Cardiovascular: Regular rate, Regular Rhythm, Normal S1, Normal S2, No murmurs Abdomen: Soft, Non Tender, Non-Distended, No Hepato-splenomegaly Extremities: Capillary Refill Less than 3 Seconds, Edema Skin: No rashes, No breakdown Neurological: Neuro grossly intact, Sensory exam intact to light touch and pain Psych/Mental Status: Normal Affect, Appropriate Microbiology Past 72 Hours 12/03/20 14:26 Mucosa - Nose SARS-CoV-2 Antigen (Rapid) - Final 11/27/20 09:25 Blood Culture (Wb) - Anticubital Right Blood Culture - Final No growth in 5 days. 11/27/20 09:25 Blood Culture (Wb) - Anticubital Left Blood Culture - Final No growth in 5 days. Laboratory Results 12/04/20 12:22: POC Glucose 94 12/04/20 16:44: POC Glucose 159 H 12/04/20 18:54: POC Glucose 91 12/04/20 20:56: POC Glucose 154 H 12/05/20 04:55: WBC 7.5, RBC 2.99 L, Hgb 8.3 L, Hct 26.1 L, MCV 87.3, MCH 27.8, MCHC 31.8 L, RDW Std Deviation 52.2 H, RDW Coeff of Hawa 16.4 H, Plt Count 166, MPV 11.3, Immature Gran % (Auto) 0.800, Neut % (Auto) 57.9, Lymph % (Auto) 17.0 L, Webster % (Auto) 19.0 H, Eos % (Auto) 4.8, Baso % (Auto) 0.5, Absolute Neuts (auto) 4.3, Absolute Lymphs (auto) 1.27, Nucleated RBC % 0 12/05/20 04:55: Sodium 140, Potassium 3.7, Chloride 107, Carbon Dioxide 30.0, Anion Gap 3 L, BUN 19 H, Creatinine 3.06 H, Estim Creat Clear Calc 13.46, Est GFR (MDRD) Af Amer 20 L, Est GFR (MDRD) Non-Af 16 L, BUN/Creatinine Ratio 6.2 L, Glucose 96, Calcium 8.6 12/05/20 06:38: POC Glucose 110 12/05/20 10:57: POC Glucose 217 H Current Medications Acetaminophen (Acetaminophen 325 Mg Tablet) 650 mg PO Q6H PRN PRN PRN Reason: Pain 1-10 or Fever Last Admin: 12/03/20 21:59 Dose: 650 mg Documented by: Atorvastatin Calcium (Atorvastatin Calcium 80 Mg Tablet) 80 mg PO QHS SVEN Last Admin: 12/04/20 20:51 Dose: 80 mg Documented by: Calamine/Phenol (Menthol/Lanolin/Calamine/Znox 113 Gm Tube) 1 applic TOPICAL TID SVEN; Protocol Last Admin: 12/05/20 05:29 Dose: 1 applic Documented by: Dextrose (Dextrose 50%-Water 25 Gm/50 Ml Disp.Syrin) 0 gm IV X1 PRN; Protocol PRN Reason: Hypoglycemia Last Admin: 12/04/20 06:40 Dose: 12.5 gm Documented by: Glucagon (Glucagon 1 Mg/Ml Syringe) 1 mg IM .X1 PRN PRN Reason: Hypoglycemia Heparin Sodium (Porcine) (Heparin Injection (Vial) 5,000 Unit/Ml Vial) 5,000 unit SC Q8 [facility] Last Admin: 12/03/20 05:28 Dose: 5,000 unit Documented by: Heparin Sodium (Porcine) (Heparin 10,000 Units/10 Ml Vial) 0 units IV X1 PRN PRN Reason: DIALYSIS Last Admin: 11/28/20 15:36 Dose: 1.3 units Documented by: Sodium Chloride () 250 mls @ 15 mls/hr IV .[id number] PRN PRN Reason: Saline Flush Last Infusion: 11/30/20 15:17 Dose: Infused Documented by: Insulin Human Lispro (Insulin Lispro 100 Unit/Ml Insuln.Pen) 0 unit SC ACHS [facility]; Protocol Last Admin: 12/05/20 06:39 Dose: Not Given Documented by: Metoprolol Tartrate (Metoprolol Tartrate 25 Mg Tablet) 25 mg PO BID [facility] Last Admin: 12/05/20 09:20 Dose: 25 mg Documented by: Ondansetron HCl (Ondansetron 4 Mg/2 Ml Vial) 4 mg IV Q8H PRN PRN PRN Reason: NAUSEA/VOMITING Pantoprazole Sodium (Pantoprazole Sodium 40 Mg Tablet) 40 mg PO DAILY [facility] Last Admin: 12/05/20 09:21 Dose: 40 mg Documented by: Sodium Chloride (0.9% Saline Lock 10 Ml Syringe) 10 - 40 ml IV UD PRN PRN Reason: SALINE FLUSH Last Admin: 12/04/20 06:40 Dose: 30 ml Documented by: Discharge Activity: Return to Normal Activity Call your doctor if you observe: Fever of 101 or Higher, Shortness of breath, Dizziness, Fainting spells, Swelling in the ankles, Chest pain, Increased palpitations (irregular heartbeat) Home Medications: Medications to take at Discharge Aspirin E.C. [Ecotrin] 81 mg PO DAILY@0800 11/03/14 Metoprolol Tartrate [Lopressor (beta ericka)] 25 mg PO BID 11/03/14 Multivitamins,Therapeutic [Multivitamin] 1 tablet PO DAILY 11/03/14 Omeprazole [Prilosec] 20 mg PO DAILY 03/01/15 Rosuvastatin Calcium [Crestor] 40 mg PO QHS 11/03/14 Cyanocobalamin (Vitamin B-12) [Vitamin B-12] 1,000 mcg PO DAILY 02/10/16 Vitamin B Complex 1 ea PO QHS 01/22/20 Acetaminophen/Caffeine [Excedrin Tension Headache Cplt] 1 tablet PO DAILY PRN PRN 11/27/20 Other Amb Orders: Glucometer Location: None Selected Primary Care Physician: Garrett Alvarez Chi, MD [Primary Care Provider] - Please follow up with your Primary Care Physician in: 3-5 days Please Follow Up With: Helga Nguyen MD When: 2-4 weeks Please Follow Up With: Garrett Alvarez Chi, MD Disposition: Home Minutes spent on discharge:: 40 Patient Condition:: Stable Medical Necessity - Tobacco Use Smoking Status: Heavy Smoker (>10/day) - 90-[id number]-[id number] history Tobacco Use: Cigarettes Meaningful Use Info Meaningful Use Diagnoses (Choose all that apply): None applicable
--- NOTE | 2020-12-08 14:50 | CASEMGMT ---
RN CM Discharge Follow-up Phone Call: NORMA: 14 Strata: 4 Call Date: 12/08/20 Discharge Date: 12/05/20 Time of Call: 1450 Duration: 1 min Admitting Diagnosis: Acute metabolic acidosis, hypoglycemia RN JOSE attempted to complete follow-up phone call after recent hospitalization. No answer, voice message left with return contact information. Patient had follow-up appts scheduled prior to discharge.
== END 2020-12-05 11:55 | disposition home or self-care (01) | DRG 871 ==
LOC: ED 12:04 → ICU 12:44 → PCU 12-01 13:18
PROVIDERS: Anesthesiology; Internal Medicine Critical Care Medicine; Internal Medicine Nephrology; Surgery; Admitting Provider Student in an Organized Health Care Education/Training Program; Emergency Provider Emergency Medicine; PCP Family Medicine Geriatric Medicine; Visit Provider Family Medicine
DX: A41.9 Sepsis, unspecified organism (principal); G93.41 Metabolic encephalopathy; J96.01 Acute respiratory failure with hypoxia; R57.1 Hypovolemic shock; R65.21 Severe sepsis with septic shock; J69.0 Pneumonitis due to inhalation of food and vomit; N10 Acute pyelonephritis; K56.609 Unspecified intestinal obstruction, unspecified as to partial versus complete obstruction; Z99.11 Dependence on respirator [ventilator] status; N17.9 Acute kidney failure, unspecified; E87.2 Acidosis; E11.649 Type 2 diabetes mellitus with hypoglycemia without coma; E78.5 Hyperlipidemia, unspecified; I44.4 Left anterior fascicular block; I49.1 Atrial premature depolarization; E83.39 Other disorders of phosphorus metabolism; E83.51 Hypocalcemia; E86.0 Dehydration; I12.9 Hypertensive chronic kidney disease with stage 1 through stage 4 chronic kidney disease, or unspecified chronic kidney disease; E11.22 Type 2 diabetes mellitus with diabetic chronic kidney disease; N18.31 Chronic kidney disease, stage 3a; E87.6 Hypokalemia; T38.3X5A Adverse effect of insulin and oral hypoglycemic [antidiabetic] drugs, initial encounter; E88.09 Other disorders of plasma-protein metabolism, not elsewhere classified; G89.29 Other chronic pain; F17.210 Nicotine dependence, cigarettes, uncomplicated; I25.2 Old myocardial infarction; E78.00 Pure hypercholesterolemia, unspecified; F41.9 Anxiety disorder, unspecified; F32.9 Major depressive disorder, single episode, unspecified; Z78.0 Asymptomatic menopausal state; K21.9 Gastro-esophageal reflux disease without esophagitis; Z79.899 Other long term (current) drug therapy; Z79.82 Long term (current) use of aspirin; Z86.14 Personal history of Methicillin resistant Staphylococcus aureus infection; Z87.442 Personal history of urinary calculi; Z99.2 Dependence on renal dialysis; W19.XXXA Unspecified fall, initial encounter; Y93.9 Activity, unspecified; Y92.9 Unspecified place or not applicable; Z79.84 Long term (current) use of oral hypoglycemic drugs
CPT/HCPCS: 31500; 31720; 36600; 51702; 70450; 71045; 74018; 74176; 76000; 80048; 80053; 80069; 80202; 81001; 82550; 82803; 82962; 83036; 83605; 83735; 84100; 84478; 84484; 85025; 85027; 85610; 85730; 86704; 86706; 87040; 87070; 87086; 87088; 87205; 87340; 87426; 87641; 90937; 92507; 92526; 92610; 93005; 94002; 94003; 94660; 97110; 97116; 97162; 97163; 97166; 97167; 97530; 97535; 97803; 99251; 99285; 99406; J2185; J7030; J7040; J7050; A4216; C1750; C1751; C1752; G0257; G0463; J0610; J2405; J3010; J3490

== ENCOUNTER 2020-12-18 08:33 | Outpatient (RCR) | payer OTHER, SELFPAY ==
[2020-12-04 09:48] VITALS: BMI 26.3
== END 2021-02-10 23:59 ==
LOC: IMMUN 08:33
PROVIDERS: PCP Family Medicine Geriatric Medicine; Referring Provider Family Medicine; Visit Provider Family Medicine
DX: Z23 Encounter for immunization (principal)
CPT/HCPCS: 0001A; 0002A; 91300

== ENCOUNTER → 2021-02-05 14:47 | Outpatient (CLI) | payer OTHER, MEDICARE, SELFPAY ==
[2021-01-28 09:35] VITALS: BMI 26.3
[2021-02-05 17:25] LABS: Hematocrit 38.6 % (37-47); Hemoglobin 11.7 g/dL (12.0-15.0); Mean Corp Hgb Conc 30.3 g/dL (32-36); Mean Platelet Vol. 12.6 fl (6.2-12.0); Platelet Count 262 K/mm3 (150-450); RBC Distribution Width CV 15.5 % (11.6-14.6); White Blood Count 7.6 K/mm3 (4.4-11.0)
[2021-02-05 17:37] LABS: BUN 33 mg/dL (7-18); Creatinine, Serum 1.41 mg/dL (0.55-1.02); Glucose 117 mg/dL (74-106)
[2021-02-05 17:38] LABS: Albumin, Serum 3.8 g/dL (3.2-5.0); BUN/Creat Ratio 23.4 RATIO (10-20); Calcium,Total 10.8 mg/dL (8.5-10.1); Chloride 108 mmol/L (98-107); EST Glomerular Filtration Rate 39 mL/min (>60); Est Glom Filt Rate - Afr Amer 48 mL/min (>60); Phosphorus 3.4 mg/dL (2.5-4.9); Potassium 5.1 mmol/L (3.5-5.1); Sodium Level 143 mmol/L (136-145)
[2021-02-05 17:45] LABS: Protein, Urine (Random) 28.8 mg/dL (<11.9); Protein:Creat Ratio 778 mg/g CRE (0-200)
== END ==
PROVIDERS: PCP Family Medicine Geriatric Medicine; Visit Provider Internal Medicine Nephrology
DX: E11.22 Type 2 diabetes mellitus with diabetic chronic kidney disease (principal); N18.30 Chronic kidney disease, stage 3 unspecified
CPT/HCPCS: 36415; 80069; 82570; 84156; 85027

== ENCOUNTER → 2021-04-02 10:07 | Outpatient (CLI) | payer OTHER, MEDICARE, SELFPAY ==
[2021-01-28 09:35] VITALS: BMI 26.3
[2021-04-02 15:18] LABS: Absolute Lymphocyte Count 1.91 X10^3/uL (0.83-4.51); Absolute Neutrophil Count 4.7 X10^3/uL (2.0-7.7); Basophil% 1.3 % (0-1); Eosinophil# 0.48 X10^3/uL; Eosinophils% 6.2 % (0-5); Hemoglobin 14.1 g/dL (12.0-15.0); Lymphocyte # 1.91 X10^3/ul (0.83-4.51); Lymphocyte % 24.8 % (19-41); Mean Corp Hgb Conc 30.7 g/dL (32-36); Mean Corpuscular Hgb 29.7 pg (27.0-32.0); Mean Corpuscular Volume 96.8 fL (81-99); Mean Platelet Vol. 13.8 fl (6.2-12.0); Monocyte# 0.53 X10^3/uL; Monocyte% 6.9 % (0-10); NRBC Flagged by Analyzer 0 % (0-5); Neutrophil # 4.67 X10^3/uL (2.7-7.7); Neutrophil % 60.7 % (47-70); Platelet Count 192 K/mm3 (150-450); RBC Distribution Width CV 12.6 % (11.6-14.6); RBC Distribution Width SD 45.3 fl (35.1-43.9); Red Blood Count 4.75 M/mm3 (4.2-5.4); White Blood Count 7.7 K/mm3 (4.4-11.0)
[2021-04-02 15:31] LABS: Vitamin D,25 Hydroxy 37.4 ng/mL
[2021-04-02 15:47] LABS: ALB/GLOB Ratio 1.2 RATIO (0.9-2.4); AST(SGOT) 30 U/L (15-37); Alanine Aminotransfer ALT/SGPT 54 U/L (13-56); Alkaline Phosphatase 132 U/L (45-117); Anion Gap 5 (5-15); BUN 25 mg/dL (7-18); BUN/Creat Ratio 21.6 RATIO (10-20); Calcium,Total 10.7 mg/dL (8.5-10.1); Chloride 107 mmol/L (98-107); Creatinine, Serum 1.16 mg/dL (0.55-1.02); EST Glomerular Filtration Rate 49 mL/min (>60); Est Glom Filt Rate - Afr Amer 60 mL/min (>60); Globulin 3.3 g/dL (2.2-4.2); Glucose 108 mg/dL (74-106); Potassium 4.9 mmol/L (3.5-5.1); Protein, Total 7.3 g/dL (6.4-8.2); Sodium Level 142 mmol/L (136-145); Thyroid Stim Hormone (TSH) 0.86 uIU/mL (0.358-3.74)
== END ==
PROVIDERS: PCP Family Medicine Geriatric Medicine; Visit Provider Family Medicine Geriatric Medicine
DX: E11.9 Type 2 diabetes mellitus without complications (principal); E55.9 Vitamin D deficiency, unspecified
CPT/HCPCS: 36415; 80053; 82306; 84443; 85025

== ENCOUNTER 2021-04-25 10:05 | Emergency (ER) | payer OTHER, MEDICARE, SELFPAY ==
[2021-04-25 10:07] VITALS: BP 149/78; PULSE 81; RESP 16; TEMP 36.8; O2SAT 94; BMI 25.0
--- NOTE | 2021-04-25 10:33 | EX.ED.DYSGE1 ---
HPI History of Present Illness Chief Complaint: Abscess Informant: patient and spouse/S.O. Narrative Narrative: 70-year-old female states that about a month ago she felt a small rubbery ball on her forehead just above the nasal bone. She states that over the past couple days it is started to swell and turn red and she noted some edema in the infraorbital area bilaterally. She attempted to squeeze the skin and describes a serosanguineous fluid. She does have a history of MRSA. [facility] Medical History CKD (chronic kidney disease) stage 3, GFR 30-59 ml/min DM type 2 (diabetes mellitus, type 2) Essential (primary) hypertension GERD (gastroesophageal reflux disease) Hyperlipidemia Left renal stone Nephrolithiasis Nicotine dependence Non-STEMI (non-ST elevated myocardial infarction) (02/10/20) Tobacco abuse Home Medications aspirin 81 mg PO DAILY@0800 11/03/14 [History Last Taken 11/26/20] metoprolol tartrate 25 mg PO BID 11/03/14 [History Last Taken 11/26/20] multivitamin with folic acid [Thera] 1 tab PO DAILY 11/03/14 [History Last Taken 11/26/20] omeprazole 20 mg PO DAILY 11/03/14 [History Last Taken 11/26/20] rosuvastatin [Crestor] 40 mg PO QHS 11/03/14 [History Last Taken 11/26/20] cyanocobalamin (vitamin B-12) 1,000 mcg PO DAILY 02/10/16 [History Last Taken 11/26/20] vitamin B complex 1 ea PO QHS 01/22/20 [History Last Taken 11/26/20] acetaminophen-caffeine 1 tablet PO DAILY PRN PRN 11/27/20 [History Last Taken 2 Days Ago ~11/25/20] cephalexin 500 mg PO Q6 #40 capsule 04/25/21 [Rx Last Taken Unknown] sulfamethoxazole-trimethoprim 1 tab PO BID #20 tablet 04/25/21 [Rx Last Taken Unknown] Allergy/AdvReac Type Severity Reaction Status Date / Time oxycodone [From Percocet] Allergy Nausea Verified 04/25/21 10:07 Penicillins [PCN] Allergy Unknown Verified 04/25/21 10:07 Surgical History History of left heart catheterization (02/11/20) Status post insertion of dialysis catheter Social History (Updated 04/25/21 @ 10:[address] Bill Burrell DO) Smoking Status: Heavy Smoker (>10/day) (41-[id number] history) substance use type: does not use ROS ROS ED Constitutional Constitutional ED: Denies chills or weight loss Eyes Eyes: Denies change in vision or diplopia ENT ENT ED: Denies ear pain, rhinorrhea or sore throat Cardiovascular Cardiovascular: Denies chest pain, orthopnea, palpitations or racing heartbeat Respiratory/Chest Respiratory/Chest: Denies cough, dyspnea or orthopnea Gastrointestinal Gastrointestinal: Denies abdominal pain, diarrhea, nausea or vomiting Genitourinary Genitourinary ED: Denies dysuria, hematuria or urinary frequency Musculoskeletal Musculoskeletal: Denies arthralgias or myalgias Integumentary Reports abscess; Denies rash Neurologic Neurologic: Denies headache(s) or weakness Psychiatric Psychiatric: Denies anxiety, depression, suicidal ideation or suicidal thoughts Endocrine Endocrinology: Denies polydipsia, polyphagia or polyuria Allergic/Immunologic Allergic/Immunologic ED: Denies mouth swelling, tongue swelling or urticaria EXAM Physical Exam Const Vital Signs: 04/25/21 10:07 Temperature 98.3 F Temperature Source Temporal Pulse Rate 81 Respiratory Rate 16 Blood Pressure 149/78 H Blood Pressure Mean 101 Pulse Ox 94 Oxygen Delivery Method Room Air Positive well nourished and well developed General Appearance ED: well developed HEENT Reports normocephalic, head/scalp atraumatic and moist mucous membranes HEENT Narrative: Just above the bridge of the nose is an 1.5 cm area of erythema and swelling. There are superficial abrasions where she was attempting to drain this. There is some edema in the infraorbital skin. However they are not erythematous in this area. Eyes PERRL and EOMs intact bilaterally Neck no lymphadenopathy, supple and no JVD Resp normal respiratory effort and clear to auscultation bilaterally Cardio regular rate, regular rhythm and no murmurs GI normal to inspection, nondistended, normoactive bowel sounds and non-tender Palpation: soft Back/Spine no CVA tenderness and normal ROM Extremity normal to inspection General Extremety ED: Negative for edema General Extremity: Negative for edema Neuro oriented x3 and CN's II-XII intact bilaterally Sensorium / Orientation: alert Motor Exam: strength 5/5 throughout Psych mental status grossly normal Mood & Affect: Negative for depressed or tearful Skin no rashes or lesions noted and no wounds MDM MDM MDM Narrative Medical decision making narrative: Using bedside ultrasound I do not see a organized collection of fluid. Therefore I do not think I&D will be of benefit at this time. Patient will be instructed on warm compresses. We will cover her with antibiotics. She was advised this may organize and require drainage. She was also advised that if this is a sebaceous cyst may recur and she may need surgical removal when it is not infected. Patient notes understanding the plan Discharge Plan Triage Chief Complaint: Abscess ED Provider: Bill Burrell Dx/Rx/DC Orders Clinical Impression: Infected sebaceous cyst Instructions: Epidermoid Cyst Infect Antibiotics Prescriptions: New sulfamethoxazole-trimethoprim [sulfamethoxazole-trimethoprim] 1 TABLET tablet 1 tab PO BID Qty: 20 RF: 0 cephalexin [cephalexin] 500 MG capsule 500 mg PO Q6 Qty: 40 RF: 0 No Action aspirin 81 MG tablet 81 mg PO DAILY@0800 RF: 0 omeprazole 20 MG capsule 20 mg PO DAILY RF: 0 rosuvastatin [Crestor] 40 MG tablet 40 mg PO QHS RF: 0 metoprolol tartrate 25 MG tablet 25 mg PO BID RF: 0 multivitamin with folic acid [Thera] 1 TABLET tablet 1 tab PO DAILY RF: 0 cyanocobalamin (vitamin B-12) 1,000 MCG tablet extended release 1,000 mcg PO DAILY RF: 0 vitamin B complex 1 EACH capsule 1 ea PO QHS RF: 0 acetaminophen-caffeine 1 EACH tablet 1 tablet PO DAILY PRN PRN (Reason: Migraine Symptoms) RF: 0 Primary Care Provider: Garrett Alvarez Chi Referrals: Garrett Alvarez Chi, MD [Primary Care Provider] - As Needed Activity Restrictions/Additional Instructions: Warm compresses frequently throughout the day. As discussed this may reorganize the need to be drained. Once the infection has cleared if you feel a small rubbery ball in the skin you may wish to see a surgeon for removal. Disposition Disposition: Home, Self Care
[2021-04-25 10:51] VITALS: PULSE 81; RESP 16; O2SAT 94
== END 2021-04-25 10:54 | disposition home or self-care (01) ==
PROVIDERS: Emergency Provider Emergency Medicine; PCP Family Medicine Geriatric Medicine
DX: L72.3 Sebaceous cyst (principal); L08.9 Local infection of the skin and subcutaneous tissue, unspecified; E78.5 Hyperlipidemia, unspecified; E11.22 Type 2 diabetes mellitus with diabetic chronic kidney disease; I12.9 Hypertensive chronic kidney disease with stage 1 through stage 4 chronic kidney disease, or unspecified chronic kidney disease; N18.30 Chronic kidney disease, stage 3 unspecified; I25.2 Old myocardial infarction; K21.9 Gastro-esophageal reflux disease without esophagitis; Z86.14 Personal history of Methicillin resistant Staphylococcus aureus infection; Z87.442 Personal history of urinary calculi; Z79.82 Long term (current) use of aspirin; Z79.899 Other long term (current) drug therapy; F17.200 Nicotine dependence, unspecified, uncomplicated
CPT/HCPCS: 99282

== ENCOUNTER → 2021-05-14 08:08 | Outpatient (CLI) | payer OTHER, MEDICARE, SELFPAY ==
[2020-12-04 09:48] VITALS: BMI 26.3
[2021-05-14 08:24] LABS: Hematocrit 45.1 % (37-47); Hemoglobin 14.3 g/dL (12.0-15.0); Mean Corp Hgb Conc 31.7 g/dL (32-36); Mean Corpuscular Hgb 29.7 pg (27.0-32.0); Mean Corpuscular Volume 93.6 fL (81-99); Mean Platelet Vol. 11.9 fl (6.2-12.0); Platelet Count 200 K/mm3 (150-450); RBC Distribution Width CV 13.5 % (11.6-14.6); RBC Distribution Width SD 46.5 fl (35.1-43.9); Red Blood Count 4.82 M/mm3 (4.2-5.4); White Blood Count 8.7 K/mm3 (4.4-11.0)
[2021-05-14 08:50] LABS: Albumin, Serum 3.4 g/dL (3.2-5.0); BUN 31 mg/dL (7-18); BUN/Creat Ratio 24.8 RATIO (10-20); Calcium,Total 10.6 mg/dL (8.5-10.1); Chloride 109 mmol/L (98-107); Creatinine, Serum 1.25 mg/dL (0.55-1.02); EST Glomerular Filtration Rate 45 mL/min (>60); Est Glom Filt Rate - Afr Amer 55 mL/min (>60); Glucose 148 mg/dL (74-106); Phosphorus 3.2 mg/dL (2.5-4.9); Potassium 4.4 mmol/L (3.5-5.1); Sodium Level 140 mmol/L (136-145)
== END ==
PROVIDERS: PCP Family Medicine Geriatric Medicine; Referring Provider Internal Medicine Nephrology; Visit Provider Internal Medicine Nephrology
DX: N18.30 Chronic kidney disease, stage 3 unspecified (principal)
CPT/HCPCS: 36415; 80069; 85027

== ENCOUNTER → 2021-06-24 | Outpatient (CLI) | payer MEDICARE, SELFPAY | END | disposition home or self-care (01) | LOC: LABSPEC 11:57 | PROVIDERS: PCP Family Medicine Geriatric Medicine; Referring Provider Surgery; Visit Provider Surgery | DX: L72.3 Sebaceous cyst (principal); L08.9 Local infection of the skin and subcutaneous tissue, unspecified | CPT/HCPCS: 87070; 87075; 87077; 87186; 87205 ==

== ENCOUNTER 2021-10-05 11:09 | Outpatient (CLI) | payer MEDICARE, SELFPAY ==
[2021-10-05 12:27] LABS: Vitamin D,25 Hydroxy 32.1 ng/mL
[2021-10-05 12:28] LABS: Absolute Lymphocyte Count 1.91 X10^3/uL (0.83-4.51); Absolute Neutrophil Count 5.5 X10^3/uL (2.0-7.7); Basophil% 1.2 % (0-1); Eosinophil# 0.39 X10^3/uL; Eosinophils% 4.6 % (0-5); Hematocrit 49.1 % (37-47); Hemoglobin 15.6 g/dL (12.0-15.0); Lymphocyte # 1.91 X10^3/ul (0.83-4.51); Lymphocyte % 22.5 % (19-41); Mean Corp Hgb Conc 31.8 g/dL (32-36); Mean Corpuscular Hgb 29.2 pg (27.0-32.0); Mean Corpuscular Volume 91.8 fL (81-99); Monocyte# 0.59 X10^3/uL; NRBC Flagged by Analyzer 0 % (0-5); Neutrophil # 5.46 X10^3/uL (2.7-7.7); Neutrophil % 64.3 % (47-70); Platelet Count 177 K/mm3 (150-450); RBC Distribution Width CV 13.6 % (11.6-14.6); RBC Distribution Width SD 45.8 fl (35.1-43.9); Red Blood Count 5.35 M/mm3 (4.2-5.4); White Blood Count 8.5 K/mm3 (4.4-11.0)
[2021-10-05 12:38] LABS: ALB/GLOB Ratio 1.1 RATIO (0.9-2.4); AST(SGOT) 15 U/L (15-37); Alanine Aminotransfer ALT/SGPT 25 U/L (13-56); Albumin, Serum 3.7 g/dL (3.2-5.0); Alkaline Phosphatase 150 U/L (45-117); Anion Gap 3 (5-15); BUN 23 mg/dL (7-18); BUN/Creat Ratio 20.9 RATIO (10-20); Calcium,Total 10.3 mg/dL (8.5-10.1); Chloride 108 mmol/L (98-107); EST Glomerular Filtration Rate 52 mL/min (>60); Est Glom Filt Rate - Afr Amer 63 mL/min (>60); Globulin 3.5 g/dL (2.2-4.2); Glucose 134 mg/dL (74-106); Protein, Total 7.2 g/dL (6.4-8.2); Sodium Level 140 mmol/L (136-145)
== END 2021-10-05 23:59 | disposition short-term general hospital (02) ==
LOC: POLAB3 11:11
PROVIDERS: PCP Family Medicine Geriatric Medicine; Visit Provider Family Medicine Geriatric Medicine
DX: E11.9 Type 2 diabetes mellitus without complications (principal); E55.9 Vitamin D deficiency, unspecified; I10 Essential (primary) hypertension
CPT/HCPCS: 36415; 80053; 82306; 84443; 85025

== ENCOUNTER 2021-12-24 08:07 | Outpatient (CLI) | payer MEDICARE, SELFPAY ==
--- NOTE | 2021-12-24 08:10 | BI_ITS ---
MAMMOGRAPHY - BILATERAL SCREENING 3-D TOMOSYNTHESIS REASON FOR EXAM: Female, 70 years old. SCREENING PERTINENT HISTORY: No significant family history. TECHNIQUE: 2-D mammograms and 3-D Tomosynthesis of the breast (s) were performed. CAD was performed. COMPARISON: 10/23/2020 FINDINGS: The breast composition is composed of scattered fibroglandular density. Scattered benign calcifications are seen. No dense spiculated masses or suspicious microcalcifications are identified. No architectural distortion is identified. There is no skin thickening or retraction. There has been no significant change since the prior study. Bilateral benign rodlike calcifications. BI/SCRN MAMM (CAD)W/NELI BILAT IMPRESSION: No mammographic signs of malignancy. Routine yearly mammograms recommended. ASSESSMENT CATEGORY: BIRADS Category 2: Benign. A letter regarding these results will be sent to the patient by the facility within 30 days. FOLLOW UP RECOMMENDATION: Yearly follow up mammogram recommended. (A) Approximately 10% of breast cancers are not detected by mammography. A normal mammogram should not delay biopsy of a clinically suspicious abnormality. Electronically Signed: Sudarshan Duarte MD at 9:16 EDT ,
== END 2021-12-24 23:59 | disposition home or self-care (01) ==
LOC: OPBI 08:08
PROVIDERS: PCP Family Medicine Geriatric Medicine; Visit Provider Family Medicine Geriatric Medicine
DX: Z12.31 Encounter for screening mammogram for malignant neoplasm of breast (principal)
CPT/HCPCS: 77063; 77067

== ENCOUNTER 2022-03-13 17:58 | Emergency (ER) | payer MEDICARE, SELFPAY ==
[2022-03-13 17:59] VITALS: BP 184/77; PULSE 112; RESP 14; TEMP 37.3; O2SAT 93; BMI 24.7
--- NOTE | 2022-03-13 18:08 | EDS_ITS ---
HPI <VALERIE Ny - Last Filed: 03/13/22 18:53> History of Present Illness Chief Complaint: Abscess Narrative Narrative: 71-year-old female has a right armpit abscess that has been enlarging over the last 3 days. She is kept a pad over it but there has been no drainage. She has a history of MRSA and had abscesses before but in other locations. She felt warm yesterday but had no documented fever. PFSH <VALERIE Ny - Last Filed: 03/13/22 18:53> [facility] [place] Medical History CKD (chronic kidney disease) stage 3, GFR 30-59 ml/min DM type 2 (diabetes mellitus, type 2) Essential (primary) hypertension GERD (gastroesophageal reflux disease) Hyperlipidemia Left renal stone Nephrolithiasis Nicotine dependence Non-STEMI (non-ST elevated myocardial infarction) (02/10/20) Tobacco abuse Home Medications aspirin 81 mg tablet,delayed release 81 mg PO DAILY@0800 heart health 11/03/14 [History Last Taken 11/26/20] metoprolol tartrate 25 mg tablet 12.5 mg PO BID blood pressure 11/03/14 [History Last Taken 11/26/20] omeprazole 20 mg capsule,delayed release 20 mg PO DAILY reflux 11/03/14 [History Last Taken 11/26/20] rosuvastatin 40 mg tablet (Crestor) 40 mg PO QHS cholesterol 11/03/14 [History Last Taken 11/26/20] cyanocobalamin (vitamin B-12) 1,000 mcg tablet,extended release 1,000 mcg PO DAILY vitamin 02/10/16 [History Last Taken 11/26/20] vitamin B complex 1 ea PO QHS vitamin 01/22/20 [History Last Taken 11/26/20] acetaminophen-caffeine 500 mg-65 mg tablet 1 tablet PO DAILY PRN PRN Migraine Symptoms 11/27/20 [History Last Taken 2 Days Ago ~11/25/20] cephalexin 500 mg capsule 500 mg PO Q6 7 days #28 CAPSULES 03/13/22 [Rx Last Taken Unknown] sulfamethoxazole 800 mg-trimethoprim 160 mg tablet (Bactrim DS) 1 tab PO BID 7 days #14 tabs 03/13/22 [Rx Last Taken Unknown] Allergy/AdvReac Type Severity Reaction Status Date / Time oxycodone [From Percocet] Allergy Nausea Verified 03/13/22 18:00 Penicillins [PCN] Allergy Unknown Verified 03/13/22 18:00 Surgical History History of left heart catheterization (02/11/20) Status post insertion of dialysis catheter Social History Smoking Status: Heavy Smoker (>10/day) substance use type: does not use ROS <VALERIE Ny - Last Filed: 03/13/22 18:53> ROS ED ROS Narrative Constitutional: Negative for fever, chills, malaise. Eyes: Negative for visual change. ENT: Negative for sore throat, rhinorrhea. CVS: Negative for palpitations, chest malcolm. Respiratory: Negative for shortness of breath, cough. GI: Negative for abdominal pain, nausea, vomiting. : Negative for dysuria, hematuria or frequency. Neuro: Negative for headache, motor/sensory dysfunction. Skin: Positive for abscess. Negative for wound. Musc: Negative for joint pain, swelling, trauma. Heme: Negative for easy bruising, bleeding, lymphadenopathy. EXAM <VALERIE Ny - Last Filed: 03/13/22 18:53> Physical Exam Narrative Exam Narrative: CONST: Patient sitting in no acute distress. EYES: Normal inspection. NECK: Normal inspection. RESP: No respiratory distress, CTAB. CVS: Rapid but regular rhythm, no murmur, no gallop. SKIN: 2x3 cm fluctuant abscess right axilla with overlying erythema, no surrounding lymphangitic streaking. EXTREMITIES: Normal appearance, no pedal edema. 2+ radial pulses. NEURO: Oriented x4. PSYCH: Normal affect. Const Vital Signs: 03/13/22 17:59 Temperature 99.2 F H Temperature Source Temporal Pulse Rate 112 H Respiratory Rate 14 Blood Pressure 184/77 H Blood Pressure Mean 112 Pulse Ox 93 Oxygen Delivery Method Room Air <Dr. Pablito Hammond MD - Last Filed: 03/13/22 18:44> Physical Exam Const Vital Signs: 03/13/22 17:59 Temperature 99.2 F H Temperature Source Temporal Pulse Rate 112 H Respiratory Rate 14 Blood Pressure 184/77 H Blood Pressure Mean 112 Pulse Ox 93 Oxygen Delivery Method Room Air MDM <VALERIE Ny - Last Filed: 03/13/22 18:53> [facility] Narrative Medical decision making narrative: Patient has a 2 x 3 cm abscess with overlying erythema in her right axilla. Area was cleansed with an alcohol pad and anesthetized with 5 cc of 1% lidocaine with epinephrine. I used an 11 blade scalpel to make a 1.5 cm horizontal incision. Abscess explored with curved hemostats with a few ccs of bloody purulent drainage. With cellulitis she will be placed on Bactrim/Keflex with first dose given here. She has reported a history of DM2 but doesnt check her sugars so BGT was obtained and is 189. We discussed return precautions and she was discharged in stable condition. 1. Right axillary abscess I&D 2. Right axillary pain I have personally performed a face to face assessment of the patient and have reviewed the YADY Note. I performed a substantive portion of the visit including all aspects of the following. My griggs findings include: History is [71-year-old female complaining of right axillary abdomen cyst that she has had for last several days. It has not spontaneously drained. She has no fever. She also is a history of diabetes and has not been taking her blood sugar and has been taken off her medications.] Exam is [well-appearing 71-year-old female no acute distress. Vital signs sta ble afebrile. H EENT exam unremarkable. Lungs are clear. Heart regular rhythm no murmur. Right axilla there is about a 1 inch abscess that is raised and tender. Minimally red. No surrounding cellulitis. Slightly enlarged lymph nodes in the axilla. Moving all 4 extremities. Nontender no edema. Neurologically awake and alert.] Medical Decision Making [patient with right axillary abscess. Physician periodicals library assistant local anesthetized the wound and made about half to 1 inch horizontal incision. Was able to drain several cc of pus. Then placed half-inch gauze to pack the wound and leave it open. That will be pulled in 4 to 5 days. Patient will be started on both Keflex and Bactrim due to a prior history of MRSA infection.] Other additions or changes: [None] <Dr. Pablito Hammond MD - Last Filed: 03/13/22 18:44> [facility] Narrative Medical decision making narrative: Patient has a 2 x 3 cm abscess with overlying erythema in her right axilla. Area was cleansed with an alcohol pad and anesthetized with 5 cc of 1% lidocaine with epinephrine. I used an 11 blade scalpel to make a 1.5 cm incision. Abscess explored with curved hemostats with moderate bloody purulent drainage. With cellulitis she will be placed on Bactrim/Keflex with first dose given here. We discussed return precautions and she was discharged in stable condition. 1. Right axillary abscess I&D I have personally performed a face to face assessment of the patient and have reviewed the YADY Note. I performed a substantive portion of the visit including all aspects of the following. My griggs findings include: History is [71-year-old female complaining of right axillary abdomen cyst that she has had for last several days. It has not spontaneously drained. She has no fever. She also is a history of diabetes and has not been taking her blood sugar and has been taken off her medications.] Exam is [well-appearing 71-year-old female no acute distress. Vital signs stable afebrile. H EENT exam unremarkable. Lungs are clear. Heart regular rhythm no murmur. Right axilla there is about a 1 inch abscess that is raised and tender. Minimally red. No surrounding cellulitis. Slightly enlarged lymph nodes in the axilla. Moving all 4 extremities. Nontender no edema. Neurologically awake and alert.] Medical Decision Making [patient with right axillary abscess. Physician periodicals library assistant local anesthetized the wound and made about half to 1 inch horizontal incision. Was able to drain several cc of pus. Then placed half-inch gauze to pack the wound and leave it open. That will be pulled in 4 to 5 days. Patient will be started on both Keflex and Bactrim due to a prior history of MRSA infection.] Other additions or changes: [None] Discharge Plan Triage Chief Complaint: Abscess ED Midlevel Provider: Linette Tierney ED Provider: Pablito Hammond Dx/Rx/DC Orders Clinical Impression: Abscess of axilla, right Instructions: ED Abscess Incision And Drainage Prescriptions: New sulfamethoxazole-trimethoprim [Bactrim DS] 800-160 mg tablet 1 tab PO BID 7 Days Qty: 14 0RF cephalexin 500 mg capsule 500 mg PO Q6 7 Days Qty: 28 0RF No Action aspirin 81 MG tablet 81 mg PO DAILY@0800 Label Comments: heart health omeprazole 20 MG capsule 20 mg PO DAILY Label Comments: GERD rosuvastatin [Crestor] 40 MG tablet 40 mg PO QHS Label Comments: cholesterol metoprolol tartrate 25 MG tablet 12.5 mg PO BID Label Comments: heart cyanocobalamin (vitamin B-12) 1,000 MCG tablet extended release 1,000 mcg PO DAILY Label Comments: supplement vitamin B complex 1 EACH capsule 1 ea PO QHS acetaminophen-caffeine 1 EACH tablet 1 tablet PO DAILY PRN PRN (Reason: Migraine Symptoms) Primary Care Provider: Garrett Alvarez Chi Referrals: Garrett Alvarez Chi, MD [Primary Care Provider] - Activity Restrictions/Additional Instructions: Your abscess was drained. If the wick does not fall out after 2 to 3 days you can remove it in the shower. Take both antibiotics for the next week. If you develop any worsening redness, swelling, fever come back to the ER. Disposition Disposition: Home, Self Care
[2022-03-13] MEDS: Cephalexin 250 MG Capsule 500 MG PO (18:40)
[2022-03-13] MEDS: Smz/Tmp Ds Tablet 1 TABLET PO (18:40)
[2022-03-13 19:00] LABS: Bedside Glucose 189 mg/dL (74-106)
== END 2022-03-13 18:55 | disposition home or self-care (01) ==
LOC: ED 18:45
PROVIDERS: Emergency Provider Emergency Medicine; PCP Family Medicine Geriatric Medicine; Visit Provider Emergency Medicine
DX: L02.411 Cutaneous abscess of right axilla (principal); E11.22 Type 2 diabetes mellitus with diabetic chronic kidney disease; N18.30 Chronic kidney disease, stage 3 unspecified; F17.200 Nicotine dependence, unspecified, uncomplicated; E78.5 Hyperlipidemia, unspecified; I12.9 Hypertensive chronic kidney disease with stage 1 through stage 4 chronic kidney disease, or unspecified chronic kidney disease; K21.9 Gastro-esophageal reflux disease without esophagitis; Z87.442 Personal history of urinary calculi; I25.2 Old myocardial infarction; Z86.14 Personal history of Methicillin resistant Staphylococcus aureus infection; Z79.82 Long term (current) use of aspirin; Z79.899 Other long term (current) drug therapy
CPT/HCPCS: 10061; 10060; 82962; 99284

== ENCOUNTER → 2022-03-18 | Outpatient (CLI) | payer MEDICARE, SELFPAY ==
[2022-03-18 15:57] LABS: M R Staph aureus DNA By PCR Negative (Negative); Probe Check PASS; Staph aureus DNA By PCR POSITIVE (Negative)
== END | disposition home or self-care (01) ==
LOC: POLAB3 10:57 → LABSPEC 11:01
PROVIDERS: PCP Family Medicine Geriatric Medicine; Visit Provider Family Medicine Geriatric Medicine
DX: L03.90 Cellulitis, unspecified (principal)
CPT/HCPCS: 87070; 87205; 87640

== ENCOUNTER → 2022-04-05 | Outpatient (CLI) | payer MEDICARE, SELFPAY ==
[2022-04-05 12:52] LABS: Absolute Lymphocyte Count 1.67 X10^3/uL (0.83-4.51); Basophil# 0.13 X10^3/uL; Basophil% 1.4 % (0-1); Eosinophil# 0.75 X10^3/uL; Eosinophils% 8.2 % (0-5); Hemoglobin 14.6 g/dL (12.0-15.0); Lymphocyte # 1.67 X10^3/ul (0.83-4.51); Lymphocyte % 18.2 % (19-41); Mean Corp Hgb Conc 31.7 g/dL (32-36); Mean Corpuscular Hgb 29.3 pg (27.0-32.0); Mean Corpuscular Volume 92.2 fL (81-99); Mean Platelet Vol. 14.3 fl (6.2-12.0); Monocyte# 0.62 X10^3/uL; Monocyte% 6.8 % (0-10); NRBC Flagged by Analyzer 0 % (0-5); Neutrophil # 5.98 X10^3/uL (2.7-7.7); Neutrophil % 65.1 % (47-70); Platelet Count 168 K/mm3 (150-450); RBC Distribution Width SD 47.3 fl (35.1-43.9); Red Blood Count 4.99 M/mm3 (4.2-5.4); White Blood Count 9.2 K/mm3 (4.4-11.0)
[2022-04-05 13:04] LABS: Vitamin D,25 Hydroxy 36.3 ng/mL
[2022-04-05 13:11] LABS: AST(SGOT) 18 U/L (15-37); Alanine Aminotransfer ALT/SGPT 22 U/L (13-56); Albumin, Serum 3.4 g/dL (3.2-5.0); Alkaline Phosphatase 122 U/L (45-117); Anion Gap 8 (5-15); BUN 24 mg/dL (7-18); BUN/Creat Ratio 23.5 RATIO (10-20); Calcium,Total 9.7 mg/dL (8.5-10.1); Chloride 109 mmol/L (98-107); Cholesterol 176 mg/dL (200); Creatinine, Serum 1.02 mg/dL (0.55-1.02); EST Glomerular Filtration Rate 57 mL/min (>60); Est Glom Filt Rate - Afr Amer 69 mL/min (>60); Globulin 3.3 g/dL (2.2-4.2); Glucose 124 mg/dL (74-106); High Density Lipoprotein 49 mg/dL; Protein, Total 6.7 g/dL (6.4-8.2); Sodium Level 142 mmol/L (136-145); Thyroid Stim Hormone (TSH) 0.98 uIU/mL (0.358-3.74); Triglycerides 131 mg/dL; Very Low Density Lipoprotein 26 mg/dL (5-40)
== END | disposition home or self-care (01) ==
LOC: POLAB3 09:15
PROVIDERS: PCP Family Medicine Geriatric Medicine; Visit Provider Family Medicine Geriatric Medicine
DX: E11.9 Type 2 diabetes mellitus without complications (principal); E55.9 Vitamin D deficiency, unspecified; E78.5 Hyperlipidemia, unspecified; I10 Essential (primary) hypertension
CPT/HCPCS: 36415; 80053; 80061; 82306; 84443; 85025

== ENCOUNTER → 2022-05-13 | Outpatient (CLI) | payer MEDICARE, SELFPAY ==
[2022-05-13 12:32] LABS: Albumin, Serum 3.6 g/dL (3.2-5.0); BUN 24 mg/dL (7-18); BUN/Creat Ratio 20.3 RATIO (10-20); Calcium,Total 10.2 mg/dL (8.5-10.1); Chloride 107 mmol/L (98-107); Creatinine, Serum 1.18 mg/dL (0.55-1.02); EST Glomerular Filtration Rate 48 mL/min (>60); Est Glom Filt Rate - Afr Amer 58 mL/min (>60); Glucose 117 mg/dL (74-106); Phosphorus 3.1 mg/dL (2.5-4.9); Potassium 4.3 mmol/L (3.5-5.1); Sodium Level 141 mmol/L (136-145)
[2022-05-13 12:40] LABS: PTHIN 64.5 pg/mL (18.4-80.1)
[2022-05-13 12:48] LABS: Protein, Urine (Random) 16.4 mg/dL (<11.9); Protein:Creat Ratio 224 mg/g CRE (0-200)
== END | disposition home or self-care (01) ==
LOC: POLAB3 08:53
PROVIDERS: PCP Family Medicine Geriatric Medicine; Visit Provider Internal Medicine Nephrology
DX: E11.22 Type 2 diabetes mellitus with diabetic chronic kidney disease (principal); N18.30 Chronic kidney disease, stage 3 unspecified
CPT/HCPCS: 36415; 80069; 82570; 83970; 84156

== ENCOUNTER → 2022-09-10 | Outpatient (CLI) | payer MEDICARE, SELFPAY ==
--- NOTE | 2022-09-10 11:34 | RAD_ITS ---
STUDY: X-RAY - NASAL BONES REASON FOR EXAM: Female, 71 years old. Facial abrasions. TECHNIQUE: 3 view(s) of the nasal bones. COMPARISON: None. FINDINGS: Normal nasal bones. Normal anterior nasal spine. There is no demonstrated soft tissue swelling. The remaining visualized osseous structures are normal. Normal visualized paranasal sinuses. RAD/Nasal Bones min 3 Views IMPRESSION: No acute abnormality. Electronically Signed: Tio Mcdaniel, at 13:00 EST ,
--- NOTE | 2022-09-10 11:34 | RAD_ITS ---
STUDY: X-RAY - RIGHT HAND REASON FOR EXAM: Female, 71 years old. Right hand pain. TECHNIQUE: 3 view(s) of the hand. COMPARISON: None. FINDINGS: Osteopenia. Diffuse osteoarthrosis most marked at the first CMC joint. Normal soft tissues. No erosive changes. RAD/Hand Min 3 Views IMPRESSION: Osteopenia with diffuse osteoarthrosis most marked at the first CMC joint. No acute abnormality or erosive changes. Electronically Signed: Tio Mcdaniel, at 12:59 EST ,
--- NOTE | 2022-09-10 11:34 | RAD_ITS ---
STUDY: X-RAY - RIGHT KNEE REASON FOR EXAM: Female, 71 years old. Right knee pain. TECHNIQUE: 4 view(s) of the knee. COMPARISON: None. FINDINGS: Osteopenia. Mild medial compartmental arthrosis. Normal lateral and patellofemoral compartments. The soft tissue structures are unremarkable. RAD/Knee 4 or More Views IMPRESSION: Osteopenia with mild medial compartmental arthrosis. Electronically Signed: Tio Mcdaniel, at 12:58 EST ,
== END | disposition home or self-care (01) ==
LOC: RAD 11:32
PROVIDERS: PCP Family Medicine Geriatric Medicine; Visit Provider Family Medicine Geriatric Medicine
DX: M18.11 Unilateral primary osteoarthritis of first carpometacarpal joint, right hand (principal); S00.81XA Abrasion of other part of head, initial encounter; M85.841 Other specified disorders of bone density and structure, right hand; M85.861 Other specified disorders of bone density and structure, right lower leg
CPT/HCPCS: 70160; 73130; 73564

== ENCOUNTER → 2022-10-07 | Outpatient (CLI) | payer MEDICARE, SELFPAY ==
[2022-10-07 17:17] LABS: Absolute Lymphocyte Count 1.67 X10^3/uL (0.83-4.51); Absolute Neutrophil Count 4.8 X10^3/uL (2.0-7.7); Basophil# 0.08 X10^3/uL; Basophil% 1.1 % (0-1); Eosinophil# 0.26 X10^3/uL; Eosinophils% 3.5 % (0-5); Hematocrit 49.2 % (37-47); Hemoglobin 15.6 g/dL (12.0-15.0); Lymphocyte # 1.67 X10^3/ul (0.83-4.51); Lymphocyte % 22.7 % (19-41); Mean Corp Hgb Conc 31.7 g/dL (32-36); Mean Corpuscular Volume 94.6 fL (81-99); Mean Platelet Vol. 13.4 fl (6.2-12.0); Monocyte# 0.55 X10^3/uL; Monocyte% 7.5 % (0-10); NRBC Flagged by Analyzer 0 % (0-5); Neutrophil # 4.79 X10^3/uL (2.7-7.7); Neutrophil % 64.9 % (47-70); Platelet Count 162 K/mm3 (150-450); RBC Distribution Width CV 13.2 % (11.6-14.6); White Blood Count 7.4 K/mm3 (4.4-11.0)
[2022-10-07 17:52] LABS: AST(SGOT) 18 U/L (15-37); Alanine Aminotransfer ALT/SGPT 19 U/L (13-56); Alkaline Phosphatase 106 U/L (45-117); Anion Gap 8 (5-15); BUN 21 mg/dL (7-18); BUN/Creat Ratio 18.6 RATIO (10-20); Calcium,Total 9.8 mg/dL (8.5-10.1); Chloride 107 mmol/L (98-107); Creatinine, Serum 1.13 mg/dL (0.55-1.02); EST Glomerular Filtration Rate 51 mL/min (>60); Est Glom Filt Rate - Afr Amer 61 mL/min (>60); Glucose 138 mg/dL (74-106); Potassium 3.5 mmol/L (3.5-5.1); Sodium Level 142 mmol/L (136-145); Thyroid Stim Hormone (TSH) 1.28 uIU/mL (0.358-3.74)
[2022-10-07 17:54] LABS: Vitamin D,25 Hydroxy 32.5 ng/mL
== END | disposition home or self-care (01) ==
LOC: POLAB3 14:51
PROVIDERS: PCP Family Medicine Geriatric Medicine; Visit Provider Family Medicine Geriatric Medicine
DX: E55.9 Vitamin D deficiency, unspecified (principal); E11.65 Type 2 diabetes mellitus with hyperglycemia; I10 Essential (primary) hypertension
CPT/HCPCS: 36415; 80053; 82306; 84443; 85025

== ENCOUNTER → 2023-03-31 | Outpatient (CLI) | payer MEDICARE, SELFPAY ==
[2023-03-31 15:31] LABS: Absolute Neutrophil Count 6.1 X10^3/uL (2.0-7.7); Basophil% 1.1 % (0-1); Eosinophil# 0.25 X10^3/uL; Eosinophils% 2.8 % (0-5); Hematocrit 47.2 % (37-47); Hemoglobin 15.3 g/dL (12.0-15.0); Lymphocyte % 20.3 % (19-41); Mean Corp Hgb Conc 32.4 g/dL (32-36); Mean Corpuscular Hgb 29.9 pg (27.0-32.0); Mean Corpuscular Volume 92.4 fL (81-99); Mean Platelet Vol. 13.6 fl (6.2-12.0); Monocyte# 0.58 X10^3/uL; Monocyte% 6.5 % (0-10); NRBC Flagged by Analyzer 0 % (0-5); Neutrophil # 6.12 X10^3/uL (2.7-7.7); Neutrophil % 69.1 % (47-70); Platelet Count 150 K/mm3 (150-450); RBC Distribution Width CV 13.2 % (11.6-14.6); RBC Distribution Width SD 45.1 fl (35.1-43.9); Red Blood Count 5.11 M/mm3 (4.2-5.4); White Blood Count 8.9 K/mm3 (4.4-11.0)
[2023-03-31 15:44] LABS: Vitamin D,25 Hydroxy 31.1 ng/mL
[2023-03-31 15:56] LABS: ALB/GLOB Ratio 1.1 RATIO (0.9-2.4); AST(SGOT) 15 U/L (15-37); Alanine Aminotransfer ALT/SGPT 17 U/L (13-56); Albumin, Serum 3.7 g/dL (3.2-5.0); Alkaline Phosphatase 99 U/L (45-117); Anion Gap 6 (5-15); BUN 26 mg/dL (7-18); BUN/Creat Ratio 26.4 RATIO (10-20); Calcium,Total 9.6 mg/dL (8.5-10.1); Chloride 110 mmol/L (98-107); Creatinine, Serum 0.98 mg/dL (0.55-1.02); EST Glomerular Filtration Rate 59 mL/min (>60); Est Glom Filt Rate - Afr Amer 72 mL/min (>60); Globulin 3.3 g/dL (2.2-4.2); Glucose 111 mg/dL (74-106); Potassium 3.9 mmol/L (3.5-5.1); Sodium Level 141 mmol/L (136-145); Thyroid Stim Hormone (TSH) 0.98 uIU/mL (0.358-3.74)
== END | disposition home or self-care (01) ==
PROVIDERS: PCP Family Medicine Geriatric Medicine; Visit Provider Family Medicine Geriatric Medicine
DX: E11.65 Type 2 diabetes mellitus with hyperglycemia (principal); I10 Essential (primary) hypertension; E55.9 Vitamin D deficiency, unspecified
CPT/HCPCS: 36415; 80053; 82306; 84443; 85025

== ENCOUNTER → 2023-04-21 | Outpatient (CLI) | payer MEDICARE, SELFPAY ==
--- NOTE | 2023-04-21 08:15 | BD_ITS ---
STUDY: DUAL ENERGY X-RAY ABSORPTIOMETRY / DXA REASON FOR EXAM: Female, 72 years old. 627.8Menopausal postmenopausal BONE DENSITY REASON FOR EXAM TECHNIQUE: Bone Mineral Density (BMD) measurements of lumbar spine and bilateral hips were obtained. COMPARISON: Comparison is made with prior study of November 23, 2018. FINDINGS: Lumbar Spine (L1-L4): g/cm2 (1.148) / T-score (0.9) / Z-score (3.0) Findings are suggestive of normal bone density with a low fracture risk. Left Femur Total: g/cm2 (0.833) / T-score (-0.9) / Z-score (0.6) Left Femoral Neck: g/cm2 (0.620) / T-score (-2.1) / Z-score (-0.3) Right Femur Total: g/cm2 (0.861) / T-score (-0.7) / Z-score (0.9) Right Femoral Neck: g/cm2 (0.670) / T-score (-1.6) / Z-score (0 point) The T-Scores on the most recent prior examination were: Lumbar Spine (L1-L4): There has been worsening of bone density since the previous examination. Left Femur Total: which represents a worsening of 10.2%. Right Femur Total: which represents a worsening of 7.1%. BD/Dexa Bone Density Study IMPRESSION: The patient is considered osteopenic as outlined below according to World Mookie Organization (WHO) criteria with a moderate fracture risk. There has been worsening of bone density since the previous examination. Reference Information: The T-score is the number of standard deviations above or below the standard which is normal for young adults at their peak bone mineral density. The World Health Organization (WHO) interprets the T-scores as follows: Above -1 Normal bone density Between -1 and -2.5 Osteopenia Equal to / or below -2.5 Osteoporosis As a practical clinical guideline, osteopenia may be graded as follows: Mild -1 through -1.5 Moderate -1.6 through -2.0 Severe -2.1 through -2.4 The Z-score is the number of standard deviations above or below age-matched controls. A Z-score of less than -1.5 would be considered abnormal. References: 1. NIH Osteoporosis and Related Bone Diseases www osteo.org 2. International Society for Clinical Densitometry www iscd.org 3. National Osteoporosis Foundation www nof.org Electronically Signed: Fernando Caro MD at 12:12 EDT ,
== END | disposition home or self-care (01) ==
LOC: OPBD 08:09
PROVIDERS: PCP Family Medicine Geriatric Medicine; Referring Provider Family Medicine Geriatric Medicine; Visit Provider Family Medicine Geriatric Medicine
DX: Z78.0 Asymptomatic menopausal state (principal)
CPT/HCPCS: 77080

== ENCOUNTER → 2023-10-11 | Outpatient (CLI) | payer MEDICARE, SELFPAY ==
[2023-10-11 15:26] LABS: Absolute Lymphocyte Count 1.65 X10^3/uL (0.83-4.51); Absolute Neutrophil Count 5.6 X10^3/uL (2.0-7.7); Basophil# 0.08 X10^3/uL; Eosinophil# 0.25 X10^3/uL; Eosinophils% 3.1 % (0-5); Hematocrit 47.4 % (37-47); Hemoglobin 14.7 g/dL (12.0-15.0); Lymphocyte # 1.65 X10^3/ul (0.83-4.51); Lymphocyte % 20.4 % (19-41); Mean Corpuscular Hgb 29.2 pg (27.0-32.0); Mean Platelet Vol. 13.5 fl (6.2-12.0); Monocyte# 0.51 X10^3/uL; Monocyte% 6.3 % (0-10); NRBC Flagged by Analyzer 0 % (0-5); Neutrophil # 5.55 X10^3/uL (2.7-7.7); Neutrophil % 68.8 % (47-70); Platelet Count 158 K/mm3 (150-450); RBC Distribution Width CV 13.2 % (11.6-14.6); RBC Distribution Width SD 45.3 fl (35.1-43.9); Red Blood Count 5.04 M/mm3 (4.2-5.4); White Blood Count 8.1 K/mm3 (4.4-11.0)
[2023-10-11 15:39] LABS: Vitamin D,25 Hydroxy 41.9 ng/mL
[2023-10-11 15:46] LABS: ALB/GLOB Ratio 1.2 RATIO (0.9-2.4); AST(SGOT) 12 U/L (15-37); Alanine Aminotransfer ALT/SGPT 19 U/L (13-56); Alkaline Phosphatase 84 U/L (45-117); Anion Gap -1 (5-15); BUN 28 mg/dL (7-18); BUN/Creat Ratio 25.7 RATIO (10-20); Calcium,Total 10.2 mg/dL (8.5-10.1); Chloride 109 mmol/L (98-107); Creatinine, Serum 1.09 mg/dL (0.55-1.02); EST Glomerular Filtration Rate 53 mL/min (>60); Est Glom Filt Rate - Afr Amer 64 mL/min (>60); Globulin 3.3 g/dL (2.2-4.2); Glucose 120 mg/dL (74-106); Potassium 3.9 mmol/L (3.5-5.1); Protein, Total 7.3 g/dL (6.4-8.2); Sodium Level 139 mmol/L (136-145)
== END | disposition home or self-care (01) ==
LOC: POLAB3 13:04
PROVIDERS: PCP Family Medicine Geriatric Medicine; Visit Provider Family Medicine Geriatric Medicine
DX: E11.65 Type 2 diabetes mellitus with hyperglycemia (principal); I10 Essential (primary) hypertension; E55.9 Vitamin D deficiency, unspecified
CPT/HCPCS: 36415; 80053; 82306; 84443; 85025

== ENCOUNTER → 2023-10-24 | Outpatient (CLI) | payer MEDICARE, SELFPAY ==
--- NOTE | 2023-10-24 09:41 | BI_ITS ---
MAMMOGRAPHY - BILATERAL SCREENING REASON FOR EXAM: Female, 72 years old. Routine annual screening examination. PERTINENT HISTORY: Non-contributory. TECHNIQUE: Digital bilateral breast neli (3D mammographic acquisition) in the CC and MLO projections. 2-D mediolateral oblique (MLO) and craniocaudad (CC) views of both breasts were obtained. CAD: Full Field Digital Mammography with Computer Added Detection was performed. COMPARISON: Comparison is made with prior study dated December 24, 2021 and October 23, 2020. FINDINGS: Breast Composition: The breasts are almost entirely fatty. There are no dominant masses or suspicious calcifications. Stable small benign-appearing bilateral axillary lymph nodes. Stable bilateral secretory calcifications. No other significant abnormalities are identified. There has been no significant change since the prior study. BI/SCRN MAMM (CAD)W/NELI BILAT IMPRESSION: Stable bilateral screening mammogram. Yearly follow-up mammogram recommended. (A) ASSESSMENT CATEGORY: BIRADS Category 2: Benign. A letter regarding these results will be sent to the patient by the facility within 30 days. Approximately 10% of breast cancers are not detected by mammography. A normal mammogram should not delay biopsy of a clinically suspicious abnormality. [id number] Electronically Signed: Fernando Caro MD at 12:00 EST ,
--- OUTSIDE RECORDS SUMMARY | 2023-10-24 10:08 | XMS RPT_ITS | CCD ---
Author Name Unknown Address [address] [place] [id number] Organization [facility] Results Test Name Value Interpretation Reference Range Facil ity Progress note 11-22-2020 Note Date & Type Note Facility 11-22-2020 Note HNO ID: [id number] Author: Lisa Durant Service: ? Author Type: Physician Type: Progress Notes Filed: 11/23/2020 6:01 PM Note Text: Latricia Cat Tarango 1950 REFERRING PHYSICIAN: MD Gaston CHIEF COMPLAINT: Consult HPI: The patient is a 69 year old female presents with multiple site of skin infections. Skin cultures were taken at her primary physician's office with findings of MRSA. Patient also has diabetes and also is a daily cigarette smoker. She has an infection of her left forehead, and left and right axillary areas. She is presently on doxycycline and bactrim. She does note that the swelling of her forehead infection has decreased since it started draining. PAST MEDICAL HISTORY Diagnosis Date - Anxiety state - Esophageal reflux - Essential hypertension - Mixed hyperlipidemia - Rotator cuff syndrome of shoulder and allied disorders - Tobacco abuse - Type 2 diabetes mellitus (HCC) - Vitamin D deficiency PAST SURGICAL HISTORY Procedure Laterality Date - COLONOSCOPY GEN ANES - EGD - PAST SURGICAL HISTORY OF kidney stone laser Current Outpatient Medications Medication Sig - metoprolol tartrate, short acting, (LOPRESSOR) 25 mg tablet Take 25 mg by mouth twice daily. - rosuvastatin (CRESTOR) 40 mg tablet Take 40 mg by mouth daily at bedtime. - metFORMIN (GLUCOPHAGE) 1,000 mg tablet Take 1,000 mg by mouth twice daily. - lisinopril (ZESTRIL, PRINIVIL) 20 mg tablet Take 20 mg by mouth once daily. - doxycycline (VIBRA-TABS) 100 mg tablet Take 100 mg by mouth twice daily. - sulfamethoxazole-trimethoprim (BACTRIM DS) 800-160 mg per tablet Take by mouth twice daily. - aspirin, enteric coated (ASPIRIN, ENTERIC COATED) 81 mg EC tablet Take 81 mg by mouth once daily. - Omeprazole Magnesium (PRILOSEC OTC) 20 mg tablet Take 20 mg by mouth once daily. - ibuprofen (MOTRIN) 200 mg tablet Take 600 mg by mouth every 6 hours as needed. - cholecalciferol, vitamin D3, (D-3-5 ORAL) Take 5,000 Units by mouth once daily. - mecobalamin, vitamin B12, (B12 ACTIVE) 1,000 mcg chew Take 1,000 mcg by mouth once daily. - HYDROcodone-acetaminophen (NORCO) 5-325 mg per tablet Take 1 tablet by mouth. ALLERGIES: Penicillins and Percocet [Oxycodone-Acetaminophen] PERSONAL HISTORY: Social History Tobacco Use - Smoking status: Current Every Day Smoker - Smokeless tobacco: Never Used Substance Use Topics - Alcohol use: Not Currently - Drug use: Never FAMILY HISTORY Problem Relation Age of Onset - Hypertension Mother - Migraines Mother - Alzheimer's Disease Father - Diabetes Sister - Hypertension Brother - Migraines Brother - Leukemia Sister REVIEW OF SYSTEMS: General - denies fevers, has had weight loss but now stable Cardiovascular - denies chest pain, denies history of AR Pulmonary - has shortness of breath with exertion, denies coughing up blood Gastrointestinal - denies abdominal pain, denies hematemesis Neurological - has occasional headaches, denies seizures, denies chronic numbness/weakness of extremities, denies history of CVA Genitourinary - has kidney stones, denies burning with urination, denies blood in urine Hematological - denies spontaneous/prolonged bleeding, has had blood transfusions, denies history of DVT/PE Skin - see HPI Musculoskeletal - has some back pain Endocrine - has diabetes, no thyroid problems Psychological ? admits to depression, denies hallucinations PHYSICAL EXAMINATION: General: The patient is 69 year old female, well nourished, well hydrated in no acute distress. The patient is oriented to time, place, and person. VITALS: Blood pressure 114/70, pulse 117, temperature 36.2 ?C (97.1 ?F), temperature source Temporal Artery, Ht: 5'1 weight 58.5 kg (129 lb), SpO2 97 %. Head ? Normocephalic - left forehead localized erythema with central skin excoriation - drainage site but no palpable nodular densities. EOM intact with sclera clear. Wearing glasses. Neck - supple with no jugular venous distention noted. Trachea is midline. Lungs ? normal respiratory excursion, no adventitial sounds noted. No labored breathing noted, such as retractions. No cough heard. Heart ? regular Abdomen ? soft and benign. Normal bowel sounds. No abdominal bruits noted. . Extremities ? no pitting edema noted. Skin ? left forehead area with erythematous area with no palpable nodular/cystic subcutaneous lesion with central skin ulceration and draining site, left axillary area with 1.5 cm sebaceous cyst with drainage and central white comedo pore opening, right axillary area with sebaceous cysts not actively infected Neurological ? gait normal, no focal deficits noted. Psych ? calm and appropriate RADIOLOGIC STUDIES: As Noted Assessment IMPRESSION: skin infections due to MRSA - recurrent PLAN: I have discussed the above with the patient. I have offered excision of the infected sebaceous cyst of her left (more content not included)... [facility] Summary Purpose Family History No Family History Records Found Advance Directives No Advanced Directives Records Found Additional Source Comments INFORMATION SOURCE (unrecogn ized section and content) FOR RECORDS PERTAINING TO PATIENTS WHO ARE OR HAVE BEEN ENROLLED IN A CHEMICAL DEPENDENCY/SUBSTANCEABUSE PROGRAM, SOME INFORMATION MAY BE OMITTED. This clinical summary was aggregated from multiple sources. Caution should be exercised in using it in the provision of clinical care. This summary normalizes information from multiple sources, and as a consequence, information in this document may materially change the coding, format and clinical context of patient data. In addition, data may be omitted in some cases. CLINICAL DECISIONS SHOULD BE BASED ON THE PRIMARY CLINICAL RECORDS. [employer] provides no warranty or guarantee of the accuracy or completeness of information in this document.
== END | disposition home or self-care (01) ==
LOC: OPBI 09:40
PROVIDERS: PCP Family Medicine Geriatric Medicine; Referring Provider Family Medicine Geriatric Medicine; Visit Provider Family Medicine Geriatric Medicine
DX: Z12.31 Encounter for screening mammogram for malignant neoplasm of breast (principal)
CPT/HCPCS: 77063; 77067

== ENCOUNTER → 2023-10-27 | Outpatient (CLI) | payer MEDICARE, SELFPAY | END | disposition home or self-care (01) | LOC: PSN 09:00 | PROVIDERS: PCP Family Medicine Geriatric Medicine; Referring Provider Family Medicine Geriatric Medicine; Visit Provider Family Medicine Geriatric Medicine | DX: R68.83 Chills (without fever) (principal) | CPT/HCPCS: 87631 ==

== ENCOUNTER → 2024-04-12 | Outpatient (CLI) | payer MEDICARE, SELFPAY ==
[2024-04-12 09:55] LABS: Absolute Lymphocyte Count 1.46 X10^3/uL (0.83-4.51); Absolute Neutrophil Count 5.3 X10^3/uL (2.0-7.7); Basophil# 0.12 X10^3/uL; Basophil% 1.5 % (0-1); Eosinophil# 0.29 X10^3/uL; Eosinophils% 3.7 % (0-5); Hematocrit 46.6 % (37-47); Hemoglobin 14.9 g/dL (12.0-15.0); Lymphocyte # 1.46 X10^3/ul (0.83-4.51); Lymphocyte % 18.7 % (19-41); Mean Corpuscular Hgb 29.7 pg (27.0-32.0); Mean Platelet Vol. 12.7 fl (6.2-12.0); Monocyte# 0.63 X10^3/uL; Monocyte% 8.1 % (0-10); NRBC Flagged by Analyzer 0 % (0-5); Neutrophil # 5.29 X10^3/uL (2.7-7.7); Neutrophil % 67.7 % (47-70); Platelet Count 170 K/mm3 (150-450); RBC Distribution Width CV 13.3 % (11.6-14.6); RBC Distribution Width SD 45.3 fl (35.1-43.9); Red Blood Count 5.01 M/mm3 (4.2-5.4); White Blood Count 7.8 K/mm3 (4.4-11.0)
[2024-04-12 10:30] LABS: Vitamin D,25 Hydroxy 46.2 ng/mL
[2024-04-12 11:00] LABS: ALB/GLOB Ratio 1.1 RATIO (0.9-2.4); AST(SGOT) 16 U/L (15-37); Alanine Aminotransfer ALT/SGPT 17 U/L (13-56); Albumin, Serum 3.6 g/dL (3.2-5.0); Alkaline Phosphatase 87 U/L (45-117); Anion Gap 7 (5-15); BUN 30 mg/dL (7-18); BUN/Creat Ratio 30.4 RATIO (10-20); Calcium,Total 9.7 mg/dL (8.5-10.1); Chloride 112 mmol/L (98-107); Creatinine, Serum 0.99 mg/dL (0.55-1.02); EST Glomerular Filtration Rate 59 mL/min (>60); Est Glom Filt Rate - Afr Amer 71 mL/min (>60); Globulin 3.2 g/dL (2.2-4.2); Glucose 142 mg/dL (74-106); Protein, Total 6.8 g/dL (6.4-8.2); Sodium Level 142 mmol/L (136-145); Thyroid Stim Hormone (TSH) 0.93 uIU/mL (0.358-3.74)
== END | disposition home or self-care (01) ==
LOC: POLAB3 09:38
PROVIDERS: PCP Family Medicine Geriatric Medicine; Visit Provider Family Medicine Geriatric Medicine
DX: E11.65 Type 2 diabetes mellitus with hyperglycemia (principal); E78.5 Hyperlipidemia, unspecified; E55.9 Vitamin D deficiency, unspecified
CPT/HCPCS: 36415; 80053; 82306; 84443; 85025

== ENCOUNTER → 2024-08-10 | Outpatient (CLI) | payer MEDICARE, SELFPAY | END | disposition home or self-care (01) | LOC: PSN 11:27 | PROVIDERS: PCP Family Medicine Geriatric Medicine; Referring Provider Family Medicine Geriatric Medicine; Visit Provider Family Medicine Geriatric Medicine | DX: R68.83 Chills (without fever) (principal) | CPT/HCPCS: 87631 ==

== ENCOUNTER → 2024-10-16 | Outpatient (CLI) | payer BC, SELFPAY ==
[2024-10-16 10:59] LABS: Absolute Lymphocyte Count 1.55 X10^3/uL (0.83-4.51); Absolute Neutrophil Count 6.1 X10^3/uL (2.0-7.7); Basophil# 0.11 X10^3/uL; Basophil% 1.3 % (0-1); Eosinophil# 0.29 X10^3/uL; Eosinophils% 3.3 % (0-5); Hematocrit 49.7 % (37-47); Hemoglobin 15.4 g/dL (12.0-15.0); Lymphocyte # 1.55 X10^3/ul (0.83-4.51); Lymphocyte % 17.9 % (19-41); Mean Corpuscular Hgb 29.2 pg (27.0-32.0); Mean Corpuscular Volume 94.3 fL (81-99); Mean Platelet Vol. 13.3 fl (6.2-12.0); Monocyte# 0.64 X10^3/uL; Monocyte% 7.4 % (0-10); NRBC Flagged by Analyzer 0 % (0-5); Neutrophil # 6.06 X10^3/uL (2.7-7.7); Neutrophil % 69.8 % (47-70); POSITIVE COUNT YES; RBC Distribution Width CV 13.5 % (11.6-14.6); RBC Distribution Width SD 47.4 fl (35.1-43.9); Red Blood Count 5.27 M/mm3 (4.2-5.4); White Blood Count 8.7 K/mm3 (4.4-11.0)
[2024-10-16 11:33] LABS: Vitamin D,25 Hydroxy 33.7 ng/mL
[2024-10-16 11:43] LABS: ALB/GLOB Ratio 1.1 RATIO (0.9-2.4); AST(SGOT) 23 U/L (15-37); Alanine Aminotransfer ALT/SGPT 18 U/L (13-56); Albumin, Serum 3.7 g/dL (3.2-5.0); Alkaline Phosphatase 81 U/L (45-117); Anion Gap 3 (5-15); BUN 20 mg/dL (7-18); BUN/Creat Ratio 18.9 RATIO (10-20); Calcium,Total 10.3 mg/dL (8.5-10.1); Chloride 109 mmol/L (98-107); Creatinine, Serum 1.06 mg/dL (0.55-1.02); EST Glomerular Filtration Rate 54 mL/min (>60); Est Glom Filt Rate - Afr Amer 66 mL/min (>60); Globulin 3.3 g/dL (2.2-4.2); Glucose 134 mg/dL (74-106); Potassium 4.9 mmol/L (3.5-5.1); Sodium Level 143 mmol/L (136-145)
[2024-10-16 12:15] LABS: Differential Indicated SCAN CRITERIA MET
[2024-10-16 12:19] LABS: Platelet Estimate SLT DEC (ADEQ)
[2024-10-16 12:21] LABS: Platelet Morphology GIANT
== END | disposition home or self-care (01) ==
PROVIDERS: PCP Family Medicine Geriatric Medicine; Visit Provider Family Medicine Geriatric Medicine
DX: E11.65 Type 2 diabetes mellitus with hyperglycemia (principal); I10 Essential (primary) hypertension; E55.9 Vitamin D deficiency, unspecified
CPT/HCPCS: 36415; 80053; 82306; 84443; 85025

== ENCOUNTER → 2025-04-16 | Outpatient (CLI) | payer MEDICARE, SELFPAY ==
[2025-04-16 11:50] LABS: Hematocrit 47.5 % (37-47); Hemoglobin 15.2 g/dL (12.0-15.0); Immature Granulocytes Count 0.030 X10^3/uL (0.0-0.0); Mean Corp Hgb Conc 32.0 g/dL (32-36); Mean Corpuscular Volume 93.9 fL (81-99); Mean Platelet Vol. 13.5 fl (6.2-12.0); NRBC Flagged by Analyzer 0 % (0-5); POSITIVE COUNT YES; RBC Distribution Width CV 12.9 % (11.6-14.6); RBC Distribution Width SD 44.4 fl (35.1-43.9); Red Blood Count 5.06 M/mm3 (4.2-5.4); White Blood Count 7.9 K/mm3 (4.4-11.0)
[2025-04-16 12:33] LABS: Differential Indicated SCAN CRITERIA MET
[2025-04-16 13:18] LABS: AST(SGOT) 19 U/L (<=31); Alanine Aminotransfer ALT/SGPT 16 U/L (<=34); Albumin, Serum 4.3 g/dL (3.4-4.8); Alkaline Phosphatase 89 U/L (35-104); Anion Gap 12 (5-15); BUN 23 mg/dL (4-19); BUN/Creat Ratio 23.3 RATIO (10-20); Calcium,Total 10.2 mg/dL (7.6-11.0); Carbon Dioxide 24.6 mmol/L (21.0-32.0); Chloride 104 mmol/L (98-108); Globulin 2.4 g/dL (2.2-4.2); Glucose 129 mg/dL (70-99); Potassium 4.3 mmol/L (3.3-5.1)
[2025-04-16 13:19] LABS: Vitamin D,25 Hydroxy 36.0 ng/mL (30-100)
== END | disposition home or self-care (01) ==
LOC: LAB 11:07
PROVIDERS: PCP Family Medicine Geriatric Medicine; Referring Provider Family Medicine Geriatric Medicine; Visit Provider Family Medicine Geriatric Medicine
DX: E11.22 Type 2 diabetes mellitus with diabetic chronic kidney disease (principal); E11.65 Type 2 diabetes mellitus with hyperglycemia; I10 Essential (primary) hypertension; E55.9 Vitamin D deficiency, unspecified
CPT/HCPCS: 36415; 80053; 82306; 84443; 85025